=== PATIENT | male | born 1965 | race Caucasian/White ===

== ENCOUNTER 2017-06-08 13:04 | Emergency (ER) | payer MEDICAID, SELFPAY ==
[2017-06-08 13:15] VITALS: BP 119/81; PULSE 90; RESP 22; TEMP 37; O2SAT 97; BMI 33.7
--- NOTE | 2017-06-08 13:20 | HMH.EDUTC ---
[facility] [place] Clinical Impression: Upper respiratory infection Qualifiers: URI type: unspecified URI Qualified Code(s): J06.9 - Acute upper respiratory infection, unspecified Disposition: Home, Self-Care Condition on Discharge: Good Instructions: Cough, DI for Cough -- Adult, DI for Fever (Symptom) -- Adult Additional Instructions: * Monitor Temp. Tylenol and/or Ibuprofen as needed. ER if fever is no less than 101 despite alternating Tylenol and Ibuprofen * Encourage fluids, water, Gatorade, powerade, pedialyte if /toddler/or child * Warm salt water gargles for throat irritation *Warm fluids *Sore throat lozenges *Sleep elevated *humidifier or vaporizer Lots of rest Increase fluids, water, Gatorade, powerade Follow up IMMEDIATELY for new or worsening of symptoms OR no noticeable improvement over the next 48-72 hours. 911 immediately for any life threatening symptoms such as chest pain or difficulty breathing Prescriptions: Azithromycin [Z-Johann 250mg Tab] 250 mg PO UD DOSE PK #6 tab predniSONE [Prednisone 20mg Tab] 20 mg PO BID #10 tab Referrals: Jermain Newman MD [Primary Care Provider] - Time of Disposition: 13:27 Medical Decision Making - Medical Records Medical records reviewed: Yes: I reviewed the patient's medical records. Vital Signs: 06/08/17 13:15 Temperature 98.6 F Temperature Source Temporal Artery Scan Pulse Rate [Right Brachial] 90 Respiratory Rate 22 Blood Pressure [Right Arm] 119/81 Blood Pressure Mean [Right Arm] 93 Blood Pressure Source [Right Arm] Automatic Cuff Blood Pressure Position [Right Arm] Sitting 02 Sat by Pulse Oximetry 97 Oxygen Delivery Method Room Air - Steve Inquiry Pt receiving controlled substance: No Steve was queried for this patient: No [facility] [place] - General Stated complaint: fever achey sore throat Mode of Arrival: Ambulatory Source of Information: Patient Limitations: No Limitations Description of Symptoms (Recalled from Triage Doc. by RN): C/O HOT FLASHES, CONGESTION HEENT Symptoms (Recalled from RN notes): Yes (CONGESTION) Resp Symptoms (Recalled from RN notes): Yes (CONGESTION) Skin Symptoms (Recalled from RN notes): No MS Symptoms (Recalled from RN notes): No Functional Status (Recalled from RN notes): N/A - History of Present Illness Provider Complaint: Patient state that he has been having fever, chills, body aches and pain along with sore throat and nasal congestion State that it has continued to get worse over the last few days States that now he is having cough - Related Data Previous Rx's Medication Instructions Recorded Azithromycin [Z-Johann 250mg Tab] 250 mg PO UD DOSE PK #6 tab 06/08/17 predniSONE [Prednisone 20mg 20 mg PO BID #10 tab 06/08/17 Tab] Allergies Allergy/AdvReac Type Severity Reaction Status Date / Time ibuprofen Allergy Unknown Unverified 05/11/17 14:35 Penicillins Allergy Unknown Unverified 05/11/17 14:35 DEPRESSION MED Allergy Unknown Uncoded 05/11/17 14:35 - Worker's Comp Is this a Worker's Comp case?: No [facility] History I have reviewed the patient's past medical history: Yes Medical History: Reports:: Cancer (RT KIDNEY) Denies:: Diabetes Mellitus Type 1, Diabetes Mellitus Type 2 Amputation: No Fractures: No - *Social History Smoking Status: Current every day smoker Tobacco Type: cigarettes Alcohol Intake: never - Psychiatric History Expresses thoughts of harming self/others: None Suicide Plan Description: No Plan ROS Obtained: Yes All systems reviewed & no additional complaints - Constitutional Constitutional: Reports body ache, Reports chills, Reports fever(s) - ENT Ears, Nose, Mouth, and Throat: Reports sinus pain, Reports sinus pressure, Reports sore throat - Respiratory Respiratory: Yes cough Physical Exam - General General appearance: alert, in no apparent distress - Expanded ENT Exam Nose exam: Present: sinus tenderness Nasal speculum exam: Bilateral: puru
--- NOTE | 2017-06-08 13:23 | ED_ITS ---
[facility] [place] Disposition Clinical Impression: Upper respiratory infection Qualifiers: URI type: unspecified URI Qualified Code(s): J06.9 - Acute upper respiratory infection, unspecified Disposition: Home, Self-Care Condition on Discharge: Good Instructions: Cough, DI for Cough -- Adult, DI for Fever (Symptom) -- Adult Additional Instructions: * Monitor Temp. Tylenol and/or Ibuprofen as needed. ER if fever is no less than 101 despite alternating Tylenol and Ibuprofen * Encourage fluids, water, Gatorade, powerade, pedialyte if /toddler/or child * Warm salt water gargles for throat irritation *Warm fluids *Sore throat lozenges *Sleep elevated *humidifier or vaporizer Lots of rest Increase fluids, water, Gatorade, powerade Follow up IMMEDIATELY for new or worsening of symptoms OR no noticeable improvement over the next 48-72 hours. 911 immediately for any life threatening symptoms such as chest pain or difficulty breathing Prescriptions: Azithromycin [Z-Johann 250mg Tab] 250 mg PO UD DOSE PK #6 tab predniSONE [Prednisone 20mg Tab] 20 mg PO BID #10 tab Referrals: Jermain Newman MD [Primary Care Provider] - Time of Disposition: 13:27 Medical Decision Making - Medical Records Medical records reviewed: Yes: I reviewed the patient's medical records. Vital Signs: 06/08/17 13:15 Temperature 98.6 F Temperature Source Temporal Artery Scan Pulse Rate [Right Brachial] 90 Respiratory Rate 22 Blood Pressure [Right Arm] 119/81 Blood Pressure Mean [Right Arm] 93 Blood Pressure Source [Right Arm] Automatic Cuff Blood Pressure Position [Right Arm] Sitting 02 Sat by Pulse Oximetry 97 Oxygen Delivery Method Room Air - Steve Inquiry Pt receiving controlled substance: No Steve was queried for this patient: No [facility] [place] HPI - General Stated complaint: fever achey sore throat Mode of Arrival: Ambulatory Source of Information: Patient Limitations: No Limitations Description of Symptoms (Recalled from Triage Doc. by RN): C/O HOT FLASHES, CONGESTION HEENT Symptoms (Recalled from RN notes): Yes (CONGESTION) Resp Symptoms (Recalled from RN notes): Yes (CONGESTION) Skin Symptoms (Recalled from RN notes): No MS Symptoms (Recalled from RN notes): No Functional Status (Recalled from RN notes): N/A - History of Present Illness Provider Complaint: Patient state that he has been having fever, chills, body aches and pain along with sore throat and nasal congestion State that it has continued to get worse over the last few days States that now he is having cough - Related Data Previous Rx's Medication Instructions Recorded Azithromycin [Z-Johann 250mg Tab] 250 mg PO UD DOSE PK #6 tab 06/08/17 predniSONE [Prednisone 20mg 20 mg PO BID #10 tab 06/08/17 Tab] Allergies Allergy/AdvReac Type Severity Reaction Status Date / Time ibuprofen Allergy Unknown Unverified 05/11/17 14:35 Penicillins Allergy Unknown Unverified 05/11/17 14:35 DEPRESSION MED Allergy Unknown Uncoded 05/11/17 14:35 - Worker's Comp Is this a Worker's Comp case?: No [facility] History I have reviewed the patient's past medical history: Yes Medical History: Reports:: Cancer (RT KIDNEY) Denies:: Diabetes Mellitus Type 1, Diabetes Mellitus Type 2 Amputation: No Fractures: No - *Social History Smoking Status: Current every day smoker Tobacco Type: cigarett
[2017-06-08 13:24] LABS: UTC Influenza A Antigen Negative (Negative); UTC Influenza B Antigen Negative (Negative)
[2017-06-08 13:34] VITALS: BP 119/81; PULSE 90; RESP 22; TEMP 37; O2SAT 97
== END 2017-06-08 13:39 | disposition home or self-care (01) ==
PROVIDERS: Emergency Provider Nurse Practitioner; PCP Family Medicine
DX: J06.9 Acute upper respiratory infection, unspecified (principal); Z85.528 Personal history of other malignant neoplasm of kidney; Z88.6 Allergy status to analgesic agent; Z88.0 Allergy status to penicillin; F17.210 Nicotine dependence, cigarettes, uncomplicated
CPT/HCPCS: 87804; 99202

== ENCOUNTER → 2017-10-26 06:53 | Outpatient (CLI) | payer MEDICAID, SELFPAY ==
--- NOTE | 2017-10-26 | CA_ITS ---
History and Indications: Cardiac disease, hypertension, hyperlipidemia, tobacco use, family history, chest pain, shortness of breath and fatigue Procedure: Patient received a 0.4 mg of Lexiscan, resting heart rate was 57 bpm resting blood pressure 130/81, with Lexiscan maximum heart rate achieved was 95 bpm which is less than 85% of the maximum predicted heart rate and a blood pressure was 122/87. With Lexiscan patient complained of shortness of breath and jaw pain. Electrocardiogram: Resting electrocardiogram showed sinus bradycardia, with Lexiscan there is less than 1.[address] segment depression noted from the baseline EKG. The EKG portion of the Lexiscan Myoview is nondiagnostic. Cardiac stress and resting SPECT images: Cardiac stress and rest SPECT images were obtained using technetium 99 Myoview 31.0 mCi at stress and 10.1 mCi at rest. Gated SPECT further analysis of segmental wall motion and calculation of the ejection fraction also done. Cardiac stress and resting SPECT images show decreased tracer activity in the inferior and posterobasal wall which improves on the resting images suggestive of reversible ischemia, computer derived ejection fraction 55% with no obvious regional wall motion abnormality, right ventricle is normal size and contractility. Conclusion: 1. The EKG portion of the Lexiscan Myoview is nondiagnostic. 2. Scintigraphic evidence of mild reversible ischemia involving the inferior and posterobasal wall, computer derived ejection fraction is 55% with no obvious regional wall motion abnormality, right ventricle is normal size and contractility. 3. Abnormal Lexiscan Myoview study. This is the Lexiscan Myoview study on patient EVERETT HUANG.
--- NOTE | 2017-10-26 06:54 | CA_ITS ---
PROCEDURE: 2-D M-mode and color Doppler study INDICATIONS FOR THE TEST: Chest pain+ COPD Heart Murmur Tobacco Smoking+ Palpitations+ Fatigue+ Syncope Edema+ Hypertension+Diabetes Mellitus Rheumatic Fever SOB+DINERO+Obesity+Hyperlipidemia Family History HD Additional History stents, dizziness Definity contrast utilized PATIENT INFORMATION HEIGHT: 72 WEIGHT: 247 GENDER: Male B/P: 142/80 2-D/M-MODE INTERPRETATION: 2-D MEASUREMENTS OBSERVED VALUES IN CMS Right Ventricular Dimension (RVDd) 2.1 Interventricular Septum (Thickness)(IVsd) 1.1 Left Ventricular Internal Dimensions(LVIDd) 4.2 Left Ventricular Posterior Wall (Thickness)(LVPWd) 1.2 Aortic Root 3.4 Aortic Cusp Separation 2.1 Left Atrial Dimensions (LAD) 4.0 2D 1. Left atrium is mildly enlarged, left ventricle is normal size, mild concentric left ventricular hypertrophy, visually estimated ejection fraction 55% with no obvious regional wall motion abnormality, Definity contrast was utilized to delineate endocardial surfaces. 2. The right atrium and right ventricle are normal size and contractility. 3. The aortic valve is minimally thickened and fibrosed. 4. The mitral and tricuspid valvular grossly normal. 5. The pulmonic valve is poorly visualized. 6. No significant pericardial effusion noted. DOPPLER INTERROGATION: Doppler interrogation of the aortic, mitral and tricuspid valvular presence of mild mitral and tricuspid regurgitation, tricuspid regurgitant jet velocity is insufficient for calculation of the right ventricular systolic pressure, diastolic parameters are inconclusive. CONCLUSION: 1. Technically difficult study, Definity contrast was utilized. Endocardial surfaces. 2. Normal left ventricular size, mild concentric left ventricular hypertrophy, visually estimated ejection fraction 55% with no obvious regional wall motion abnormality. Diastolic parameters are inconclusive. 3. Mild mitral and tricuspid regurgitation 4. No significant pericardial effusion noted.
--- NOTE | 2017-10-26 06:54 | NM_ITS ---
History and Indications: Coronary artery disease, hypertension, hyperlipidemia, , family history chest pain, shortness of breath and fatigue Procedure: Patient received a 0.4mg Lexiscan, resting heart rate was 59 beats per, resting blood pressure 150/95, with Lexiscan maximum heart rate was 97 bpm which is less than 85% of the maximum predicted heart rate and a blood pressure 154/84. With Lexiscan patient complained of mild nausea and dizziness. Electrocardiogram: Resting electrocardiogram showed sinus bradycardia, with Lexiscan less than 1.5 ST segment depression noted from the baseline EKG. The EKG portion of the Lexiscan Myoview is nondiagnostic. Cardiac stress and resting SPECT images: Cardiac stress and rest SPECT images were obtained using technetium 99 Myoview 9.4 mCi at stress than 10.7 mCi at rest. Gated SPECT further analysis of segmental wall motion and calculation of the ejection fraction also done. Cardiac stress and the suspect images show reduced tracer activity in the inferior and posterobasal wall which partially improves on the resting images suggestive of mixed ischemia and scar in that area. Computer derived ejection fraction is 43% with moderate inferior and posterobasal wall hypokinesis. Right ventricle is normal size and contractility. Conclusion: 1. The EKG portion of the Lexiscan Myoview is nondiagnostic. 2. Scintigraphic evidence of ischemia and involving the inferior and posterobasal wall, computer derived ejection fraction is 43% with segmental wall motion abnormality described above, right ventricle is normal size and contractility. 3. Abnormal Lexiscan Myoview study.
== END ==
PROVIDERS: PCP Nurse Practitioner; Visit Provider Internal Medicine Cardiovascular Disease
DX: Z01.810 Encounter for preprocedural cardiovascular examination (principal); I25.10 Atherosclerotic heart disease of native coronary artery without angina pectoris; I11.9 Hypertensive heart disease without heart failure; R53.83 Other fatigue; F17.200 Nicotine dependence, unspecified, uncomplicated
CPT/HCPCS: 78452; 93017; 93306; A9502; J2785

== ENCOUNTER → 2017-10-27 11:25 | Outpatient (CLI) | payer MEDICAID, SELFPAY | PROVIDERS: PCP Nurse Practitioner; Visit Provider Physician Assistant | DX: R07.9 Chest pain, unspecified (principal); I11.9 Hypertensive heart disease without heart failure; I25.10 Atherosclerotic heart disease of native coronary artery without angina pectoris | CPT/HCPCS: 93225; 93226 ==

== ENCOUNTER 2017-12-02 09:51 | Outpatient (RCR) | payer MEDICAID, SELFPAY | END 2018-01-07 13:06 | disposition home or self-care (01) | LOC: PT 09:51 | PROVIDERS: Visit Provider Internal Medicine | DX: Z95.5 Presence of coronary angioplasty implant and graft (principal) | CPT/HCPCS: 93798 ==

== ENCOUNTER → 2017-12-06 14:16 | Outpatient (CLI) | payer MEDICAID, SELFPAY ==
--- NOTE | 2017-12-06 14:21 | XR_ITS ---
EXAM: XR lumbar spine min 4V HISTORY: Diffuse low back pain ITS.REASON: DORSALGIA ORDERING PHYSICIAN: Ama Omer PATIENT AGE: 52 years COMPARISON: 11/18/2007 FINDINGS: The study is compared with the previous CT scan lumbar spine from October 2007. Curvature and alignment appear normal except for very mild diffuse levoscoliotic curvature between T12 and L5. All lumbar vertebrae appear intact. There are stable mild disc space narrowing at L4-5 level. Remaining disc spaces appear normal. There is no pars defect. There are minor hypertrophic facet changes at the L4-5 and L5-S1 levels. The SI joints are normal. . IMPRESSION: Stable minor degenerative disc disease L4-5 along with minor hypertrophic facet changes lower lumbar spine
== END ==
PROVIDERS: PCP Nurse Practitioner; Visit Provider Nurse Practitioner
DX: M54.9 Dorsalgia, unspecified (principal)
CPT/HCPCS: 72110

== ENCOUNTER → 2017-12-30 09:14 | Outpatient (CLI) | payer MEDICAID, SELFPAY ==
--- NOTE | 2017-12-30 09:18 | CT_ITS ---
CT abdomen pelvis w con CLINICAL INDICATION: Right groin pain ITS.REASON: IV and oral contrast ORDERING PHYSICIAN: Timothy Redman MD PATIENT AGE: 52 years COMPARISON: 11/12/2015 TECHNIQUE: Axial images obtained with sagittal and coronal reformats. All CT scans at the facility use one or more dose reduction, viz: automated exposure control, ma/kV adjustment per patient size (including targeted exams where dose is matched to indication, i.e. head), or iterative reconstruction technique. PROCEDURE: Oral Contrast: Redicat IV Contrast: 75 mL's of Isovue-370. FINDINGS: Lung bases are clear. The liver, gallbladder, spleen, left adrenal gland, pancreas, and left kidney have an unremarkable appearance. A 12 mm nodule projects off the posterior aspect of the adrenal gland on the right unchanged. There has been a prior right nephrectomy. No evidence of mass or abnormal fluid collection in the right nephrectomy bed. Unremarkable appendix. No intestinal obstruction, free air, or abnormal bowel thickening. No evidence of diverticulitis. No pelvic mass or abnormal fluid collection or focal inflammatory change evident. There is increased soft tissue density in the right inguinal region similar to the previous study and may represent postsurgical changes. No evidence of recurrent inguinal hernia. There is a small umbilical hernia containing fat. There are small lymph nodes in the right inguinal area nonspecific not significantly changed IMPRESSION: 1. Overall stable CT appearance of the abdomen and pelvis compared to 11/12/2015. 2. Prior right nephrectomy with no change in the right adrenal nodule. 3. Soft tissue density in the right inguinal region similar to the previous exam consistent with postsurgical change from prior inguinal surgery. No evidence of inguinal hernia
--- NOTE | 2017-12-30 10:00 | HMH.ITSHM ---
BISOPROLOL PRASUGREL ASA
== END ==
PROVIDERS: PCP Nurse Practitioner; Visit Provider Surgery
DX: R10.31 Right lower quadrant pain (principal); K40.91 Unilateral inguinal hernia, without obstruction or gangrene, recurrent
CPT/HCPCS: 74177; Q9967

== ENCOUNTER → 2018-02-14 14:35 | Outpatient (POV) | payer MEDICAID, SELFPAY ==
[2018-02-14 14:53] VITALS: BP 126/86; PULSE 61; RESP 18; O2SAT 98
--- NOTE | 2018-02-14 15:58 | HMH.PMCON ---
Assessment and Plan (1) CRPS (complex regional pain syndrome type I) Current visit: Yes Status: Chronic Qualifiers: Complex regional pain syndrome affected site: other site Qualified Code(s): G90.59 - Complex regional pain syndrome I of other specified site Category: Medical Code(s): G90.50 - Complex regional pain syndrome I, unspecified - Assessment and plan all Dx Assessment and Plan for all problems:: I gave the patient information on DRG along with an overview of neuro stimulation. Believe it would be beneficial for him. Patient would like to review this and will get back to us in regards to if he wants to pursue this or not. This note was dictated using voice recognition software and may contain errors or omissions HPI - Data of Consult Consult date: 02/14/18 Requesting Physician: Jacklyn Zaidi APRN Primary Care Provider: Ama Chan Provider: Referral Provider, MD - Consult Narrative Reason for consult: Right groin pain History of present illness: Mr. Santos is a 52 year old male who presents today for consultation in regards to his right groin pain. Patient had hernia surgery back in 2013. Since then patient has had continual right groin pain and testicular pain. Patient states lifting increases pain while resting and smoking marijuana decreases his pain. He rates his pain a 7 out of 10 today. Patient states that he has tried and failed ibuprofen and Flexeril. Patient is on indomethacin which does help somewhat. Patient status post kidney cancer and is monitored for kidney function. Patient and I discussed DRG and neuro stimulation. CC: Jacklyn Zaidi APRN [facility] History I have reviewed the patient's past medical history: Yes Medical History: Reports:: Cancer Denies:: Diabetes Mellitus Type 1, Diabetes Mellitus Type 2, Internal Pacemaker, Seizures Other Surgeries: Yes: Hernia Repair, Other. No: Pacemaker Amputation: No Fractures: No - *Social History Smoking Status: Current every day smoker Tobacco Type: cigarettes Alcohol Intake: never Alcohol Intake Frequency:: other Substance Use Type: marijuana Last Used Substance: unknown Occupational Status: employed Housing: house Household Members: spouse - Psychiatric History Expresses thoughts of harming self/others: None Suicide Plan Description: No Plan *Family Hx:: No significant family history Review of Systems - Review of Systems ROS General: no recent weight change, no fever, no sleep disturbances Respiratory: no cough, no shortness of air, no recurring pulmonary infections Cardiovascular/Peripheral Vascular: No chest pain, No palpitations, no edema, no shortness of breath. Gastrointestinal: no incontinence, normal bowel movements reported Genitourinary: no incontinence Musculoskeletal: Right groin pain, back pain Psychiatric: normal mood/ affect Neurological: [denies weakness in extremities], [denies balance issues] Meds Home Medications Medication Instructions Recorded Confirmed Type aspirin 81 mg tablet,delayed 81 mg PO DAILY tab 08/12/17 History release atorvastatin 40 mg tablet 40 mg PO DAILY tab 08/12/17 History polyethylene glycol 3350 17 17 g PO DAILY g 08/12/17 History gram/dose oral powder prasugrel 10 mg tablet 10 mg PO DAILY tab 08/12/17 History bisoprolol fumarate 5 mg tablet 2.5 mg PO DAILY tab 11/05/17 History Allergies Allergy/AdvReac Type Severity Reaction Status Date / Time ibuprofen Allergy Unknown Verified 12/27/17 10:11 Penicillins Allergy Unknown Verified 12/27/17 10:11 DEPRESSION MED Allergy Unknown Uncoded 12/27/17 10:11 Objective Vital signs: Pulse Resp BP Pulse Ox 61 18 126/86 98 02/14/18 14:53 02/14/18 14:53 02/14/18 14:53 02/14/18 14:53 Narrative: Physical Exam General: Alert and oriented x3, no acute distress, pleasant and cooperative, [on room air] Lungs: Resps E/U, Symmetrical chest
--- NOTE | 2018-02-14 16:01 | P.CONS_ITS ---
Assessment and Plan (1) CRPS (complex regional pain syndrome type I) Current visit: Yes Status: Chronic Qualifiers: Complex regional pain syndrome affected site: other site Qualified Code(s): G90.59 - Complex regional pain syndrome I of other specified site Category: Medical Code(s): G90.50 - Complex regional pain syndrome I, unspecified - Assessment and plan all Dx Assessment and Plan for all problems:: I gave the patient information on DRG along with an overview of neuro stimulation. Believe it would be beneficial for him. Patient would like to review this and will get back to us in regards to if he wants to pursue this or not. This note was dictated using voice recognition software and may contain errors or omissions HPI - Data of Consult Consult date: 02/14/18 Requesting Physician: Jacklyn Zaidi APRN Primary Care Provider: Ama Chan Provider: Referral Provider, MD - Consult Narrative Reason for consult: Right groin pain History of present illness: Mr. Santos is a 52 year old male who presents today for consultation in regards to his right groin pain. Patient had hernia surgery back in 2013. Since then patient has had continual right groin pain and testicular pain. Patient states lifting increases pain while resting and smoking marijuana decreases his pain. He rates his pain a 7 out of 10 today. Patient states that he has tried and failed ibuprofen and Flexeril. Patient is on indomethacin which does help somewhat. Patient status post kidney cancer and is monitored for kidney function. Patient and I discussed DRG and neuro stimulation. CC: Jacklyn Zaidi APRN [facility] History I have reviewed the patient's past medical history: Yes Medical History: Reports:: Cancer Denies:: Diabetes Mellitus Type 1, Diabetes Mellitus Type 2, Internal Pacemaker, Seizures Other Surgeries: Yes: Hernia Repair, Other. No: Pacemaker Amputation: No Fractures: No - *Social History Smoking Status: Current every day smoker Tobacco Type: cigarettes Alcohol Intake: never Alcohol Intake Frequency:: other Substance Use Type: marijuana Last Used Substance: unknown Occupational Status: employed Housing: house Household Members: spouse - Psychiatric History Expresses thoughts of harming self/others: None Suicide Plan Description: No Plan *Family Hx:: No significant family history Review of Systems - Review of Systems ROS General: no recent weight change, no fever, no sleep disturbances Respiratory: no cough, no shortness of air, no recurring pulmonary infections Cardiovascular/Peripheral Vascular: No chest pain, No palpitations, no edema, no shortness of breath. Gastrointestinal: no incontinence, normal bowel movements reported Genitourinary: no incontinence Musculoskeletal: Right groin pain, back pain Psychiatric: normal mood/ affect Neurological: [denies weakness in extremities], [denies balance issues] Meds Home Medications Medication Instructions Recorded Confirmed Type aspirin 81 mg tablet,delayed 81 mg PO DAILY tab 08/12/17 History release atorvastatin 40 mg tablet 40 mg PO DAILY tab 08/12/17 History polyethylene glycol 3350 17 17 g PO DAILY g 08/12/17 History gram/dose oral powder prasugrel 10 mg tablet 10 mg PO DAILY tab 08/12/17 History bisoprolol fumarate 5 mg tablet 2.5 mg PO DAILY tab 11/05/17 History
== END ==
PROVIDERS: PCP Nurse Practitioner; Visit Provider Clinical Nurse Specialist Family Health
DX: G90.50 Complex regional pain syndrome I, unspecified (principal)
CPT/HCPCS: 99202

== ENCOUNTER → 2018-03-01 14:25 | Outpatient (CLI) | payer MEDICAID, SELFPAY | PROVIDERS: PCP Nurse Practitioner; Visit Provider Internal Medicine Cardiovascular Disease | DX: G47.33 Obstructive sleep apnea (adult) (pediatric) (principal); G47.9 Sleep disorder, unspecified; F17.200 Nicotine dependence, unspecified, uncomplicated; I11.9 Hypertensive heart disease without heart failure; I25.110 Atherosclerotic heart disease of native coronary artery with unstable angina pectoris; R06.83 Snoring | CPT/HCPCS: 95806 ==

== ENCOUNTER → 2018-03-23 09:20 | Outpatient (CLI) | payer MEDICAID, SELFPAY ==
--- NOTE | 2018-03-23 | NVE_ITS ---
Venous Exam Indications: 729.5 Pain in limb. IMPRESSIONS No evidence of deep or superficial vein thrombosis involving the left lower extremity History: Left lower extremity pain. Risk factors: Current tobacco use. Hypertension. Patient denies trauma. Labs, prior tests, procedures, and surgery: Catheterization (October 2017). The study demonstrated coronary artery disease. Labs, prior tests, procedures, and surgery: Catheterization (October 2017). The study demonstrated coronary artery disease. Left lower extremity venous duplex evaluation. Doppler flow study including spectral analysis, color and plunkett scale imaging. Location: Vascular laboratory. Patient status: Outpatient. Tables: Venous flow and imaging: + +-------+ + Location Overall Flow properties + +-------+ + Left common femoral Patent Normal phasicity; spontaneous; normal augmentation; compressible + +-------+ + Left saphenofemoral junction Patent Compressible + +-------+ + Left profunda femoral Patent Compressible + +-------+ + Left femoral Patent Normal phasicity; spontaneous; normal augmentation; compressible + +-------+ + Left greater saphenous Patent Normal phasicity; spontaneous; normal augmentation; compressible + +-------+ + Left popliteal Patent Normal phasicity; spontaneous; normal augmentation; compressible + +-------+ + Left posterior tibial Patent Compressible + +-------+ + Left peroneal Patent Compressible + +-------+ + Left gastrocnemius Patent Compressible + +-------+ + Left soleal Patent Compressible + +-------+ + (Report amended ) Electronically signed by: Shar Beard [id number]
== END ==
PROVIDERS: PCP Nurse Practitioner; Visit Provider Nurse Practitioner
DX: M79.605 Pain in left leg (principal)
CPT/HCPCS: 93971

== ENCOUNTER 2018-05-15 07:32 | Observation (INO) ==
[2018-05-15 07:47] LABS: Basophils # 0.1 K/mm3 (0-0.2); Basophils % 1.1 % (0.1-2.0); Eosinophils # 0.3 K/mm3 (0.0-0.4); Eosinophils % 3.1 % (0.1-12.0); Hematocrit 47.6 % (42.0-52.0); Lymphocytes # 2.6 K/mm3 (0.7-4.5); Mean Corpuscular HGB Conc 33.7 g/dL (31.8-35.4); Mean Corpuscular Hemoglobin 28.7 pg (27.0-31.2); Mean Corpuscular Volume 85.3 fl (80-94); Mean Platelet Volume 6.6 fl (7.4-10.4); Monocytes # 0.5 K/mm3 (0.1-1.0); Monocytes % 5.4 % (1.7-9.3); Neutrophils # 5.1 K/mm3 (1.8-7.8); Neutrophils % 59.4 % (37.0-80.0); Platelet Count 230 K/mm3 (142-424); Red Blood Count 5.58 M/mm3 (4.60-6.20); Red Cell Distribution Width 13.8 % (11.5-17.5); White Blood Count 8.5 K/mm3 (4.8-10.8)
--- NOTE | 2018-05-15 08:05 | Emergency Department Note ---
ED Disposition Clinical Impression: Chest pain due to coronary artery disease Disposition: Admitted as Observation Condition on Discharge: Serious Time of Disposition: 08:30 - Critical Care Critical Care Time: No Attestation: On 05/15/18, the high probability of a clinically significant, sudden or life threatening deterioration of the following system(s) required my full and direct attention, intervention and personal management. The time I documented below is in addition to time spent performing reported procedures but includes the following listed in this critical care notation. Medical Decision Making - Medical Records Medical records reviewed: Yes: I reviewed the patient's medical records. - Steve Inquiry Pt receiving controlled substance: No Steve was queried for this patient: No Vital Signs: 05/15/18 07:33 05/15/18 07:34 05/15/18 07:47 Temperature 97.9 F Temperature Source Oral Pulse Rate 59 L Pulse Rate [Apical] Pulse Rate [Left Radial] 59 L 59 L Respiratory Rate 18 18 Blood Pressure Blood Pressure [Right Arm] 145/89 H 118/79 Blood Pressure Mean [Right Arm] 107 92 Blood Pressure Source [Right Arm] Automatic Cuff Automatic Cuff Blood Pressure Position Blood Pressure Position [Right Arm] Sitting Sitting 02 Sat by Pulse Oximetry 94 L 94 L Oxygen Delivery Method Room Air Room Air 05/15/18 07:50 05/15/18 07:56 05/15/18 08:35 Temperature Temperature Source Pulse Rate Pulse Rate [Apical] Pulse Rate [Left Radial] 51 L Respiratory Rate Blood Pressure Blood Pressure [Right Arm] 136/79 126/75 122/74 Blood Pressure Mean [Right Arm] 98 92 90 Blood Pressure Source [Right Arm] Automatic Cuff Automatic Cuff Blood Pressure Position Blood Pressure Position [Right Arm] Sitting 02 Sat by Pulse Oximetry 97 Oxygen Delivery Method Room Air 05/15/18 08:38 05/15/18 09:00 05/15/18 09:03 Temperature 98 F Temperature Source Oral Pulse Rate 59 L Pulse Rate [Apical] 52 L Pulse Rate [Left Radial] 58 L 59 L Respiratory Rate 16 16 16 Blood Pressure 138/84 Blood Pressure [Right Arm] 118/84 141/58 H Blood Pressure Mean [Right Arm] 95 85 Blood Pressure Source [Right Arm] Automatic Cuff Automatic Cuff Blood Pressure Position Sitting Blood Pressure Position [Right Arm] Sitting Sitting 02 Sat by Pulse Oximetry 97 100 Oxygen Delivery Method Room Air Room Air Room Air - Lab Data Lab results reviewed: Yes: I reviewed the patient's lab results. Lab Results 05/15/18 07:35: WBC 8.5, RBC 5.58, Hgb 16.0, Hct 47.6, MCV 85.3, MCH 28.7, MCHC 33.7, RDW 13.8, Plt Count 230, MPV 6.6 L, Neut % (Auto) 59.4, Lymph % (Auto) 31.0, [place] % (Auto) 5.4, Eos % (Auto) 3.1, Baso % (Auto) 1.1, Neut # (Auto) 5.1, Lymph # (Auto) 2.6, [place] # (Auto) 0.5, Eos # (Auto) 0.3, Baso # (Auto) 0.1 05/15/18 07:35: Sodium 139, Potassium 3.9, Chloride 103, Carbon Dioxide 25, A nion Gap 11.5, BUN 16, Creatinine 1.23, Estimated Creat Clear 111, Estimated GFR 61, Est GFR ( Amer) 74, Glucose 148 H, Calcium 8.5, Troponin I 0.78 H Result diagrams: 05/15/18 07:35 05/15/18 07:35 Orders (Tests/Meds): ED MEDICATIONS Discontinued Medications Generic Name Dose Route Start Last Admin Trade Name Cal PRN Reason Stop Dose Admin Aspirin 324 mg 05/15/18 07:36 05/15/18 07:42 Aspirin 81mg Chewable Tablet PO 05/15/18 07:37 324 mg ONCE ONE Administration Aspirin 81 mg 05/15/18 09:00 Aspirin 81mg Enteric Coated Tablet PO 06/14/18 08:59 DAILY YSABEL Aspirin 81 mg 05/15/18 09:00 05/16/18 08:34 Aspirin 81mg Enteric Coated Tablet PO 06/14/18 08:59 81 mg DAILY YSABEL Administration Atorvastatin Calcium 40 mg 05/15/18 09:00 Lipitor 40mg Tablet PO 06/14/18 08:59 DAILY YSABEL Atorvastatin Calcium 40 mg 05/15/18 21:00 05/15/18 21:47 Lipitor 40mg Tablet PO 06/14/18 20:59 40 mg HS YSABEL Administration Bisoprolol Fumarate 2.5 mg 05/15/18 09:00 Zebeta 5mg Tablet PO 06/14/18 08:59 DAILY YSABEL Bisoprolol Fumarate 2.5 mg 05/15/18 09:00 05/16/18 08:52 Zebeta 5mg Tablet PO 06/14/18 08:59 2.5 mg DAILY YSABEL Administration Diphenhydramine HCl 50 mg 05/15/18 14:23 05/15/18 15:04 Benadryl 50mg/1ml Vial IV 05/15/18 14:24 50 mg ONCE ONE Administration Fentanyl Citrate 50 mcg 05/15/18 14:23 Fentanyl 100mcg/2ml Vial IV 05/16/18 14:24 Q3MINP PRN Moderate to Severe Pain Fentanyl Citrate 25 mcg 05/15/18 14:23 Fentanyl 250mcg/5ml Vial IV 05/16/18 14:23 Q3MINP PRN Moderate to Severe Pain Fentanyl Citrate 50 mcg 05/15/18 14:23 Fentanyl 250mcg/5ml Vial IV 05/16/18 14:23 Q3MINP PRN Moderate to Severe Pain Fentanyl Citrate 25 mcg 05/15/18 14:23 05/15/18 15:41 Fentanyl 100mcg/2ml Vial IV 05/16/18 14:23 25 mcg Q3MINP PRN Administration Moderate to Severe Pain Flumazenil 0.2 mg 05/15/18 14:23 Romazicon 0.1mg/Ml 5ml Vial IV 05/15/18 23:00 NEEDED PRN Sedation Heparin Sodium (Porcine) 10,000 unit 05/15/18 14:23 05/15/18 15:05 Heparin 1,000 Units/Ml 10ml Vial (Ham Sawyer) IV 05/15/18 18:23 12,000 unit NEEDED PRN Administration Emergency Box Gasoline Attendant Heparin Sodium/Sodium Chloride 3,000 unit 05/15/18 14:23 05/15/18 15:04 Heparin 1000 Units/500ml Ns (Ham Sawyer) IV 05/15/18 14:24 3,000 unit ONCE ONE Administration Sodium Chloride 1,000 mls @ 25 mls/hr 05/15/18 14:30 05/15/18 15:04 Sod Chlor 0.9% 1000ml Bag IV 05/16/18 14:23 25 mls/hr .Q25H YSABEL Administration Iopamidol 80 ml 05/15/18 15:54 05/15/18 21:36 Rad-Isovue 370; 150ml IV 05/15/18 15:55 Not Given ONCE ONE Protocol Lidocaine HCl 20 ml 05/15/18 14:23 05/15/18 15:04 Lidocaine 1% 20ml Mdv IJ 05/15/18 14:24 10 ml ONCE ONE Administration Midazolam HCl 1 mg 05/15/18 14:23 Midazolam 2mg/2ml Vial IV 05/16/18 14:23 Q3MINP PRN Sedation Midazolam HCl 1 mg 05/15/18 14:23 05/15/18 15:32 Midazolam 1mg/Ml 5ml Vial IV 05/16/18 14:23 7 mg Q3MINP PRN Administration Sedation Morphine Sulfate 4 mg 05/15/18 08:31 05/15/18 08:39 Morphine 4mg/Ml Syringe IV 05/15/18 08:32 4 mg ONCE ONE Administration Morphine Sulfate 4 mg 05/15/18 08:50 05/15/18 12:13 Morphine 4mg/Ml Syringe IV 06/14/18 08:49 4 mg Q4HP PRN Administration Chest Pain Naloxone HCl 0.4 mg 05/15/18 14:23 Narcan 0.4mg/Ml Vial IV 05/16/18 14:23 Q5MINP PRN Decreased respirations Nitroglycerin 0.4 mg 05/15/18 07:37 05/15/18 07:51 Nitrostat 0.4mg Sl Tablet SL 05/15/18 07:38 0.4 mg ONCE ONE Administration Nitroglycerin 800 mcg 05/15/18 14:23 Nitroglycerin 800mcg/8ml Syr (Ham Sawyer) IV 05/16/18 14:23 NEEDED PRN Emergency Box Gasoline Attendant Ondansetron HCl 4 mg 05/15/18 14:14 05/15/18 16:20 Zofran 4mg/2ml Vial IV 06/14/18 14:13 4 mg Q4HP PRN Administration Nausea And Vomiting Prasugrel 10 mg 05/15/18 09:00 Effient 10mg Tablet PO 06/14/18 08:59 DAILY YSABEL Prasugrel 10 mg 05/15/18 09:00 05/16/18 08:34 Effient 10mg Tablet PO 06/14/18 08:59 10 mg DAILY YSABEL Administration Promethazine HCl 25 mg 05/15/18 15:09 05/15/18 15:32 Phenergan 25mg/Ml 1ml Vial IV 05/15/18 15:10 25 mg ONCE ONE Administration Sodium Chloride 10 ml 05/15/18 07:34 Saline Flush 10ml Syringe IV 06/14/18 07:33 NEEDED PRN Maintain IV Site Sodium Chloride 10 ml 05/15/18 08:50 Saline Flush 10ml Syringe IV 06/14/18 07:33 NEEDED PRN Maintain IV Site Sodium Chloride 10 ml 05/15/18 14:23 Saline Flush 10ml Syringe IV 06/14/18 14:22 NEEDED PRN Maintain IV Site Sodium Chloride 10 ml 05/15/18 14:23 Saline Flush 10ml Syringe IV 06/14/18 14:22 NEEDED PRN Maintain IV Site Sodium Chloride 25 ml 05/15/18 15:09 Sod Chlor 0.9% 25ml Bag IV 06/14/18 15:08 NEEDED PRN for Use with IV Promethazine Ticagrelor 180 mg 05/15/18 08:28 05/15/18 08:39 Brilinta 90mg Tablet PO 05/15/18 08:29 180 mg ONCE ONE Administration Verapamil HCl 2.5 mg 05/15/18 14:23 05/15/18 15:04 Verapamil 2.5mg/Ml 2ml Vial IV 05/15/18 14:24 2.5 mg ONCE ONE Administration - ECG Data Tracing #1 normal ekg ECG initial impression date: 05/15/18 ECG initial impression time: 07:30 Chest Pain HPI - General Chief Complaint: Chest Pain Stated Complaint: chest pain Time Seen by Provider: 05/15/18 08:00 Mode of Arrival: Ambulatory Limitations: No Limitations Description of Symptoms (Recalled from ER Triage Doc. by RN): to ed per pvt car with c/o lt side chest pressure x 3 days, radiates lt shoulder, +SOB, +nausea, denies any diaphoresis. pt with hx of coronary stents jan 2017. cpta none - History of Present Illness HPI narrative: 3 days of left sided chest pressure, " I thought it was a panic attack". No known provocators. No history of cardiac intervention. MD complaint: chest pain Activity at onset: light activity Pain location: left chest Severity: mild Severity scale (1-10): 3 Risk Factors for CAD: Hypertension, Hypercholesterolemia, Family Hx of CAD, Smoking Treatments prior to or on arrival for Cardiac Chest Pain: aspirin, nitroglycerin - Related Data Prior Cardiac Testing/Procedures: Echocardiogram, Stenting, CTA Chest/CTA Coronary Angiography Home Medications Medication Instructions Recorded Confirmed aspirin 81 mg tablet,delayed 81 mg PO DAILY tab 08/12/17 05/20/18 release polyethylene glycol 3350 17 17 g PO DAILY g 08/12/17 05/20/18 gram/dose oral powder RX: Bisoprolol Fumarate [Zebeta 5 mg PO DAILY 05/15/18 05/20/18 5mg tablet] RX: Prasugrel HCl [Prasugrel 10mg 10 mg PO DAILY 05/15/18 05/20/18 Tab] indomethacin 50 mg capsule 50 mg PO BID PRN 05/20/18 05/20/18 Previous Rx's Medication Instructions Recorded RX: Atorvastatin Calcium [Lipitor 40 mg PO HS #30 tab 05/16/18 40mg Tablet] Allergies Allergy/AdvReac Type Severity Reaction Status Date / Time venlafaxine [From Effexor] Allergy Intermediate Verified 05/20/18 09:59 ibuprofen Allergy Unknown Verified 05/20/18 09:59 Penicillins Allergy Unknown Verified 05/20/18 09:59 DEPRESSION MED Allergy Unknown Uncoded 02/17/18 13:28 [facility] History - Hepatitis A Screen Drug use history?: No High risk sexual behaviors?: No History of sexually transmitted infection?: No Currently employed?: No Childcare worker?: No Do you have indoor plumbing?: Yes Do you have electricity?: Yes Attestation statement:: This patient has been screened for Hepatitis A risk factors. I have reviewed the patient's past medical history: Yes Medical History: Reports:: Cancer Denies:: Diabetes Mellitus Type 1, Diabetes Mellitus Type 2, Internal Pacemaker, Seizures Other Surgeries: Yes: Angioplasty, Hernia Repair, Other. No: Pacemaker Amputation: No Fractures: No - Social History Smoking Status: Current every day smoker Tobacco Type: cigarettes # Packs/Day (cigarettes): 2 Alcohol Intake: never Alcohol Intake Frequency:: other Substance Use Type: marijuana Occupational Status: employed Housing: house Household Members: spouse - Psychiatric History Expresses thoughts of harming self/others: None Suicide Plan Description: No Plan Family Hx:: No significant family history ROS Obtained: Yes All systems reviewed & no additional complaints - Constitutional Constitutional: Denies chills, Denies fatigue - Eyes Eyes: Denies change in vision - ENT Ears, Nose, Mouth, and Throat: Reports system reviewed and no additional complaints, except as docu, Denies difficulty swallowing - Cardiovascular Cardiovascular: Reports chest pain, Reports chest pain at rest, Denies diaphoresis, Denies dyspnea, Denies dyspnea on exertion, Denies lightheadedness, Denies shortness of breath when lying down, Denies shortness of breath causing sudden awakening - Respiratory Respiratory: Yes system reviewed and no additional complaints, except as docu, No chest congestion, No cough, No dyspnea on exertion, No coughing up blood, No pain on inspiration, No pain with cough - Gastrointestinal Gastrointestingal: Denies: system reviewed and no additional complaints, except as docu, abdominal pain, black, tarry stools, vomiting - Genitourinary Male Genitourinary: Denies difficulty urinating - Integumentary/Breasts Skin/Breast: Denies rash - Neurologic Neurologic: Denies weakness Physical Exam - General General appearance: alert - Head Head exam: atraumatic, normocephalic, normal inspection - Eye Eye exam: Present: normal appearance, PERRL, EOMI - ENT ENT exam: Present: normal exam, normal oropharynx, mucous membranes moist, TM's normal bilaterally, normal external ear exam - Neck Neck exam: Present: normal inspection, full ROM, trachea midline. Absent: meningismus, lymphadenopathy - Chest Chest inspection: Present: normal inspection, symmetric chest wall rise. Absent: tenderness - Respiratory Respiratory exam: Present: normal lung sounds bilaterally. Absent: respiratory distress - Cardiovascular Cardiovascular exam: Present: regular rate, normal rhythm. Absent: JVD - Abdominal Exam Abdominal exam: Present: soft, normal bowel sounds. Absent: distention, tenderness, guarding - Extremities Exam Extremities exam: Present: normal inspection, full ROM, normal capillary refill. Absent: calf tenderness - Back Exam Back exam: Present: normal inspection. Absent: tenderness - Neurological Exam Neurological exam: Present: alert, oriented X3 - Psychiatric Psychiatric exam: Present: normal affect, normal mood - Skin Skin exam: Present: warm, dry, intact, normal color - Lymphatic Lymphatic Findings: no adenopathy
[2018-05-15 08:07] LABS: Anion Gap 11.5 mEq/L (5-15); Calcium 8.5 mg/dL (8.5-10.1); Potassium 3.9 mmoL/L (3.5-5.1)
--- NOTE | 2018-05-15 09:24 | History & Physical Report ---
*Admission Date: 05/15/18 *Chief complaint: Chest pain/non-STEMI *History of present illness: 52-year-old white male with history of tobacco use disorder, previous coronary disease with stent placement in June of this year and chronic anxiety disorder who for 3 days has had increasing problems with chest pain and pressure. He initially thought it was related to panic attacks and did not tell his family but notices that when he smokes a cigarette the chest pain intensifies. Told his family this morning and they encouraged him to come to the emergency department. Troponin levels in the emergency department were elevated, he is admitted to hospital for non-STEMI and cardiac catheterization. [facility] History I have reviewed the patient's past medical history: Yes Medical History: Reports:: Cancer, Coronary Artery Disease Denies:: Diabetes Mellitus Type 1, Diabetes Mellitus Type 2, Internal Pacemaker, Seizures Other Surgeries: Yes: Angioplasty, Hernia Repair, Other. No: Pacemaker Amputation: No Fractures: No - *Social History Smoking Status: Current every day smoker Tobacco Type: cigarettes # Packs/Day (cigarettes): 2 Alcohol Intake: never Alcohol Intake Frequency:: other Substance Use Type: marijuana Occupational Status: employed Housing: house Household Members: spouse - Psychiatric History Expresses thoughts of harming self/others: None Suicide Plan Description: No Plan *Family Hx:: No significant family history Review of Systems - Review of Systems Review of systems:: pertinent systems reviewed and negative unless documented below - Constitutional Denies anorexia, Denies body ache(s), Denies fever(s) - Eyes Denies blind spots, Denies blurry vision - ENT Denies abnormal hearing, Denies bleeding gums - *Cardiovascular Reports chest pain, Reports chest pain at rest, Reports chest pain with activity, Reports shortness of breath, Reports shortness of breath with activity, Denies irregular heart rhythm, Denies leg swelling, Denies leg sores - *Respiratory Denies change in phlegm color, Denies cough - *Gastrointestinal Denies abdominal pain, Denies belching, Denies bloating - *Genitourinary Denies difficulty urinating - Integumentary/Breasts Denies acne, Denies hair loss - *Neurologic Denies abnormal walking, Denies weakness Meds Home Medications Medication Instructions Recorded Confirmed Type aspirin 81 mg tablet,delayed 81 mg PO DAILY tab 08/12/17 05/15/18 History release polyethylene glycol 3350 17 17 g PO DAILY g 08/12/17 05/15/18 History gram/dose oral powder Bisoprolol Fumarate [Zebeta 5mg 2.5 mg PO DAILY 05/15/18 05/15/18 History tablet] Prasugrel HCl [Prasugrel 10mg 10 mg PO DAILY 05/15/18 05/15/18 History Tab] Allergies Allergy/AdvReac Type Severity Reaction Status Date / Time venlafaxine [From Effexor] Allergy Intermediate Verified 02/17/18 13:33 ibuprofen Allergy Unknown Verified 02/17/18 13:28 Penicillins Allergy Unknown Verified 02/17/18 13:28 DEPRESSION MED Allergy Unknown Uncoded 02/17/18 13:28 Exam Vital signs and Labs for Last 24 Hours: Temp Pulse Resp BP Pulse Ox 98.0 F 51 L 18 141/58 H 100 05/15/18 09:05 05/15/18 09:05 05/15/18 09:05 05/15/18 09:05 05/15/18 09:05 Laboratory Results - last 24 hr 05/15/18 07:35: WBC 8.5, RBC 5.58, Hgb 16.0, Hct 47.6, MCV 85.3, MCH 28.7, MCHC 33.7, RDW 13.8, Plt Count 230, MPV 6.6 L, Neut % (Auto) 59.4, Lymph % (Auto) 31.0, [place] % (Auto) 5.4, Eos % (Auto) 3.1, Baso % (Auto) 1.1, Neut # (Auto) 5.1, Lymph # (Auto) 2.6, [place] # (Auto) 0.5, Eos # (Auto) 0.3, Baso # (Auto) 0.1 05/15/18 07:35: Sodium 139, Potassium 3.9, Chloride 103, Carbon Dioxide 25, Anion Gap 11.5, BUN 16, Creatinine 1.23, Estimated Creat Clear 111, Estimated GFR 61, Est GFR ( Amer) 74, Glucose 148 H, Calcium 8.5, Troponin I 0.78 H I & O for Last 24 hours: Intake & Output 05/12/18 05/13/18 05/14/18 05/15/18 11:59 11:59 11:59 11:59 Weight 257 lb 8 oz Narrative: Patient is pleasant. Morbidly obese. Heavily bearded. Appears older than his stated age. Multiple professionally done tattoos cover his arms and torso which limit his vascular exam. Capillary refill however seems to be good. Pulses in arms and legs are normal. Lungs are clear except for some smoker's rhonchi. Heart rate regular without murmurs. Abdomen obese but soft. No cranial nerve deficits. Moves all arms and legs equally. Assessment and Plan (1) Non-STEMI (non-ST elevated myocardial infarction) Current visit: Yes Status: Acute Category: Medical Code(s): I21.4 - Non-ST elevation (NSTEMI) myocardial infarction Agree with admission. Patient is currently in less pain with morphine administration from the ER. Cardiology consultation pending.
[2018-05-16 05:57] LABS: Chol/HDL Ratio 4.6 (1-3.5)
--- NOTE | 2018-05-16 07:27 | Discharge Summary ---
General - General Admission date:: 05/15/18 Discharge date: 05/16/18 HPI HPI: 52-year-old white male with history of tobacco use disorder, previous coronary disease with stent placement in June of this year and chronic anxiety disorder who for 3 days has had increasing problems with chest pain and pressure. He initially thought it was related to panic attacks and did not tell his family but notices that when he smokes a cigarette the chest pain intensifies. Told his family this morning and they encouraged him to come to the emergency department. Troponin levels in the emergency department were elevated, he is admitted to hospital for non-STEMI and cardiac catheterization. Hospital Course Hospital Course: Patient was admitted with a non-STEMI. He was taken to the cardiac Strategic Debriefing Officer on the morning of May 15. Patient had a single stent placed in the right coronary artery with resumption of good blood flow through the artery. Post procedurally patient did develop a hematoma over the cath site in the right groin. Sandbags were applied to this. The following morning on May 16 patient went ultrasound area to rule out pseudoaneurysm and was found hematoma. Patient was discharged home later in the day. Patient will follow up with Dr. Sinha in 1 week. Objective Vital signs: Temp Pulse Resp BP Pulse Ox 98.0 F 62 16 131/86 97 05/16/18 04:00 05/16/18 06:00 05/16/18 04:00 05/16/18 06:00 05/16/18 06:00 no acute distress - *Routine Respiratory Exam Present: CTA bilaterally - *Routine Cardiovascular Exam Present: RRR - *Routine Skin Exam Comments: Small hematoma right groin Results Labs on day of discharge: Labs from last 24 hours 05/16/18 05/15/18 05/15/18 05:37 15:38 14:39 WBC RBC Hgb Hct MCV MCH MCHC RDW Plt Count MPV Neut % (Auto) Lymph % (Auto) [place] % (Auto) Eos % (Auto) Baso % (Auto) Neut # (Auto) Lymph # (Auto) [place] # (Auto) Eos # (Auto) Baso # (Auto) Activated Clotting Time > 400 H* Sodium Potassium Chloride Carbon Dioxide Anion Gap BUN Creatinine Estimated Creat Clear Estimated GFR Est GFR ( Amer) Glucose Calcium Troponin I 1.01 H Triglycerides 141 Cholesterol 173 LDL Cholesterol 107 VLDL Cholesterol 28 HDL Cholesterol 38 Cholesterol/HDL Ratio 4.6 H 05/15/18 05/15/18 07:35 07:35 WBC 8.5 RBC 5.58 Hgb 16.0 Hct 47.6 MCV 85.3 MCH 28.7 MCHC 33.7 RDW 13.8 Plt Count 230 MPV 6.6 L Neut % (Auto) 59.4 Lymph % (Auto) 31.0 [place] % (Auto) 5.4 Eos % (Auto) 3.1 Baso % (Auto) 1.1 Neut # (Auto) 5.1 Lymph # (Auto) 2.6 [place] # (Auto) 0.5 Eos # (Auto) 0.3 Baso # (Auto) 0.1 Activated Clotting Time Sodium 139 Potassium 3.9 Chloride 103 Carbon Dioxide 25 Anion Gap 11.5 BUN 16 Creatinine 1.23 Estimated Creat Clear 111 Estimated GFR 61 Est GFR ( Amer) 74 Glucose 148 H Calcium 8.5 Troponin I 0.78 H Triglycerides Cholesterol LDL Cholesterol VLDL Cholesterol HDL Cholesterol Cholesterol/HDL Ratio DS: Diagnosis - Discharge Diagnosis (1) Non-STEMI (non-ST elevated myocardial infarction) Status: Acute (2) BMI 33.0-33.9,adult Status: Acute (3) Obstructive sleep apnea Status: Acute (4) Hypertension Status: Acute Discharge Plan - Patient Discharge Instructions ACTIVITY: Continue current activity DIET: continue same diet Patient Instructions: DI for Surgical Site Infection - Follow up Plan Follow up with: Javy Sinha MD [Staff Physician] - 1 week Ama Omer APRN [Nurse Practitioner] - 2 weeks Disposition: Home, Self-[facility] Medications: Home Medications Medication Instructions Recorded Confirmed Type aspirin 81 mg tablet,delayed 81 mg PO DAILY tab 08/12/17 05/15/18 History release polyethylene glycol 3350 17 17 g PO DAILY g 08/12/17 05/15/18 History gram/dose oral powder Bisoprolol Fumarate [Zebeta 5mg 5 mg PO DAILY 05/15/18 05/15/18 History tablet] Prasugrel HCl [Prasugrel 10mg 10 mg PO DAILY 05/15/18 05/15/18 History Tab] Atorvastatin Calcium [Lipitor 40mg 40 mg PO HS #30 tablet 05/16/18 Rx Tablet] Prescriptions/Medication Reconciliation: New Atorvastatin Calcium [Lipitor 40mg Tablet] 40 mg PO HS #30 tablet Continue aspirin 81 mg tablet,delayed release 81 mg PO DAILY tab polyethylene glycol 3350 17 gram/dose oral powder 17 g PO DAILY g Prasugrel HCl [Prasugrel 10mg Tab] 10 mg PO DAILY Bisoprolol Fumarate [Zebeta 5mg tablet] 5 mg PO DAILY
== END 2018-05-16 08:53 | disposition home or self-care (01) ==
LOC: 2ND 07:32 → ER 07:32 → 2ND 09:04
PROVIDERS: ADMIT Emergency Medicine; ATTEND Family Medicine
DX: Z79.82 Long term (current) use of aspirin; I25.84 Coronary atherosclerosis due to calcified coronary lesion; Z79.899 Other long term (current) drug therapy; I21.4 Non-ST elevation (NSTEMI) myocardial infarction; Z95.5 Presence of coronary angioplasty implant and graft; Z72.0 Tobacco use; I25.118 Atherosclerotic heart disease of native coronary artery with other forms of angina pectoris; Z85.9 Personal history of malignant neoplasm, unspecified
CPT/HCPCS: 36415; 71020; 71046; 80048; 80061; 84484; 85025; 85347; 92941; 93005; 93458; 93926; 96374; 99152; 99284; C1725; C1760; C1769; C1876; C1894; C9606; G0378; J1644; J2405

== ENCOUNTER 2018-06-08 15:19 | Outpatient (RCR) | payer MEDICAID, SELFPAY | END 2018-07-01 13:43 | disposition home or self-care (01) | LOC: PT 15:19 | PROVIDERS: Visit Provider Internal Medicine | DX: Z95.5 Presence of coronary angioplasty implant and graft (principal) ==

== ENCOUNTER → 2018-10-04 16:10 | Outpatient (CLI) | payer MEDICAID, SELFPAY ==
--- NOTE | 2018-10-04 | XR_ITS ---
XR foot RT min 3V HISTORY: ITS.REASON: FOOT PAIN ORDERING PHYSICIAN: Ama Omer APRN PATIENT AGE: 53 years COMPARISON: None FINDINGS: No fracture or dislocation. No lytic or blastic change. There is normal mineralization.. The joint spaces are well-preserved. No significant degenerative/arthritic changes. No erosive changes evident. IMPRESSION: Negative, no acute finding
--- NOTE | 2018-10-04 | XR_ITS ---
XR foot LT min 3V HISTORY: Pain ORDERING PHYSICIAN: Ama Omer APRN PATIENT AGE: 53 years COMPARISON: None FINDINGS: No fracture or dislocation. No lytic or blastic change. There is normal mineralization.. The joint spaces are well-preserved. No significant degenerative/arthritic changes. No erosive changes evident. IMPRESSION: Negative, no acute finding
== END ==
PROVIDERS: PCP Nurse Practitioner; Visit Provider Nurse Practitioner
DX: M79.672 Pain in left foot (principal); M79.671 Pain in right foot
CPT/HCPCS: 73630

== ENCOUNTER → 2018-12-06 12:46 | Outpatient (CLI) | payer MEDICAID, SELFPAY ==
--- NOTE | 2018-12-06 12:52 | CI_ITS ---
Cerebrovascular Exam Indications: 780.4 Dizziness and giddiness. 780.2 Syncope and collapse. IMPRESSIONS 1. The bilateral vertebral arteries are patent with normal antegrade flow. 2. Study suggests less than 20% stenosis involving the right internal carotid artery and the left internal carotid artery. Unable to visualizre distal ICA's secondary to body habitus Carotid duplex study. Complete study and Doppler flow study including spectral analysis, color and plunkett scale imaging. Height: Height: 185.4cm. Height: 73in. Weight: Weight: 122kg. Weight: 268.4lb. Body mass index: BMI: 35.5kg/m^2. Body surface area: BSA: 2.55m^2. Location: Vascular laboratory. Patient status: Outpatient. Tables: Arterial flow: + +--------+--------+ Location V sys V ed + +--------+--------+ Right CCA - proximal 115cm/s 29.1cm/s + +--------+--------+ Right CCA - distal 87.2cm/s 24.4cm/s + +--------+--------+ Right ECA 112cm/s -------- + +--------+--------+ Right ICA - proximal 125cm/s 30.6cm/s + +--------+--------+ Right ICA - mid 49.5cm/s 22cm/s + +--------+--------+ Right vertebral 36.9cm/s -------- + +--------+--------+ Left CCA - proximal 91.1cm/s 20.4cm/s + +--------+--------+ Left CCA - distal 76.2cm/s 23.6cm/s + +--------+--------+ Left ECA 95.9cm/s -------- + +--------+--------+ Left ICA - proximal 69.1cm/s 20.4cm/s + +--------+--------+ Left ICA - mid 84.2cm/s 31.4cm/s + +--------+--------+ Left vertebral 40.9cm/s -------- + +--------+--------+ Velocity ratios: + + + + + + Right, V sys Right, V ed Left, V sys Left, V ed + + + + + + Max ICA/dist CCA 1.43 1.25 1.1 1.33 + + + + + + (Report amended ) Electronically signed by: Shar Beard [id number]
== END ==
PROVIDERS: PCP Nurse Practitioner; Visit Provider Physician Assistant
DX: H53.8 Other visual disturbances (principal); R42 Dizziness and giddiness
CPT/HCPCS: 93880

== ENCOUNTER → 2019-05-10 07:18 | Outpatient (CLI) | payer OTHER, SELFPAY ==
--- NOTE | 2019-05-10 | CA_ITS ---
APPROVED REPORT Exam: Pharmacologic Technologist: Danya Leon Ht: 6 ft 1 in Wt: 258 lbs BSA: 2.40 m2 HR: 57 bpm BP: 137/82 mmHg Indications: Chest pain, Shortness of Breath Medical History Medications: Aspirin,,,,, MiraLAX,,,,, BisOPROLOL,,,,, Prasquel,,,,, Stress Test Details Test: LEXISCAN HR Resting HR: 56 bpm Max Heart Rate (APMHR): 165 bpm Max HR Achieved: 98 bpm Target HR (85% APMHR): 140 bpm % of APMHR: 59 Recovery HR: 67 bpm BP Resting BP: 137.0/82.0 mmHg Max BP: 162.0/92.0 mmHg Recovery BP: 129.0/82.0 mmHg ECG Clinical Exercise duration: 04:02 min Highest Stage Achieved: Stress ECG Conclusion Resting ECG: Sinus bradycardia, low voltage QRS, T wave abnormality inferiorly and laterally, cannot rule out old inferior [place] Symptoms: Shortness of air, nausea, malaise, headache. No chest pain. Arrhythmias/Ectopy: None ST-T Changes: No significant changes. Conclusion: Unremarkable Lexiscan stress. Myoview images reported separately. Test Summary REST . . . . . . . Resting REST 06:50 . . 56 . 137/ 82 . . Stage 1 . . . . . . . Myoview Injected Stage 1 01:00 . . 82 . . . . Stage 2 01:00 . . 93 . 143/105 . . Stage 3 01:00 . . 81 . . . . Stage 4 01:00 . . 85 . 162/ 92 . . Stage 4 01:02 . . 84 . 162/ 92 . Stop exercise at 04:02 RECOVERY 01:00 . . 79 . . . . RECOVERY 02:00 . . 70 . 140/ 73 . . RECOVERY 03:00 . . 70 . 134/ 87 . . RECOVERY 04:00 . . 66 . 134/ 87 . . RECOVERY 04:49 . . 66 . 129/ 82 . . Electronically signed by : Bird Nagy, 05/11/2019 10:22:50
--- NOTE | 2019-05-10 07:19 | CA_ITS ---
APPROVED REPORT EXAM: Comprehensive 2D, Doppler, and color-flow Echocardiogram Liquefaction Supervisor: Estella Carpenter RT(R) Ht: 6 ft 1 in Wt: 257lbs BSA: 2.39 BP: 143/75 mmHg Indications: CP, smoker, palpitations, fatigue, edema, HTN, SOB, obesity, abn EKG, history of DE,stents Echo Enhancing Agent Indication: Endocardial border delineation Agent(s) / Amount(s) Used: Definity 1 cc 2D Dimensions IVSd 1.55 cm M: 0.6-1.2 PWd 1.25 cm M: 0.6 - 1.2 LVDd 3.55 cm M: 4.2 - 5.9 LVOT 2.23 cm (M/F) 1.5-2.5 M-Mode Dimensions RVDd 1.25 cm (0.9-2.6) LVDd 3.55 cm (3.5-5.7) LVDs 4.12 cm (3.5-5.7) IVSd 1.01 cm (0.6-1.1) PWd 1.05 cm (0.6-1.1) EF (Teich) 52.50% FS 16.90% EDV (Teich) 116.10 mL ESV (Teich) 75.10 mL LV Diastology E/A Ratio 1.39 Mitral Valve MV A Velocity 58.00 (40-130 cm/s) Left Ventricle Left atrium is mildly enlarged, left ventricle is normal size, mild concentric left ventricular hypertrophy, visually estimated ejection fraction 50% with moderate hypokinesis involving the inferior basal and basal septal wall, Definity contrast was utilized to delineate the endocardial surfaces, there is no left ventricular thrombus seen. Diastolic parameters are consistent with grade 1 diastolic dysfunction without tissue Doppler evidence of raise left atrial pressure. Right Ventricle Right atrium and right ventricular normal size and contractility. Aortic Valve Aortic valve is thickened and calcified leaflet chordae display good mobility. Mitral Valve Mitral valve leaflets are minimally thickened, there is no mitral stenosis, there is mild mitral regurgitation. Tricuspid Valve Tricuspid valve grossly normal, there is mild tricuspid regurgitation. Pulmonic Valve Pulmonic valve is poorly visualized. Great Vessels Aortic root is normal size. Pericardium No significant pericardial effusion noted. Conclusion 1. Technically difficult study because of the patient factors and poor acoustic windows. Definity contrast was utilized to delineate the endocardial surfaces. 2. Mildly enlarged left atrium, normal left ventricular size, mild concentric left ventricular hypertrophy, visually estimated ejection fraction 50% with segmental wall motion abnormality described above, there is no left ventricular thrombus seen. 3. Mild mitral and tricuspid regurgitation. 4. No significant pericardial effusion noted. Electronically signed by : Bird Nagy, 05/11/2019 15:55:28
--- NOTE | 2019-05-10 07:22 | NM_ITS ---
APPROVED REPORT Exam: Nuclear Stress Test Indication: CAD, HTN, High cholesterol, Tobacco use, Family history, Chest pain, SOB, Dizziness Patient Location: Outpatient Stress Tech: Danya Leon PA Tech:Kendy Polo, ARRT, RT (R)(N) Ht: 6 ft 1 in Wt: 258 lbs HR: 57 bpm BP: 137/82 mmHg BSA: 2.40 m2 BMI: 34.0 History: CAD, HTN, High cholesterol, Tobacco use, Family history, Chest pain, SOB, Dizziness Procedure: Patient received a 0.4 mg of intravenous Lexiscan, resting heart rate 57 bpm, resting blood pressure 137/82 mmHg, with Lexiscan maximum heart rate achived was 94 bpm which is Less than 85 % of the maximum predicted heart rate and blood pressure was 145/105 mmHg. Electrocardiogram Resting EKG shows sinus rhythm inferior infarct age indeterminate nonspecific ST-T changes. Cardiac Stress and Resting SPECT Images: Cardiac Stress and Resting SPECT images were obtained using technetium 99m Myoview 32.7 mCi stress and 10.01 mCi at rest. Gated SPECT with analysis of segmental wall motion and calculation of the ejection fraction also done. Cardiac stress and resting SPECT images show partially reversible defect involving the inferior apical wall consistent with mixed ischemia and scar, there is transient ischemic dilatation of the left ventricle seen raising the concerns for presence of multivessel coronary artery disease. Computer derived ejection fraction is 52% with moderate inferior wall hypokinesis. Right ventricle is mildly enlarged with normal contractility. Conclusion: 1. The EKG portion of the Lexiscan Myoview is nondiagnostic. 2. Scintigraphic evidence of partial reversible defect consistent with ischemia and scar involving the inferior apical wall, there is transient ischemic dilatation of the left ventricle seen raising the concerns for presence of multivessel coronary disease. Computer derived ejection fraction is 52% with moderate inferior wall hypokinesis, right ventricle is mildly enlarged with normal contractility. 3. Abnormal Lexiscan Myoview study. Electronically signed by : Bird Nagy, 05/11/2019 15:18:04
--- NOTE | 2019-05-10 07:50 | HMH.ITSHM ---
Current Home Medications as stated by this patient Supa Santos or senior human resources representative. []BISOPROLOL PRASQUEL ASA MIRALAX
== END ==
PROVIDERS: PCP Nurse Practitioner; Visit Provider Urology
DX: R06.00 Dyspnea, unspecified (principal); R07.9 Chest pain, unspecified; I11.9 Hypertensive heart disease without heart failure; I25.110 Atherosclerotic heart disease of native coronary artery with unstable angina pectoris; I10 Essential (primary) hypertension; F17.200 Nicotine dependence, unspecified, uncomplicated; G47.33 Obstructive sleep apnea (adult) (pediatric); R53.83 Other fatigue
CPT/HCPCS: 78452; 93017; 93306; A9502; J2785; Q9957

== ENCOUNTER → 2019-07-20 15:34 | Outpatient (CLI) | payer OTHER, SELFPAY ==
--- NOTE | 2019-07-20 15:37 | XR_ITS ---
PROCEDURE: XR ANKLE WT BEARING LT MIN 3V CLINICAL INDICATION: ankle pain COMPARISON: No exams were available for comparison FINDINGS: No fracture or dislocation. No lytic or blastic change. The joint space is well preserved. The ankle mortise is preserved. The talar dome has an unremarkable appearance. Nonspecific soft tissue calcification noted at the distal and medial aspect of leg consistent phleboliths IMPRESSION: Negative left ankle Dictated by: Shar Beard MD 07/20/2019 15:55 Electronically signed by Shar Beard MD in [place] 07/20/2019 15:55
--- NOTE | 2019-07-20 15:37 | XR_ITS ---
PROCEDURE: XR ANKLE WT BEARING RT MIN 3V CLINICAL INDICATION: ankle pain COMPARISON: No exams were available for comparison FINDINGS: No fracture or dislocation. No lytic or blastic change. The joint space is well preserved. The ankle mortise is preserved. The talar dome has an unremarkable appearance. IMPRESSION: Negative right ankle Dictated by: Shar Beard MD 07/20/2019 15:54 Electronically signed by Shar Beard MD in [place] 07/20/2019 15:54
== END ==
PROVIDERS: PCP Nurse Practitioner; Visit Provider Podiatrist
DX: M25.572 Pain in left ankle and joints of left foot (principal); M25.571 Pain in right ankle and joints of right foot
CPT/HCPCS: 73610

== ENCOUNTER → 2019-09-28 07:02 | Outpatient (CLI) | payer OTHER, SELFPAY ==
--- NOTE | 2019-09-28 07:02 | NM_ITS ---
APPROVED REPORT Exam: Nuclear Stress Test Indication: CAD, 5 STINTS, HTN, HYPERLIPIDEMIA, TOB USE, FM HX, C.P., SOB, SYNCOPE, FATGUE Patient Location: Outpatient Stress Tech: Alina Reji [place] Tech:Cathleen Cardoza ARRZane RT (R)(N)(M) Ht: 6 ft 1 in Wt: 256 lbs HR: 53 bpm BP: 152/68 mmHg BSA: 2.39 m2 BMI: 33.7 History: CAD, 5 STINTS, HTN, HYPERLIPIDEMIA, TOB USE, FM HX, C.P., SOB, SYNCOPE, FATGUE Procedure: Patient exercised on Henry protocol 8:30 minutes and sec, resting heart rate 53 bpm, resting blood pressure 152/68 mmHg, with exercise maximum heart rate achived was 131 bpm which is Less than 85 % of the maximum predicted heart rate and blood pressure was 168/70 mmHg. Test was stopped due to SOB & FATIGUE. Patient has Good exercise capacity, achieved 10.1 METs of workload on treadmill, the blood pressure response to exercise was Adequate. Electrocardiogram Resting electrocardiogram showed sinus rhythm possible inferior infarct, nonspecific ST-T changes. With exercise there is less than 1.[address] segment depression noted from the baseline EKG. The EKG portion of the exercise Myoview is nondiagnostic as patient did not achieve the target heart rate. Cardiac Stress and Resting SPECT Images: Cardiac Stress and Resting SPECT images were obtained using technetium 99m Myoview 31.9 mCi stress and 10.99 mCi at rest. Gated SPECT for analysis of segmental wall motion and calculation of the ejection fraction also done. Cardiac stress and resting SPECT images show decreases activity in the inferior wall which improves on the resting images suggestive of reversible ischemia, computer derived ejection fraction is 57% with mild inferior wall hypokinesis, right ventricle is normal size and contractility. Conclusion: 1. The EKG portion of the exercise Myoview is nondiagnostic as patient did not achieve the target heart rate, patient has good exercise capacity achieved 10.1 mets of workload on treadmill, the blood pressure response to exercise is adequate, patient complained chest discomfort in the beginning of the exercise stress test which resolved with further exercise. 2. Scintigraphic evidence of reversible ischemia involving the inferior wall, computer derived ejection fraction is 57% with segmental wall motion abnormality described above, right ventricle is normal size and contractility. 3. Abnormal exercise Myoview study. Electronically signed by : Bird Nagy, 09/28/2019 14:54:58
--- NOTE | 2019-09-28 07:02 | CA_ITS ---
APPROVED REPORT Exam: Exercise Treadmill Technologist: Letitia Mendoza, Ht: 6 ft 1 in Wt: 256 lbs BSA: 2.39 m2 HR: 53 bpm BP: 152/68 mmHg Rhythm: Bradycardia Medical History Medications: TAMSULOSIN,,,,, Stress Test Details Test: Manual Treadmill, Exercise stress testing was performed using a Henry protocol. HR Resting HR: 56 bpm Max Heart Rate (APMHR): 164 bpm Max HR Achieved: 146 bpm Target HR (85% APMHR): 139 bpm % of APMHR: 89 Recovery HR: 69 bpm BP Resting BP: 152/68 mmHg Max BP: 168/70 mmHg Recovery BP: 133.0/64.0 mmHg ECG Clinical Reason for Termination: Dyspnea Exercise duration: 08:30 min Highest Stage Achieved: Exercise capacity: 10.1 METs Stress ECG Conclusion Max HR - 131; %of PM - 94; Mets - 10.1 - test stopped due to shortness of air. Chest pain at start and resolved during stress. One PVC Noted. Less than 1.5mm ST Segment changes. Conclusion - Negative ECG. Did not achieve target heart rate. Images pending. Test Summary REST . . . . . . . Standing REST . . . . . . . Standing REST . . . . . . . Sitting REST 04:07 0.0 0.0 56 . 152/ 68 . . Stage 1 01:00 10.0 1.7 79 . . . . Stage 1 02:00 10.0 1.7 78 . . . . Stage 1 03:00 10.0 1.7 85 . 164/ 72 . . Stage 2 01:00 12.0 2.5 93 . . . . Stage 2 02:00 12.0 2.5 98 . 152/ 82 . . Stage 2 03:00 12.0 2.5 96 . 152/ 82 . . Stage 3 01:00 14.0 3.4 116 . . . . Stage 3 . . . . . . . Stage held Stage 3 . . . . . . . Protocol changed to Manual Treadmill Stage 3 02:00 17.0 2.8 127 . . . . Stage 3 . . . . . . . Stage resumed Stage 3 02:30 18.0 2.8 130 . . . Stop exercise at 08:30 RECOVERY 01:00 0.0 0.0 115 . . . . RECOVERY 02:00 0.0 0.0 99 . . . . RECOVERY 03:00 0.0 0.0 82 . . . . RECOVERY 04:00 0.0 0.0 74 . 168/ 70 . . RECOVERY 05:00 0.0 0.0 67 . 168/ 70 . . RECOVERY 06:00 0.0 0.0 59 . 168/ 70 . . RECOVERY 07:00 0.0 0.0 69 . 168/ 70 . . RECOVERY 07:25 0.0 0.0 71 . 133/ 64 . . Electronically signed by : Bird Nagy, 09/28/2019 14:50:49
== END ==
PROVIDERS: PCP Nurse Practitioner; Visit Provider Urology
DX: I20.9 Angina pectoris, unspecified (principal); I10 Essential (primary) hypertension; I11.9 Hypertensive heart disease without heart failure; I25.118 Atherosclerotic heart disease of native coronary artery with other forms of angina pectoris; F17.200 Nicotine dependence, unspecified, uncomplicated
CPT/HCPCS: 78452; 93017; A9502; J2785

== ENCOUNTER 2019-10-04 08:26 | Day surgery (SDC) | payer OTHER, SELFPAY ==
[2019-10-04] VITALS (11 sets, daily range): BP systolic 94–186; BP diastolic 53–91; PULSE 49–61; RESP 16–18; TEMP 36.6; O2SAT 97–100; BMI 33.3
--- NOTE | 2019-10-04 09:00 | IR_ITS ---
APPROVED REPORT Patient Location: Outpatient Clinical Biostatistician: KATYA Stokes RT (R) PROCEDURES Left heart catheterization Left ventriculogram Selective coronary angiogram INDICATION Known coronary artery disease, Angina pectoris Informed consent was obtained prior to the procedure. COMPLICATIONS NONE Estimated Blood Loss: LESS THAN 10 ML TECHNIQUE One percent lidocaine used to anesthetize the right anterior aspect of the wrist. The right radial artery was accessed via the Seldinger technique. A 6 Mongolian sheath was placed in the right radial artery. 2.5 mg of verapamil, 800 mcg of nitroglycerin, 1mg Lidocaine and 5000 U Heparin were given through the arterial sheath. The trap catheter was also used to perform left heart catheterization, left ventriculogram and selective coronary angiogram. At the end of the procedure the sheath was removed good hemostasis was achieved using Traclet band, patient was transferred to the postop holding area in stable condition. ANGIOGRAPHIC RESULTS The left main artery Normal The left anterior descending artery Has mild proximal vascular ectasia followed by mid vessel 30% stenoses followed by a stent which is widely patent with excellent proximal distal transitioning. First diagonal artery has an ostial 40% stenosis and proximal 40 to 50% stenoses The circumflex artery Is nondominant and has a proximal concentric 30 to 40% stenosis with mild 20% luminal irregularities. In between the second and third obtuse marginal artery is a widely patent stent with excellent proximal distal transitioning. A fourth obtuse marginal artery is 1.5 mm in diameter and has a proximal 70 to 80% stenosis The right coronary artery Is a dominant vessel with a stent in the mid segment which is widely patent free of in-stent restenosis with a proximal 10 to 20% stenosis immediately transitioning into the proximal portion of the stent. Distally there are 30% eccentric stenosis The ROJO ventriculogram reveals Normal 65% The left ventricular end-diastolic pressure Moderately elevated at 20 to 25 mmHg IMPRESSION Coronary disease as described above Normal ejection fraction Elevated LVEDP which likely accounts for patient's angina pectoris PLAN 1. Medical management with specific attention directed at decreasing LVEDP in order to improve diastolic dysfunction and improve angina 2. Standard therapy for ischemic heart disease 3. Standard risk factor modification Electronically signed by : Javy Sinha, 10/04/2019 10:42:44
[2019-10-04 09:08] LABS: Basophils # 0.1 K/mm3 (0-0.2); Basophils % 1.2 % (0.1-2.0); Chloride 102 mmol/L (98-107); Eosinophils # 0.3 K/mm3 (0.0-0.4); Eosinophils % 3.5 % (0.1-12.0); Hematocrit 47.3 % (42.0-52.0); Hemoglobin 15.8 g/dL (14.1-18.0); Lymphocytes # 2.2 K/mm3 (0.7-4.5); Lymphocytes % 29.5 % (10-50); Mean Corpuscular HGB Conc 33.4 g/dL (31.8-35.4); Mean Corpuscular Hemoglobin 27.8 pg (27.0-31.2); Mean Platelet Volume 7.2 fl (7.4-10.4); Monocytes # 0.6 K/mm3 (0.1-1.0); Monocytes % 8.4 % (1.7-9.3); Neutrophils # 4.3 K/mm3 (1.8-7.8); Neutrophils % 57.4 % (37.0-80.0); Platelet Count 221 K/mm3 (142-424); Red Blood Count 5.69 M/mm3 (4.60-6.20); Red Cell Distribution Width 13.9 % (11.5-17.5); Sodium 136 mmol/L (136-145); White Blood Count 7.4 K/mm3 (4.8-10.8)
[2019-10-04 09:09] LABS: Potassium 4.3 mmoL/L (3.5-5.1)
[2019-10-04 09:11] LABS: Anion Gap 11.3 mEq/L (5-15); Blood Urea Nitrogen 13 mg/dl (9-20); Carbon Dioxide 27 mmol/L (22.0-30.0); Creatinine Clearance Estimated 134 mL/min (50-200); Estimated Glomerular Filt Rate 77 ml/min (>60); GFR (African American) 94 ML/MIN (>60)
[2019-10-04 09:12] LABS: Calcium 9.5 mg/dl (8.4-10.2); Glucose 122 mg/dl (74-100)
== END 2019-10-04 13:56 | disposition home or self-care (01) ==
LOC: CATHLAB 08:28
PROVIDERS: PCP Nurse Practitioner; Visit Provider Internal Medicine
DX: I25.118 Atherosclerotic heart disease of native coronary artery with other forms of angina pectoris (principal); G47.33 Obstructive sleep apnea (adult) (pediatric); I11.9 Hypertensive heart disease without heart failure; R94.39 Abnormal result of other cardiovascular function study; Z88.1 Allergy status to other antibiotic agents; Z88.8 Allergy status to other drugs, medicaments and biological substances; Z79.899 Other long term (current) drug therapy; Z72.0 Tobacco use; Z95.5 Presence of coronary angioplasty implant and graft
CPT/HCPCS: 80048; 85025; 93458; 99152; 99153; C1725; C1769; J1644; Q9967

== ENCOUNTER → 2019-11-21 12:55 | Outpatient (CLI) | payer OTHER, SELFPAY ==
[2019-11-21 21:31] LABS: Chloride 102 mmol/L (98-107); Potassium 4.4 mmoL/L (3.5-5.1); Sodium 137 mmol/L (136-145)
[2019-11-21 21:33] LABS: Alanine Aminotransferase 29 U/L (12-78); Aspartate Amino Transferase 28 U/L (17-59); Bilirubin,Unconjugated 1.1 mg/dL (0.0-1.1); Blood Urea Nitrogen 15 mg/dl (9-20); Estimated Glomerular Filt Rate 69 ml/min (>60); GFR (African American) 84 ML/MIN (>60)
[2019-11-21 21:34] LABS: Albumin Level 4.2 g/dl (3.5-5.0); Alkaline Phosphatase 91 U/L (38-126); Anion Gap 7.4 mEq/L (5-15); Bilirubin,Direct 0.3 mg/dl (0.0-0.4); Bilirubin,Indirect 1.1 mg/dL (0.0-0.9); Bilirubin,Total 1.4 mg/dl (0.2-1.3); Calcium 9.3 mg/dl (8.4-10.2); Carbon Dioxide 32 mmol/L (22.0-30.0); Chol/HDL Ratio 3.2 (1-3.5); Cholesterol 158 mg/dl (140-200); Glucose 126 mg/dl (74-100); HDL Cholesterol 49 mg/dl (40-60); Total Protein,Serum 7.1 g/dl (6.3-8.2); Triglycerides 198 mg/dl (30-150); VLDL Cholesterol 40 mg/dL (0-40)
[2019-11-21 21:43] LABS: NT Pro Brain Natriuretic Pep. 446 pg/mL (0-125)
[2019-11-21 21:45] LABS: Direct LDL Cholesterol 93.73 mg/dL (100-129)
== END ==
PROVIDERS: PCP Surgery; Visit Provider Internal Medicine Cardiovascular Disease
DX: R06.00 Dyspnea, unspecified (principal); R42 Dizziness and giddiness; E78.5 Hyperlipidemia, unspecified; I11.9 Hypertensive heart disease without heart failure; I20.9 Angina pectoris, unspecified; R53.83 Other fatigue; G47.33 Obstructive sleep apnea (adult) (pediatric); R94.39 Abnormal result of other cardiovascular function study; I25.118 Atherosclerotic heart disease of native coronary artery with other forms of angina pectoris; F17.200 Nicotine dependence, unspecified, uncomplicated
CPT/HCPCS: 36415; 80048; 80061; 80076; 83880

== ENCOUNTER → 2019-12-13 09:49 | Outpatient (CLI) | payer OTHER, SELFPAY ==
[2019-12-14 06:43] LABS: Covid-19 Nasal PCR Sendout Lex NOT DETECTED
== END ==
PROVIDERS: PCP Nurse Practitioner; Visit Provider Nurse Practitioner
DX: Z03.818 Encounter for observation for suspected exposure to other biological agents ruled out (principal)
CPT/HCPCS: U0004

== ENCOUNTER → 2020-01-18 15:41 | Outpatient (CLI) | payer OTHER, SELFPAY ==
[2020-01-18 17:00] LABS: Chloride 98 mmol/L (98-107); Sodium 138 mmol/L (136-145)
[2020-01-18 17:01] LABS: Potassium 4.6 mmoL/L (3.5-5.1)
[2020-01-18 17:03] LABS: Blood Urea Nitrogen 19 mg/dl (9-20); Estimated Glomerular Filt Rate 69 ml/min (>60); GFR (African American) 84 ML/MIN (>60)
[2020-01-18 17:04] LABS: Anion Gap 15.6 mEq/L (5-15); Calcium 10.2 mg/dl (8.4-10.2); Carbon Dioxide 29 mmol/L (22.0-30.0); Glucose 114 mg/dl (74-100)
== END ==
PROVIDERS: Visit Provider Internal Medicine Cardiovascular Disease
DX: R42 Dizziness and giddiness (principal); R06.00 Dyspnea, unspecified; I11.9 Hypertensive heart disease without heart failure; I25.118 Atherosclerotic heart disease of native coronary artery with other forms of angina pectoris; F17.200 Nicotine dependence, unspecified, uncomplicated; G47.33 Obstructive sleep apnea (adult) (pediatric); R53.83 Other fatigue
CPT/HCPCS: 36415; 80048

== ENCOUNTER → 2020-10-15 11:12 | Outpatient (CLI) | payer OTHER, SELFPAY ==
[2020-10-15 11:43] LABS: Chloride 103 mmol/L (98-107); Sodium 138 mmol/L (136-145)
[2020-10-15 11:44] LABS: Basophils # 0.1 K/mm3 (0-0.2); Basophils % 1.1 % (0.1-2.0); Eosinophils # 0.2 K/mm3 (0.0-0.4); Eosinophils % 2.8 % (0.1-12.0); Hematocrit 47.5 % (42.0-52.0); Hemoglobin 16.3 g/dL (14.1-18.0); Lymphocytes # 2.8 K/mm3 (0.7-4.5); Lymphocytes % 32.7 % (10-50); Mean Corpuscular HGB Conc 34.4 g/dL (31.8-35.4); Mean Corpuscular Hemoglobin 28.7 pg (27.0-31.2); Mean Corpuscular Volume 83.4 fl (80-94); Mean Platelet Volume 7.1 fl (7.4-10.4); Monocytes # 0.5 K/mm3 (0.1-1.0); Neutrophils # 4.9 K/mm3 (1.8-7.8); Neutrophils % 57.3 % (37.0-80.0); Platelet Count 269 K/mm3 (142-424); Potassium 5.1 mmoL/L (3.5-5.1); Red Blood Count 5.69 M/mm3 (4.60-6.20); Red Cell Distribution Width 13.2 % (11.5-17.5); White Blood Count 8.5 K/mm3 (4.8-10.8)
[2020-10-15 11:46] LABS: Alanine Aminotransferase 35 U/L (12-78); Alkaline Phosphatase 89 U/L (38-126); Anion Gap 12.1 mEq/L (5-15); Aspartate Amino Transferase 33 U/L (17-59); Bilirubin,Total 1.1 mg/dl (0.2-1.3); Blood Urea Nitrogen 15 mg/dl (9-20); Carbon Dioxide 28 mmol/L (22.0-30.0); Estimated Glomerular Filt Rate 69 ml/min (>60); GFR (African American) 83 ML/MIN (>60)
[2020-10-15 11:47] LABS: Albumin Level 4.7 g/dl (3.5-5.0); Albumin/Globulin Ratio 1.4 (1.1-1.8); Calcium 9.5 mg/dl (8.4-10.2); Globulin 3.4 g/dL (1.3-3.2); Glucose 106 mg/dl (74-100); Magnesium 2.2 mg/dl (1.6-2.3); Total Protein,Serum 8.1 g/dl (6.3-8.2)
[2020-10-15 12:02] LABS: Troponin I < 0.01 ng/ml (0.00-0.034)
[2020-10-15 12:18] LABS: Thyroid Stimulating Hormone 0.58 uIU/mL (0.465-4.68)
[2020-10-15 12:22] LABS: Ferritin 309 ng/ml (17.9-464)
== END ==
PROVIDERS: Visit Provider Nurse Practitioner Family
DX: R42 Dizziness and giddiness (principal); I10 Essential (primary) hypertension; R10.9 Unspecified abdominal pain; C64.1 Malignant neoplasm of right kidney, except renal pelvis; Z95.5 Presence of coronary angioplasty implant and graft
CPT/HCPCS: 36415; 80053; 82728; 83735; 84443; 84484; 85025

== ENCOUNTER → 2020-10-23 07:36 | Outpatient (CLI) | payer OTHER, SELFPAY ==
--- NOTE | 2020-10-23 | CA_ITS ---
APPROVED REPORT Assistant At Surgery: BRIDGET/SANTINO Laterality: Bilateral Study Quality: Good Risk Factors Hypertension: Hyperlipidemia Smoking Dizziness with visual disturbances X 6 months Doppler Spectral Velocity Analysis ECA (R) 120.00/22.30 cm/s ECA (L) 77.10/17.20 cm/s dICA (R) 73.80/32.10 cm/s dICA (L) 72.60/25.40 cm/s Kyree (R) 64.20/25.00 cm/s Kyree (L) 81.60/31.40 cm/s pICA (R) 114.00/21.40 cm/s pICA (L) 66.60/24.70 cm/s dCCA (R) 84.50/25.40 cm/s dCCA (L) 89.10/26.60 cm/s pCCA (R) 126.20/29.90 cm/s pCCA (L) 128.50/30.80 cm/s Vert (R) 39.20/13.50 cm/s Vert (L) 43.00/14.80 cm/s ICA/CCA 1.35 ICA/CCA 0.92 Findings Duplex evaluation demonstrates stenosis of the right proximal internal carotid artery <20%. Duplex evaluation demonstrates stenosis of the left proximal internal carotid artery <20%. Duplex evaluation demonstrates antegrade flow of the bilateral Vertebral Arteries. Conclusion Duplex evaluation demonstrates stenosis of the right proximal internal carotid artery <20%. Duplex evaluation demonstrates stenosis of the left proximal internal carotid artery <20%. Duplex evaluation demonstrates antegrade flow of the bilateral Vertebral Arteries. Electronically signed by : Shar Beard MD 10/23/2020 16:44:32
--- NOTE | 2020-10-23 07:40 | MR_ITS ---
PROCEDURE: MR HEAD/BRAIN WO CON CLINICAL INDICATION: DIZZINESS History of renal cell carcinoma. Dizziness and blurred vision COMPARISON: No exams were available for comparison TECHNIQUE: Routine multiplanar multi echo sequences are performed without gadolinium enhancement. FINDINGS: No midline shift, mass effect, intracranial hemorrhage, or hydrocephalus. The cerebellopontine angles, cerebellum, and brainstem have an unremarkable appearance. Prominent cisterna magna noted as a normal variant. No evidence of restricted diffusion or acute infarction. Unremarkable white matter signal intensity. The pituitary, optic chiasm, corpus callosum, and craniocervical junction have an unremarkable appearance. No mastoid effusion or sinus air-fluid level. The globes have an unremarkable appearance. Hippocampal gyri are unremarkable in the temporal horns are symmetric. IMPRESSION: Negative MRI of the brain without contrast. No acute intracranial findings. Dictated by: Shar Beard MD 10/24/2020 08:46 Shar Beard MD in [place] 10/24/2020 08:46
--- NOTE | 2020-10-23 08:30 | US_ITS ---
PROCEDURE: US KIDNEY CLINICAL INDICATION: RENAL CELL CA RT KIDNEY,FLANK PAIN COMPARISON: US KID US [id number] from 03/14/2013 FINDINGS: The right kidney has been removed.. The left kidney is [id number]. No hydronephrosis, cortical thinning, or renal mass or perinephric fluid collection is evident. IMPRESSION: Prior right nephrectomy. Compensatory hypertrophy of the left kidney with no obvious left-sided renal abnormalities. Dictated by: Shar Beard MD 10/23/2020 17:14 Shar Beard MD in [place] 10/23/2020 17:14
== END ==
PROVIDERS: PCP Family Medicine; Visit Provider Nurse Practitioner Family
DX: R42 Dizziness and giddiness (principal); R10.9 Unspecified abdominal pain; C64.1 Malignant neoplasm of right kidney, except renal pelvis
CPT/HCPCS: 70551; 76770; 93306; 93880

== ENCOUNTER → 2020-10-28 06:38 | Outpatient (CLI) | payer OTHER, SELFPAY ==
--- NOTE | 2020-10-28 06:38 | CA_ITS ---
APPROVED REPORT Exam: Pharmacologic Technologist: nash carmona, Ht: 6 ft 1 in Wt: 260 lbs BSA: 2.41 m2 HR: 52 bpm BP: 129/81 mmHg Indications: CP, SOB Medical History Medications: Omeprazole,,,,, Asa,,,,, Lasix,,,,, Naproxen,,,,, Lipitor,,,,, BisOPROLOL,,,,, SpirOnolactone,,,,, ColCHIcine,,,,, PolyethYLENE,,,,, Prasugel,,,,, Allergies: Pennicillin, isosorbide, effexor, ibuprofen Cardiac Risk Factors: HTN, Hyperlipidemia, FHX of CAD, Smoking Stress Test Details Test: LEXISCAN HR Resting HR: 54 bpm Max Heart Rate (APMHR): 163.990072 bpm Max HR Achieved: 88 bpm Target HR (85% APMHR): 138.024104 bpm % of APMHR: 53.99 Recovery HR: 66 bpm BP Resting BP: 129/81 mmHg Max BP: 145/85 mmHg Recovery BP: 132.0/76.0 mmHg ECG Clinical Exercise duration: 04:00 min Highest Stage Achieved: Stress ECG Conclusion Symptoms: SOA, headache, and chest tightness, resolved during recovery. No arrhythmia or ectopy. Less than 1.5mm ST segment changes. Images to follow. Electronically signed by : Javy Sinha, 11/01/2020 12:50:15
--- NOTE | 2020-10-28 06:38 | NM_ITS ---
APPROVED REPORT Exam: Nuclear Stress Test Indication: Abnormal EKG, CAD, HTN, High cholesterol, Tobacco use, Family history, Chest pain, SOB, Palpitations, Syncope, Fatigue Patient Location: Outpatient Stress Tech: Vidhi Simmons [place] Tech:Kendy Polo, ARRT, RT (R)(N) Ht: 6 ft 1 in Wt: 260 lbs HR: 54 bpm BP: 129/81 mmHg BSA: 2.41 m2 BMI: 34.2 History: Abnormal EKG, CAD, HTN, High cholesterol, Tobacco use, Family history, Chest pain, SOB, Palpitations, Syncope, Fatigue Procedure: Patient received a 0.4 mg of intravenous Lexiscan, resting heart rate 54 bpm, resting blood pressure 129/81 mmHg, with Lexiscan maximum heart rate achived was 80 bpm which is % of the maximum predicted heart rate and blood pressure was 145/85 mmHg. Cardiac Stress and Resting SPECT Images: Cardiac Stress and Resting SPECT images were obtained using technetium 99m Myoview 29.8 mCi stress and 10.21 mCi at rest. Ejection fraction: 52% No wall motion abnormalities No fixed or reversible defects. Conclusion: Ejection fraction 52% No evidence of ischemia. Electronically signed by : Shar Beard MD 10/30/2020 14:06:20
--- NOTE | 2020-10-28 09:00 | HMH.ITSHM ---
Current Home Medications as stated by this patient Supa Santos or business banking representative. []SPIRONOLACTONE PRASUGREL OMEPRAZOLE NAPROXEN FUROSEMIDE COLCHICINE BISOPROLOL ATORVASTATIN ASA
== END ==
PROVIDERS: PCP Family Medicine; Visit Provider Nurse Practitioner Family
DX: R06.00 Dyspnea, unspecified (principal); I20.9 Angina pectoris, unspecified; I25.10 Atherosclerotic heart disease of native coronary artery without angina pectoris; R94.31 Abnormal electrocardiogram [ECG] [EKG]; E78.5 Hyperlipidemia, unspecified; I10 Essential (primary) hypertension; G47.33 Obstructive sleep apnea (adult) (pediatric)
CPT/HCPCS: 78452; 93017; 93306; A9502; J2785

== ENCOUNTER 2021-02-20 09:05 | Emergency (ER) | payer OTHER, SELFPAY ==
[2021-02-20] VITALS (9 sets, daily range): BP systolic 122–147; BP diastolic 74–96; PULSE 57–78; RESP 16–20; TEMP 36.8; O2SAT 95–98; BMI 33.0
--- NOTE | 2021-02-20 08:54 | ECG_ITS ---
APPROVED REPORT Exam: Resting ECG HR:66 bpm ECG Measurements Heart Rate 66 AXES NV 140 P 52 QRSd 80 QRS 6 QT 442 T 40 QTc 463 Conclusion Normal sinus rhythm Normal ECG Electronically signed by : Jermain Montano MD 02/21/2021 19:57:31
--- NOTE | 2021-02-20 09:17 | XR_ITS ---
PROCEDURE: XR CHEST 2V CLINICAL HISTORY: chest pain COMPARISON: CR CXR2V XR chest 2V from 05/15/2018 FINDINGS: The cardiomediastinal silhouette and pulmonary vascularity are within normal limits. The lungs are clear without infiltrates, suspicious nodules, or pleural effusions. Surgical clips are present in the right mid abdominal region. Coronary artery stent is noted. IMPRESSION: No acute findings. Dictated by: Shar Beard MD 02/20/2021 10:35 Shar Beard MD in [place] 02/20/2021 10:35
--- NOTE | 2021-02-20 09:21 | HMH.EDGENADL ---
ED Disposition Clinical Impression: Chest pain Disposition: Home, Self-Care Condition on Discharge: Good Instructions: DI for Chest Pain Additional Instructions: Start Ranexa 500 mg twice daily. Follow-up with cardiology next week. Restart diuretics. Additional instructions for CHEST PAIN: See your physician as soon as possible for further evaluation. Return immediately if worsening chest pain, vomiting, shortness of breath, fever, coughing of blood. Referrals: Provider,Referral, [Referring] - - Critical Care Critical Care Time: No Attestation: On 02/20/21, the high probability of a clinically significant, sudden or life threatening deterioration of the following system(s) required my full and direct attention, intervention and personal management. The time I documented below is in addition to time spent performing reported procedures but includes the following listed in this critical care notation. Medical Decision Making - Medical Records Medical records reviewed: Yes: I reviewed the patient's medical records. MR Comment: Reviewed most recent cardiology office visit. Reviewed most recent stress test, echocardiogram, and heart cath results. See stress test and heart cath results below. - Steve Inquiry Pt receiving controlled substance: No Vital Signs: 02/20/21 09:05 02/20/21 09:10 02/20/21 09:30 Temperature 98.3 F Temperature Source Oral Pulse Rate 78 61 Pulse Rate [Left Radial] 62 Respiratory Rate 20 16 20 Blood Pressure 140/96 H 132/84 Blood Pressure [Right Arm] 147/87 H Blood Pressure Mean 109 100 Blood Pressure Mean [Right Arm] 107 Blood Pressure Source Blood Pressure Source [Right Arm] Automatic Cuff Blood Pressure Position Blood Pressure Position [Right Arm] Sitting 02 Sat by Pulse Oximetry 97 96 95 Oxygen Delivery Method Room Air 02/20/21 10:00 02/20/21 10:30 02/20/21 11:00 Temperature Temperature Source Pulse Rate 68 63 60 Pulse Rate [Left Radial] Respiratory Rate 18 18 18 Blood Pressure 140/74 142/95 H 128/76 Blood Pressure [Right Arm] Blood Pressure Mean 96 110 94 Blood Pressure Mean [Right Arm] Blood Pressure Source Blood Pressure Source [Right Arm] Blood Pressure Position Blood Pressure Position [Right Arm] 02 Sat by Pulse Oximetry 95 98 96 Oxygen Delivery Method 02/20/21 11:30 02/20/21 12:00 02/20/21 13:19 Temperature 98.3 F Temperature Source Oral Pulse Rate 58 L 57 L 70 Pulse Rate [Left Radial] Respiratory Rate 18 16 16 Blood Pressure 147/92 H 129/90 122/74 Blood Pressure [Right Arm] Blood Pressure Mean 110 100 Blood Pressure Mean [Right Arm] Blood Pressure Source Automatic Cuff Blood Pressure Source [Right Arm] Blood Pressure Position Sitting Blood Pressure Position [Right Arm] 02 Sat by Pulse Oximetry 96 98 Oxygen Delivery Method Room Air - Lab Data Lab Results 02/20/21 09:03: WBC 8.0, RBC 5.77, Hgb 17.0, Hct 50.3, MCV 87.2, MCH 29.5, MCHC 33.8, RDW 13.7, Plt Count 258, MPV 7.3 L, Neut % (Auto) 59.2, Lymph % (Auto) 31.3, Coleman % (Auto) 5.5, Eos % (Auto) 2.5, Baso % (Auto) 1.5, Neut # (Auto) 4.7, Lymph # (Auto) 2.5, Coleman # (Auto) 0.4, Eos # (Auto) 0.2, Baso # (Auto) 0.1 02/20/21 09:03: Sodium 139, Potassium 4.1, Chloride 102, Carbon Dioxide 30, Anion Gap 11.1, BUN 12, Creatinine 0.90, Estimated Creat Clear 145, Estimated GFR 87, Est GFR ( Amer) 105, Glucose 104 H, Calcium 9.3, Troponin I < 0.01 02/20/21 12:24: Troponin I < 0.01 Result diagrams: 02/20/21 09:03 02/20/21 09:03 Orders (Tests/Meds): ED MEDICATIONS Discontinued Medications Generic Name Dose Route Start Last Admin Trade Name Cal PRN Reason Stop Dose Admin Acetaminophen 1,000 mg 02/20/21 10:54 02/20/21 10:56 Acetaminophen 500mg Tab PO 02/20/21 10:55 1,000 mg ONCE ONE Administration Nitroglycerin 0.4 mg 02/20/21 09:18 02/20/21 09:07 Nitroglycerin 0.4mg Sl Tablet SL 1
[2021-02-20 09:26] LABS: Basophils # 0.1 K/mm3 (0-0.2); Basophils % 1.5 % (0.1-2.0); Eosinophils # 0.2 K/mm3 (0.0-0.4); Eosinophils % 2.5 % (0.1-12.0); Hematocrit 50.3 % (42.0-52.0); Lymphocytes # 2.5 K/mm3 (0.7-4.5); Lymphocytes % 31.3 % (10-50); Mean Corpuscular HGB Conc 33.8 g/dL (31.8-35.4); Mean Corpuscular Hemoglobin 29.5 pg (27.0-31.2); Mean Corpuscular Volume 87.2 fl (80-94); Mean Platelet Volume 7.3 fl (7.4-10.4); Monocytes # 0.4 K/mm3 (0.1-1.0); Monocytes % 5.5 % (1.7-9.3); Neutrophils # 4.7 K/mm3 (1.8-7.8); Neutrophils % 59.2 % (37.0-80.0); Platelet Count 258 K/mm3 (142-424); Red Blood Count 5.77 M/mm3 (4.60-6.20); Red Cell Distribution Width 13.7 % (11.5-17.5)
[2021-02-20 09:28] LABS: Chloride 102 mmol/L (98-107); Potassium 4.1 mmoL/L (3.5-5.1); Sodium 139 mmol/L (136-145)
[2021-02-20 09:31] LABS: Anion Gap 11.1 mEq/L (5-15); Blood Urea Nitrogen 12 mg/dl (9-20); Calcium 9.3 mg/dl (8.4-10.2); Carbon Dioxide 30 mmol/L (22.0-30.0); Creatinine Clearance Estimated 145 mL/min (50-200); Estimated Glomerular Filt Rate 87 ml/min (>60); GFR (African American) 105 ML/MIN (>60); Glucose 104 mg/dl (74-100)
--- NOTE | 2021-02-20 09:36 | PC.NURSE ---
Pt to radiology
[2021-02-20 09:44] LABS: Troponin I < 0.01 ng/ml (0.00-0.034)
--- NOTE | 2021-02-20 10:36 | PC.NURSE ---
cardiology inn to see pt
--- NOTE | 2021-02-20 10:57 | HMH.CNCARD ---
History of Present Illness Consult date: 02/20/21 Requesting physician: Иван Witt Consult reason: chest pain Chief complaint: Chest pain History of present illness: 55-year-old male presented to the ED with chest pressure. Patient states chest pressure started yesterday and has continued throughout the morning. Patient does complain of nausea with no vomiting. Patient does complain of shortness of breath accompanied with chest pressure. He states once he arrived to the ER and was given a nitroglycerin, this seemed to improve his pain. Patient states his chest pressure is 1 out of 10 on a pain scale. Patient states he has not been taking his diuretics as he is supposed to due to his diastolic dysfunction. Patient states he stopped his diuretics due to having cramps in his leg. Patient does have history of coronary artery disease. Last heart catheterization was in September 2019 which revealed medical management with specific attention directed at decreasing LVEDP in order to improve diastolic dysfunction and improve angina, standard therapy for ischemic heart disease and standard risk factor modification. Patient is on standard medications for diastolic dysfunction and ischemic heart disease. Patient is noncompliant with his medications. Patient did undergo stress test in October 2020 which revealed no wall motion abnormality, no fixed or reversible defect and no evidence of ischemia. Last echocardiogram was in October 2020 which revealed EF 55% with normal systolic function and no significant valvular stenosis or regurgitation. Patient does have history of hypertension and hyperlipidemia. EKG reveals normal sinus rhythm with a heart rate of 66 bpm. Troponin x1 was noted as negative. Awaiting results of second troponin. Lengthy discussion with patient, to take medications as prescribed. Instructed patient is to restart Lasix and Aldactone due to diastolic dysfunction and LVEDP. Patient verbalized understanding and is agreeable to take medications as directed. Patient is noted to be on Effient and baby aspirin for coronary artery disease. Patient states he is unable to take isosorbide due to headaches. If second troponin is negative, patient may be discharged and follow-up with cardiology in 1 week or sooner if signs symptoms persist. Will start patient on Ranexa 500 mg twice daily for chest pain. Please notify cardiology of any changes in patient status. C:ANGIOGRAPHIC RESULTS The left main artery Normal The left anterior descending artery Has mild proximal vascular ectasia followed by mid vessel 30% stenoses followed by a stent which is widely patent with excellent proximal distal transitioning. First diagonal artery has an ostial 40% stenosis and proximal 40 to 50% stenoses The circumflex artery Is nondominant and has a proximal concentric 30 to 40% stenosis with mild 20% luminal irregularities. In between the second and third obtuse marginal artery is a widely patent stent with excellent proximal distal transitioning. A fourth obtuse marginal artery is 1.5 mm in diameter and has a proximal 70 to 80% stenosis The right coronary artery Is a dominant vessel with a stent in the mid segment which is widely patent free of in-stent restenosis with a proximal 10 to 20% stenosis immediately transitioning into the proximal portion of the stent. Distally there are 30% eccentric stenosis The ROJO ventriculogram reveals Normal 65% The left ventricular end-diastolic pressure Moderately elevated at 20 to 25 mmHg IMPRESSION Coronary disease as described above Normal ejection fraction Elevated LVEDP which likely accounts for patient's angina pectoris PLAN 1. Medical management with specific attention directed at decreasing LVEDP in order to improve diastolic dysfunction and improve angina 2. Standard therapy for ischemic heart disease 3. Standard risk factor modification CXR:FINDINGS: The cardiomediastinal silhouette and pulmonary vascu
[2021-02-20 13:06] LABS: Troponin I < 0.01 ng/ml (0.00-0.034)
== END 2021-02-20 13:21 | disposition home or self-care (01) ==
PROVIDERS: Emergency Provider Emergency Medicine; PCP Family Medicine
DX: R07.9 Chest pain, unspecified (principal); R06.02 Shortness of breath; R11.0 Nausea; I25.2 Old myocardial infarction; I25.10 Atherosclerotic heart disease of native coronary artery without angina pectoris; I10 Essential (primary) hypertension; R00.2 Palpitations; Z79.82 Long term (current) use of aspirin; Z79.899 Other long term (current) drug therapy; Z88.0 Allergy status to penicillin; Z88.4 Allergy status to anesthetic agent; Z88.8 Allergy status to other drugs, medicaments and biological substances
CPT/HCPCS: 71046; 80048; 84484; 85025; 93005; 99283

== ENCOUNTER → 2021-04-02 15:32 | Outpatient (CLI) | payer OTHER, SELFPAY ==
--- NOTE | 2021-04-02 15:36 | XR_ITS ---
PROCEDURE: XR CHEST 2V CLINICAL HISTORY: COUGH COMPARISON: CR CXR2V XR chest 2V from 05/15/2018 CR XR CHEST 2V from 02/20/2021 FINDINGS: The cardiomediastinal silhouette and pulmonary vascularity are within normal limits. The lungs are clear without infiltrates, suspicious nodules, or pleural effusions. Coronary artery stent is noted. No acute bony findings. IMPRESSION: No acute findings. Dictated by: Shar Beard MD 04/02/2021 16:05 Shar Beard MD in [place] 04/02/2021 16:05
== END ==
PROVIDERS: PCP Family Medicine; Visit Provider Family Medicine
DX: R05.9 Cough, unspecified (principal)
CPT/HCPCS: 71046

== ENCOUNTER → 2021-08-27 11:29 | Outpatient (CLI) | payer OTHER, SELFPAY | PROVIDERS: Visit Provider Surgery | DX: Z11.52 Encounter for screening for COVID-19 (principal) | CPT/HCPCS: C9803; U0003; U0005 ==

== ENCOUNTER → 2021-11-24 11:00 | Outpatient (CLI) | payer OTHER, SELFPAY ==
[2021-11-24 12:07] LABS: Alanine Aminotransferase 28 U/L (12-78); Albumin Level 4.6 g/dl (3.5-5.0); Albumin/Globulin Ratio 1.5 (1.1-1.8); Alkaline Phosphatase 94 U/L (38-126); Anion Gap 12.2 mEq/L (5-15); Aspartate Amino Transferase 29 U/L (17-59); Bilirubin,Total 0.9 mg/dl (0.2-1.3); Blood Urea Nitrogen 17 mg/dl (9-20); Calcium 9.9 mg/dl (8.4-10.2); Carbon Dioxide 28 mmol/L (22.0-30.0); Chloride 101 mmol/L (98-107); Estimated Glomerular Filt Rate 69 ml/min (>60); GFR (African American) 83 ML/MIN (>60); Glucose 112 mg/dl (74-100); Potassium 5.2 mmoL/L (3.5-5.1); Sodium 136 mmol/L (136-145); Total Protein,Serum 7.6 g/dl (6.3-8.2)
== END ==
PROVIDERS: PCP Family Medicine; Visit Provider Surgery
DX: K60.3 Anal fistula (principal)
CPT/HCPCS: 36415; 80053

== ENCOUNTER → 2021-11-25 10:05 | Outpatient (CLI) | payer OTHER, SELFPAY ==
--- NOTE | 2021-11-25 10:11 | MR_ITS ---
FINAL REPORT CLINICAL HISTORY: ANAL FISTULA KIDNEY CANCER 2008 FISSURE ECTOMY 2ND ONE 2013 2ND IN 2 MONTHS AGO FINDINGS: Multiplanar MR imaging of the pelvis was performed without and with contrast. A 5 mm focus of fluid is seen in the right intersphincteric space at the 9 o'clock position, well-visualized on series 5 image 46 and series 7 image 32. This focus does not show evidence of contrast enhancement. No other area of abnormal signal or contrast enhancement is seen in the region of the anus or surrounding soft tissues. IMPRESSION: 5 mm focus of fluid in the right intersphincteric space, which may represent a grade 1 intersphincteric fistula. Authenticated and ERN
== END ==
PROVIDERS: PCP Family Medicine; Visit Provider Surgery
DX: K60.3 Anal fistula (principal)
CPT/HCPCS: 72197; A9576

== ENCOUNTER → 2021-12-12 14:27 | Outpatient (CLI) | payer OTHER, SELFPAY | PROVIDERS: PCP Family Medicine; Visit Provider Surgery | DX: Z01.812 Encounter for preprocedural laboratory examination (principal); Z20.822 Contact with and (suspected) exposure to COVID-19 | CPT/HCPCS: C9803; U0003; U0005 ==

== ENCOUNTER 2022-01-07 11:24 | Emergency (ER) | payer OTHER, SELFPAY ==
--- NOTE | 2022-01-07 11:51 | HMH.EDUTC ---
[facility] [place] Disposition Clinical Impression: COVID-19 Disposition: Home, Self-Care Condition on Discharge: Good Instructions: DI for COVID-19 (Suspected or Confirmed ), Preventing the Spread of Coronavirus Discharge Instructions Additional Instructions: Drink plenty of fluids. Take tylenol or ibuprofen for pain or fever. Finish the medications that you are on. Follow up with your regular doctor. GO TO THE ER FOR ANY WORSENING SYMPTOMS Referrals: Jose E Mendiola MD [Primary Care Provider] - Time of Disposition: 11:55 Medical Decision Making - Medical Records Medical records reviewed: No: I reviewed the patient's medical records. - Steve Inquiry Pt receiving controlled substance: No Vital Signs: 01/07/22 11:55 01/07/22 11:58 Temperature 98.2 F 98.2 F Temperature Source Oral Pulse Rate 83 Pulse Rate [Left] 83 Respiratory Rate 16 16 Blood Pressure 133/94 H Blood Pressure [Right Arm] 133/94 H Blood Pressure Mean [Right Arm] 107 02 Sat by Pulse Oximetry 96 [facility] [place] HPI - General Stated complaint: tired,runny nose,covid positive 7 days Time Seen by Provider: 01/07/22 11:51 - History of Present Illness Provider Complaint: He tested positive for covid-19 1 week ago. He states that he is feeling better. He is here to get a covid-19 test because his employer wanted before he can return to work. - Related Data Home Medications Medication Instructions Recorded Confirmed aspirin 81 mg tablet,delayed 81 mg PO DAILY tab 08/12/17 02/26/21 release polyethylene glycol 3350 17 17 g PO DAILY g 08/12/17 02/26/21 gram/dose oral powder colchicine 0.6 mg capsule 0.6 mg PO BID PRN 09/25/19 02/26/21 naproxen sodium 220 mg tablet 220 mg PO DAILY PRN tab 09/25/19 02/26/21 Previous Rx's Medication Instructions Recorded amlodipine 5 mg tablet See Rx Instructions .ROUTE 06/02/21 .COMPLEX #30 tab bisoprolol fumarate 5 mg tablet 5 mg PO DAILY #90 tab 07/04/21 prasugrel 10 mg tablet 10 mg PO DAILY #90 tab 07/04/21 atorvastatin 40 mg tablet See Rx Instructions .ROUTE 11/18/21 .COMPLEX #30 tab furosemide 80 mg tablet See Rx Instructions .ROUTE 11/18/21 .COMPLEX #30 tab omeprazole 40 mg capsule,delayed See Rx Instructions .ROUTE 11/18/21 release .COMPLEX #30 cap spironolactone 50 mg tablet See Rx Instructions .ROUTE 11/18/21 .COMPLEX #30 tab Allergies Allergy/AdvReac Type Severity Reaction Status Date / Time venlafaxine [From Effexor] Allergy Intermediate Verified 01/07/22 11:58 isosorbide [From Imdur] Allergy Mild Verified 01/07/22 11:58 ibuprofen Allergy Unknown Verified 01/07/22 11:58 Penicillins Allergy Unknown Verified 01/07/22 11:58 ranolazine AdvReac Verified 01/07/22 11:58 DEPRESSION MED Allergy Unknown Uncoded 11/05/20 14:00 [facility] History - Hepatitis A Screen Attestation statement:: This patient has been screened for Hepatitis A risk factors. I have reviewed the patient's past medical history: Yes Medical History: Reports:: Anxiety, Cancer, Coronary Artery Disease, Depression, Hiatal Hernia, Hyperlipidemia, Hypertension, Kidney Stones, Myocardial Infarction, Palpitations Denies:: Diabetes Mellitus Type 1, Diabetes Mellitus Type 2, Internal Pacemaker, MRSA, Seizures Other Medical History: Reports: Arthritis, Fibromyalgia Laterality Cases: Left: Arthroscopy Knee, Other Other Surgeries: Yes: Angiogram (05/15/18 1 stent), Angioplasty, Cardiac Catheterization, Coronary Stent, Hernia Repair, Other. No: Pacemaker Amputation: No Fractures: No Comment: Right Kidney removed due to cancer - Social History Smoking Status: Current every day smoker Tobacco Type: cigarettes # Packs/Day (cigarettes): 1 #Yrs smoked (if former smoker): 17 Alcohol Intake: never Alcohol Intake Frequency:: other Substance Use Type: marijuana Occupational Status: employed Housing: house Household Members: spouse Comment: he states that he smokes cannabis daily. -acid used to be his drug of ch
[2022-01-07 11:55] VITALS: BP 133/94; PULSE 83; RESP 16; TEMP 36.8; O2SAT 96; BMI 32.4
[2022-01-07 11:58] VITALS: BP 133/94; PULSE 83; RESP 16; TEMP 36.8
== END 2022-01-07 12:01 | disposition home or self-care (01) ==
PROVIDERS: Emergency Provider Nurse Practitioner Family; PCP Family Medicine
DX: Z86.16 Personal history of COVID-19 (principal); Z02.89 Encounter for other administrative examinations
CPT/HCPCS: 99212; C9803; G0463; U0003; U0005

== ENCOUNTER 2022-01-13 13:37 | Inpatient (IN) | payer OTHER, SELFPAY ==
[2022-01-13] VITALS (21 sets, daily range): BP systolic 111–156; BP diastolic 51–86; PULSE 49–74; RESP 15–20; TEMP 36.6–36.8; O2SAT 95–100; BMI 32.4; BMI 30.6
--- NOTE | 2022-01-13 | IR_ITS ---
APPROVED REPORT Patient Location: [employer]: KATYA Stokes RT (R) PROCEDURES Selective coronary angiogram Drug-eluting stent deployment to the ramus intermedius Drug-eluting stent deployment to the proximal ID INDICATION Acute non-ST elevation myocardial infarction, Coronary artery disease, Informed consent was obtained prior to the procedure. COMPLICATIONS none Estimated Blood Loss: less than 10 ml TECHNIQUE One percent lidocaine used to anesthetize the right anterior aspect of the wrist. The right radial artery was accessed via the Seldinger technique. A 6 Romansh sheath was placed in the right radial artery. 2.5 mg of verapamil, 800 mcg of nitroglycerin, 1mg Lidocaine and 5000 U Heparin were given through the arterial sheath. A Poppa catheter was used to perform right coronary angiography while a JL 3 guide catheter was used to perform left coronary angiography. At the end of the diagnostic angiogram therapeutic heparin was administered giving a therapeutic ACT and the guide catheter was left in the left main artery followed by a Choice PT extra-support wire being placed into the ramus intermedius. Primary stenting could not be performed therefore a 2 mm x 27 mm balloon was predilated in the ramus intermedius. This allowed a 2 mm x 26 mm resolute Kamaljit stent to be deployed at 18 james reducing the critical stenosis to 0%. An additional 2 mm x 22 mm resolute Kamaljit stent was placed proximal to this yet still overlapping and deployed at 20 james. 800 mcg of intracoronary nitroglycerin was administered which restored ERNESTINA-3 flow while ERNESTINA I flow was present at the beginning of the procedure. Following this the wire was pulled back and placed into the LAD where a 3.5 x 22 mm resolute Selmer stent was then placed proximal to the midportion crossing the ramus intermedius and deployed at 20 james. This reduce the severe stenosis to 0%. ERNESTINA-3 flow was present before and after the procedure. At the end the procedure the apparatus was removed the sheath was removed good hemostasis was achieved using TR banding patient was transferred to postop already in stable condition ANGIOGRAPHIC RESULTS The left main artery Normal The left anterior descending artery Has a concentric proximal 70% stenosis. The stent in the midportion is widely patent with minimal in-stent restenosis. A large ramus intermedius originates proximally and then bifurcates. The inferior branch has a thrombus with greater than 90% stenosis accompanied by ERNESTINA I to ERNESTINA II flow. The circumflex artery Is a codominant large system and has proximal and mid vessel 10 to 20% stenosis. First obtuse marginal artery has 30 and 40% proximal stenoses while the third obtuse marginal artery has a proximal 80 to 90% stenosis however this is a small 1.5 mm vessel The right coronary artery Is a codominant vessel and has stents in the proximal and mid segment which are widely patent with minimal in-stent restenosis. Distal to the stents there are 30% concentric stenoses The ROJO ventriculogram reveals Not performed The left ventricular end-diastolic pressure Not measured IMPRESSION Critical coronary artery disease with thrombus and ERNESTINA II flow down the large ramus intermedius Successful stent to the ramus intermedius critical disease reduced to 0% with 2 contiguous drug-eluting stents Severe stenosis in the proximal LAD Successful stenting the proximal ID severe disease reduced to 0% with 1 drug-eluting PLAN 1. Continue Effient and aspirin 2. Absolute and immediate tobacco cessation 3. LDL less than 55 to be achieved with high intensity statin 4. Beta-blockers KINGSLEY inhibitor's 5. Cardiac rehabilitation 6. Avoidance
--- NOTE | 2022-01-13 13:37 | ECG_ITS ---
APPROVED REPORT Exam: Resting ECG HR:70 bpm ECG Measurements Heart Rate 70 AXES NH 137 P 24 QRSd 90 QRS 17 QT 419 T 72 QTc 440 Conclusion SINUS RHYTHM POSSIBLE LATERAL MYOCARDIAL INFARCTION , OF INDETERMINATE AGE [30 ms Q WAVE IN I/aVL/V5/V6] ABNORMAL ECG UNCONFIRMED REPORT Electronically signed by : Jermain Montano MD 01/13/2022 21:20:44
--- NOTE | 2022-01-13 13:59 | XR_ITS ---
FINAL REPORT CLINICAL HISTORY: CP FINDINGS: The heart size is normal. The mediastinum is normal. There is no focal infiltrate or edema. There are no pleural effusions. There is no pneumothorax. There is no osseous abnormality. IMPRESSION: No acute cardiopulmonary process Reviewed, Interpreted and Dictated by Arsalan Murphy MD Transcribed by Tatiana Catherine Authenticated and [facility]
--- NOTE | 2022-01-13 14:02 | HMH.EDCP ---
ED Disposition Clinical Impression: NSTEMI (non-ST elevated myocardial infarction) Disposition: Admitted As Inpatient Condition on Discharge: Fair - Critical Care Critical Care Time: No Attestation: On 01/13/22, the high probability of a clinically significant, sudden or life threatening deterioration of the following system(s) required my full and direct attention, intervention and personal management. The time I documented below is in addition to time spent performing reported procedures but includes the following listed in this critical care notation. Medical Decision Making - Medical Records Medical records reviewed: Yes: I reviewed the patient's medical records. - Steve Inquiry Pt receiving controlled substance: No Vital Signs: 01/13/22 13:37 01/13/22 14:00 01/13/22 14:30 Temperature 98.3 F Temperature Source Oral Pulse Rate 74 70 Pulse Rate [Right Radial] 70 Respiratory Rate 15 18 18 Blood Pressure 114/83 118/80 Blood Pressure [Right Arm] 135/63 Blood Pressure Mean 93 87 Blood Pressure Mean [Right Arm] 87 Blood Pressure Source [Right Arm] Automatic Cuff Blood Pressure Position [Right Arm] Sitting 02 Sat by Pulse Oximetry 97 97 96 Oxygen Delivery Method Room Air 01/13/22 15:00 01/13/22 15:53 Temperature 98.3 F Temperature Source Pulse Rate 60 72 Pulse Rate [Right Radial] Respiratory Rate 18 16 Blood Pressure 124/82 129/86 Blood Pressure [Right Arm] Blood Pressure Mean 92 Blood Pressure Mean [Right Arm] Blood Pressure Source [Right Arm] Blood Pressure Position [Right Arm] 02 Sat by Pulse Oximetry 98 Oxygen Delivery Method - Lab Data Lab Results 01/13/22 13:50: WBC 8.2, RBC 5.37, Hgb 16.0, Hct 48.2, MCV 89.9, MCH 29.9, MCHC 33.3, RDW 13.0, Plt Count 267, MPV 7.5, Neut % (Auto) 62.6, Lymph % (Auto) 26.6, Hamilton % (Auto) 7.4, Eos % (Auto) 2.0, Baso % (Auto) 1.5, Neut # (Auto) 5.1, Lymph # (Auto) 2.2, Hamilton # (Auto) 0.6, Eos # (Auto) 0.2, Baso # (Auto) 0.1 01/13/22 13:50: Sodium 137, Potassium 3.5, Chloride 99, Carbon Dioxide 30, Anion Gap 11.5, BUN 13, Creatinine 1.10, Estimated Creat Clear 116, Estimated GFR 69, Est GFR ( Amer) 83, Glucose 110 H, Calcium 9.5, Troponin I 2.81 H 01/13/22 13:50: APTT 29.9 01/13/22 13:50: PT 10.3, INR 0.90 01/13/22 16:00: SARS-CoV-2 (PCR) Not detected, Influenza A Untype (PCR) Not detected, Influenza Type B (PCR) Not detected Result diagrams: 01/13/22 13:50 01/13/22 13:50 Orders (Tests/Meds): ED MEDICATIONS Generic Name Dose Route Start Last Admin Trade Name Freq PRN Reason Stop Dose Admin Aspirin 81 mg 01/14/22 09:00 Aspirin 81mg Chewable Tablet PO 02/13/22 08:59 DAILY YSABEL Diphenhydramine HCl 50 mg 01/13/22 18:10 Diphenhydramine 50mg/Ml Vial IV 01/13/22 18:11 ONCE ONE Fentanyl Citrate 50 mcg 01/13/22 18:10 Fentanyl 100mcg/2ml Vial IV 01/14/22 15:07 Q3MINP PRN Moderate to Severe Pain Fentanyl Citrate 25 mcg 01/13/22 18:10 Fentanyl 100mcg/2ml Vial IV 01/14/22 15:07 Q3MINP PRN Moderate to Severe Pain Fentanyl Citrate 25 mcg 01/13/22 18:10 Fentanyl 250mcg/5ml Vial IV 01/14/22 15:07 Q3MINP PRN Moderate to Severe Pain Fentanyl Citrate 50 mcg 01/13/22 18:10 Fentanyl 250mcg/5ml Vial IV 01/14/22 15:07 Q3MINP PRN Moderate to Severe Pain Flumazenil 0.2 mg 01/13/22 18:10 Flumazenil 0.1mg/Ml 5ml Vial IV 01/13/22 23:00 NEEDED PRN Sedation Heparin Sodium (Porcine) 10,000 unit 01/13/22 18:10 Heparin 1,000 Units/Ml 10ml Vial (Programming Coordinator) IV 01/13/22 19:07 NEEDED PRN Emergency Box Tie Up Worker Sodium Chloride 1,000 mls @ 25 mls/hr 01/13/22 18:10 Sod Chloride 0.9% 500ml Bag IV 01/14/22 15:07 .Q25H YSABEL Heparin Sodium/Dextrose 500 mls @ 20 mls/hr 01/13/22 18:10 Heparin 25,000 Units In D5w 500ml Premix IV 02/12/22 15:14 .Q25H YSABEL 1,000 UNITS/HR Lidocaine HCl 20 ml 01/13/22
[2022-01-13 14:11] LABS: Anion Gap 11.5 mEq/L (5-15); Blood Urea Nitrogen 13 mg/dl (9-20); Calcium 9.5 mg/dl (8.4-10.2); Carbon Dioxide 30 mmol/L (22.0-30.0); Chloride 99 mmol/L (98-107); Creatinine Clearance Estimated 116 mL/min (50-200); Estimated Glomerular Filt Rate 69 ml/min (>60); GFR (African American) 83 ML/MIN (>60); Glucose 110 mg/dl (74-100); Potassium 3.5 mmoL/L (3.5-5.1); Sodium 137 mmol/L (136-145)
[2022-01-13 14:26] LABS: Basophils # 0.1 K/mm3 (0-0.2); Basophils % 1.5 % (0.1-2.0); Eosinophils # 0.2 K/mm3 (0.0-0.4); Hematocrit 48.2 % (42.0-52.0); Lymphocytes # 2.2 K/mm3 (0.7-4.5); Lymphocytes % 26.6 % (10-50); Mean Corpuscular HGB Conc 33.3 g/dL (31.8-35.4); Mean Corpuscular Hemoglobin 29.9 pg (27.0-31.2); Mean Corpuscular Volume 89.9 fl (80-94); Mean Platelet Volume 7.5 fl (7.4-10.4); Monocytes # 0.6 K/mm3 (0.1-1.0); Monocytes % 7.4 % (1.7-9.3); Neutrophils # 5.1 K/mm3 (1.8-7.8); Neutrophils % 62.6 % (37.0-80.0); Platelet Count 267 K/mm3 (142-424); Red Blood Count 5.37 M/mm3 (4.60-6.20); White Blood Count 8.2 K/mm3 (4.8-10.8)
[2022-01-13 14:30] LABS: Troponin I 2.81 ng/ml (0.00-0.034)
--- NOTE | 2022-01-13 14:30 | PC.NURSE ---
Dani from Lab called critical on patient. Patient has Troponin of 2.81, was read back and verified with lab. Also cardiology was notified, recieved call from Halima, told her the troponin and she said she would talk to Dr. Sinha.
--- NOTE | 2022-01-13 15:13 | PC.NURSE ---
speaking with Dr Campuzano, whom is station operator for service
[2022-01-13 15:20] LABS: PTT Heparin (inpatient only) 29.9 Seconds (23.6-34.0)
--- NOTE | 2022-01-13 15:22 | HMH.CNCARD ---
History of Present Illness Consult date: 01/13/22 Requesting physician: Joselo Celestin Consult reason: chest pain Chief complaint: chest pain History of present illness: This is a 56-year-old white gentleman who presented to the emergency department complaints of chest pain. He states that the chest pain started yesterday morning around 3 or 4 AM. This is a pressure sensation in the substernal aspect of his chest that radiates to his back and left arm. The patient states that this is associated with shortness of breath, nausea and vomiting as well as diaphoresis. The patient states that yesterday the pain was severe and lasted most of the day. He went on to work and was only able to work for about an hour and a half and he had to go home. He states he took 2 Tylenol and rested the rest of the day. The chest pain was still present this morning. He states that it may slightly be a little bit better today than it was yesterday but still present and still severe. The patient has an extensive history of coronary artery disease with multivessel stenting in the past. He denies any lower extremity edema. He denies any fever, chills, diarrhea, PND orthopnea. [facility] History I have reviewed the patient's past medical history: Yes Medical History: Reports:: Anxiety, Cancer, Coronary Artery Disease, Depression, Hiatal Hernia, Hyperlipidemia, Hypertension, Kidney Stones, Myocardial Infarction, Palpitations Denies:: Diabetes Mellitus Type 1, Diabetes Mellitus Type 2, Internal Pacemaker, MRSA, Seizures *Have you ever received a pneumonia vaccine?: No *Have you received a flu vaccine this season?: No Other Medical History: Reports: Arthritis, Fibromyalgia Laterality Cases: Left: Arthroscopy Knee, Other Other Surgeries: Yes: Angiogram (05/15/18 1 stent), Angioplasty, Cardiac Catheterization, Coronary Stent, Hernia Repair, Other. No: Pacemaker Amputation: No Fractures: No - *Social History Smoking Status: Current every day smoker Tobacco Type: cigarettes # Packs/Day (cigarettes): 1 #Yrs smoked (if former smoker): 17 Alcohol Intake: never Alcohol Intake Frequency:: other Substance Use Type: marijuana *Occupational Status:: employed Housing: house Household Members: spouse *Travel in the last 8 weeks: None - Psychiatric History Pschychiatric History:: Reports:: Anxiety, Depression Family Hx:: Cancer, Heart Attack, Stroke Meds Home Medications Medication Instructions Recorded Confirmed Type aspirin 81 mg tablet,delayed 81 mg PO DAILY tab 08/12/17 02/26/21 History release polyethylene glycol 3350 17 17 g PO DAILY g 08/12/17 02/26/21 History gram/dose oral powder colchicine 0.6 mg capsule 0.6 mg PO BID PRN 09/25/19 02/26/21 History naproxen sodium 220 mg tablet 220 mg PO DAILY PRN tab 09/25/19 02/26/21 History amlodipine 5 mg tablet See Rx Instructions .ROUTE 06/02/21 Rx .COMPLEX #30 tab bisoprolol fumarate 5 mg tablet 5 mg PO DAILY #90 tab 07/04/21 Rx prasugrel 10 mg tablet 10 mg PO DAILY #90 tab 07/04/21 Rx atorvastatin 40 mg tablet See Rx Instructions .ROUTE 11/18/21 Rx .COMPLEX #30 tab furosemide 80 mg tablet See Rx Instructions .ROUTE 11/18/21 Rx .COMPLEX #30 tab omeprazole 40 mg capsule,delayed See Rx Instructions .ROUTE 11/18/21 Rx release .COMPLEX #30 cap spironolactone 50 mg tablet See Rx Instructions .ROUTE 11/18/21 Rx .COMPLEX #30 tab Allergies Allergy/AdvReac Type Severity Reaction Status Date / Time venlafaxine [From Effexor] Allergy Intermediate Verified 01/07/22 11:58 isosorbide [From Imdur] Allergy Mild Verified 01/07/22 11:58 ibuprofen Allergy Unknown Verified 01/07/22 11:58 Penicillins Allergy Unknown Verified 01/07/22 11:58 ranolazine AdvReac Verified 01/07/22 11:58 DEPRESSION MED Allergy Unknown Uncoded 11/05/20 14:00 Exam Vital signs and Labs for Last 24 Hours: Temp Pulse Resp BP Pulse Ox 98.3 F 60 18 124/82 98 01/13/22 13:37 01/13/22 15:00 01/13/22 15:00
[2022-01-13 15:25] LABS: Prothrombin Time 10.3 seconds (10.1-12.5)
--- NOTE | 2022-01-13 15:34 | PC.NURSE ---
Halima Dumont come down to eval pt, Heparin drip started, pt being prepped for cath at this time, consent signed.
--- NOTE | 2022-01-13 15:53 | PC.NURSE ---
Pt to labor delivery specialist at this time.
--- NOTE | 2022-01-13 15:53 | PC.NURSE ---
PT TO EMBOSSER OPERATOR
--- NOTE | 2022-01-13 15:56 | PC.NURSE ---
called care management for bed
[2022-01-13 16:54] LABS: Coronavirus 19, PCR Not Detected (NotDetected); Influenza A, PCR Not Detected (NotDetected); Influenza B, PCR Not Detected (NotDetected)
[2022-01-13 17:19] LABS: CATHL Activated Clotting Time > 400 SEC (74-125)
[2022-01-14] VITALS: PULSE 70
[2022-01-14 00:35] VITALS: BP 104/65; PULSE 59; RESP 16; TEMP 36.7; O2SAT 95
[2022-01-14 05:00] VITALS: BP 106/61; PULSE 59; RESP 18; TEMP 36.7; O2SAT 97
[2022-01-14 08:00] VITALS: BP 116/69; PULSE 57; PULSE 65; RESP 17; TEMP 36.7; O2SAT 99
[2022-01-14 08:20] LABS: Anion Gap 15.5 mEq/L (5-15); Calcium 8.3 mg/dl (8.4-10.2); Carbon Dioxide 22 mmol/L (22.0-30.0); Chloride 104 mmol/L (98-107); Glucose 102 mg/dl (74-100); Potassium 4.5 mmoL/L (3.5-5.1); Sodium 137 mmol/L (136-145)
[2022-01-14 08:57] LABS: Albumin Level 3.8 g/dl (3.5-5.0); Alkaline Phosphatase 68 U/L (38-126); Aspartate Amino Transferase 59 U/L (17-59); Bilirubin,Direct 0.7 mg/dl (0.0-0.4); Bilirubin,Indirect 0.3 mg/dL (0.0-0.9); Bilirubin,Unconjugated 0.3 mg/dL (0.0-1.1); Chol/HDL Ratio 5.6 (1-3.5); Cholesterol 192 mg/dl (140-200); HDL Cholesterol 34 mg/dl (40-60); Total Protein,Serum 6.6 g/dl (6.3-8.2); Triglycerides 99 mg/dl (30-150); VLDL Cholesterol 20 mg/dL (0-40)
[2022-01-14 09:15] LABS: Alanine Aminotransferase 32 U/L (12-78); Blood Urea Nitrogen 14 mg/dl (9-20); Creatinine Clearance Estimated 109 mL/min (50-200); Estimated Glomerular Filt Rate 69 ml/min (>60); GFR (African American) 83 ML/MIN (>60)
[2022-01-14 10:16] LABS: Hematocrit 41.7 % (42.0-52.0); Hemoglobin 14.7 g/dL (14.1-18.0); Mean Corpuscular HGB Conc 35.3 g/dL (31.8-35.4); Mean Corpuscular Hemoglobin 29.8 pg (27.0-31.2); Mean Corpuscular Volume 84.3 fl (80-94); Red Blood Count 4.95 M/mm3 (4.60-6.20); Red Cell Distribution Width 12.4 % (11.5-17.5); White Blood Count 7.4 K/mm3 (4.8-10.8)
[2022-01-14 10:17] LABS: Basophils # 0.1 K/mm3 (0-0.2); Basophils % 0.8 % (0.1-2.0); Eosinophils # 0.2 K/mm3 (0.0-0.4); Eosinophils % 2.7 % (0.1-12.0); Lymphocytes % 27.6 % (10-50); Mean Platelet Volume 6.8 fl (7.4-10.4); Monocytes # 0.5 K/mm3 (0.1-1.0); Monocytes % 6.7 % (1.7-9.3); Neutrophils # 4.6 K/mm3 (1.8-7.8); Neutrophils % 62.2 % (37.0-80.0); Platelet Count 208 K/mm3 (142-424)
--- NOTE | 2022-01-14 10:40 | EXP.PHA.VTE ---
[facility] Pharmacy VTE Monitoring Patient Demographics Patient Allergies venlafaxine [From Effexor] Allergy (Intermediate, Verified 01/14/22 09:33) Unknown allergy reaction isosorbide [From Imdur] Allergy (Mild, Verified 01/14/22 09:33) Unknown allergy reaction ibuprofen Allergy (Unknown, Verified 01/14/22 09:33) Unknown allergy reaction Penicillins Allergy (Unknown, Verified 01/14/22 09:33) Unknown allergy reaction ranolazine Adverse Reaction (Verified 01/14/22 09:33) RAPID HEART BEAT Height: 1.85 m Weight: 105.318 kg Current Active Problems (Updated 01/13/22 @ 17:13 by Coby Price RN) Non-ST elevation myocardial infarction (NSTEMI) (Acute) Angina pectoris (Acute) NSTEMI (non-ST elevated myocardial infarction) (Acute) Diastolic dysfunction (Chronic) HLD (hyperlipidemia) (Chronic) Obstructive sleep apnea (Chronic) Hypertension (Chronic) CAD (coronary artery disease) (Chronic) Tobacco dependence syndrome (Chronic) VTE Risk Labs: VTE Related Lab Results Hgb 14.7 g/dL (14.1-18.0) 01/14/22 06:09 Hct 41.7 % (42.0-52.0) L 01/14/22 06:09 Plt Count 208 K/mm3 (142-424) 01/14/22 06:09 PT 10.3 seconds (10.1-12.5) 01/13/22 13:50 INR 0.90 (0.9-1.1) 01/13/22 13:50 APTT 29.9 Seconds (23.6-34.0) 01/13/22 13:50 BUN 14 mg/dl (9-20) 01/14/22 06:09 Creatinine 1.10 mg/dl (0.66-1.25) 01/14/22 06:09 Estimated Creat Clear 109 mL/min (50-200) 01/14/22 06:09 Clinical Trial Participant: No Prophylaxis VTE Prophylaxis Ordered?: Yes Types of VTE Prophylaxis: Pharmacological Pharmacologic Type: Other (EFFIENT)
--- NOTE | 2022-01-14 10:47 | HMH.PHAINT1 ---
Pharmacy Intervention Comments: home medication list verified using list from outpatient pharmacy and pt interview
[2022-01-14 12:00] VITALS: BP 115/66; PULSE 50; PULSE 60; RESP 16; TEMP 36.7; O2SAT 99
--- NOTE | 2022-01-14 12:05 | EXP.CARD.PN ---
Subjective Subjective Date: 01/14/22 Time: 10:30 Principal diagnosis: angina, CAD Interval history: This is a 56-year-old white gentleman who presented to the emergency department with chest pain. The patient had an elevated troponin consistent with a non-ST elevation myocardial infarction. The patient underwent left cardiac catheterization and had stenting to the proximal LAD and mid LAD as well as the circumflex artery. The patient will remain on Effient and aspirin for dual antiplatelet therapy. This morning he denies any chest pain or pressure. He states that he still has some shortness of breath from when he previously had COVID-19. He states that this is unchanged and no worse than it has been. He denies any fever, chills, nausea, vomiting, diarrhea, PND orthopnea. The patient states that he is ready to be discharged home. Exam Data for Last 24 hours Vital signs and Labs for Last 24 Hours: Temp Pulse Resp BP Pulse Ox 98.1 F 57 L 17 116/69 99 01/14/22 08:00 01/14/22 08:00 01/14/22 08:00 01/14/22 08:00 01/14/22 08:00 Laboratory Results - last 24 hr 01/13/22 13:50: WBC 8.2, RBC 5.37, Hgb 16.0, Hct 48.2, MCV 89.9, MCH 29.9, MCHC 33.3, RDW 13.0, Plt Count 267, MPV 7.5, Neut % (Auto) 62.6, Lymph % (Auto) 26.6, Frederick % (Auto) 7.4, Eos % (Auto) 2.0, Baso % (Auto) 1.5, Neut # (Auto) 5.1, Lymph # (Auto) 2.2, Frederick # (Auto) 0.6, Eos # (Auto) 0.2, Baso # (Auto) 0.1 01/13/22 13:50: Sodium 137, Potassium 3.5, Chloride 99, Carbon Dioxide 30, Anion Gap 11.5, BUN 13, Creatinine 1.10, Estimated Creat Clear 116, Estimated GFR 69, Est GFR ( Amer) 83, Glucose 110 H, Calcium 9.5, Troponin I 2.81 H 01/13/22 13:50: APTT 29.9 01/13/22 13:50: PT 10.3, INR 0.90 01/13/22 16:00: SARS-CoV-2 (PCR) Not detected, Influenza A Untype (PCR) Not detected, Influenza Type B (PCR) Not detected 01/13/22 16:54: Activated Clotting Time > 400 H* 01/14/22 06:09: WBC 7.4, RBC 4.95, Hgb 14.7, Hct 41.7 L, MCV 84.3, MCH 29.8, MCHC 35.3, RDW 12.4, Plt Count 208, MPV 6.8 L, Neut % (Auto) 62.2, Lymph % (Auto) 27.6, Frederick % (Auto) 6.7, Eos % (Auto) 2.7, Baso % (Auto) 0.8, Neut # (Auto) 4.6, Lymph # (Auto) 2.0, Frederick # (Auto) 0.5, Eos # (Auto) 0.2, Baso # (Auto) 0.1 01/14/22 06:09: Sodium 137, Potassium 4.5 D, Chloride 104, Carbon Dioxide 22, Anion Gap 15.5 H, BUN 14, Creatinine 1.10, Estimated Creat Clear 109, Estimated GFR 69, Est GFR ( Amer) 83, Glucose 102 H, Calcium 8.3 L, Total Bilirubin 1.0, Direct Bilirubin 0.7 H, Conjugated Bilirubin 0.0, Indirect Bilirubin 0.3, Unconjugated Bilirubin 0.3, AST 59, ALT 32, Alkaline Phosphatase 68, Total Protein 6.6, Albumin 3.8, Triglycerides 99, Cholesterol 192, VLDL Cholesterol 20, HDL Cholesterol 34 L, Cholesterol/HDL Ratio 5.6 H I & O for Last 24 hours: Intake & Output 01/11/22 01/12/22 01/13/22 01/14/22 23:59 23:59 23:59 23:59 Intake Total 120 / 360 360 / 360 Output Total 400 / 400 Balance 120 / 360 -40 / -40 Weight 232 lb 3 oz 232 lb 3 oz Constitutional Constitutional: no acute distress and obese *Routine HEENT Exam Head: Present normocephalic and atraumatic ENT: Present mucous membranes moist *Routine Neck Exam Neck: Present supple, full ROM and normal carotid upstroke; Absent JVD, carotid bruit or lymphadenopathy *Routine Respiratory Exam Respiratory: Present CTA bilaterally, normal respiratory effort, able to speak in complete sentences and symmetric chest movement *Routine Cardiovascular Exam Cardiovascular: Present RRR, Normal S1 and Normal S2; Absent murmur or gallop *Routine Abdominal Exam Abdominal: Present soft and normoactive bowel sounds; Absent tenderness or distended *Routine Extremities Exam Extremities: Present full ROM, pulses intact and normal capillary refill; Absent cyanosis, clubbing or edema *Routine Skin Exam Skin: Present intact and warm; Absent erythema *Routine Neurological Exam Neurological: Present alert, oriented X3 and CN II-XII intact; Absent sensory deficit or motor de
--- NOTE | 2022-01-14 14:33 | EXP.HPDC ---
General Admission date:: 01/13/22 Discharge date: 01/14/22 *Admission Date: 01/13/22 *Chief complaint: chest pain *History of present illness: this patient had progressive ant chest pain with sob with known cardiac disease and was seen in [facility] ed - please see ed record and was admitted after being taken to laboratory tech [facility] Medical History (Updated 01/13/22 @ 17:13 by Coby Price RN) Abnormal cardiovascular stress test Abnormal cardiovascular stress test Abnormal EKG Angina, class IV Blurred vision Chest pain Dizziness Dyspnea Dyspnea Numbness in both hands Typical angina Social History Smoking Status: Current every day smoker tobacco type: cigarettes packs per day: 1 second hand exposure: Yes alcohol intake: never substance use type: marijuana current occupational status: employed household members: spouse housing: house number of children: 6 current occupational exposures/hazards: Yes caffeine: Yes Review of Systems Review of Systems Review of systems:: pertinent systems reviewed and negative unless documented below *Cardiovascular Cardiovascular: Reports chest pain at rest and Reports dyspnea *Respiratory Respiratory: Reports dyspnea Exam Data for Last 24 hours Vital signs and Labs for Last 24 Hours: Temp Pulse Resp BP Pulse Ox 98.1 F 60 16 115/66 99 01/14/22 12:00 01/14/22 12:00 01/14/22 12:00 01/14/22 12:00 01/14/22 12:00 Laboratory Results - last 24 hr 01/13/22 13:50: WBC 8.2, RBC 5.37, Hgb 16.0, Hct 48.2, MCV 89.9, MCH 29.9, MCHC 33.3, RDW 13.0, Plt Count 267, MPV 7.5, Neut % (Auto) 62.6, Lymph % (Auto) 26.6, Gentry % (Auto) 7.4, Eos % (Auto) 2.0, Baso % (Auto) 1.5, Neut # (Auto) 5.1, Lymph # (Auto) 2.2, Gentry # (Auto) 0.6, Eos # (Auto) 0.2, Baso # (Auto) 0.1 01/13/22 13:50: APTT 29.9 01/13/22 13:50: PT 10.3, INR 0.90 01/13/22 16:00: SARS-CoV-2 (PCR) Not detected, Influenza A Untype (PCR) Not detected, Influenza Type B (PCR) Not detected 01/13/22 16:54: Activated Clotting Time > 400 H* 01/14/22 06:09: WBC 7.4, RBC 4.95, Hgb 14.7, Hct 41.7 L, MCV 84.3, MCH 29.8, MCHC 35.3, RDW 12.4, Plt Count 208, MPV 6.8 L, Neut % (Auto) 62.2, Lymph % (Auto) 27.6, Gentry % (Auto) 6.7, Eos % (Auto) 2.7, Baso % (Auto) 0.8, Neut # (Auto) 4.6, Lymph # (Auto) 2.0, Gentry # (Auto) 0.5, Eos # (Auto) 0.2, Baso # (Auto) 0.1 01/14/22 06:09: Sodium 137, Potassium 4.5 D, Chloride 104, Carbon Dioxide 22, Anion Gap 15.5 H, BUN 14, Creatinine 1.10, Estimated Creat Clear 109, Estimated GFR 69, Est GFR ( Amer) 83, Glucose 102 H, Calcium 8.3 L, Total Bilirubin 1.0, Direct Bilirubin 0.7 H, Conjugated Bilirubin 0.0, Indirect Bilirubin 0.3, Unconjugated Bilirubin 0.3, AST 59, ALT 32, Alkaline Phosphatase 68, Total Protein 6.6, Albumin 3.8, Triglycerides 99, Cholesterol 192, VLDL Cholesterol 20, HDL Cholesterol 34 L, Cholesterol/HDL Ratio 5.6 H I & O for Last 24 hours: Intake & Output 01/12/22 01/13/22 01/14/22 01/15/22 11:59 11:59 11:59 11:59 Intake Total 480 / 480 Output Total 600 / 600 Balance -120 / -120 Weight 232 lb 3 oz Constitutional Constitutional: no acute distress and obese *Routine HEENT Exam Head: Present normocephalic Eye: Present EOMI and PERRL ENT: Present mucous membranes moist *Routine Neck Exam Neck: Absent JVD *Routine Respiratory Exam Respiratory: Present CTA bilaterally *Routine Cardiovascular Exam Cardiovascular: Present RRR and murmur *Routine Abdominal Exam Abdominal: Present soft *Routine Rectal Exam Rectal:: deferred *Routine Genitalia Exam Genitalia:: deferred *Routine Extremities Exam Extremities: Absent calf tenderness *Routine Skin Exam Skin: Present intact *Routine Neurological Exam Neurological: Present alert, oriented X3 and CN II-XII intact Routine Psychiatric Exam Psychiatric: Present cooperative Hospital Course Hospital Course Hospital Course: pt had 3 stents placed and did well and was seen by card and will follow up as op
--- NOTE | 2022-01-14 15:14 | HMH.PHACL ---
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 PATIENT VERBALIZED UNDERSTANDING AND HAD NO QUESTIONS AT THIS TIME. -ISA VALDEZ, PHARMD
--- NOTE | 2022-01-14 15:30 | PC.NURSE ---
PT WAS DISCHARGED HOME. NO COMPLAINTS OF CHEST PAIN OR SOA. PT HAS BEEN ALERT AND ORIENTED T/O THE SHIFT. PT WAS SENT HOME WITH FOLLOW UP APPOINTMENTS AND AN OUTPATIENT ORDER FORM FOR LAB WORK BEFORE HIS FOLLOW UP WITH CARDIOLOGY. PT WAS GIVEN DISCHARGE INSTRUCTIONS AND MEDICATION EDUCATION.
--- NOTE | 2022-01-15 14:43 | CARE MANAGER ---
Spoke with patient's . She states he has his medication and is aware of his follow up appointments. Denies any other questions or concerns at this time.
[2022-01-15 15:17] LABS: Direct LDL Cholesterol 138 mg/dL (100-129)
== END 2022-01-14 15:29 | disposition home or self-care (01) | DRG 247 ==
LOC: ER 15:08 → CATHLAB 16:01 → 2ND 17:13
PROVIDERS: Nurse Practitioner Family; Admitting Provider Emergency Medicine; Emergency Provider Emergency Medicine; Referring Provider Internal Medicine; Visit Provider Emergency Medicine
PROC: 027136Z Dilation of Coronary Artery, Two Arteries with Three Drug-eluting Intraluminal Devices, Percutaneous Approach (ICD-10-PCS; principal; 2022-01-13 16:00)
DX: I21.4 Non-ST elevation (NSTEMI) myocardial infarction (principal); F17.210 Nicotine dependence, cigarettes, uncomplicated; Z86.16 Personal history of COVID-19; I25.119 Atherosclerotic heart disease of native coronary artery with unspecified angina pectoris; E78.5 Hyperlipidemia, unspecified; G47.33 Obstructive sleep apnea (adult) (pediatric); F41.9 Anxiety disorder, unspecified; F32.A Depression, unspecified; M19.90 Unspecified osteoarthritis, unspecified site; M79.7 Fibromyalgia
CPT/HCPCS: 36415; 71045; 80048; 80061; 80076; 84484; 85025; 85347; 85610; 85730; 92928; 92941; 93005; 93454; 99152; 99153; C1725; C1760; C1769; C1876; C9600; C9606; C9803; J1644; J2405; Q9967; U0003; U0005

== ENCOUNTER 2022-06-22 09:36 | Emergency (ER) | payer OTHER, SELFPAY ==
--- NOTE | 2022-06-22 09:35 | ECG_ITS ---
APPROVED REPORT Exam: Resting ECG HR:74 bpm ECG Measurements Heart Rate 74 AXES MT 146 P 73 QRSd 86 QRS 11 QT 407 T 39 QTc 435 Conclusion SINUS RHYTHM WITH OCCASIONAL ECTOPIC PREMATURE COMPLEXES BORDERLINE ECG UNCONFIRMED REPORT Electronically signed by : Jermain Montano MD 06/22/2022 19:42:39
[2022-06-22 09:36] VITALS: BP 159/107; PULSE 75; RESP 20; TEMP 36.6; O2SAT 100; BMI 29.8
[2022-06-22 09:37] VITALS: BMI 29.8
--- NOTE | 2022-06-22 09:37 | XR_ITS ---
FINAL REPORT CLINICAL HISTORY: CHEST PRESSURE COMPARISON: December 2021 FINDINGS: The heart size is normal. The mediastinum is within normal limits. There is mild bibasilar opacity. There is no pleural effusion. There is no pneumothorax. The bony thorax is intact. IMPRESSION: Mild bibasilar opacity could represent atelectasis or pneumonia. Reviewed, Interpreted and Dictated by Timothy Mena III, MD Transcribed by Jerson Ramey Authenticated and [facility]
--- NOTE | 2022-06-22 09:46 | HMH.EDCP ---
Discharge Plan Disposition Patient Disposition: Home, Self-Care Condition: Good Chief Complaint: Chest Pain Prescriptions Prescriptions: No Action polyethylene glycol 3350 [Miralax] 17 gram/dose powder 17 g PO DAILY colchicine 0.6 mg capsule 0.6 mg PO BIDP PRN (Reason: gout) tamsulosin [Flomax] 0.4 mg capsule 0.4 mg PO DAILY Qty: 30 2RF finasteride [Proscar] 5 mg tablet 5 mg PO DAILY Qty: 30 2RF sildenafil (pulm.hypertension) 20 mg tablet 20 mg PO DAILY PRN (Reason: sexual activity) Qty: 20 6RF diazepam [Valium] 5 mg tablet 5 mg PO BID Qty: 60 2RF atorvastatin 80 mg tablet 80 mg PO DAILY Qty: 90 3RF prasugrel 10 mg tablet See Rx Instructions .ROUTE .COMPLEX Qty: 90 0RF Dose Instruction: TAKE 1 TABLET BY MOUTH ONCE DAILY FOR HEART DISEASE Rx Instructions: TAKE 1 TABLET BY MOUTH ONCE DAILY FOR HEART DISEASE bisoprolol fumarate 5 mg tablet See Rx Instructions .ROUTE .COMPLEX Qty: 90 0RF Dose Instruction: TAKE 1 TABLET BY MOUTH ONCE DAILY FOR HIGH BLOOD PRESSURE Rx Instructions: TAKE 1 TABLET BY MOUTH ONCE DAILY FOR HIGH BLOOD PRESSURE spironolactone 50 mg tablet See Rx Instructions .ROUTE .COMPLEX Qty: 30 3RF Dose Instruction: TAKE ONE TABLET BY MOUTH EVERY DAY Rx Instructions: TAKE ONE TABLET BY MOUTH EVERY DAY omeprazole 40 mg capsule,delayed release(DR/EC) See Rx Instructions .ROUTE .COMPLEX Qty: 30 3RF Dose Instruction: TAKE 1 CAPSULE BY MOUTH EVERY DAY Rx Instructions: TAKE 1 CAPSULE BY MOUTH EVERY DAY furosemide 80 mg tablet See Rx Instructions .ROUTE .COMPLEX Qty: 30 3RF Dose Instruction: TAKE ONE TABLET BY MOUTH EVERY DAY Rx Instructions: TAKE ONE TABLET BY MOUTH EVERY DAY sildenafil (pulm.hypertension) 20 mg tablet 20 mg PO NEEDED PRN (Reason: sexual activity) Qty: 20 2RF Rx Instructions: administer doses at least 4-6 hours apart aspirin 81 mg Tablet,Chewable 81 mg PO DAILY Qty: 30 0RF Referrals Follow up/Referrals: Provider,Referral, MD [Referring] - See instructions Activity Restrictions/Add. Instructions Additional Instructions/Restrictions: Please follow-up with your gun fitter even if you feel better this week. Return to the emergency department immediately if you feel worse in any way. Continue taking all medications as prescribed. Try really hard to stop smoking. Clinical Impressions Clinical Impression: Chest pain, Atypical chest pain Instructions Patient Instructions: DI for Atypical Chest Pain Discharge ED Provider: Garrett Kellogg Chest Pain HPI General Chief Complaint: Chest Pain Stated Complaint: chest pain Time Seen by Provider: 06/22/22 09:45 Mode of Arrival: Ambulatory Source of Information: Patient Limitations: No Limitations Description of Symptoms (Recalled from ER Triage Doc. by RN): PT REPORTS CHEST PAIN/PRESSURE FOR A COUPLE OF DAYS. PAIN TO MID/LEFT CHEST. REPORTS SHORTNESS OF BREATH AND NAUSEA. HAS BEEN UNDER ADDED STRESS RECENTLY History of Present Illness HPI narrative: The patient presents to the emergency department complaining of chest discomfort (tightness) for the last 2 days. This has been constant. The patient has a history of coronary artery disease. He had myocardial infarction approximately 1/2-year ago. He has 8 cardiac coronary stents. He states that the discomfort experienced on this visit is different from prior myocardial infarctions. It does not radiate. It is not associated with any nausea. However, the patient does complain of some shortness of breath. MD complaint: chest pain [place]AS[place] Score for Non-Stemi Age of Patient: 50-59 years old Heart Rate: 70-89 bpm Systolic Blood Pressure: 120-139 mmhg Serum Creatinine: 0.80-1.19 mg/dl CHF [place] Class: I-No CHF Other Risk Factors: None Non-Stemi Risk Score: 91 Related Data Home Medications Medication Instructions Recorded Confirmed benjamineth
--- NOTE | 2022-06-22 09:46 | PC.NURSE ---
DR. SCHREIBER AT BEDSIDE
--- NOTE | 2022-06-22 10:01 | PC.NURSE ---
XR AT BEDSIDE
[2022-06-22 10:03] LABS: Basophils # 0.1 K/mm3 (0-0.2); Basophils % 1.1 % (0.1-2.0); Eosinophils # 0.2 K/mm3 (0.0-0.4); Eosinophils % 2.3 % (0.1-12.0); Hematocrit 48.9 % (42.0-52.0); Hemoglobin 16.1 g/dL (14.1-18.0); Lymphocytes # 1.7 K/mm3 (0.7-4.5); Lymphocytes % 18.1 % (10-50); Mean Corpuscular HGB Conc 32.8 g/dL (31.8-35.4); Mean Corpuscular Hemoglobin 27.8 pg (27.0-31.2); Mean Corpuscular Volume 84.6 fl (80-94); Mean Platelet Volume 7.4 fl (7.4-10.4); Monocytes # 0.5 K/mm3 (0.1-1.0); Monocytes % 5.4 % (1.7-9.3); Neutrophils # 6.9 K/mm3 (1.8-7.8); Platelet Count 257 K/mm3 (142-424); Red Blood Count 5.78 M/mm3 (4.60-6.20); Red Cell Distribution Width 13.9 % (11.5-17.5); White Blood Count 9.4 K/mm3 (4.8-10.8)
[2022-06-22 10:08] LABS: Chloride 106 mmol/L (98-107); Potassium 3.9 mmoL/L (3.5-5.1); Sodium 138 mmol/L (136-145)
[2022-06-22 10:11] LABS: Anion Gap 9.9 mEq/L (5-15); Blood Urea Nitrogen 6 mg/dl (9-20); Calcium 8.4 mg/dl (8.4-10.2); Carbon Dioxide 26 mmol/L (22.0-30.0); Creatinine Clearance Estimated 146 mL/min (50-200); Estimated Glomerular Filt Rate 99 ml/min (>60); GFR (African American) 120 ML/MIN (>60); Glucose 112 mg/dl (74-100)
[2022-06-22 10:16] VITALS: BP 133/91; PULSE 71; RESP 14; O2SAT 99
[2022-06-22 10:26] LABS: Troponin I 0.01 ng/ml (0.00-0.034)
--- NOTE | 2022-06-22 10:30 | PC.NURSE ---
DR SCHREIBER AT BEDSIDE TO DISCUSS POC WITH PT
[2022-06-22 10:35] VITALS: BP 144/83; PULSE 71; RESP 20; TEMP 36.7; O2SAT 96
== END 2022-06-22 10:35 | disposition home or self-care (01) ==
PROVIDERS: Emergency Provider Emergency Medicine; PCP Emergency Medicine
DX: R07.89 Other chest pain (principal); I25.2 Old myocardial infarction; Z86.79 Personal history of other diseases of the circulatory system; F17.210 Nicotine dependence, cigarettes, uncomplicated; F12.90 Cannabis use, unspecified, uncomplicated
CPT/HCPCS: 71045; 80048; 84484; 85025; 93005; 99285

== ENCOUNTER → 2022-07-07 14:58 | Outpatient (CLI) | payer OTHER, SELFPAY ==
--- NOTE | 2022-07-07 14:58 | CT_ITS ---
FINAL REPORT CLINICAL HISTORY: lung cancer screening. Patient is current smoker. He has been smoking 1.5 packs a day for 20 years. He has had a history of right renal cell carcinoma requiring removal of right kidney. Patient has coronary artery disease he stated. He has never had lung cancer he stated. He also stated this is his first lung screening study. FINDINGS: Low-Dose Chest CT Axial images were obtained from the lung apex to the mid abdomen by computed tomography. Low-dose protocol was utilized. CTDI vol (mGy): 2.90 DLP (mGy-cm): 96.38 There is no axillary adenopathy. There is no hilar or mediastinal adenopathy. The heart is proper size. There are dense coronary artery calcifications. There is no pericardial or pleural effusion. Lung window images demonstrate no suspicious infiltrate or nodule. The lungs are clear. Limited images of the upper abdomen are unremarkable. IMPRESSION: Lung RADS category 1S. Recommend 12 month follow-up low-dose chest CT. Modifier S: Very prominent coronary artery calcifications. Reviewed, Interpreted and Dictated by Blank Greer MD Transcribed by Jessika Melendrez Authenticated and [facility]
== END ==
PROVIDERS: PCP Emergency Medicine; Visit Provider Emergency Medicine
DX: Z87.891 Personal history of nicotine dependence (principal); Z12.2 Encounter for screening for malignant neoplasm of respiratory organs
CPT/HCPCS: 71271

== ENCOUNTER → 2022-07-30 13:05 | Outpatient (CLI) | payer OTHER, SELFPAY ==
--- NOTE | 2022-07-30 13:05 | US_ITS ---
FINAL REPORT TECHNIQUE: Ultrasound images of the kidneys were obtained. CLINICAL HISTORY: . FINDINGS: US RETROPERITONEAL The right kidney is surgically absent. There is a questionable small cyst in the right renal fossa. The left kidney measures 13.8 cm in length. It is normal in echogenicity. There is no hydronephrosis. The spleen is enlarged measuring 13.8 cm. IMPRESSION: Surgically absent right kidney with a questionable small cyst in the right renal fossa. If indicated, CT with contrast could further evaluate. Reviewed, Interpreted and Dictated by Timothy Mena III, MD Transcribed by Jessika Melendrez Authenticated and [facility]
== END ==
PROVIDERS: PCP Emergency Medicine; Visit Provider Emergency Medicine
DX: M54.9 Dorsalgia, unspecified (principal); Z85.528 Personal history of other malignant neoplasm of kidney
CPT/HCPCS: 76770

== ENCOUNTER → 2022-08-11 06:45 | Outpatient (CLI) | payer OTHER, SELFPAY ==
--- NOTE | 2022-08-11 06:48 | NM_ITS ---
APPROVED REPORT Exam: Nuclear Stress Test Indication: CAD, 10 STENTS, H/O MO X 3, HTN, HYPERLIPIDEMIA, TOB USE, FM HX, C,P., SOB, SYNCOPE Patient Location: Outpatient Stress Tech: Meaghan Dueñas [place] Tech:Cathleen Cardoza, ARRT RT (R)(N)(M) Ht: 6 ft 1 in Wt: 226 lbs HR: 58 bpm BP: 163/85 mmHg BSA: 2.27 m2 TID: 1.08 BMI: 29.8 History: CAD, 10 STENTS, H/O MO X 3, HTN, HYPERLIPIDEMIA, TOB USE, FM HX, C,P., SOB, SYNCOPE Procedure: Patient received 0.4 mg of intravenous Lexiscan, resting heart rate 58 bpm, resting blood pressure 163/85 mmHg, with Lexiscan maximum heart rate achieved was 92 bpm which is Less than 85 % of the maximum predicted heart rate and blood pressure was 134/84 mmHg. With Lexiscan, patient denied any complaint of chest pain. Electrocardiogram Resting electrocardiogram shows sinus rhythm, with Lexiscan there is less than 1.[address] segment depression noted from the baseline EKG. The EKG portion of the Lexiscan is nondiagnostic. Cardiac Stress and Resting SPECT Images: Cardiac Stress and Resting SPECT images were obtained using technetium 99m Myoview 31.8 mCi stress and 10.18 mCi at rest. Gated SPECT analysis of segmental wall motion and calculation of the ejection fraction also done. Prone images were also obtained. Cardiac stress and rest respectively show uniform myocardial activity without segmental perfusion abnormality, computer derived ejection fraction 54% with no regional wall motion abnormality, right ventricle is normal size and contractility. Conclusion: 1. The EKG portion of the Lexiscan is nondiagnostic. 2. No scintigraphic evidence of reversible ischemia seen, computer derived ejection fraction of 54% with no regional wall motion abnormality, right ventricle is normal size and contractility. 3. Normal Lexiscan Myoview study. Electronically signed by : Bird Nagy MD 08/11/2022 17:11:30
--- NOTE | 2022-08-11 06:48 | CA_ITS ---
APPROVED REPORT Exam: Pharmacologic Technologist: Danya Leon Ht: 6 ft 1 in Wt: 231 lbs BSA: 2.29 m2 HR: 58 bpm BP: 163/85 mmHg Medical History Medications: Omeprazole,,,,, Aspirin,,,,, Flomax,,,,, Atorvastatin,,,,, MiraLAX,,,,, BisOPROLOL,,,,, Valium,,,,, SpirOnolactone,,,,, ColCHIcine,,,,, ProSCAR,,,,, SilDENAFIL,,,,, Prasugrel,,,,, Stress Test Details Test: LEXISCAN HR Resting HR: 60 bpm Max Heart Rate (APMHR): 162.085756 bpm Max HR Achieved: 93 bpm Target HR (85% APMHR): 137.230127 bpm % of APMHR: 57.41 Recovery HR: 69 bpm BP Resting BP: 163.0/85.0 mmHg Max BP: 163.0/85.0 mmHg Recovery BP: 146.0/82.0 mmHg ECG Resting ECG: Normal sinus rhythm, T wave inversion in leads I and aVF Clinical Exercise duration: 04:11 min Highest Stage Achieved: Exercise capacity: 1.0 METs Stress ECG Conclusion Symptoms: Shortness of air, malaise, head discomfort. No chest pain. Arrhythmias/Ectopy: None ST-T Changes: No significant changes. Conclusion: Unremarkable Lexiscan stress. Myoview images reported separately. Test Summary REST . . . . . . . Resting REST 03:33 . . 60 . 163/ 85 . . Stage 1 01:00 . . 88 . . . . Stage 2 01:00 . . 88 . 134/ 84 . . Stage 3 01:00 . . 82 . . . . Stage 4 01:00 . . 78 . 137/ 86 . . Stage 4 01:11 . . 76 . 136/ 85 . Stop exercise at 04:11 RECOVERY 01:00 . . 78 . . . . RECOVERY 02:00 . . 71 . . . . RECOVERY 03:00 . . 70 . 132/ 82 . . RECOVERY 04:00 . . 67 . 132/ 82 . . RECOVERY 04:54 . . 75 . 146/ 82 . . Electronically signed by : Bird Nagy MD 08/11/2022 17:02:34
--- NOTE | 2022-08-11 06:48 | CA_ITS ---
APPROVED REPORT EXAM: Comprehensive 2D, Doppler, and color-flow Echocardiogram Respiratory Therapist Assistant: Zoila Garcia CRT Ht: 6 ft 1 in Wt: 231lbs BSA: 2.29 BP: 148/84 mmHg Indications: Chest Pain, Shortness of Breath, Obesity, Fatigue, CAD, Hyperlipidemia, Hypertension/HDD 2D Dimensions LVOT 1.87 cm (M/F) 1.5-2.5 LA Volume 54.90 mL LA Volume Index 23.50 mL/m2 (M/F) 16-34 M-Mode Dimensions RVDd 2.41 cm (0.9-2.6) LA Diam 4.41 cm (1.9-4.0) LVDd 5.45 cm (3.5-5.7) Ao Diam 4.55 cm (2.0-3.7) LVDs 3.97 cm (3.5-5.7) IVSd 2.16 cm (0.6-1.1) PWd 0.85 cm (0.6-1.1) EF (Teich) 52.40% FS 27.20% EDV (Teich) 144.40 mL TAPSE 2.81 (<1.7) ESV (Teich) 68.80 mL LV Diastology E Decel Time 150.00 (160-240 msec) E/A Ratio 1.42 MED E' 8.20 (< 7 cm/sec) MED A' 9.10 cm/s E'/MED E' Ratio 11.63 (>14) LAT E' 2.80 (<10 cm/sec) LAT A' 7.00 cm/s E/LAT E' Ratio 34.07 (>14) Aortic Valve AO Peak GR. 8.90 mmHg Mitral Valve MV A Velocity 67.00 (40-130 cm/s) E/A Ratio 1.42 MV Decel. Time 150.00 (160-240 ms) Pulmonary Valve PV Peak Velocity 77.00 (50-150 cm/s) Tricuspid Valve TR P. Velocity 250.00 cm/s RAP Estimate 10.00 mmHg RVSP 35.00 mmHg Left Ventricle Left atrium is mildly enlarged, left ventricle is normal size mild concentric left ventricular hypertrophy, estimated ejection fraction 55% with no regional wall motion abnormality, grade 2 diastolic dysfunction seen with tissue Doppler evidence of trace left atrial pressure. Right Ventricle Right atrium and right ventricle are normal size and contractility. Aortic Valve Aortic valve is minimally thickened and fibrosed there is no aortic stenosis or aortic insufficiency. Mitral Valve Mitral valve is grossly normal, there is trace mitral regurgitation. Tricuspid Valve Tricuspid grossly normal, there is trace tricuspid regurgitation, tricuspid regurgitation jet velocity is inadequate for calculation of the right ventricular systolic pressure. Pulmonic Valve Pulmonic valve is poorly visualized. Great Vessels Aortic root is normal size. Inferior vena cava is mildly dilated with less than 50% inspiratory collapse. Pericardium No significant pericardial effusion noted. Conclusion 1. Mildly enlarged atrium, normal left ventricular size, mild concentric left ventricular hypertrophy, estimated ejection fraction 55% with no regional wall motion abnormality, grade 2 diastolic dysfunction seen with tissue Doppler evidence of late left atrial pressure. 2. Trace mitral and tricuspid regurgitation. 3. No significant pericardial effusion noted. 4. Inferior vena cava is mildly dilated with less than 50% inspiratory collapse. Electronically signed by : Bird Nagy MD 08/11/2022 19:09:19
== END ==
PROVIDERS: PCP Emergency Medicine; Visit Provider Nurse Practitioner Family
DX: R06.09 Other forms of dyspnea (principal); R07.89 Other chest pain; I25.118 Atherosclerotic heart disease of native coronary artery with other forms of angina pectoris; I10 Essential (primary) hypertension; E78.2 Mixed hyperlipidemia; G47.33 Obstructive sleep apnea (adult) (pediatric); E66.9 Obesity, unspecified; Z68.31 Body mass index [BMI] 31.0-31.9, adult
CPT/HCPCS: 78452; 93017; 93306; A9502; J2785

== ENCOUNTER 2022-09-28 05:37 | Emergency (ER) | payer OTHER, SELFPAY ==
[2022-09-28 05:46] VITALS: BP 141/89; PULSE 99; RESP 18; TEMP 36.6; O2SAT 98; BMI 31.1
--- NOTE | 2022-09-28 05:53 | HMH.EDGENADL ---
Discharge Plan Disposition Patient Disposition: Home, Self-Care Condition: Good Prescriptions Prescriptions: New colchicine 0.6 mg tablet 0.6 mg PO BID Qty: 30 0RF No Action polyethylene glycol 3350 [Miralax] 17 gram/dose powder 17 g PO DAILY prednisone 20 mg tablet 20 mg PO BID Qty: 10 1RF tamsulosin 0.4 mg capsule 0.4 mg PO DAILY methylprednisolone [Medrol (Johann)] 4 mg tablets,dose pack See Rx Instructions PO PER PKG DIR Qty: 21 0RF Rx Instructions: PO PER PKG DIR polyethylene glycol 3350 [Miralax] 17 gram/dose powder 17 g PO DAILY Qty: 510 0RF diazepam [Valium] 5 mg tablet 5 mg PO BID Qty: 60 1RF hydrocodone-acetaminophen 5-325 mg tablet 1 tab PO BID Qty: 60 0RF colchicine 0.6 mg capsule 0.6 mg PO BIDP PRN (Reason: gout) finasteride [Proscar] 5 mg tablet 5 mg PO DAILY Qty: 30 2RF atorvastatin 80 mg tablet 80 mg PO DAILY Qty: 90 3RF prasugrel 10 mg tablet See Rx Instructions .ROUTE .COMPLEX Qty: 90 1RF Dose Instruction: TAKE 1 TABLET BY MOUTH ONCE DAILY FOR HEART DISEASE Rx Instructions: TAKE 1 TABLET BY MOUTH ONCE DAILY FOR HEART DISEASE omeprazole 40 mg capsule,delayed release(DR/EC) See Rx Instructions .ROUTE .COMPLEX Qty: 90 1RF Dose Instruction: TAKE 1 CAPSULE BY MOUTH EVERY DAY Rx Instructions: TAKE 1 CAPSULE BY MOUTH EVERY DAY spironolactone 50 mg tablet See Rx Instructions .ROUTE .COMPLEX Qty: 90 1RF Dose Instruction: TAKE ONE TABLET BY MOUTH EVERY DAY Rx Instructions: TAKE ONE TABLET BY MOUTH EVERY DAY bisoprolol fumarate 5 mg tablet See Rx Instructions .ROUTE .COMPLEX Qty: 90 1RF Dose Instruction: TAKE 1 TABLET BY MOUTH ONCE DAILY FOR HIGH BLOOD PRESSURE Rx Instructions: TAKE 1 TABLET BY MOUTH ONCE DAILY FOR HIGH BLOOD PRESSURE sildenafil (pulm.hypertension) 20 mg tablet See Rx Instructions .ROUTE .COMPLEX Qty: 20 3RF Dose Instruction: TAKE 1 TO 2 TABLETS BY MOUTH DAILY NEEDED (ADMINISTER DOSES AT LEAST 4-6 HOURS APART DIRECTED ) Rx Instructions: TAKE 1 TO 2 TABLETS BY MOUTH DAILY NEEDED (ADMINISTER DOSES AT LEAST 4-6 HOURS APART DIRECTED ) diclofenac sodium [Arthritis Pain (diclofenac)] 1 % gel 4 g topical QID Qty: 480 4RF Rx Instructions: apply to single knee, ankle, foot; for foot includes sole/toes/top of foot furosemide 80 mg tablet 80 mg PO DAILY Qty: 90 3RF aspirin 81 mg Tablet,Chewable 81 mg PO DAILY Qty: 30 0RF Referrals Follow up/Referrals: Gareth Campuzano MD [Primary Care Provider] - 7-14 days Clinical Impressions 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 by RN): Pt arrives via private vehicle. C/O pain in his left wrist with swelling, right knee pain and right shoulder pain. Reports a history of fibromyalgia and gout. States he was doing heavy lifting Wednesday which might explain the pain, as well as patient states [place] History of Present Illness HPI narrative: The patient reports right shoulder pain and left wrist feliz and swelling X 3 days Onset (ago): day(s) (3) Location: left, upper extremity and lower extremity Exacerbating factors: movement Related Data Home Medications Medication Instructions Recorded Confirmed polyethylene glycol 3350 17 17 g PO DAILY constipation 08/12/17 09/16/22 gram/dose oral powder (Miralax) colchicine 0.6 mg capsule 0.6 mg PO BIDP PRN gout 09/25/19 09/16/22
--- NOTE | 2022-09-28 06:06 | XR_ITS ---
PROCEDURE INFORMATION: Exam: XR Left Wrist Exam date and time: 09/28/2022 6:09 AM Age: 57 years old Clinical indication: Pain; Wrist; Left; Additional info: Wrist pain TECHNIQUE: Imaging protocol: Radiologic exam of the left wrist. Views: 3 or more views. COMPARISON: CR WRISTCMLT XR wrist LT min 3V 06/01/2018 5:08 AM FINDINGS: Bones/joints: No acute osseous abnormality. No evidence of acute fracture or dislocation. Chronic triangular fibrocartilage chondrocalcinosis and proximal lunate small subcortical erosion or cyst. Soft tissues: No significant soft tissue abnormalities. IMPRESSION: Chronic triangular fibrocartilage chondrocalcinosis and proximal lunate small subcortical erosion or cyst. Differential diagnosis includes OA versus CPPD versus hemochromatosis or hyperparathyroidism.
--- NOTE | 2022-09-28 06:06 | XR_ITS ---
PROCEDURE INFORMATION: Exam: XR Right Shoulder Exam date and time: 09/28/2022 6:07 AM Age: 57 years old Clinical indication: Pain; Shoulder; Right; Additional info: Shoulder pain TECHNIQUE: Imaging protocol: Radiologic exam of the right shoulder. Views: 2 or more views. COMPARISON: CT LUNG SCREENING 07/07/2022 3:07 PM FINDINGS: Bones/joints: No acute osseous abnormality. No acute fracture. No dislocation. Soft tissues: No significant soft tissue abnormalities. IMPRESSION: No acute abnormality demonstrated.
[2022-09-28 06:31] LABS: Alanine Aminotransferase 23 U/L (12-78); Albumin/Globulin Ratio 1.3 (1.1-1.8); Alkaline Phosphatase 93 U/L (38-126); Anion Gap 19.1 mEq/L (5-15); Aspartate Amino Transferase 26 U/L (17-59); Bilirubin,Total 1.1 mg/dl (0.2-1.3); Calcium 9.1 mg/dl (8.4-10.2); Carbon Dioxide 22 mmol/L (22.0-30.0); Chloride 96 mmol/L (98-107); Globulin 3.2 g/dL (1.3-3.2); Glucose 128 mg/dl (74-100); Potassium 4.1 mmoL/L (3.5-5.1); Sodium 133 mmol/L (136-145); Total Protein,Serum 7.2 g/dl (6.3-8.2)
[2022-09-28 06:35] LABS: Blood Urea Nitrogen 14 mg/dl (9-20)
[2022-09-28 06:36] LABS: Creatinine Clearance Estimated 134 mL/min (50-200); Estimated Glomerular Filt Rate 86 ml/min (>60); GFR (African American) 105 ML/MIN (>60)
[2022-09-28 06:57] LABS: Basophils # 0.1 K/mm3 (0-0.2); Basophils % 0.5 % (0.1-2.0); Eosinophils # 0.1 K/mm3 (0.0-0.4); Eosinophils % 1.4 % (0.1-12.0); Hematocrit 47.7 % (42.0-52.0); Hemoglobin 15.9 g/dL (14.1-18.0); Lymphocytes # 1.7 K/mm3 (0.7-4.5); Lymphocytes % 16.9 % (10-50); Mean Corpuscular HGB Conc 33.3 g/dL (31.8-35.4); Mean Corpuscular Hemoglobin 27.8 pg (27.0-31.2); Mean Corpuscular Volume 83.3 fl (80-94); Mean Platelet Volume 7.5 fl (7.4-10.4); Monocytes # 0.5 K/mm3 (0.1-1.0); Monocytes % 5.3 % (1.7-9.3); Neutrophils # 7.7 K/mm3 (1.8-7.8); Platelet Count 202 K/mm3 (142-424); Red Blood Count 5.72 M/mm3 (4.60-6.20); Red Cell Distribution Width 13.9 % (11.5-17.5); White Blood Count 10.1 K/mm3 (4.8-10.8)
[2022-09-28 07:01] VITALS: BP 124/62; PULSE 77; O2SAT 97
--- NOTE | 2022-09-28 07:23 | PC.NURSE ---
rounded on pt he states he needed some pain medicine, relayed the message to nurse and md,they are working on it now, call light at bs
--- NOTE | 2022-09-28 07:36 | PC.NURSE ---
dr preciado at bedside to update pt
[2022-09-28 07:45] VITALS: BP 126/64; PULSE 73; RESP 18; TEMP 36.6; O2SAT 98
== END 2022-09-28 07:45 | disposition home or self-care (01) ==
PROVIDERS: Emergency Provider Emergency Medicine; PCP Emergency Medicine
DX: M11.80 Other specified crystal arthropathies, unspecified site (principal); F17.210 Nicotine dependence, cigarettes, uncomplicated; M25.511 Pain in right shoulder; M25.532 Pain in left wrist
CPT/HCPCS: 36415; 73030; 73110; 80053; 85025; 99284; 99285

== ENCOUNTER 2023-04-10 09:26 | Observation (INO) | payer OTHER, SELFPAY ==
[2023-04-10] VITALS (11 sets, daily range): BP systolic 122–168; BP diastolic 71–107; PULSE 51–69; RESP 16–23; TEMP 36.4–36.6; O2SAT 94–99; BMI 32.4
--- NOTE | 2023-04-10 09:27 | ECG_ITS ---
APPROVED REPORT Exam: Resting ECG HR:66 bpm ECG Measurements Heart Rate 66 AXES TX 147 P 65 QRSd 87 QRS 18 QT 423 T 48 QTc 437 Conclusion SINUS RHYTHM NORMAL ECG UNCONFIRMED REPORT Electronically signed by : Jermain Montano MD 04/10/2023 21:19:01
--- NOTE | 2023-04-10 09:28 | XR_ITS ---
PROCEDURE INFORMATION: Exam: XR Chest Exam date and time: 04/10/2023 9:33 AM Age: 57 years old Clinical indication: Shortness of breath and other: Chest pain; Additional info: Cp TECHNIQUE: Imaging protocol: Radiologic exam of the chest. Views: 1 view. COMPARISON: CT LUNG SCREENING 07/07/2022 3:07 PM FINDINGS: Lungs: Unremarkable. No consolidation. Pleural spaces: Unremarkable. No pleural effusion. No pneumothorax. Heart/Mediastinum: Unremarkable. No cardiomegaly. Bones/joints: Unremarkable. IMPRESSION: No acute findings.
--- NOTE | 2023-04-10 09:30 | HMH.EDGENADL ---
Discharge Plan Disposition Patient Disposition: Admitted Chief Complaint: Chest Pain Prescriptions Prescriptions: No Action diazepam [Valium] 5 mg tablet 5 mg PO QID Qty: 120 2RF hydrocodone-acetaminophen 5-325 mg tablet 1 tab PO BID Qty: 60 0RF finasteride [Proscar] 5 mg tablet 5 mg PO DAILY Qty: 30 2RF diclofenac sodium [Arthritis Pain (diclofenac)] 1 % gel 4 g topical QID Qty: 480 4RF Rx Instructions: apply to single knee, ankle, foot; for foot includes sole/toes/top of foot furosemide 80 mg tablet 80 mg PO DAILY Qty: 90 3RF colchicine 0.6 mg tablet 0.6 mg PO BID Qty: 60 2RF tamsulosin 0.4 mg capsule See Rx Instructions .ROUTE .COMPLEX Qty: 30 1RF Dose Instruction: TAKE 1 CAPSULE BY MOUTH ONCE DAILY Rx Instructions: TAKE 1 CAPSULE BY MOUTH ONCE DAILY atorvastatin 80 mg tablet 80 mg PO DAILY Qty: 90 3RF prasugrel 10 mg tablet See Rx Instructions .ROUTE .COMPLEX Qty: 90 1RF Dose Instruction: TAKE 1 TABLET BY MOUTH ONCE DAILY FOR HEART DISEASE Rx Instructions: TAKE 1 TABLET BY MOUTH ONCE DAILY FOR HEART DISEASE bisoprolol fumarate 5 mg tablet See Rx Instructions .ROUTE .COMPLEX Qty: 90 1RF Dose Instruction: TAKE 1 TABLET BY MOUTH ONCE DAILY FOR HIGH BLOOD PRESSURE Rx Instructions: TAKE 1 TABLET BY MOUTH ONCE DAILY FOR HIGH BLOOD PRESSURE spironolactone 50 mg tablet See Rx Instructions .ROUTE .COMPLEX Qty: 90 1RF Dose Instruction: TAKE ONE TABLET BY MOUTH EVERY DAY Rx Instructions: TAKE ONE TABLET BY MOUTH EVERY DAY omeprazole 40 mg capsule,delayed release(DR/EC) See Rx Instructions .ROUTE .COMPLEX Qty: 90 1RF Dose Instruction: TAKE 1 CAPSULE BY MOUTH EVERY DAY Rx Instructions: TAKE 1 CAPSULE BY MOUTH EVERY DAY polyethylene glycol 3350 [Miralax] 17 gram/dose powder 17 g PO DAILY Qty: 510 0RF bupropion HCl 75 mg tablet See Rx Instructions .ROUTE .COMPLEX Qty: 60 1RF Dose Instruction: TAKE 1 TABLET BY MOUTH TWICE DAILY Rx Instructions: TAKE 1 TABLET BY MOUTH TWICE DAILY sildenafil (pulm.hypertension) 20 mg tablet See Rx Instructions .ROUTE .COMPLEX Qty: 20 3RF Dose Instruction: TAKE 1 TO 2 TABLETS BY MOUTH DAILY NEEDED (ADMINISTER DOSES AT LEAST 4-6 HOURS APART DIRECTED ) Rx Instructions: TAKE 1 TO 2 TABLETS BY MOUTH DAILY NEEDED (ADMINISTER DOSES AT LEAST 4-6 HOURS APART DIRECTED ) aspirin 81 mg Tablet,Chewable 81 mg PO DAILY Qty: 30 0RF Referrals Follow up/Referrals: Gareth Campuzano MD [Primary Care Provider] - See instructions Clinical Impressions Clinical Impression: Angina pectoris, unstable Discharge ED Provider: Ash Dougherty General Adult HPI General Chief complaint: Chest Pain Stated complaint: CP and SOB Time Seen by Provider: 04/10/23 09:28 History of Present Illness HPI narrative: Patient is a 57-year-old male with past medical history of ACS x4 status post stenting who presents emergency department for evaluation of chest pain. Onset was acute, occurring at approximately 1 AM, awakening from his sleep, substernal, radiating across his left chest. It does not radiate to his back. Denies cough, abdominal pain, fevers, other acute complaints at this time. Related Data Previous Rx's Medication Instructions Recorded aspirin 81 mg chewable tablet 81 mg PO DAILY #30 tabs 01/14/22 finasteride 5 mg tablet (Proscar) 5 mg PO DAILY #30 tabs 04/01/22 diclofenac sodium 1 % topical gel 4 g topical QID #480 grams 09/16/22 (Arthritis Pain (diclofenac)) furosemide 80 mg tablet 80 mg PO DAILY #90 tabs 09/21/22 colchicine 0.6 mg tablet 0.6 mg PO BID gout #60 tabs 09/30/22 tamsulosin 0.4 mg capsule See Rx Instructions .Route 11/23/22 .COMPLEX #30 caps diazepam 5 mg tablet (Valium) 5 mg PO QID #120 tabs 12/28/22 hydrocodone 5 mg-acetaminophen 325 1 tab PO BID #60 tabs 12/28/22 mg tablet atorvastatin 8
--- NOTE | 2023-04-10 09:38 | PC.NURSE ---
rad at BS for portable xray
[2023-04-10 09:44] LABS: Basophils # 0.1 K/mm3 (0-0.2); Basophils % 0.9 % (0.1-2.0); Eosinophils # 0.2 K/mm3 (0.0-0.4); Eosinophils % 2.4 % (0.1-12.0); Hemoglobin 14.8 g/dL (14.1-18.0); Lymphocytes % 26.5 % (10-50); Mean Corpuscular HGB Conc 33.6 g/dL (31.8-35.4); Mean Corpuscular Hemoglobin 28.6 pg (27.0-31.2); Mean Corpuscular Volume 85.1 fl (80-94); Mean Platelet Volume 7.3 fl (7.4-10.4); Monocytes # 0.5 K/mm3 (0.1-1.0); Monocytes % 6.2 % (1.7-9.3); Neutrophils # 4.9 K/mm3 (1.8-7.8); Platelet Count 230 K/mm3 (142-424); Red Blood Count 5.17 M/mm3 (4.60-6.20); Red Cell Distribution Width 13.7 % (11.5-17.5); White Blood Count 7.7 K/mm3 (4.8-10.8)
[2023-04-10 09:52] LABS: Alanine Aminotransferase 25 U/L (12-78); Albumin Level 4.5 g/dl (3.5-5.0); Albumin/Globulin Ratio 1.4 (1.1-1.8); Alkaline Phosphatase 77 U/L (38-126); Anion Gap 14.6 mEq/L (5-15); Aspartate Amino Transferase 33 U/L (17-59); Blood Urea Nitrogen 20 mg/dl (9-20); Calcium 8.7 mg/dl (8.4-10.2); Carbon Dioxide 26 mmol/L (22.0-30.0); Chloride 101 mmol/L (98-107); Creatinine Clearance Estimated 97 mL/min (50-200); Estimated Glomerular Filt Rate 57 ml/min (>60); GFR (African American) 68 ML/MIN (>60); Globulin 3.3 g/dL (1.3-3.2); Glucose 105 mg/dl (74-100); Potassium 4.6 mmoL/L (3.5-5.1); Sodium 137 mmol/L (136-145); Total Protein,Serum 7.8 g/dl (6.3-8.2)
--- NOTE | 2023-04-10 10:02 | PC.NURSE ---
Pt advised pain has not gotten any better after medication. Dr. Dougherty notified.
[2023-04-10 10:05] LABS: Troponin I 0.01 ng/ml (0.00-0.034)
--- NOTE | 2023-04-10 10:12 | PC.NURSE ---
Dr. Sinha paged
--- NOTE | 2023-04-10 10:13 | PC.NURSE ---
Dr. Dougherty speaking with Dr. Sinha
--- NOTE | 2023-04-10 10:29 | PC.NURSE ---
Dr. Dougherty attempted to speak with hospitalist. Received no answer.
--- NOTE | 2023-04-10 10:53 | PC.NURSE ---
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
--- NOTE | 2023-04-10 11:36 | PC.NURSE ---
MARBIN GIBSON speaking with hospitalist
--- NOTE | 2023-04-10 11:39 | PC.NURSE ---
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
--- NOTE | 2023-04-10 12:21 | PC.NURSE ---
report called chilango monroy on second floor at this time
[2023-04-10 13:26] LABS: Troponin I < 0.01 ng/ml (0.00-0.034)
--- NOTE | 2023-04-10 15:28 | PC.NURSE ---
spoke with MD regarding pt pulse rate. held bisoprolol per his order
--- NOTE | 2023-04-10 15:55 | EXP.HP ---
History of Present Illness *Admission Date: 04/10/23 *Reason for visit:: Chest pain *History of present illness: Patient is a 57-year-old male with past medical history of tobacco use, CAD hypertension hyperlipidemia who presented to hospital due to chest pain. Patient mentions he has previous history of CAD and has stents. 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 Denied any active chest pain at time of my evaluation, denies shortness of breath nausea vomiting diarrhea constipation dysuria fevers and chills. [facility] Disclaimer: The information contained in this section may have been updated after the patient was seen, as this information can be updated by other users. Medical History (Updated 04/10/23 @ 13:13 by Delia Gongora RN) Abnormal cardiovascular stress test Abnormal cardiovascular stress test Abnormal EKG Angina pectoris Angina, class IV Blurred vision Chest pain CRPS (complex regional pain syndrome type I) Dizziness Dyspnea Dyspnea Foot pain, bilateral Numbness in both hands Renal cancer Typical angina Surgical History (Updated 04/10/23 @ 13:13 by Delia Gongora RN) H/O kidney removal Family History Other No significant family history Social History (Updated 04/10/23 @ 13:14 by Delia Gongora RN) Smoking Status: Current every day smoker tobacco type: cigarettes packs per day: 1 second hand exposure: Yes alcohol intake: never substance use type: marijuana current occupational status: employed Travel in the last 8 weeks: None household members: spouse housing: house number of children: 6 current occupational exposures/hazards: Yes caffeine: Yes Review of Systems Review of Systems Review of systems:: pertinent systems reviewed and negative unless documented below Meds Home Medications and Allergies Home Medications Medication Instructions Recorded Confirmed Type aspirin 81 mg chewable tablet 81 mg PO DAILY Circulation 04/10/23 04/10/23 History atorvastatin 80 mg tablet 80 mg PO HS Cholesterol 04/10/23 04/10/23 History bisoprolol fumarate 5 mg tablet 5 mg PO DAILY Hypertension 04/10/23 04/10/23 History bupropion HCl 75 mg tablet 75 mg PO BID Depression 04/10/23 04/10/23 History colchicine 0.6 mg tablet 0.6 mg PO BIDP PRN gout 04/10/23 04/10/23 History diazepam 5 mg tablet (Valium) 5 mg PO QID Anxiety 04/10/23 04/10/23 History hydrocodone 5 mg-acetaminophen 325 1 tab PO BID Pain 04/10/23 04/10/23 History mg tablet omeprazole 40 mg capsule,delayed 40 mg PO DAILY GERD 04/10/23 04/10/23 History release polyethylene glycol 3350 17 17 g PO DAILY Constipation 04/10/23 04/10/23 History gram/dose oral powder (Miralax) prasugrel 10 mg tablet 10 mg PO DAILY Blood Thinner 04/10/23 04/10/23 History spironolactone 50 mg tablet 50 mg PO DAILY Hypertension 04/10/23 04/10/23 History New Prescriptions to Start Prescriptions: Allergies Allergy/AdvReac Type Severity Reaction Status Date / Time venlafaxine [From Effexor] Allergy Intermediate Unknown Verified 03/09/23 14:49 allergy reaction isosorbide [From Imdur] Allergy Mild Unknown Verified 03/09/23 14:49 allergy reaction ibuprofen Allergy Unknown Unknown Verified 03/09/23 14:49 allergy reaction Penicillins Allergy Unknown Unknown Verified 03/09/23 14:49 allergy reaction ranolazine AdvReac RAPID Verified 03/09/23 14:49 HEART BEAT Exam Data for Last 24 hours Vital signs and Labs for Last 24 Hours: Temp Pulse Resp BP Pulse Ox O2 Del Method 97.6 F 60 20 162/89 H 98 Room Air 04/10/23 15:52 04/10/23 15:52 04/10/23 15:52 04/10/23 15:52 04/10/23 15:52 04/10/23 15:52 Laboratory Results - last 24 hr 04/10/23 09:30: WBC 7.7, RBC 5.17, Hgb 14.8, Hct 44.0, MCV 85.1, MCH 28.6, MCHC 33.6, RDW 13.7, Plt Count 230, MPV 7.3 L, Neut % (Auto) 64
[2023-04-10 16:16] LABS: Troponin I 0.01 ng/ml (0.00-0.034)
--- NOTE | 2023-04-10 18:48 | PC.NURSE ---
PT HAS DONE WELL SINCE ADMISSION. hE DENIES ANY CHEST PAIN. REPORTS HE TOOK ALL OF HIS HOME MEDICATIONS THIS AM. PT PULSE WAS IN THE 50S SO I SPOKE WITH . HELD BISOPROLOL.
--- NOTE | 2023-04-10 20:05 | PC.NURSE ---
patient verbalized If I don't see no one (cardiology) by 12pm tomorrow (04/11), I'm walking out . patient voiced concerns about having to miss work in general at [employer] due to finances.
[2023-04-11] VITALS: BP 150/61; PULSE 50; PULSE 57; RESP 18; TEMP 36.7; O2SAT 96
[2023-04-11 04:00] VITALS: BP 137/84; PULSE 59; PULSE 60; RESP 18; TEMP 36.6; O2SAT 98; BMI 33.3
--- NOTE | 2023-04-11 07:33 | PC.NURSE ---
Pt states he wants to leave by noon today. Will notify
[2023-04-11 08:00] VITALS: BP 153/76; PULSE 60; RESP 18; TEMP 36.3; O2SAT 99
--- NOTE | 2023-04-11 10:41 | PC.NURSE ---
Spoke with Bharath per Christiano request for further orders. Pt is requesting to be DC. He states that he no longer has any CP or SOA. Per Bharath, Pt needs to come into his office for followup on Wednesday at 1000.
--- NOTE | 2023-04-12 14:24 | CARE MANAGER ---
Contacted patient related to hospital discharge. He states he is still short of breath and not feeling the best. He did follow up with cardiology today. Denies questions or concerns. ROSA ISELA Pablo
--- NOTE | 2023-04-23 13:42 | EXP.DC.SUM ---
General Admission date:: 04/10/23 Discharge date: 04/11/23 HPI HPI HPI: Patient is a 57-year-old male with past medical history of tobacco use, CAD hypertension hyperlipidemia who presented to hospital due to chest pain. Patient mentions he has previous history of CAD and has stents. 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 Denied any active chest pain at time of my evaluation, denies shortness of breath nausea vomiting diarrhea constipation dysuria fevers and chills. Hospital Course Hospital Course Hospital Course: Patient is a 57-year-old male with past medical history of tobacco use, CAD hypertension hyperlipidemia who presented to hospital due to chest pain. Patient mentions he has previous history of CAD and has stents. 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 Denied any active chest pain at time of my evaluation, denies shortness of breath nausea vomiting diarrhea constipation dysuria fevers and chills. Assessment Chest pain rule out ACS History of CAD status post stenting BPH Hypertension Hyperlipidemia Chest pain resolved, cardiology cleared patient for discharge, patient is stable for discharge and to f/u with PCP and cardiology Patient was seen and evaluated at the bedside on the day of discharge. Patient is stable for discharge. Patient wishes to be discharged. All patient questions were answered and patient was given time to ask questions. Patient was discharged in stable condition. Patient understands that she can return to ER in case of any sudden changes in health. Exam Data for Last 24 hours Vital signs and Labs for Last 24 Hours: Temp Pulse Resp BP Pulse Ox O2 Del Method 97.4 F L 60 18 153/76 H 99 Room Air 04/11/23 08:00 04/11/23 08:00 04/11/23 08:00 04/11/23 08:00 04/11/23 08:00 04/11/23 11:00 Constitutional Constitutional: no acute distress and obese *Routine HEENT Exam Head: Present normocephalic and atraumatic ENT: Present mucous membranes moist *Routine Neck Exam Neck: Present supple, full ROM and normal carotid upstroke; Absent JVD, carotid bruit or lymphadenopathy *Routine Respiratory Exam Respiratory: Present CTA bilaterally, normal respiratory effort, able to speak in complete sentences and symmetric chest movement *Routine Cardiovascular Exam Cardiovascular: Present RRR, Normal S1 and Normal S2; Absent murmur or gallop *Routine Abdominal Exam Abdominal: Present soft and normoactive bowel sounds; Absent tenderness or distended *Routine Extremities Exam Extremities: Present full ROM, pulses intact and normal capillary refill; Absent cyanosis, clubbing or edema *Routine Skin Exam Skin: Present intact and warm; Absent erythema *Routine Neurological Exam Neurological: Present alert, oriented X3 and CN II-XII intact; Absent sensory deficit or motor deficit Routine Psychiatric Exam Psychiatric: Present normal affect DS: Diagnosis Discharge Diagnosis (1) CAD (coronary artery disease): Status: Inactive Code(s): I25.10 - Atherosclerotic heart disease of [place] coronary artery without angina pectoris Qualifiers: Coronary Disease-Associated Artery/Lesion type: [place] artery [place] vs. transplanted heart: [place] heart Associated angina: with other forms of angina Qualified Code(s): I25.118 - Atherosclerotic heart disease of [place] coronary artery with other forms of angina pectoris Problem details: Supa recently, December 2021, had myocardial infarction. He has had 10 stents placed. He is following with cardiology for this. (2) Obstructive sleep apnea: Status: Inactive Code(s): G47.33 - Obstructive sleep apnea (adult) (pediatric) Problem details: Supa has obstructive sleep apnea in his clinical listing. I did not discuss this with him today but will when he returns. (3) Hypertension: Status: Inactive Code(s): I10 - Essential (prim
== END 2023-04-11 11:43 | disposition home or self-care (01) ==
LOC: ER 11:38 → 2ND 11:52
PROVIDERS: Admitting Provider Internal Medicine; Emergency Provider Emergency Medicine; PCP Emergency Medicine; Visit Provider Internal Medicine
DX: I25.118 Atherosclerotic heart disease of native coronary artery with other forms of angina pectoris (principal); G47.33 Obstructive sleep apnea (adult) (pediatric); I10 Essential (primary) hypertension; E78.2 Mixed hyperlipidemia; Z79.01 Long term (current) use of anticoagulants; Z79.899 Other long term (current) drug therapy; Z87.891 Personal history of nicotine dependence; Z95.5 Presence of coronary angioplasty implant and graft; E78.5 Hyperlipidemia, unspecified; R07.9 Chest pain, unspecified
CPT/HCPCS: 36415; 71045; 80053; 84484; 85025; 93005; 99285; G0378

== ENCOUNTER 2023-06-14 12:19 | Outpatient (CLI) | payer OTHER, SELFPAY ==
[2023-06-14 12:30] LABS: Basophils # 0.1 K/mm3 (0-0.2); Basophils % 0.9 % (0.1-2.0); Eosinophils # 0.2 K/mm3 (0.0-0.4); Hematocrit 48.8 % (42.0-52.0); Hemoglobin 16.1 g/dL (14.1-18.0); Lymphocytes # 2.3 K/mm3 (0.7-4.5); Lymphocytes % 33.3 % (10-50); Mean Corpuscular Volume 87.9 fl (80-94); Mean Platelet Volume 7.7 fl (7.4-10.4); Monocytes # 0.5 K/mm3 (0.1-1.0); Monocytes % 6.7 % (1.7-9.3); Neutrophils # 3.9 K/mm3 (1.8-7.8); Platelet Count 247 K/mm3 (142-424); Red Blood Count 5.55 M/mm3 (4.60-6.20); Red Cell Distribution Width 14.6 % (11.5-17.5); White Blood Count 6.9 K/mm3 (4.8-10.8)
[2023-06-14 14:33] LABS: Alanine Aminotransferase 27 U/L (12-78); Albumin Level 4.4 g/dl (3.5-5.0); Albumin/Globulin Ratio 1.4 (1.1-1.8); Alkaline Phosphatase 101 U/L (38-126); Anion Gap 14.6 mEq/L (5-15); Aspartate Amino Transferase 24 U/L (17-59); Bilirubin,Total 0.7 mg/dl (0.2-1.3); Blood Urea Nitrogen 11 mg/dl (9-20); Calcium 8.6 mg/dl (8.4-10.2); Carbon Dioxide 25 mmol/L (22.0-30.0); Chloride 104 mmol/L (98-107); Chol/HDL Ratio 6.2 (1-3.5); Cholesterol 247 mg/dl (140-200); Estimated Glomerular Filt Rate 76 ml/min (>60); GFR (African American) 93 ML/MIN (>60); Globulin 3.1 g/dL (1.3-3.2); Glucose 109 mg/dl (74-100); HDL Cholesterol 40 mg/dl (40-60); Potassium 4.6 mmoL/L (3.5-5.1); Sodium 139 mmol/L (136-145); Total Protein,Serum 7.5 g/dl (6.3-8.2); Triglycerides 109 mg/dl (30-150); VLDL Cholesterol 22 mg/dL (0-40)
[2023-06-14 14:43] LABS: Direct LDL Cholesterol 179.94 mg/dL (100-129)
[2023-06-14 21:46] LABS: Prostate Specific Ag Screen 0.8 ng/ml (0.0-4.0)
[2023-06-14 21:47] LABS: Thyroid Stimulating Hormone 0.37 uIU/mL (0.465-4.68)
[2023-06-15 10:04] LABS: Triiodothryronine (T3) Uptake 33 % (23.5-40.5)
[2023-06-15 10:05] LABS: Free Thyroxine Index 3.1 ug/dL (5.93-13.13); T4 (Thyroxine) 9.3 ug/dl (5.53-11.0)
[2023-06-15 10:19] LABS: Thyroid Stimulating Hormone 0.35 uIU/mL (0.465-4.68)
== END 2023-06-14 23:59 ==
LOC: LAB.DROPOF 12:20
PROVIDERS: PCP Family Medicine; Visit Provider Family Medicine
DX: R10.31 Right lower quadrant pain (principal); M62.838 Other muscle spasm; I10 Essential (primary) hypertension; R79.89 Other specified abnormal findings of blood chemistry; Z12.5 Encounter for screening for malignant neoplasm of prostate; Z79.899 Other long term (current) drug therapy
CPT/HCPCS: 80053; 80061; 84436; 84443; 84479; 85025; G0103

== ENCOUNTER 2023-07-15 12:54 | Outpatient (CLI) | payer OTHER, SELFPAY ==
--- NOTE | 2023-07-15 12:55 | CA_ITS ---
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, Renal Ca, PTSD 2D Dimensions Left Atrium 4.44 cm LA Volume 79.60 mL LVOT 1.89 cm (M/F) 1.5-2.5 LA Volume Index 33.20 mL/m2 (M/F) 16-34 EF AP4 47.60 % GL Strain -16.5 % M-Mode Dimensions RVDd 3.33 cm (0.9-2.6) LVDd 6.08 cm (3.5-5.7) Ao Diam 5.27 cm (2.0-3.7) LVDs 4.55 cm (3.5-5.7) IVSd 1.42 cm (0.6-1.1) PWd 1.19 cm (0.6-1.1) EF (Teich) 48.80% FS 25.20% EDV (Teich) 185.50 mL TAPSE 2.63 (<1.7) ESV (Teich) 94.90 mL LV Diastology E Decel Time 164 (160-240 msec) E/A Ratio 1.57 MED E' 12.2 (>= 7 cm/sec) MED A' 10.10 cm/s E'/MED E' Ratio 8.39 (<= 14) LAT E' 9.1 (>= 10 cm/sec) LAT A' 6.10 cm/s E/LAT E' Ratio 11.25 (<= 14) Aortic Valve AoV Peak Feliz. 123.0 (50-130 cm/s) AO Peak GR. 6.10 mmHg Mitral Valve MV E Max Feliz. 102.0 (40-130 cm/s) MV A Velocity 65.0 (40-130 cm/s) E/A Ratio 1.57 MV Decel. Time 164 (160-240 ms) Tricuspid Valve TR P. Velocity 209.00 cm/s RAP Estimate 10.00 mmHg RVSP 27.40 mmHg Left Ventricle The left ventricle is normal size. The left ventricular systolic function is normal. The left ventricular ejection fraction is within the normal range. There is increased left ventricular wall thickness. There is normal LV segmental wall motion. The left ventricular diastolic function is normal. LVEF is 55%. Right Ventricle The right ventricle is normal size. The right ventricular systolic function is normal. Atria The left atrium size is normal. The right atrium size is normal. The interatrial septum is not well visualized. Aortic Valve The aortic valve opens well. There is no aortic valvular stenosis. Trace aortic regurgitation. Mitral Valve The mitral valve is normal in structure. No evidence of mitral valve stenosis. Trace mitral regurgitation. Tricuspid Valve The tricuspid valve leaflets are thin and pliable. Trace tricuspid regurgitation. RVSP is normal. Pulmonic Valve The pulmonary valve is normal in structure. Trace pulmonic regurgitation. Great Vessels The aortic root is normal in size. The ascending aorta is not well visualized. The IVC is not well visualized. Pericardium There is no pericardial effusion. Other Information Study Quality: Technically Difficult Conclusion Technically difficult study due to poor accoustic windows. Normal biventricular systolic function. No significant valvular stenosis or regurgitation. Electronically signed by : Dominga Desai MD 07/18/2023 17:30:48
== END 2023-07-15 23:59 ==
LOC: RT 12:55
PROVIDERS: PCP Family Medicine; Visit Provider Nurse Practitioner
DX: I11.9 Hypertensive heart disease without heart failure (principal); R06.00 Dyspnea, unspecified; R07.89 Other chest pain; F17.210 Nicotine dependence, cigarettes, uncomplicated
CPT/HCPCS: 93306

== ENCOUNTER 2023-07-27 08:49 | Outpatient (CLI) | payer OTHER, SELFPAY ==
[2023-07-27 09:24] LABS: Basophils # 0.1 K/mm3 (0-0.2); Basophils % 1.2 % (0.1-2.0); Eosinophils # 0.2 K/mm3 (0.0-0.4); Eosinophils % 2.9 % (0.1-12.0); Hematocrit 46.8 % (42.0-52.0); Hemoglobin 15.6 g/dL (14.1-18.0); Lymphocytes # 2.2 K/mm3 (0.7-4.5); Lymphocytes % 27.5 % (10-50); Mean Corpuscular HGB Conc 33.3 g/dL (31.8-35.4); Mean Corpuscular Hemoglobin 29.3 pg (27.0-31.2); Mean Corpuscular Volume 88.2 fl (80-94); Mean Platelet Volume 7.5 fl (7.4-10.4); Monocytes # 0.5 K/mm3 (0.1-1.0); Monocytes % 6.2 % (1.7-9.3); Neutrophils # 5.1 K/mm3 (1.8-7.8); Neutrophils % 62.2 % (37.0-80.0); Platelet Count 269 K/mm3 (142-424); White Blood Count 8.2 K/mm3 (4.8-10.8)
[2023-07-27 10:00] LABS: Alanine Aminotransferase 24 U/L (12-78); Albumin Level 4.5 g/dl (3.5-5.0); Alkaline Phosphatase 103 U/L (38-126); Anion Gap 11.3 mEq/L (5-15); Aspartate Amino Transferase 25 U/L (17-59); Bilirubin,Indirect 0.9 mg/dL (0.0-0.9); Bilirubin,Total 0.9 mg/dl (0.2-1.3); Bilirubin,Unconjugated 0.9 mg/dL (0.0-1.1); Blood Urea Nitrogen 11 mg/dl (9-20); Calcium 9.4 mg/dl (8.4-10.2); Carbon Dioxide 27 mmol/L (22.0-30.0); Chloride 103 mmol/L (98-107); Chol/HDL Ratio 4.5 (1-3.5); Cholesterol 198 mg/dl (140-200); Estimated Glomerular Filt Rate 69 ml/min (>60); GFR (African American) 83 ML/MIN (>60); Glucose 107 mg/dl (74-100); HDL Cholesterol 44 mg/dl (40-60); Magnesium 1.9 mg/dl (1.6-2.3); Potassium 4.3 mmoL/L (3.5-5.1); Sodium 137 mmol/L (136-145); Total Protein,Serum 7.1 g/dl (6.3-8.2); Triglycerides 120 mg/dl (30-150); VLDL Cholesterol 24 mg/dL (0-40)
[2023-07-27 10:11] LABS: Direct LDL Cholesterol 118.93 mg/dL (100-129)
[2023-07-27 10:17] LABS: Free T4 (Free Thyroxine) 0.97 ng/dl (0.78-2.19)
[2023-07-27 10:30] LABS: Thyroid Stimulating Hormone 0.66 uIU/mL (0.465-4.68)
== END 2023-07-27 23:59 ==
LOC: LAB 08:50
PROVIDERS: PCP Internal Medicine; Visit Provider Nurse Practitioner
DX: I11.9 Hypertensive heart disease without heart failure (principal); R06.00 Dyspnea, unspecified; R07.89 Other chest pain; F17.210 Nicotine dependence, cigarettes, uncomplicated
CPT/HCPCS: 36415; 80048; 80061; 80076; 83735; 84439; 84443; 85025

== ENCOUNTER 2023-09-21 14:40 | Outpatient (CLI) | payer OTHER, SELFPAY ==
[2023-09-21 17:47] LABS: Coronavirus 19, PCR Not Detected (NotDetected); Influenza A, PCR Not Detected (NotDetected); Influenza B, PCR Not Detected (NotDetected)
== END 2023-09-21 23:59 | disposition home or self-care (01) ==
LOC: LAB.DROPOF 09-22 14:13
PROVIDERS: PCP Internal Medicine; Visit Provider Internal Medicine
DX: R06.02 Shortness of breath (principal); R51.9 Headache, unspecified; R50.9 Fever, unspecified; R11.10 Vomiting, unspecified
CPT/HCPCS: 87636

== ENCOUNTER 2023-12-15 08:25 | Emergency (ER) | payer OTHER, SELFPAY ==
[2023-12-15] VITALS (13 sets, daily range): BP systolic 164–222; BP diastolic 90–117; PULSE 52–64; RESP 10–26; TEMP 36.6; O2SAT 95–99; BMI 35.6
--- NOTE | 2023-12-15 08:23 | ECG_ITS ---
APPROVED REPORT Exam: Resting ECG HR:68 bpm ECG Measurements Heart Rate 68 AXES VT 160 P 60 QRSd 88 QRS 17 QT 420 T 35 QTc 436 Conclusion SINUS RHYTHM WITH OCCASIONAL SUPRAVENTRICULAR PREMATURE COMPLEXES NONSPECIFIC T-WAVE ABNORMALITY BORDERLINE ECG Electronically signed by : MOISÉS CASTILLO, 12/15/2023 16:30:35
--- NOTE | 2023-12-15 08:37 | XR_ITS ---
FINAL REPORT CLINICAL HISTORY: SOA COMPARISON: 04/10/2023 FINDINGS: No acute pulmonary density is evident. There is no evidence of effusion or other pleural disease. The mediastinum has a normal appearance. The cardiac silhouette is unremarkable. IMPRESSION: Unremarkable chest exam. Reviewed, Interpreted and Dictated by Nidia Weber MD Transcribed by Adele Pollard Authenticated and . [facility]
--- NOTE | 2023-12-15 08:39 | HMH.EDCP ---
Discharge Plan Disposition Patient Disposition: Home, Self-Care Condition: Good Prescriptions Prescriptions: New amlodipine 10 mg tablet 10 mg PO DAILY Qty: 30 2RF No Action bumetanide 1 mg tablet 1 mg PO DAILY Qty: 30 2RF amlodipine [Norvasc] 10 mg tablet 10 mg PO DAILY Qty: 90 3RF atorvastatin 80 mg tablet 80 mg PO AM Qty: 90 1RF aspirin 81 mg tablet,chewable 81 mg PO DAILY Qty: 90 1RF ezetimibe [Zetia] 10 mg tablet 10 mg PO DAILY Qty: 90 2RF levothyroxine 25 mcg tablet 25 mcg PO DAILY Qty: 90 2RF prasugrel 10 mg tablet 10 mg PO DAILY Qty: 90 0RF Rx Instructions: TAKE 1 TABLET BY MOUTH ONCE DAILY FOR HEART DISEASE spironolactone 50 mg tablet 50 mg PO DAILY Qty: 90 0RF Rx Instructions: TAKE ONE TABLET BY MOUTH EVERY DAY lidocaine [AsperFlex (lidocaine)] 4 % adhesive patch,medicated 1 patch topical DAILY Qty: 10 7RF Rx Instructions: may leave on for up to 12 hrs triamcinolone acetonide 0.5 % cream 1 applic topical BID PRN (Reason: rash) Qty: 15 0RF bisoprolol fumarate 10 mg tablet 10 mg PO BID Qty: 180 3RF cyclobenzaprine 10 mg tablet 10 mg PO BID Qty: 30 0RF prochlorperazine maleate 5 mg tablet 5 mg PO TID PRN (Reason: nausea and vomiting) Qty: 30 2RF omeprazole 40 mg capsule,delayed release(DR/EC) See Rx Instructions .ROUTE .COMPLEX Qty: 90 3RF Dose Instruction: TAKE 1 CAPSULE BY MOUTH ONCE DAILY Rx Instructions: TAKE 1 CAPSULE BY MOUTH ONCE DAILY polyethylene glycol 3350 [ClearLax] 17 gram/dose powder See Rx Instructions .ROUTE .COMPLEX Qty: 510 2RF Dose Instruction: MIX 17 GRAMS IN 8 OUNCES OF LIQUID AND DRINK DAILY DIRECTED Rx Instructions: MIX 17 GRAMS IN 8 OUNCES OF LIQUID AND DRINK DAILY DIRECTED sildenafil (pulm.hypertension) 20 mg tablet See Rx Instructions .ROUTE .COMPLEX Qty: 20 1RF Dose Instruction: TAKE 1 TABLET BY MOUTH DAILY NEEDED FOR SEXUAL ACTIVITY Rx Instructions: TAKE 1 TABLET BY MOUTH DAILY NEEDED FOR SEXUAL ACTIVITY colchicine 0.6 mg tablet 0.6 mg PO BIDP PRN (Reason: gout) Referrals Follow up/Referrals: Ashish Hemphill PA [Physician Power Bender Operator] - See instructions Provider,Referral, [Referring] - See instructions Activity Restrictions/Add. Instructions Additional Instructions/Restrictions: You were evaluated in the emergency department today. Please follow-up very closely with your primary care provider. I also recommend close follow-up with cardiology over the next 24 to 48 hours for recheck of your blood pressure. supervisor of guidance and testing your prescription for amlodipine and take daily in addition to your bisoprolol. Return to the emergency department for new or worsening symptoms. Clinical Impressions Clinical Impression: Chest pain, Hypertension, Shortness of breath Stand Alone Forms Stand Alone Forms: Work/School Release Print Language Print Language: Swazi Discharge ED Provider: Cristela Jay HPI General Chief Complaint: Chest Pain Stated Complaint: chest pain Time Seen by Provider: 12/15/23 08:30 Mode of Arrival: Ambulatory Source of Information: Patient Limitations: No Limitations Description of Symptoms (Recalled from ER Triage Doc. by RN): pt presents to ED with c/o shortness of breath, chest pain, high blood pressure, headaches. chest pain intermittent since yesterday, other symptoms ongoing forht past few weeks. History of Present Illness HPI narrative: This patient is a 58-year-old male with a history of hypertension, hyperlipidemia, CAD status post stenting, renal cell carcinoma status post nephrectomy, MAHESH with BiPAP noncompliance, tobacco dependence, and anxiety presenting to the emergency department for evaluation concern for high blood pressure and shortness of breath. Patient reports that he has been having issues with his blood pressure for the last several months, and his doctors reportedly have not been able to get it down. He states that he is on bisoprolol 10 mg twice a day for his blood pressure, which she did take this morning and yesterday as well. He notes that despite this, his blood pressures not been below the 160s. He also notes that he has had unintentional weight gain of approximately 50 pounds in the last several months as well as progressively worsening shortness of breath, especially on exertion and lying flat. Yesterday, he started having some intermittent chest pains. He denies any other concerns or complaints at this time. I reviewed medical records including last cardiology note from July and noted that the patient is also supposed to be on Norvasc for his blood pressure, and he is not sure if he takes this or not. He stated that he is not a real stickler for taking pills. He also notes that he is on spironolactone, however. It appears that back in October, his beta-kong was doubled by his primary care provider based on recommendations by cardiology. There are plans to get an outpatient renal ultrasound, however does not look like this is done yet. Related Data Home Medications ?Medication ?Instructions ?Recorded ?Confirmed colchicine 0.6 mg tablet 0.6 mg PO BIDP PRN gout 04/10/23 11/05/23 Previous Rx's ?Medication ?Instructions ?Recorded cyclobenzaprine 10 mg tablet 10 mg PO BID muscle spasm #30 tabs 06/24/23 bumetanide 1 mg tablet 1 mg PO DAILY #30 tabs 07/15/23 amlodipine 10 mg tablet (Norvasc) 10 mg PO DAILY #90 tabs 07/28/23 omeprazole 40 mg capsule,delayed See Rx Instructions .Route 09/21/23 release .COMPLEX #90 caps prochlorperazine maleate 5 mg 5 mg PO TID PRN nausea and 09/21/23 tablet vomiting #30 tabs polyethylene glycol 3350 17 See Rx Instructions .Route 10/01/23 gram/dose oral powder (ClearLax) .COMPLEX #510 grams aspirin 81 mg chewable tablet 81 mg PO DAILY Circulation #90 tabs 11/05/23 atorvastatin 80 mg tablet 80 mg PO AM Cholesterol #90 tabs 11/05/23 bisoprolol fumarate 10 mg tablet 10 mg PO BID #180 tabs 11/05/23 ezetimibe 10 mg tablet (Zetia) 10 mg PO DAILY #90 tabs 11/05/23 levothyroxine 25 mcg tablet 25 mcg PO DAILY #90 tabs 11/05/23 lidocaine 4 % topical patch 1 patch topical DAILY #10 ea 11/05/23 (AsperFlex (lidocaine)) prasugrel 10 mg tablet 10 mg PO DAILY Blood Thinner #90 11/05/23 tabs spironolactone 50 mg tablet 50 mg PO DAILY Hypertension #90 11/05/23 tabs triamcinolone acetonide 0.5 % 1 applic topical BID PRN rash #15 11/05/23 topical cream grams sildenafil (pulm.hypertension) 20 See Rx Instructions .Route 11/29/23 mg tablet .COMPLEX #20 tabs amlodipine 10 mg tablet 10 mg PO DAILY #30 tabs 12/15/23 Allergies Allergy/AdvReac Type Severity Reaction Status Date / Time venlafaxine [From Effexor] Allergy Intermediate Unknown Verified 12/15/23 08:34 allergy reaction isosorbide [From Imdur] Allergy Mild Unknown Verified 12/15/23 08:34 allergy reaction ibuprofen Allergy Unknown Unknown Verified 12/15/23 08:34 allergy reaction Penicillins Allergy Unknown Unknown Verified 12/15/23 08:34 allergy reaction ranolazine AdvReac RAPID Verified 12/15/23 08:34 [facility] Disclaimer: The information contained in this section may have been updated after the patient was seen, as this information can be updated by other users. Medical History Viral illness Renal cancer Angina pectoris, unstable ADHD Generalized anxiety disorder Major depression, recurrent Marijuana use Head pain Obesity Calcium pyrophosphate deposition disease (CPPD) Foot pain, bilateral Plantar fascia syndrome Overweight Angina pectoris Atypical chest pain Dyspnea Back pain Cellulitis COPD with exacerbation Atypical chest pain BPH (benign prostatic hyperplasia) Obesity (BMI 30-39.9) Anxiety NSTEMI (non-ST elevated myocardial infarction) Angina pectoris Non-ST elevation myocardial infarction (NSTEMI) Chest pain Diastolic dysfunction HLD (hyperlipidemia) Typical angina Abnormal cardiovascular stress test Dyspnea Abnormal cardiovascular stress test Angina, class IV Abnormal EKG Dyspnea Blurred vision Numbness in both hands Dizziness Hypertension Obstructive sleep apnea Non-STEMI (non-ST elevated myocardial infarction) Chest pain due to coronary artery disease CRPS (complex regional pain syndrome type I) Insomnia CAD (coronary artery disease) Tobacco dependence syndrome Surgical History H/O kidney removal Family History Other No significant family history Social History Smoking Status: Current every day smoker tobacco type: cigarettes packs per day: 1 second hand exposure: Yes alcohol intake: never substance use type: marijuana current occupational status: employed Travel in the last 8 weeks: None household members: spouse housing: house number of children: 6 current occupational exposures/hazards: Yes caffeine: Yes ROS Obtained: Yes All systems reviewed & no additional complaints except as documented Physical Exam General General appearance: alert and in no apparent distress Head Head exam: atraumatic and normocephalic Eye Eye exam: Present normal appearance, PERRL and EOMI ENT ENT exam: Present normal exam, normal oropharynx, mucous membranes moist and normal external ear exam Neck Neck exam: Present normal inspection, full ROM and trachea midline; Absent tenderness Chest Chest inspection: Present normal inspection and symmetric chest wall rise; Absent tenderness Respiratory Respiratory exam: Present normal lung sounds bilaterally; Absent respiratory distress, wheezes, stridor or accessory muscle use Cardiovascular Cardiovascular exam: Present regular rate and normal rhythm Abdominal Exam Abdominal exam: Present soft; Absent distention, tenderness or guarding Extremities Exam Extremities exam: Present normal inspection, full ROM and normal capillary refill; Absent tenderness or edema Back Exam Back exam: Present normal inspection and full ROM; Absent tenderness Neurological Exam Neurological exam: Present alert, oriented X3, CN II-XII intact and normal gait; Absent motor sensory deficit Psychiatric Psychiatric exam: Present normal affect and normal mood Skin Skin exam: Present warm and dry HEART Score HEART Score HEART Score assessment performed?: Yes History (anamnesis): Slightly suspicious ECG: Normal Age: 45-65 years Risk factors: Atherosclerosis history Troponin: </= normal limit HEART Score: 3 Critical Care Critical Care Time Critical Care Time: No Medical Decision Making Medical Records Medical records reviewed: Yes I reviewed the patient's medical records. Steve Inquiry Pt receiving controlled substance: No Vital Signs Vital Signs: 12/15/23 08:25 12/15/23 08:31 12/15/23 08:34 Temperature 97.9 F Temperature Source Oral Pulse Rate 62 63 Pulse Rate [Left Radial] 64 Respiratory Rate 17 19 10 L Blood Pressure 197/117 H 186/103 H Blood Pressure [Right Arm] 222/108 H Blood Pressure Mean [Right Arm] 146 Blood Pressure Source Blood Pressure Position 02 Sat by Pulse Oximetry 99 98 99 Oxygen Delivery Method Room Air Room Air Room Air 12/15/23 09:00 12/15/23 09:30 12/15/23 10:00 Temperature Temperature Source Pulse Rate 61 56 L 58 L Pulse Rate [Left Radial] Respiratory Rate 26 H 14 20 Blood Pressure 182/97 H 183/93 H 179/98 H Blood Pressure [Right Arm] Blood Pressure Mean [Right Arm] Blood Pressure Source Blood Pressure Position 02 Sat by Pulse Oximetry 95 97 98 Oxygen Delivery Method Room Air 12/15/23 10:31 12/15/23 11:00 12/15/23 11:30 Temperature Temperature Source Pulse Rate 57 L 57 L 58 L Pulse Rate [Left Radial] Respiratory Rate 16 15 15 Blood Pressure 174/104 H 189/97 H 196/95 H Blood Pressure [Right Arm] Blood Pressure Mean [Right Arm] Blood Pressure Source Blood Pressure Position 02 Sat by Pulse Oximetry 98 99 97 Oxygen Delivery Method 12/15/23 11:50 12/15/23 12:01 12/15/23 12:31 Temperature Temperature Source Pulse Rate 52 L 57 L 59 L Pulse Rate [Left Radial] Respiratory Rate 19 17 17 Blood Pressure 180/90 H 175/91 H 164/96 H Blood Pressure [Right Arm] Blood Pressure Mean [Right Arm] Blood Pressure Source Blood Pressure Position 02 Sat by Pulse Oximetry 96 97 96 Oxygen Delivery Method 12/15/23 13:05 Temperature 97.9 F Temperature Source Oral Pulse Rate 56 L Pulse Rate [Left Radial] Respiratory Rate 18 Blood Pressure 164/96 H Blood Pressure [Right Arm] Blood Pressure Mean [Right Arm] Blood Pressure Source Automatic Cuff Blood Pressure Position Sitting 02 Sat by Pulse Oximetry Oxygen Delivery Method Room Air Lab Data Labs: Lab Results 12/15/23 08:25: WBC 7.2, RBC 5.45, Hgb 15.7, Hct 46.6, MCV 85.4, MCH 28.7, MCHC 33.6, RDW 15.2, Plt Count 257, MPV 7.8, Neut % (Auto) 62.3, Lymph % (Auto) 27.8, Mccracken % (Auto) 4.7, Eos % (Auto) 3.8, Baso % (Auto) 1.5, Neut # (Auto) 4.5, Lymph # (Auto) 2.0, Mccracken # (Auto) 0.3, Eos # (Auto) 0.3, Baso # (Auto) 0.1, Sodium 138, Potassium 3.9, Chloride 103, Carbon Dioxide 28, Anion Gap 10.9, BUN 15, Creatinine 1.00, Estimated Creat Clear 136, Estimated GFR 76, Est GFR ( Amer) 92, Glucose 126 H, Calcium 9.5, Total Bilirubin 1.1, AST 28, ALT 32, Alkaline Phosphatase 91, Troponin I 0.02, NT-Pro-B Natriuret Pep 2320 H, Total Protein 7.7, Albumin 4.3, Globulin 3.4 H, Albumin/Globulin Ratio 1.3 12/15/23 11:34: Troponin I < 0.01 12/15/23 08:25 12/15/23 08:25 Response Orders (Tests/Meds): ED MEDICATIONS Discontinued Medications Generic Name Dose Route Start Last Admin Trade Name Freq PRN Reason Stop Dose Admin Amlodipine Besylate 10 mg 12/15/23 09:39 12/15/23 09:58 Amlodipine 10mg Tablet PO 12/15/23 09:40 10 mg ONCE ONE Administration Sodium Chloride 10 ml 12/15/23 08:44 Sodium Chloride 0.9% 10ml Flush Syringe IV 01/14/24 08:43 NEEDED PRN Maintain IV Site ORDERS Category Date Time Status CXR 2 view (NOT portable) [XR chest 2V] Stat Exams 12/15/23 08:37 Taken POCUS Point of Care (ER Only) Stat Exams 12/15/23 09:39 Completed BNP [NT Pro Brain Natriuretic Pep.] Stat Lab 12/15/23 08:25 Completed CBC w/Auto Diff [Complete Blood Count Auto Diff] Stat Lab 12/15/23 08:25 Completed CMP [Comprehensive Metabolic Panel] Stat Lab 12/15/23 08:25 Completed Trop I [Troponin I] Stat Lab 12/15/23 08:25 Completed Troponin I Q3H Lab 12/15/23 11:34 Completed ECG Data Tracing #1: Attestation: I reviewed this ECG and interpreted as documented below: ECG Narrative: Normal sinus rhythm with a ventricular rate of [address] changes concerning for ischemia. Normal intervals. ECG initial impression date: 12/15/23 ECG initial impression time: 08:24 MDM Narrative Medical Decision Narrative: In summary, this patient is a 58-year-old male presenting to the Emergency Department for evaluation of high blood pressure readings at home as well as progressively worsening shortness of breath and intermittent chest pains. Differential diagnoses considered include but are not limited to ACS, CHF, hypertensive urgency, hypertensive emergency, renal artery stenosis, LEXX. Ruling out the most morbid conditions drove assessment. It should be noted patient's history includes hypertension, hyperlipidemia, and CAD which are not at goal therapy. This complicates all aspects of care by increasing patient's risk for morbidity. I reviewed patient's past medical records and noted previous cardiology and primary care evaluations as per HPI. Patient reports that he took his bisoprolol this morning, but he does not think that he is on Norvasc, as he is not sickly with medications. He is resting comfortably in bed in no acute distress. His blood pressure was in the 180s systolic, initial assessment, but vitals are otherwise normal. EKG obtained is reassuring. Workup included CBC, CMP, troponin, BNP, chest x-ray, EKG. I independently interpreted x-ray prior to the radiologist read and noted no acute focal consolidation, pulmonary edema, or pneumothorax. Please see their read for final interpretation. Labs were obtained that demonstrated no significant leukocytosis. Initial troponin is negative. BNP is elevated from previous but again, patient does not have gross signs of volume overload on clinical exam. Given this patient is appears to be on Norvasc but has been taking it, I did give him a dose here. At 1000, patient was placed in ED observation status pending second troponin and monitoring of blood pressure to determine whether or not the patient would be appropriate for discharge versus admission. The patient was provided serial reevaluations and cardiac monitoring while awaiting ultimate disposition. 0On multiple subsequent reassessments, the patient is resting comfortably with reassuring vital signs on cardiac telemetry. His blood pressure improved from 220s on initial triage to 160s to 170s upon discharge. Second troponin came back negative. I had an interactive discussion with Halima Dumont with cardiology who advised starting him on his Norvasc and making sure that he takes it and having him follow-up this week for reassessment. Patient is agreeable with this. He was given instructions for close follow-up, strict return precautions, and he was discharged in stable condition after all questions were answered. Discharge was that 1305 after approximately 3 hours and 5 minutes in ED observation.
[2023-12-15 08:45] LABS: Basophils # 0.1 K/mm3 (0-0.2); Basophils % 1.5 % (0.1-2.0); Eosinophils # 0.3 K/mm3 (0.0-0.4); Eosinophils % 3.8 % (0.1-12.0); Hematocrit 46.6 % (42.0-52.0); Hemoglobin 15.7 g/dL (14.1-18.0); Lymphocytes % 27.8 % (10-50); Mean Corpuscular HGB Conc 33.6 g/dL (31.8-35.4); Mean Corpuscular Hemoglobin 28.7 pg (27.0-31.2); Mean Corpuscular Volume 85.4 fl (80-94); Mean Platelet Volume 7.8 fl (7.4-10.4); Monocytes # 0.3 K/mm3 (0.1-1.0); Monocytes % 4.7 % (1.7-9.3); Neutrophils # 4.5 K/mm3 (1.8-7.8); Neutrophils % 62.3 % (37.0-80.0); Platelet Count 257 K/mm3 (142-424); Red Blood Count 5.45 M/mm3 (4.60-6.20); Red Cell Distribution Width 15.2 % (11.5-17.5); White Blood Count 7.2 K/mm3 (4.8-10.8)
--- NOTE | 2023-12-15 08:45 | PC.NURSE ---
patient gone to XRay at this time.
[2023-12-15 09:20] LABS: Alanine Aminotransferase 32 U/L (12-78); Albumin Level 4.3 g/dl (3.5-5.0); Albumin/Globulin Ratio 1.3 (1.1-1.8); Alkaline Phosphatase 91 U/L (38-126); Anion Gap 10.9 mEq/L (5-15); Aspartate Amino Transferase 28 U/L (17-59); Bilirubin,Total 1.1 mg/dl (0.2-1.3); Blood Urea Nitrogen 15 mg/dl (9-20); Calcium 9.5 mg/dl (8.4-10.2); Carbon Dioxide 28 mmol/L (22.0-30.0); Chloride 103 mmol/L (98-107); Creatinine Clearance Estimated 136 mL/min (50-200); Estimated Glomerular Filt Rate 76 ml/min (>60); GFR (African American) 92 ML/MIN (>60); Globulin 3.4 g/dL (1.3-3.2); Glucose 126 mg/dl (74-100); Potassium 3.9 mmoL/L (3.5-5.1); Sodium 138 mmol/L (136-145); Total Protein,Serum 7.7 g/dl (6.3-8.2)
[2023-12-15 09:35] LABS: NT Pro Brain Natriuretic Pep. 2320 pg/mL (0-125); Troponin I 0.02 ng/ml (0.00-0.034)
[2023-12-15] MEDS: AMLODIPINE 10MG TABLET 10 MG PO (09:58)
--- NOTE | 2023-12-15 10:05 | PC.NURSE ---
DR CASTILLO AT BEDSIDE
--- NOTE | 2023-12-15 11:35 | PC.NURSE ---
REPEAT TROP SENT
[2023-12-15 12:31] LABS: Troponin I < 0.01 ng/ml (0.00-0.034)
--- NOTE | 2023-12-15 12:39 | PC.NURSE ---
paged cardiology at this time.
--- NOTE | 2023-12-15 12:49 | PC.NURSE ---
o/p with Cardiology at this time.
--- NOTE | 2023-12-15 13:03 | PC.NURSE ---
DR CASTILLO AT BEDSIDE TO UPDATE PT ON POC
== END 2023-12-15 13:05 | disposition home or self-care (01) ==
PROVIDERS: Emergency Provider Emergency Medicine; PCP Internal Medicine
DX: R07.9 Chest pain, unspecified (principal); R06.02 Shortness of breath; F17.210 Nicotine dependence, cigarettes, uncomplicated; J44.9 Chronic obstructive pulmonary disease, unspecified; I11.9 Hypertensive heart disease without heart failure; I25.119 Atherosclerotic heart disease of native coronary artery with unspecified angina pectoris; E78.5 Hyperlipidemia, unspecified; Z95.5 Presence of coronary angioplasty implant and graft; Z90.5 Acquired absence of kidney; Z85.520 Personal history of malignant carcinoid tumor of kidney
CPT/HCPCS: 71046; 80053; 83880; 84484; 85025; 93005; 99284

== ENCOUNTER 2024-01-10 13:24 | Outpatient (CLI) | payer OTHER, SELFPAY ==
--- NOTE | 2024-01-10 13:28 | CA_ITS ---
APPROVED REPORT EXAM: Comprehensive 2D, Doppler, and color-flow Echocardiogram Per Diem Physical Therapist Assistant: Estella Carpenter RT(R) Ht: 6 ft 0 in Wt: 270lbs BSA: 2.42 BP: 153/86 mmHg Indications: HTN, HF, angina, abn EKG, dyspnea, COPD, smoker 2D Dimensions LVEF (Morgan's) 62.60 % M: 52 - 72 LV Volume 117.50 mL M: 62 - 150 LV Volume Index 48.6 mL/m2 M: 34 - 74 LA Volume 62.90 mL LA Volume Index 25.99 mL/m2 (M/F) 16-34 EF AP4 52.80 % EF AP2 61.5 % EF BP 62.6 % GL Strain -19.9 % M-Mode Dimensions RVDd 3.62 cm (0.9-2.6) LA Diam 5.56 cm (1.9-4.0) LVDd 4.99 cm (3.5-5.7) LVDs 3.72 cm (3.5-5.7) IVSd 1.08 cm (0.6-1.1) PWd 0.98 cm (0.6-1.1) EF (Teich) 50.00% FS 25.50% EDV (Teich) 117.70 mL ESV (Teich) 58.90 mL LV Diastology E Decel Time 203 (160-240 msec) E/A Ratio 1.2 Mitral Valve MV E Max Feliz. 75.0 (40-130 cm/s) MV A Velocity 64.0 (40-130 cm/s) E/A Ratio 1.18 MV PHT 60.0 ms Left Ventricle The left ventricle is normal size. The left ventricular systolic function is normal. The left ventricular ejection fraction is within the normal range. There is increased LV wall thickness. There is normal LV segmental wall motion. The left ventricular diastolic function is normal. LVEF is 55%. Right Ventricle The right ventricle is normal size. The right ventricular systolic function is normal. Atria The left atrium is mildly dilated. The right atrium size is normal. There is no Doppler evidence of interatrial shunt. Aortic Valve The aortic valve is mildly thickened. There is no aortic valvular stenosis. Trace aortic regurgitation. Mitral Valve The mitral valve is normal in structure. No evidence of mitral valve stenosis. Trace mitral valve regurgitation noted. Tricuspid Valve The tricuspid valve leaflets are thin and pliable. Trace tricuspid regurgitation. There is insufficient TR jet to estimate RVSP. Pulmonic Valve The pulmonary valve is normal in structure. Trace pulmonic regurgitation. Great Vessels The aortic root is normal in size. The ascending aorta is not well visualized. IVC is normal in size and collapses >50% with inspiration. Pericardium There is no pericardial effusion. Other Information Study Quality: Fair Conclusion Normal biventricular systolic function. No significant valvular stenosis or regurgitation. Mild LA dilation. Electronically signed by : Dominga Desai MD 01/11/2024 10:58:41
== END 2024-01-10 23:59 | disposition home or self-care (01) ==
LOC: RT 13:25
PROVIDERS: PCP Emergency Medicine; Visit Provider Physician Assistant
DX: I11.0 Hypertensive heart disease with heart failure (principal); I50.9 Heart failure, unspecified; F17.210 Nicotine dependence, cigarettes, uncomplicated
CPT/HCPCS: 93306

== ENCOUNTER 2024-03-09 14:07 | Outpatient (CLI) | payer OTHER, SELFPAY ==
[2024-03-09 14:48] LABS: Basophils # 0.1 K/mm3 (0-0.2); Basophils % 1.6 % (0.1-2.0); Eosinophils # 0.2 K/mm3 (0.0-0.4); Eosinophils % 2.7 % (0.1-12.0); Hematocrit 45.8 % (42.0-52.0); Hemoglobin 15.9 g/dL (14.1-18.0); Lymphocytes # 2.9 K/mm3 (0.7-4.5); Lymphocytes % 33.4 % (10-50); Mean Corpuscular HGB Conc 34.7 g/dL (31.8-35.4); Mean Corpuscular Hemoglobin 28.5 pg (27.0-31.2); Mean Corpuscular Volume 82.2 fl (80-94); Mean Platelet Volume 6.8 fl (7.4-10.4); Monocytes # 0.6 K/mm3 (0.1-1.0); Monocytes % 6.7 % (1.7-9.3); Neutrophils # 4.8 K/mm3 (1.8-7.8); Neutrophils % 55.6 % (37.0-80.0); Platelet Count 292 K/mm3 (142-424); Red Blood Count 5.58 M/mm3 (4.60-6.20); Red Cell Distribution Width 14.6 % (11.5-17.5); White Blood Count 8.7 K/mm3 (4.8-10.8)
[2024-03-09 15:09] LABS: Hemoglobin A1C 5.8 % (4.0-6.0)
[2024-03-09 15:16] LABS: Alanine Aminotransferase 30 U/L (12-78); Albumin Level 4.7 g/dl (3.5-5.0); Albumin/Globulin Ratio 1.5 (1.1-1.8); Alkaline Phosphatase 100 U/L (38-126); Anion Gap 6.6 mEq/L (5-15); Aspartate Amino Transferase 30 U/L (17-59); Bilirubin,Total 0.9 mg/dl (0.2-1.3); Blood Urea Nitrogen 23 mg/dl (9-20); Calcium 9.6 mg/dl (8.4-10.2); Carbon Dioxide 26 mmol/L (22.0-30.0); Chloride 104 mmol/L (98-107); Estimated Glomerular Filt Rate 48 ml/min (>60); GFR (African American) 58 ML/MIN (>60); Globulin 3.1 g/dL (1.3-3.2); Glucose 99 mg/dl (74-100); Potassium 4.6 mmoL/L (3.5-5.1); Sodium 132 mmol/L (136-145); Total Protein,Serum 7.8 g/dl (6.3-8.2)
[2024-03-09 18:39] LABS: Creatinine,Urine Random 812 mg/dL (Not Estab.); Microalbumin/Creatinine Ratio 8.3
== END 2024-03-09 23:59 | disposition home or self-care (01) ==
LOC: LAB 14:12
PROVIDERS: PCP Internal Medicine; Visit Provider Internal Medicine
DX: I10 Essential (primary) hypertension (principal); E78.2 Mixed hyperlipidemia; G89.29 Other chronic pain; Z13.1 Encounter for screening for diabetes mellitus; R73.03 Prediabetes; Z72.0 Tobacco use
CPT/HCPCS: 36415; 80053; 82043; 82570; 83036; 85025

== ENCOUNTER 2024-03-13 09:16 | Outpatient (CLI) | payer OTHER, SELFPAY ==
--- NOTE | 2024-03-13 09:46 | CT_ITS ---
PROCEDURE INFORMATION: Exam: CT Head Without Contrast Exam date and time: 03/13/2024 10:01 AM Age: 58 years old Clinical indication: Dizziness; Additional info: H53.2 - diplopia TECHNIQUE: Imaging protocol: Computed tomography of the head without contrast. 3D rendering (Not supervised by radiologist): MIP and/or 3D reconstructed images were created by the technologist. Radiation optimization: All CT scans at this facility use at least one of these dose optimization techniques: automated exposure control; mA and/or kV adjustment per patient size (includes targeted exams where dose is matched to clinical indication); or iterative reconstruction. COMPARISON: MR HEAD/BRAIN WO CON 10/23/2020 7:53 AM FINDINGS: Brain: No acute infarct, hemorrhage, mass, or mass effect. Mild chronic white matter microvascular ischemic change. Cerebral ventricles: Normal ventricles. No appreciable extra-axial fluid. Paranasal sinuses: Mucosal thickening in the paranasal sinuses. Mastoid air cells: Clear. Orbital cavities: Orbits are unremarkable. Sella is unremarkable. Bones: Unremarkable. Soft tissues: Unremarkable. IMPRESSION: No acute intracranial abnormality.
[2024-03-13] MEDS: SODIUM CHLORIDE 0.9% 10ML SYR (RAD ONLY) 10 ML IV (10:13)
[2024-03-13] MEDS: IOPAMIDOL-370 (76%);100ML BOTTLE 100 ML IV (10:13)
[2024-03-13] MEDS: 0.9 % SODIUM CHLORIDE 50 ML VIAL IV (10:13)
== END 2024-03-13 23:59 | disposition home or self-care (01) ==
LOC: RT 09:17
PROVIDERS: PCP Internal Medicine; Visit Provider Internal Medicine
DX: H53.2 Diplopia (principal); R20.0 Anesthesia of skin
CPT/HCPCS: 70496; 93880; Q9967

== ENCOUNTER 2024-03-24 06:32 | Emergency (ER) | payer OTHER, SELFPAY ==
[2024-03-24] VITALS (9 sets, daily range): BP systolic 154–182; BP diastolic 76–116; PULSE 64–74; RESP 13–21; TEMP 36.7–36.8; O2SAT 98–100; BMI 36.3
--- NOTE | 2024-03-24 06:42 | [facility].EDGENADL ---
Discharge Plan Disposition Patient Disposition: Left Against Medical Advice Prescriptions Prescriptions: No Action atorvastatin 80 mg tablet 80 mg PO AM Qty: 90 1RF aspirin 81 mg tablet,chewable 81 mg PO DAILY Qty: 90 1RF prasugrel 10 mg tablet 10 mg PO DAILY Qty: 90 0RF Rx Instructions: TAKE 1 TABLET BY MOUTH ONCE DAILY FOR HEART DISEASE spironolactone 50 mg tablet 50 mg PO DAILY Qty: 90 0RF Rx Instructions: TAKE ONE TABLET BY MOUTH EVERY DAY lidocaine [AsperFlex (lidocaine)] 4 % adhesive patch,medicated 1 patch topical DAILY Qty: 10 7RF Rx Instructions: may leave on for up to 12 hrs meloxicam 15 mg tablet 15 mg PO DAILY PRN (Reason: pain) Qty: 30 2RF buspirone 10 mg tablet 10 mg PO BID Qty: 60 2RF prednisone 5 mg tablets,dose pack See Rx Instructions PO PER PKG DIR Qty: 21 0RF Rx Instructions: PO PER PKG DIR bisoprolol fumarate 10 mg tablet 10 mg PO TID cyclobenzaprine 10 mg tablet 10 mg PO HS prazosin 2 mg capsule 2 mg PO HS Qty: 30 2RF saw palmetto 160 mg capsule 160 mg PO BID Qty: 60 0RF Rx Instructions: give with meal/snack Entresto 49-51 mg tablet 1 tab PO BID Qty: 60 2RF omeprazole 40 mg capsule,delayed release(DR/EC) See Rx Instructions .ROUTE .COMPLEX Qty: 90 3RF Dose Instruction: TAKE 1 CAPSULE BY MOUTH ONCE DAILY Rx Instructions: TAKE 1 CAPSULE BY MOUTH ONCE DAILY polyethylene glycol 3350 [ClearLax] 17 gram/dose powder See Rx Instructions .ROUTE .COMPLEX Qty: 510 2RF Dose Instruction: MIX 17 GRAMS IN 8 OUNCES OF LIQUID AND DRINK DAILY DIRECTED Rx Instructions: MIX 17 GRAMS IN 8 OUNCES OF LIQUID AND DRINK DAILY DIRECTED sildenafil (pulm.hypertension) 20 mg tablet See Rx Instructions .ROUTE .COMPLEX Qty: 20 1RF Dose Instruction: TAKE 1 TABLET BY MOUTH DAILY NEEDED FOR SEXUAL ACTIVITY Rx Instructions: TAKE 1 TABLET BY MOUTH DAILY NEEDED FOR SEXUAL ACTIVITY colchicine 0.6 mg tablet 0.6 mg PO BIDP PRN (Reason: gout) Referrals Follow up/Referrals: Simon Menendez MD [Physician] - See instructions (Parotid mass, thyroid mass incidental findings in ER, Hx cancer) Provider,Referral, [Primary Care Provider] - See instructions Activity Restrictions/Add. Instructions Additional Instructions/Restrictions: You were evaluated in the ER and are leaving AGAINST MEDICAL ADVICE after having a stroke Take your aspirin and prasugrel as prescribed, you already received 1 dose of those today in the ER Do not take your spironolactone, prazosin, bisoprolol today. 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 Please return to the ER with any new, worsening, or otherwise concerning symptoms. Clinical Impressions Clinical Impression: Right thalamic stroke, Mass of right parotid gland, Thyroid mass Print Language Print Language: [place] Discharge ED Provider: John Paul Olmos General Adult HPI <John Paul Olmos MD - Last Filed: 03/24/24 07:05> General Chief complaint: Weakness Stated complaint: tingling L side face, brain fog Time Seen by Provider: 03/24/24 06:35 History of Present Illness HPI narrative: 58-year-old male with reported history of coronary disease, hypertension, hyperlipidemia presents for facial numbness. He reports that he has had some numbness to the right side of his face for couple weeks. He was seen and got a CT scan and a carotid Doppler. He started having numbness on the left side of his face that he noticed when he woke up yesterday morning. He also reports that he feels like his brain is a bit fuzzy. He considered coming to the ER but did not want to miss work yesterday. He denies any weakness or numbness in the arms or legs. Denies any trouble speaking except that his tongue feels like he went to the dentist.. Related Data Home Medications ?Medication ?Instructions ?Recorded ?Confirmed colchicine 0.6 mg tablet 0.6 mg PO BIDP PRN gout 04/10/23 03/23/24 bisoprolol fumarate 10 mg tablet 10 mg PO TID 12/27/23 03/23/24 cyclobenzaprine 10 mg tablet 10 mg PO HS 01/17/24 03/23/24 Previous Rx's ?Medication ?Instructions ?Recorded aspirin 81 mg chewable tablet 81 mg PO DAILY Circulation #90 tabs 11/05/23 atorvastatin 80 mg tablet 80 mg PO AM Cholesterol #90 tabs 11/05/23 lidocaine 4 % topical patch 1 patch topical DAILY #10 ea 11/05/23 (AsperFlex (lidocaine)) prasugrel 10 mg tablet 10 mg PO DAILY Blood Thinner #90 11/05/23 tabs spironolactone 50 mg tablet 50 mg PO DAILY Hypertension #90 11/05/23 tabs omeprazole 40 mg capsule,delayed See Rx Instructions .Route 12/20/23 release .COMPLEX #90 caps polyethylene glycol 3350 17 See Rx Instructions .Route 12/20/23 gram/dose oral powder (ClearLax) .COMPLEX #510 grams sildenafil (pulm.hypertension) 20 See Rx Instructions .Route 03/06/24 mg tablet .COMPLEX #20 tabs buspirone 10 mg tablet 10 mg PO BID #60 tabs 03/08/24 meloxicam 15 mg tablet 15 mg PO DAILY PRN pain #30 tabs 03/08/24 prednisone 5 mg tablets in a dose See Rx Instructions PO PER PKG DIR 03/08/24 pack #21 tabs prazosin 2 mg capsule 2 mg PO HS #30 caps 03/22/24 saw palmetto 160 mg capsule 160 mg PO BID #60 caps 03/22/24 sacubitril 49 mg-valsartan 51 mg 1 tab PO BID #60 tabs 03/23/24 tablet (Entresto) Allergies Allergy/AdvReac Type Severity Reaction Status Date / Time venlafaxine [From Effexor] Allergy Intermediate Unknown Verified 03/23/24 13:20 allergy reaction isosorbide [From Imdur] Allergy Mild Unknown Verified 03/23/24 13:20 allergy reaction ibuprofen Allergy Unknown Unknown Verified 03/23/24 13:20 allergy reaction Penicillins Allergy Unknown Unknown Verified 03/23/24 13:20 allergy reaction ranolazine AdvReac RAPID Verified 03/23/24 13:20 [facility] <John Paul Olmos MD - Last Filed: 03/24/24 07:05> [facility] Disclaimer: The information contained in this section may have been updated after the patient was seen, as this information can be updated by other users. Medical History Colon cancer screening declined ADHD Viral illness Renal cancer Angina pectoris, unstable Generalized anxiety disorder See above please Major depression, recurrent I went about the possibility of bipolar disorder in this gentleman. He has a long history of marijuana use, has PTSD, and episodes of major depression. We will send him to [facility] or whoever she suggests for further evaluation. I have told him that when he takes the Wellbutrin if there are any issues he is to contact us immediately and stop the medication. Marijuana use Supa has tapered his marijuana use down to 1 joint per day. I have strongly encouraged him to quit this completely. Note that this is helping his emotional state and may be making things worse. Head pain I have no clear physiologic reason for Supa to have this burning pain in his head. I discussed with him that I thought this was a physical manifestation of his emotional state which is quite depressed. I have asked him to start taking his Wellbutrin. Apparently he has never taken this prescription. This should help him with both his anxiety and his depression as well as his headaches. I told him that if he has any side effects or issues he is to stop the medication. Additionally we will see him back in 1 week to make sure he is doing okay. We will refer him also to [facility]ee[facility] or her recommendation for someone to see him and help him with his emotional state Obesity Calcium pyrophosphate deposition disease (CPPD) Patient is on colchicine but not on allopurinol. We might switch medications down the road once we get his emotional state better controlled Foot pain, bilateral severe left plantar medial tubercle; mild right Plantar medial tubercle Plantar fascia syndrome Overweight Angina pectoris Atypical chest pain Dyspnea Back pain Cellulitis COPD with exacerbation Supa is not on any inhalers or any other medications for his COPD. I think it might be worthwhile to do pulmonary function tests again lets get his emotional state under control. Atypical chest pain BPH (benign prostatic hyperplasia) Obesity (BMI 30-39.9) Anxiety NSTEMI (non-ST elevated myocardial infarction) Angina pectoris Non-ST elevation myocardial infarction (NSTEMI) Chest pain Diastolic dysfunction HLD (hyperlipidemia) Typical angina Abnormal cardiovascular stress test Dyspnea Abnormal cardiovascular stress test Angina, class IV Abnormal EKG Dyspnea Blurred vision Numbness in both hands Dizziness Hypertension Obstructive sleep apnea Supa has obstructive sleep apnea in his clinical listing. I did not discuss this with him today but will when he returns. Non-STEMI (non-ST elevated myocardial infarction) Chest pain due to coronary artery disease CRPS (complex regional pain syndrome type I) Insomnia CAD (coronary artery disease) Supa recently, December 2021, had myocardial infarction. He has had 10 stents placed. He is following with cardiology for this. Tobacco dependence syndrome I discussed with Supa that I would like to see him first eliminate the marijuana and then we can work on his tobacco use. Surgical History H/O kidney removal Family History Other No significant family history Social History Smoking Status: Current every day smoker tobacco type: cigarettes packs per day: 1 second hand exposure: Yes alcohol intake: never substance use type: marijuana current occupational status: employed Travel in the last 8 weeks: None household members: spouse housing: house number of children: 6 current occupational exposures/hazards: Yes caffeine: Yes Other Medical History Have you received the Flu Vaccine for this season: No Have you received the Pneumonia Vaccine: No <John Paul Olmos MD - Last Filed: 03/24/24 07:05> ROS Obtained: Yes All systems reviewed & no additional complaints except as documented Physical Exam <John Paul Olmos MD - Last Filed: 03/24/24 07:05> General General appearance: alert and in no apparent distress Head Head exam: atraumatic, normocephalic, normal inspection and other (Abnormal sensation to the left V1 2 and 3 distribution) Eye Eye exam: Present normal appearance, PERRL and EOMI ENT ENT exam: Present normal oropharynx and normal external ear exam Neck Neck exam: Present normal inspection and full ROM Chest Chest inspection: Present normal inspection and symmetric chest wall rise; Absent tenderness Respiratory Respiratory exam: Present normal lung sounds bilaterally; Absent respiratory distress Cardiovascular Cardiovascular exam: Present regular rate and normal rhythm Abdominal Exam Abdominal exam: Present soft; Absent distention, tenderness or guarding Extremities Exam Extremities exam: Present normal inspection; Absent edema or joint swelling Back Exam Back exam: Present normal inspection; Absent tenderness Neurological Exam Neurological exam: Present alert, oriented X3 and other (Abnormal sensation of the left side of the face) Psychiatric Psychiatric exam: Present normal affect and normal mood Skin Skin exam: Present warm, dry and normal color Lymphatic Lymphatic Findings: no adenopathy Medical Decision Making <John Paul Olmos MD - Last Filed: 03/24/24 07:05> Medical Records Medical records reviewed: Yes I reviewed the patient's medical records. Screening: Per USPSTF and CDC recommendations, given the prevalence of disease in our region, it is our hospital?s policy to screen for HIV and viral Hepatitis for all patients aged 18 and over and those with ongoing risk factors. Steve Inquiry Pt receiving controlled substance: No Steve was queried for this patient: No Vital Signs: 03/24/24 06:33 03/24/24 07:01 03/24/24 07:20 Temperature 98.3 F Temperature Source Tympanic Pulse Rate 68 64 Pulse Rate [Left] 74 Respiratory Rate 16 Blood Pressure 156/105 H 178/95 H Blood Pressure [Right Arm] 182/116 H Blood Pressure Mean [Right Arm] 138 02 Sat by Pulse Oximetry 100 99 99 Oxygen Delivery Method Room Air Room Air Room Air 03/24/24 07:30 03/24/24 09:01 03/24/24 09:31 Temperature Temperature Source Pulse Rate 64 64 69 Pulse Rate [Left] Respiratory Rate 15 20 21 Blood Pressure 172/98 H 182/93 H 170/95 H Blood Pressure [Right Arm] Blood Pressure Mean [Right Arm] 02 Sat by Pulse Oximetry 98 99 99 Oxygen Delivery Method Room Air 03/24/24 10:01 03/24/24 10:31 Temperature Temperature Source Pulse Rate 71 66 Pulse Rate [Left] Respiratory Rate 20 17 Blood Pressure 180/82 H 154/76 H Blood Pressure [Right Arm] Blood Pressure Mean [Right Arm] 02 Sat by Pulse Oximetry 98 98 Oxygen Delivery Method Lab Data Lab results reviewed: Yes I reviewed the patient's lab results. Lab Results 03/24/24 06:58: WBC 6.9, RBC 5.46, Hgb 15.7, Hct 45.5, MCV 83.3, MCH 28.8, MCHC 34.6, RDW 14.4, Plt Count 216, MPV 6.9 L, Neut % (Auto) 61.0, Lymph % (Auto) 27.8, [place] % (Auto) 6.7, Eos % (Auto) 3.0, Baso % (Auto) 1.5, Neut # (Auto) 4.2, Lymph # (Auto) 1.9, [place] # (Auto) 0.5, Eos # (Auto) 0.2, Baso # (Auto) 0.1, PT 10.1, INR 0.89 L, APTT 29.2, Sodium 138, Potassium 4.3, Chloride 103, Carbon Dioxide 27, Anion Gap 12.3, BUN 14, Creatinine 1.00, Estimated Creat Clear 139, Estimated GFR 76, Est GFR ( Amer) 92, Glucose 102 H, Calcium 8.7, Magnesium 1.8, Total Bilirubin 0.9, AST 28, ALT 32, Alkaline Phosphatase 90, Troponin I < 0.01, Total Protein 7.5, Albumin 4.3, Globulin 3.2, Albumin/Globulin Ratio 1.3, TSH 0.42 L, Free T4 1.13 03/24/24 06:58 03/24/24 06:58 Orders (Tests/Meds): ED MEDICATIONS Generic Name Dose Route Start Last Admin Trade Name Freq PRN Reason Stop Dose Admin Prasugrel 10 mg 03/24/24 09:00 03/24/24 09:11 Prasugrel 10mg Tab PO 04/23/24 08:59 10 mg DAILY YSABEL Administration Sodium Chloride 10 ml 03/24/24 06:55 Sodium Chloride 0.9% 10ml Flush Syringe IV 04/23/24 06:54 NEEDED PRN Maintain IV Site Sodium Chloride 10 ml 03/24/24 07:16 03/24/24 07:16 Sodium Chloride 0.9% 10ml Syr (Rad Only) IV 04/23/24 07:15 10 ml NEEDED PRN Administration Maintain IV Site Discontinued Medications Generic Name Dose Route Start Last Admin Trade Name Freq PRN Reason Stop Dose Admin Aspirin 81 mg 03/24/24 08:31 03/24/24 09:11 Aspirin Ec 81mg Tablet PO 03/24/24 08:32 81 mg DAILY ONE Administration Iopamidol 80 ml 03/24/24 07:16 03/24/24 07:16 Iopamidol-370 (76%);100ml Bottle IV 03/24/24 07:17 80 ml ONCE ONE Administration Sodium Chloride 50 ml 03/24/24 07:16 03/24/24 07:16 0.9 % Sodium Chloride 50 Ml Vial IV 03/24/24 07:17 50 ml ONCE ONE Administration ORDERS Category Date Time Status CT angio head Stat Cat Scan 03/24/24 06:[address] angio neck Stat Cat Scan 03/24/24 06:[address] head/brain wo con Stat Cat Scan 03/24/24 06:55 Completed Activated Partial Thrombo Time Stat Lab 03/24/24 06:58 Completed Complete Blood Count Auto Diff Stat Lab 03/24/24 06:58 Completed Comprehensive Metabolic Panel Stat Lab 03/24/24 06:58 Completed Free T4 (Free Thyroxine) Stat Lab 03/24/24 06:58 Completed HIV (1&2) Antibody Rapid Stat Lab 03/24/24 06:58 Received Hep C Ab with Reflex to RNA Stat Lab 03/24/24 06:58 Received Magnesium Stat Lab 03/24/24 06:58 Completed Prothrombin Time INR Stat Lab 03/24/24 06:58 Completed TSH [Thyroid Stimulating Hormone] Stat Lab 03/24/24 06:58 Completed Troponin I Stat Lab 03/24/24 06:58 Completed ECG Request Stat Y 03/24/24 07:44 Ordered Medical Decision Narrative: 58-year-old male with history of coronary artery disease, hypertension hyperlipidemia presents for left-sided facial numbness since yesterday.. History was obtained via interactive discussion with patient. On arrival, patient is [afebrile, hypertensive, 180/112, satting appropriately, alert, oriented x4, GCS 15], moving all extremities spontaneously. Full physical exam performed and significant for abnormal sensation in the left side of the face. Differential includes but is not limited to stroke, hypertensive urgency, hypertensive emergency, facial nerve palsy Workup initiated including CT head, CTA head and neck, basic labs. No indication for tPA given duration of symptoms. At this time care handed off to oncoming physician. <Won Diamond MD - Last Filed: 03/24/24 12:26> Vital Signs: 03/24/24 06:33 03/24/24 07:01 03/24/24 07:20 Temperature 98.3 F Temperature Source Tympanic Pulse Rate 68 64 Pulse Rate [Left] 74 Respiratory Rate 16 Blood Pressure 156/105 H 178/95 H Blood Pressure [Right Arm] 182/116 H Blood Pressure Mean [Right Arm] 138 02 Sat by Pulse Oximetry 100 99 99 Oxygen Delivery Method Room Air Room Air Room Air 03/24/24 07:30 03/24/24 09:01 03/24/24 09:31 Temperature Temperature Source Pulse Rate 64 64 69 Pulse Rate [Left] Respiratory Rate 15 20 21 Blood Pressure 172/98 H 182/93 H 170/95 H Blood Pressure [Right Arm] Blood Pressure Mean [Right Arm] 02 Sat by Pulse Oximetry 98 99 99 Oxygen Delivery Method Room Air 03/24/24 10:01 03/24/24 10:31 Temperature Temperature Source Pulse Rate 71 66 Pulse Rate [Left] Respiratory Rate 20 17 Blood Pressure 180/82 H 154/76 H Blood Pressure [Right Arm] Blood Pressure Mean [Right Arm] 02 Sat by Pulse Oximetry 98 98 Oxygen Delivery Method Lab Data Lab Results 03/24/24 06:58: WBC 6.9, RBC 5.46, Hgb 15.7, Hct 45.5, MCV 83.3, MCH 28.8, MCHC 34.6, RDW 14.4, Plt Count 216, MPV 6.9 L, Neut % (Auto) 61.0, Lymph % (Auto) 27.8, [place] % (Auto) 6.7, Eos % (Auto) 3.0, Baso % (Auto) 1.5, Neut # (Auto) 4.2, Lymph # (Auto) 1.9, [place] # (Auto) 0.5, Eos # (Auto) 0.2, Baso # (Auto) 0.1, PT 10.1, INR 0.89 L, APTT 29.2, Sodium 138, Potassium 4.3, Chloride 103, Carbon Dioxide 27, Anion Gap 12.3, BUN 14, Creatinine 1.00, Estimated Creat Clear 139, Estimated GFR 76, Est GFR ( Amer) 92, Glucose 102 H, Calcium 8.7, Magnesium 1.8, Total Bilirubin 0.9, AST 28, ALT 32, Alkaline Phosphatase 90, Troponin I < 0.01, Total Protein 7.5, Albumin 4.3, Globulin 3.2, Albumin/Globulin Ratio 1.3, TSH 0.42 L, Free T4 1.13 Orders (Tests/Meds): ED MEDICATIONS Generic Name Dose Route Start Last Admin Trade Name Freq PRN Reason Stop Dose Admin Prasugrel 10 mg 03/24/24 09:00 03/24/24 09:11 Prasugrel 10mg Tab PO 04/23/24 08:59 10 mg DAILY YSABEL Administration Sodium Chloride 10 ml 03/24/24 06:55 Sodium Chloride 0.9% 10ml Flush Syringe IV 04/23/24 06:54 NEEDED PRN Maintain IV Site Sodium Chloride 10 ml 03/24/24 07:16 03/24/24 07:16 Sodium Chloride 0.9% 10ml Syr (Rad Only) IV 04/23/24 07:15 10 ml NEEDED PRN Administration Maintain IV Site Discontinued Medications Generic Name Dose Route Start Last Admin Trade Name Cal PRN Reason Stop Dose Admin Aspirin 81 mg 03/24/24 08:31 03/24/24 09:11 Aspirin Ec 81mg Tablet PO 03/24/24 08:32 81 mg DAILY ONE Administration Iopamidol 80 ml 03/24/24 07:16 03/24/24 07:16 Iopamidol-370 (76%);100ml Bottle IV 03/24/24 07:17 80 ml ONCE ONE Administration Sodium Chloride 50 ml 03/24/24 07:16 03/24/24 07:16 0.9 % Sodium Chloride 50 Ml Vial IV 03/24/24 07:17 50 ml ONCE ONE Administration ORDERS Category Date Time Status CT angio head Stat Cat Scan 03/24/24 06:[address] angio neck Stat Cat Scan 03/24/24 06:[address] head/brain wo con Stat Cat Scan 03/24/24 06:55 Completed Activated Partial Thrombo Time Stat Lab 03/24/24 06:58 Completed Complete Blood Count Auto Diff Stat Lab 03/24/24 06:58 Completed Comprehensive Metabolic Panel Stat Lab 03/24/24 06:58 Completed Free T4 (Free Thyroxine) Stat Lab 03/24/24 06:58 Completed HIV (1&2) Antibody Rapid Stat Lab 03/24/24 06:58 Received Hep C Ab with Reflex to RNA Stat Lab 03/24/24 06:58 Received Magnesium Stat Lab 03/24/24 06:58 Completed Prothrombin Time INR Stat Lab 03/24/24 06:58 Completed TSH [Thyroid Stimulating Hormone] Stat Lab 03/24/24 06:58 Completed Troponin I Stat Lab 03/24/24 06:58 Completed ECG Request Stat Y 03/24/24 07:44 Ordered Medical Decision Narrative: 58-year-old male with history of coronary artery disease, hypertension hyperlipidemia presents for left-sided facial numbness since yesterday.. History was obtained via interactive discussion with patient. On arrival, patient is [afebrile, hypertensive, 180/112, satting appropriately, alert, oriented x4, GCS 15], moving all extremities spontaneously. Full physical exam performed and significant for abnormal sensation in the left side of the face. Differential includes but is not limited to stroke, hypertensive urgency, hypertensive emergency, facial nerve palsy Workup initiated including CT head, CTA head and neck, basic labs. No indication for tPA given duration of symptoms. At this time care handed off to oncoming physician. Diamond: Upon my assumption of care patient is stable, blood pressure has spontaneously improved. His symptoms are stable, NIH 1 on arrival according to the initial provider and continues to be 1 with subjective left-sided decreased sensation. Patient did describe left upper extremity tingling as well. Initial troponin is undetectably low which is reassuring against acute cardiac abnormality especially since patient has had more than 24 hours of symptoms. ECG personally interpreted demonstrates normal sinus rhythm, rate 64, normal axis, normal [place] and QTc, no STEMI. CT head, CTA head and neck were personally interpreted and I do not appreciate acute intracranial abnormality or acute vascular abnormality. See radiology read for final interpretation which does demonstrate findings concerning for mass in the right parotid which could explain patient's previous right sided facial symptoms, but does not explain his left facial symptoms. They also discuss a small thyroid nodule. Thyroid studies added. Given patient still has persistent symptoms and a low NIH of 1 but is outside the window for any acute intervention, I ordered an MRI brain for further evaluation of intracranial structures. Patient is also receiving his daily prescribed dual antiplatelet with aspirin and prasugrel. I discussed this case with Dr. Justice with the hospitalist service. He stated patient may require admission, however he would like to await the results of the MRI prior to admitting the patient. He states regardless he will evaluate and provide consultation at the very least. Patient has gone to MRI, he returned in stable condition with persistent, stable symptoms. Thyroid studies with low TSH, normal free T4. Dr. Justice evaluated the patient and recommends admission for medical management of stroke. Patient is refusing admission. He wants to leave AGAINST MEDICAL ADVICE. This has been discussed at length with the patient by both myself and the hospitalist. He still wishes to leave AGAINST MEDICAL ADVICE. Patient received aspirin and prasugrel in the ER. Dr. Justice recommends continuing dual antiplatelet therapy and his statin, recommends holding antihypertensives for 1 day for permissive hypertension. And recommends immediate follow-up with his primary care. All these recommendations have been discussed with the patient verbally and provided in writing. Patient still wishes to leave AGAINST MEDICAL ADVICE. Patient was able to explain back to me their condition and the risks of leaving up to and including wosening of condition, severe life altering disability, or . Patient was able to provide reason for their decision and clearly express their decision. Patient has capacity to make this decision and left AGAINST MEDICAL ADVICE. Procedures <John Paul Olmos MD - Last Filed: 03/24/24 07:05> Risk/Benefits of Procedure(s) Were Explained: Yes Critical Care <John Paul Olmos MD - Last Filed: 03/24/24 07:05> Critical Care Time Critical Care Time: No
--- NOTE | 2024-03-24 06:55 | CT_ITS ---
PROCEDURE INFORMATION: Exam: CT Head Without Contrast Exam date and time: 03/24/2024 7:15 AM Age: 58 years old Clinical indication: Stroke-like symptoms; Other: Facial numbness/paresthesia; Additional info: Possible stroke, facial numbness TECHNIQUE: Imaging protocol: Computed tomography of the head without contrast. Radiation optimization: All CT scans at this facility use at least one of these dose optimization techniques: automated exposure control; mA and/or kV adjustment per patient size (includes targeted exams where dose is matched to clinical indication); or iterative reconstruction. Other technique: STROKE PROTOCOL was implemented. COMPARISON: CT ANGIO HEAD WITH W/O 03/13/2024 10:01 AM FINDINGS: Brain: The brain demonstrates diffuse volume loss. There is white matter hypodensity most consistent with chronic small vessel ischemic change. Cerebral ventricles: The ventricles and CSF spaces are proportionately enlarged. Paranasal sinuses: There is some mucoperiosteal reaction in the maxillary sinuses. Mastoid air cells: Visualized mastoid air cells are well aerated. Bones: No acute fracture. Soft tissues: Unremarkable. IMPRESSION: 1. Atrophy and the sequela of prior small vessel ischemia. 2. There is no acute intracranial abnormality. ASSESSMENT: ASPECTS ([facility] Stroke Program Early CT Score) is 10.
--- NOTE | 2024-03-24 06:55 | CT_ITS ---
PROCEDURE INFORMATION: Exam: CTA Head With Contrast, Arteriography Exam date and time: 03/24/2024 7:17 AM Age: 58 years old Clinical indication: Stroke-like symptoms; Generalized numbness/paresthesia; Additional info: Possible stroke, facial numbness TECHNIQUE: Imaging protocol: Computed tomographic angiography of the head with contrast. Exam focused on the arteries. 3D rendering (Not supervised by radiologist): MIP and/or 3D reconstructed images were created by the technologist. Radiation optimization: All CT scans at this facility use at least one of these dose optimization techniques: automated exposure control; mA and/or kV adjustment per patient size (includes targeted exams where dose is matched to clinical indication); or iterative reconstruction. Contrast material: ISOVUE 370; Contrast volume: 80 ml; Contrast route: INTRAVENOUS (IV); COMPARISON: CT ANGIO HEAD 03/24/2024 7:17 AM FINDINGS: ANTERIOR CIRCULATION: Right internal carotid artery: There is atherosclerotic disease involving the right cavernous ICA without narrowing. No aneurysm. Right middle cerebral artery: No occlusion or significant stenosis. No aneurysm. Right anterior cerebral artery: The right A1 segment is hypoplastic. The right A2 predominantly originates from the left. Left internal carotid artery: Intracranial segment is patent with no significant stenosis. No aneurysm. Left middle cerebral artery: No occlusion or significant stenosis. No aneurysm. Left anterior cerebral artery: No occlusion or significant stenosis. No aneurysm. POSTERIOR CIRCULATION: Right vertebral artery: No occlusion or significant stenosis. No aneurysm. Left vertebral artery: No occlusion or significant stenosis. No aneurysm. Basilar artery: No occlusion or significant stenosis. No aneurysm. Right posterior cerebral artery: No occlusion or significant stenosis. No aneurysm. Left posterior cerebral artery: No occlusion or significant stenosis. No aneurysm. Brain: No definite mass, mass effect, or midline shift. Cerebral ventricles: No ventriculomegaly. Bones/joints: No acute fracture. Soft tissues: Unremarkable. IMPRESSION: No acute intracranial large vessel arterial occlusion.
--- NOTE | 2024-03-24 06:55 | CT_ITS ---
PROCEDURE INFORMATION: Exam: CTA Neck With Contrast Exam date and time: 03/24/2024 7:17 AM Age: 58 years old Clinical indication: Stroke-like symptoms; Generalized numbness/paresthesia; Additional info: Possible stroke, facial numbness TECHNIQUE: Imaging protocol: Computed tomographic angiography of the neck with contrast. Exam focused on the cervical segments of the vasculature. 3D rendering (Not supervised by radiologist): MIP and/or 3D reconstructed images were created by the technologist. Radiation optimization: All CT scans at this facility use at least one of these dose optimization techniques: automated exposure control; mA and/or kV adjustment per patient size (includes targeted exams where dose is matched to clinical indication); or iterative reconstruction. Contrast material: ISOVUE 370; Contrast volume: 80 ml; Contrast route: INTRAVENOUS (IV); COMPARISON: CT ANGIO HEAD 03/24/2024 7:17 AM FINDINGS: Right common carotid artery: No stenosis. No dissection or occlusion. Right internal carotid artery: No stenosis of the extracranial segment. No dissection or occlusion. Right external carotid artery: No occlusion or stenosis of the origin. Left common carotid artery: No stenosis. No dissection or occlusion. Left internal carotid artery: There is atheromatous and partially calcified plaque at origin of the left ICA. Left external carotid artery: No occlusion or stenosis of the origin. Right vertebral artery: No stenosis. No dissection or occlusion. Left vertebral artery: No stenosis. No dissection or occlusion. Salivary glands: There is a 1.6 x 1.1 x 1.5 cm solid right parotid nodule (series 7 image 205). Thyroid: The thyroid is slightly enlarged. There is a 1.5 cm noncalcified left nodule. Soft tissues: Normal. No significant soft tissue swelling. Bones/joints: The mandible and maxilla are edentulous. There is elongation of the right styloid process. There are degenerative changes of the cervical spine. IMPRESSION: 1. There is no cervical arterial stenosis. 2. 1.6 cm right parotid solid mass. A follow-up nonemergent parotid ultrasound should be performed. In addition, a follow-up ultrasound for a 1.5 cm left thyroid nodule is recommended. COMMENTS: Consistent with the [employer]'s Incidental Findings Committee white paper (J Am Vicki Radiol 2015): In patients aged 35 years and older with an incidental thyroid nodule equal to or greater than 1.[address], MRI or extrathyroidal US, further evaluation with dedicated thyroid US is recommended for patients with normal life expectancy and without comorbidities. For smaller nodules without suspicious features, no further evaluation or follow up is recommended. REFERENCES: NASCET CRITERIA. The degree of stenosis in the cervical segment of the internal carotid artery is based on NASCET criteria. Normal is no stenosis. Mild is less than 50% stenosis. Moderate is 50-69% stenosis. Severe is 70% to 99% stenosis. Total occlusion is no detectable patent lumen.
[2024-03-24 07:07] LABS: Basophils # 0.1 K/mm3 (0-0.2); Basophils % 1.5 % (0.1-2.0); Eosinophils # 0.2 K/mm3 (0.0-0.4); Hematocrit 45.5 % (42.0-52.0); Hemoglobin 15.7 g/dL (14.1-18.0); Lymphocytes # 1.9 K/mm3 (0.7-4.5); Lymphocytes % 27.8 % (10-50); Mean Corpuscular HGB Conc 34.6 g/dL (31.8-35.4); Mean Corpuscular Hemoglobin 28.8 pg (27.0-31.2); Mean Corpuscular Volume 83.3 fl (80-94); Mean Platelet Volume 6.9 fl (7.4-10.4); Monocytes # 0.5 K/mm3 (0.1-1.0); Monocytes % 6.7 % (1.7-9.3); Neutrophils # 4.2 K/mm3 (1.8-7.8); Platelet Count 216 K/mm3 (142-424); Red Blood Count 5.46 M/mm3 (4.60-6.20); Red Cell Distribution Width 14.4 % (11.5-17.5); White Blood Count 6.9 K/mm3 (4.8-10.8)
--- NOTE | 2024-03-24 07:10 | PC.NURSE ---
pt to CT via wheelchair
[2024-03-24] MEDS: 0.9 % SODIUM CHLORIDE 50 ML VIAL IV (07:16)
[2024-03-24] MEDS: SODIUM CHLORIDE 0.9% 10ML SYR (RAD ONLY) 10 ML IV (07:16)
[2024-03-24] MEDS: IOPAMIDOL-370 (76%);100ML BOTTLE 80 ML IV (07:16)
[2024-03-24 07:18] LABS: Activated Partial Thrombo Time 29.2 seconds (22.8-30.6); INR 0.89 (0.9-1.1); Magnesium 1.8 mg/dl (1.6-2.3); Prothrombin Time 10.1 seconds (10.1-12.5)
[2024-03-24 07:19] LABS: Alanine Aminotransferase 32 U/L (12-78); Albumin Level 4.3 g/dl (3.5-5.0); Albumin/Globulin Ratio 1.3 (1.1-1.8); Alkaline Phosphatase 90 U/L (38-126); Anion Gap 12.3 mEq/L (5-15); Aspartate Amino Transferase 28 U/L (17-59); Bilirubin,Total 0.9 mg/dl (0.2-1.3); Blood Urea Nitrogen 14 mg/dl (9-20); Calcium 8.7 mg/dl (8.4-10.2); Carbon Dioxide 27 mmol/L (22.0-30.0); Chloride 103 mmol/L (98-107); Creatinine Clearance Estimated 139 mL/min (50-200); Estimated Glomerular Filt Rate 76 ml/min (>60); GFR (African American) 92 ML/MIN (>60); Globulin 3.2 g/dL (1.3-3.2); Glucose 102 mg/dl (74-100); Potassium 4.3 mmoL/L (3.5-5.1); Sodium 138 mmol/L (136-145); Total Protein,Serum 7.5 g/dl (6.3-8.2)
--- NOTE | 2024-03-24 07:37 | PC.NURSE ---
dr gabriel at bedside
[2024-03-24 07:41] LABS: Troponin I < 0.01 ng/ml (0.00-0.034)
--- NOTE | 2024-03-24 07:47 | ECG_ITS ---
APPROVED REPORT Exam: Resting ECG HR:64 bpm ECG Measurements Heart Rate 64 AXES NJ 163 P 37 QRSd 90 QRS -4 QT 448 T -11 QTc 458 Conclusion SINUS RHYTHM NONSPECIFIC T-WAVE ABNORMALITY No STEMI Electronically signed by : LAMAR BLACK, 03/24/2024 16:23:25
--- NOTE | 2024-03-24 07:53 | PC.NURSE ---
dr gabriel speaking with lacie
--- NOTE | 2024-03-24 08:02 | PC.NURSE ---
care management ok'd mri
--- NOTE | 2024-03-24 08:13 | MR_ITS ---
PROCEDURE INFORMATION: Exam: MR Head Without Contrast Exam date and time: 03/24/2024 8:16 AM Age: 58 years old Clinical indication: Stroke-like symptoms; Generalized numbness/paresthesia; Additional info: Nih 1, L face subjective numbness TECHNIQUE: Imaging protocol: Magnetic resonance imaging of the head without contrast. COMPARISON: CT ANGIO HEAD 03/24/2024 7:17 AM FINDINGS: Brain: Tiny acute infarct in the right thalamus. No evidence of acute hemorrhage. No mass effect or midline shift. Cerebral ventricles: Normal. No ventriculomegaly. Bones: Unremarkable. Paranasal sinuses: Normal as visualized. No acute sinusitis. Mastoid air cells: Normal as visualized. No mastoid effusion. Orbital cavities: Unremarkable. Soft tissues: Unremarkable. IMPRESSION: Tiny acute infarct in the right thalamus.
--- NOTE | 2024-03-24 08:14 | PC.NURSE ---
patient gone to MRI at this time.
--- NOTE | 2024-03-24 08:36 | PC.NURSE ---
DR BLACK SPEAKING WITH HOSPITALIST
[2024-03-24 08:42] LABS: Thyroid Stimulating Hormone 0.42 uIU/mL (0.465-4.68)
[2024-03-24 08:51] LABS: Free T4 (Free Thyroxine) 1.13 ng/dl (0.78-2.19)
--- NOTE | 2024-03-24 08:52 | PC.NURSE ---
patient back in room at this time.
--- NOTE | 2024-03-24 08:53 | PC.NURSE ---
PT RETURNED FROM MRI
--- NOTE | 2024-03-24 09:04 | PC.NURSE ---
DR BLACK SPEAKING WITH DANIELLE
--- NOTE | 2024-03-24 09:07 | PC.NURSE ---
DR BLACK AT BEDSIDE TO UPDATE PT AND FAMILY
[2024-03-24] MEDS: PRASUGREL 10MG TAB 10 MG PO (09:11)
[2024-03-24] MEDS: ASPIRIN EC 81MG TABLET 81 MG PO (09:11)
--- NOTE | 2024-03-24 11:38 | PC.NURSE ---
HOSPITALIST AT BEDSIDE
--- NOTE | 2024-03-24 12:14 | EXP.MED.CON ---
[facility] Disclaimer: The information contained in this section may have been updated after the patient was seen, as this information can be updated by other users. Medical History Colon cancer screening declined ADHD Viral illness Renal cancer Angina pectoris, unstable Generalized anxiety disorder See above please Major depression, recurrent I went about the possibility of bipolar disorder in this gentleman. He has a long history of marijuana use, has PTSD, and episodes of major depression. We will send him to [facility] or whoever she suggests for further evaluation. I have told him that when he takes the Wellbutrin if there are any issues he is to contact us immediately and stop the medication. Marijuana use Supa has tapered his marijuana use down to 1 joint per day. I have strongly encouraged him to quit this completely. Note that this is helping his emotional state and may be making things worse. Head pain I have no clear physiologic reason for Supa to have this burning pain in his head. I discussed with him that I thought this was a physical manifestation of his emotional state which is quite depressed. I have asked him to start taking his Wellbutrin. Apparently he has never taken this prescription. This should help him with both his anxiety and his depression as well as his headaches. I told him that if he has any side effects or issues he is to stop the medication. Additionally we will see him back in 1 week to make sure he is doing okay. We will refer him also to [facility] Meehan or her recommendation for someone to see him and help him with his emotional state Obesity Calcium pyrophosphate deposition disease (CPPD) Patient is on colchicine but not on allopurinol. We might switch medications down the road once we get his emotional state better controlled Foot pain, bilateral severe left plantar medial tubercle; mild right Plantar medial tubercle Plantar fascia syndrome Overweight Angina pectoris Atypical chest pain Dyspnea Back pain Cellulitis COPD with exacerbation Supa is not on any inhalers or any other medications for his COPD. I think it might be worthwhile to do pulmonary function tests again lets get his emotional state under control. Atypical chest pain BPH (benign prostatic hyperplasia) Obesity (BMI 30-39.9) Anxiety NSTEMI (non-ST elevated myocardial infarction) Angina pectoris Non-ST elevation myocardial infarction (NSTEMI) Chest pain Diastolic dysfunction HLD (hyperlipidemia) Typical angina Abnormal cardiovascular stress test Dyspnea Abnormal cardiovascular stress test Angina, class IV Abnormal EKG Dyspnea Blurred vision Numbness in both hands Dizziness Hypertension Obstructive sleep apnea Supa has obstructive sleep apnea in his clinical listing. I did not discuss this with him today but will when he returns. Non-STEMI (non-ST elevated myocardial infarction) Chest pain due to coronary artery disease CRPS (complex regional pain syndrome type I) Insomnia CAD (coronary artery disease) Supa recently, December 2021, had myocardial infarction. He has had 10 stents placed. He is following with cardiology for this. Tobacco dependence syndrome I discussed with Supa that I would like to see him first eliminate the marijuana and then we can work on his tobacco use. Surgical History H/O kidney removal Family History Other No significant family history Social History Smoking Status: Current every day smoker tobacco type: cigarettes packs per day: 1 second hand exposure: Yes alcohol intake: never substance use type: marijuana current occupational status: employed Travel in the last 8 weeks: None household members: spouse housing: house number of children: 6 current occupational exposures/hazards: Yes caffeine: Yes Exam Data for Last 24 hours Vital signs and Labs for Last 24 Hours: Temp Pulse Resp BP Pulse Ox O2 Del Method 98.3 F 66 17 154/76 H 98 Room Air 03/24/24 06:33 03/24/24 10:31 03/24/24 10:31 03/24/24 10:31 03/24/24 10:31 03/24/24 07:30 Laboratory Results - last 24 hr 03/24/24 06:58: WBC 6.9, RBC 5.46, Hgb 15.7, Hct 45.5, MCV 83.3, MCH 28.8, MCHC 34.6, RDW 14.4, Plt Count 216, MPV 6.9 L, Neut % (Auto) 61.0, Lymph % (Auto) 27.8, [place] % (Auto) 6.7, Eos % (Auto) 3.0, Baso % (Auto) 1.5, Neut # (Auto) 4.2, Lymph # (Auto) 1.9, [place] # (Auto) 0.5, Eos # (Auto) 0.2, Baso # (Auto) 0.1, PT 10.1, INR 0.89 L, APTT 29.2, Sodium 138, Potassium 4.3, Chloride 103, Carbon Dioxide 27, Anion Gap 12.3, BUN 14, Creatinine 1.00, Estimated Creat Clear 139, Estimated GFR 76, Est GFR ( Amer) 92, Glucose 102 H, Calcium 8.7, Magnesium 1.8, Total Bilirubin 0.9, AST 28, ALT 32, Alkaline Phosphatase 90, Troponin I < 0.01, Total Protein 7.5, Albumin 4.3, Globulin 3.2, Albumin/Globulin Ratio 1.3, TSH 0.42 L, Free T4 1.13 I & O for Last 24 hours: Intake & Output 03/21/24 03/22/24 03/23/24 03/24/24 23:59 23:59 23:59 23:59 Weight 125.191 kg Meds Home Medications and Allergies Home Medications ?Medication ?Instructions ?Recorded ?Confirmed ?Type colchicine 0.6 mg tablet 0.6 mg PO BIDP PRN gout 04/10/23 03/23/24 History aspirin 81 mg chewable tablet 81 mg PO DAILY Circulation #90 tabs 11/05/23 03/23/24 Rx atorvastatin 80 mg tablet 80 mg PO AM Cholesterol #90 tabs 11/05/23 03/23/24 Rx lidocaine 4 % topical patch 1 patch topical DAILY #10 ea 11/05/23 03/23/24 Rx (AsperFlex (lidocaine)) prasugrel 10 mg tablet 10 mg PO DAILY Blood Thinner #90 11/05/23 03/23/24 Rx tabs spironolactone 50 mg tablet 50 mg PO DAILY Hypertension #90 11/05/23 03/23/24 Rx tabs omeprazole 40 mg capsule,delayed See Rx Instructions .Route 12/20/23 03/23/24 Rx release .COMPLEX #90 caps polyethylene glycol 3350 17 See Rx Instructions .Route 12/20/23 03/23/24 Rx gram/dose oral powder (ClearLax) .COMPLEX #510 grams bisoprolol fumarate 10 mg tablet 10 mg PO TID 12/27/23 03/23/24 History cyclobenzaprine 10 mg tablet 10 mg PO HS 01/17/24 03/23/24 History sildenafil (pulm.hypertension) 20 See Rx Instructions .Route 03/06/24 03/23/24 Rx mg tablet .COMPLEX #20 tabs buspirone 10 mg tablet 10 mg PO BID #60 tabs 03/08/24 03/23/24 Rx meloxicam 15 mg tablet 15 mg PO DAILY PRN pain #30 tabs 03/08/24 03/23/24 Rx prednisone 5 mg tablets in a dose See Rx Instructions PO PER PKG DIR 03/08/24 03/23/24 Rx pack #21 tabs prazosin 2 mg capsule 2 mg PO HS #30 caps 03/22/24 03/23/24 Rx saw palmetto 160 mg capsule 160 mg PO BID #60 caps 03/22/24 03/23/24 Rx sacubitril 49 mg-valsartan 51 mg 1 tab PO BID #60 tabs 03/23/24 03/23/24 Rx tablet (Entresto) New Prescriptions to Start Prescriptions: Allergies Allergy/AdvReac Type Severity Reaction Status Date / Time venlafaxine [From Effexor] Allergy Intermediate Unknown Verified 03/23/24 13:20 allergy reaction isosorbide [From Imdur] Allergy Mild Unknown Verified 03/23/24 13:20 allergy reaction ibuprofen Allergy Unknown Unknown Verified 03/23/24 13:20 allergy reaction Penicillins Allergy Unknown Unknown Verified 03/23/24 13:20 allergy reaction ranolazine AdvReac RAPID Verified 03/23/24 13:20 HEART BEAT Results Labs 03/24/24 06:58 03/24/24 06:58 Labs: Abnormal lab results 03/24/24 Range/Units 06:58 MPV 6.9 L (7.4-10.4) fl INR 0.89 L (0.9-1.1) Glucose 102 H (74-100) mg/dl TSH 0.42 L (0.465-4.68) uIU/mL H & H 03/24/24 Range/Units 06:58 Hgb 15.7 (14.1-18.0) g/dL Hct 45.5 (42.0-52.0) % Coagulation 03/24/24 Range/Units 06:58 INR 0.89 L (0.9-1.1) All other labs normal.
[2024-03-24 13:51] LABS: HIV (1&2) Antibody Rapid NONREACTIVE (NONREACTIVE)
[2024-03-25 05:11] LABS: HCV Ab Non Reactive (Non Reactive)
== END 2024-03-24 12:27 | disposition left against medical advice (07) ==
PROVIDERS: Emergency Medicine; Emergency Provider Emergency Medicine
DX: I69.353 Hemiplegia and hemiparesis following cerebral infarction affecting right non-dominant side (principal); D11.0 Benign neoplasm of parotid gland; E07.9 Disorder of thyroid, unspecified
CPT/HCPCS: 70450; 70496; 70498; 70551; 80050; 80053; 83735; 84439; 84443; 84484; 85025; 85610; 85730; 86803; 87389; 93005; 99285; Q9967

== ENCOUNTER 2024-05-11 10:32 | Emergency (ER) | payer OTHER, SELFPAY ==
[2024-05-11] VITALS (8 sets, daily range): BP systolic 138–191; BP diastolic 87–102; PULSE 80–110; RESP 20; TEMP 36.8; O2SAT 96–99; BMI 27.1
--- NOTE | 2024-05-11 10:38 | PC.NURSE ---
Paged Stroke Alert, Dr. Jay at bedside. NIHSS 1
--- NOTE | 2024-05-11 10:39 | CT_ITS ---
FINAL REPORT CLINICAL HISTORY: R numb/tingling, gait instability, vision change stroke protocol COMPARISON: None FINDINGS: CT NECK ANGIO, WITHOUT AND WITH CONTRAST TECHNIQUE: Thin section axial CT with contrast with multiplanar 3D MIP reconstruction. This study was performed with techniques to keep radiation doses as low as reasonably achievable, (ALARA). Individualized dose reduction techniques using automated exposure control or adjustment of mA and/or kV according to the patient's size were employed. NASCET criteria and technique was utilized during interpretation. FINDINGS: Aortic arch: Arch shows no significant narrowing. Great vessel origins are widely patent. Right carotid: No significant stenosis is seen of the cervical common or internal carotid artery. Left carotid: No significant stenosis is seen of the cervical common or internal carotid artery. Vertebrals: The vertebral arteries are codominant. No significant stenosis is present. IMPRESSION: No significant stenosis of the cervical carotid arteries This study was performed using automated techniques to achieve radiation exposure as low as reasonably Reviewed, Interpreted and Dictated by Nidia Weber MD Transcribed by Amanda Pacheco Authenticated and [facility]
--- NOTE | 2024-05-11 10:39 | CT_ITS ---
FINAL REPORT CLINICAL HISTORY: R numb/tingling, gait instability, vision change stroke protocol COMPARISON: None FINDINGS: CTA HEAD TECHNIQUE: Thin section axial CT with contrast with 3D MIP reconstruction This study was performed with techniques to keep radiation doses as low as reasonably achievable, (ALARA). Individualized dose reduction techniques using automated exposure control or adjustment of mA and/or kV according to the patient's size were employed. FINDINGS: No aneurysm is seen. Major intracranial vessels are patent without significant stenosis. . IMPRESSION: Unremarkable This study was performed using automated techniques to achieve radiation exposure as low as reasonably achievable Reviewed, Interpreted and Dictated by Nidia Weber MD Transcribed by Amanda Pacheco Authenticated and . [facility]
--- NOTE | 2024-05-11 10:39 | CT_ITS ---
FINAL REPORT TECHNIQUE: Noncontrast exam This study was performed with techniques to keep radiation doses as low as reasonably achievable, (ALARA). Individualized dose reduction techniques using automated exposure control or adjustment of mA and/or kV according to the patient's size were employed. CLINICAL HISTORY: R numb/tingling, gait instability, vision change stroke protocol COMPARISON: MRI of the head 10/23/2020 FINDINGS: CT HEAD: No abnormal density is seen. Ventricles are normal. There is no hemorrhage. No mass effect is seen. Bone windows show no evidence of fracture. IMPRESSION: No acute findings Reviewed, Interpreted and Dictated by Nidia Weber MD Transcribed by Amanda Pacheco Authenticated and . [facility]
--- NOTE | 2024-05-11 10:40 | ECG_ITS ---
APPROVED REPORT Exam: Resting ECG HR:104 bpm ECG Measurements Heart Rate 104 AXES [place] 151 P 77 QRSd 83 QRS -16 QT 351 T 59 QTc 411 Conclusion SINUS TACHYCARDIA WITH OCCASIONAL SUPRAVENTRICULAR PREMATURE COMPLEXES NONSPECIFIC T-WAVE ABNORMALITY No significant changes from prior EKG Electronically signed by : MOISÉS CASTILLO, 05/11/2024 16:48:45
--- NOTE | 2024-05-11 10:41 | XR_ITS ---
FINAL REPORT CLINICAL HISTORY: stroke alert COMPARISON: 12/15/2023 FINDINGS: No acute pulmonary opacity is present. There is no evidence of effusion or pneumothorax. Mediastinum is unremarkable. Heart size is normal. IMPRESSION: No acute abnormality. Reviewed, Interpreted and Dictated by Nidia Weber MD Transcribed by Amanda Pacheco Authenticated and [facility]
--- NOTE | 2024-05-11 10:43 | PC.NURSE ---
PT TO CT
--- NOTE | 2024-05-11 10:45 | [facility].EDGENADL ---
Discharge Plan Disposition Patient Disposition: Home, Self-Care Condition: Good Prescriptions Prescriptions: No Action atorvastatin 80 mg tablet 80 mg PO AM Qty: 90 1RF aspirin 81 mg tablet,chewable 81 mg PO DAILY Qty: 90 1RF prasugrel 10 mg tablet 10 mg PO DAILY Qty: 90 0RF Rx Instructions: TAKE 1 TABLET BY MOUTH ONCE DAILY FOR HEART DISEASE spironolactone 50 mg tablet 50 mg PO DAILY Qty: 90 0RF Rx Instructions: TAKE ONE TABLET BY MOUTH EVERY DAY lidocaine [AsperFlex (lidocaine)] 4 % adhesive patch,medicated 1 patch topical DAILY Qty: 10 7RF Rx Instructions: may leave on for up to 12 hrs buspirone 10 mg tablet 10 mg PO BID Qty: 60 2RF prednisone 5 mg tablets,dose pack See Rx Instructions PO PER PKG DIR Qty: 21 0RF Rx Instructions: PO PER PKG DIR bisoprolol fumarate 10 mg tablet 10 mg PO TID cyclobenzaprine 10 mg tablet 10 mg PO HS prazosin 2 mg capsule 2 mg PO HS Qty: 30 2RF Entresto 49-51 mg tablet 1 tab PO BID Qty: 60 2RF colchicine 0.6 mg tablet 0.6 mg PO BIDP PRN (Reason: gout) Qty: 120 3RF saw palmetto 160 mg capsule 160 mg PO BID Qty: 60 4RF Rx Instructions: give with meal/snack omeprazole 40 mg capsule,delayed release(DR/EC) See Rx Instructions .ROUTE .COMPLEX Qty: 90 3RF Dose Instruction: TAKE 1 CAPSULE BY MOUTH ONCE DAILY Rx Instructions: TAKE 1 CAPSULE BY MOUTH ONCE DAILY chlorthalidone 25 mg tablet 25 mg PO DAILY Qty: 30 2RF sildenafil (pulm.hypertension) 20 mg tablet See Rx Instructions .ROUTE .COMPLEX Qty: 20 1RF Dose Instruction: TAKE 1 TABLET BY MOUTH DAILY NEEDED FOR SEXUAL ACTIVITY Rx Instructions: TAKE 1 TABLET BY MOUTH DAILY NEEDED FOR SEXUAL ACTIVITY polyethylene glycol 3350 [ClearLax] 17 gram/dose powder See Rx Instructions .ROUTE .COMPLEX Qty: 510 1RF Dose Instruction: MIX 17 GRAMS IN 8 OUNCES OF LIQUID AND DRINK DAILY DIRECTED Rx Instructions: MIX 17 GRAMS IN 8 OUNCES OF LIQUID AND DRINK DAILY DIRECTED Wegovy 0.5 mg/0.5 mL pen injector 0.5 mg SQ WEEKLY Qty: 2 1RF Rx Instructions: administer weeks 5 through 8 of therapy Referrals Follow up/Referrals: Provider,Referral, MD [Referring] - See instructions Activity Restrictions/Add. Instructions Additional Instructions/Restrictions: You were evaluated in the emergency department today. Please follow-up very closely with cardiology as well as with your primary care provider. neurology should be contacting you to schedule an appointment for stroke follow-up. Continue taking your medications at home as prescribed. Return to the emergency department for new or worsening symptoms Clinical Impressions Clinical Impression: Acute CVA (cerebrovascular accident), Hypertension, Elevated troponin Stand Alone Forms Stand Alone Forms: Work/School Release Instructions Patient Instructions: DI for Stroke-Ischemic Print Language Print Language: Hebrew Discharge ED Provider: Cristela Jay General Adult HPI General Chief complaint: Neuro Symptoms/Deficit Stated complaint: Poss CVA Time Seen by Provider: 05/11/24 10:39 History of Present Illness HPI narrative: This patient is a 58-year-old male with a history of CAD, hypertension, hyperlipidemia, recent CVA presenting to the emergency department for evaluation with concern for brain fog, gait instability, and new numbness/tingling on the right side. Patient reports that he woke up around 4:00 this morning and was his normal usual self. He was at work at 5:30 AM when he had sudden onset of the symptoms. He states that it feels like something is off in his brain, he has a visual disturbance that he cannot further characterize, he has subjective decrease in sensation on the right side, and he feels like his gait is off. He states that he tried to take his blood pressure medication this morning, but he vomited and was not able to keep it down. No other concerns or complaints noted at this time. Related Data Home Medications ?Medication ?Instructions ?Recorded ?Confirmed bisoprolol fumarate 10 mg tablet 10 mg PO TID 12/27/23 05/02/24 cyclobenzaprine 10 mg tablet 10 mg PO HS 01/17/24 05/02/24 Previous Rx's ?Medication ?Instructions ?Recorded aspirin 81 mg chewable tablet 81 mg PO DAILY Circulation #90 tabs 11/05/23 atorvastatin 80 mg tablet 80 mg PO AM Cholesterol #90 tabs 11/05/23 lidocaine 4 % topical patch 1 patch topical DAILY #10 ea 11/05/23 (AsperFlex (lidocaine)) prasugrel 10 mg tablet 10 mg PO DAILY Blood Thinner #90 11/05/23 tabs spironolactone 50 mg tablet 50 mg PO DAILY Hypertension #90 11/05/23 tabs omeprazole 40 mg capsule,delayed See Rx Instructions .Route 12/20/23 release .COMPLEX #90 caps buspirone 10 mg tablet 10 mg PO BID #60 tabs 03/08/24 prednisone 5 mg tablets in a dose See Rx Instructions PO PER PKG DIR 03/08/24 pack #21 tabs prazosin 2 mg capsule 2 mg PO HS #30 caps 03/22/24 sacubitril 49 mg-valsartan 51 mg 1 tab PO BID #60 tabs 03/23/24 tablet (Entresto) chlorthalidone 25 mg tablet 25 mg PO DAILY #30 tabs 04/11/24 colchicine 0.6 mg tablet 0.6 mg PO BIDP PRN gout #120 tabs 04/18/24 saw palmetto 160 mg capsule 160 mg PO BID #60 caps 04/18/24 sildenafil (pulm.hypertension) 20 See Rx Instructions .Route 04/27/24 mg tablet .COMPLEX #20 tabs polyethylene glycol 3350 17 See Rx Instructions .Route 05/03/24 gram/dose oral powder (ClearLax) .COMPLEX #510 grams semaglutide (weight loss) 0.5 0.5 mg (0.5 mL) SQ WEEKLY #2 mL 05/10/24 mg/0.5 mL subcutaneous pen injector (Wegovy) Allergies Allergy/AdvReac Type Severity Reaction Status Date / Time venlafaxine (From Effexor) Allergy Intermediate Unknown Verified 05/02/24 11:29 allergy reaction isosorbide (From Imdur) Allergy Mild Unknown Verified 05/02/24 11:29 allergy reaction ibuprofen Allergy Unknown Unknown Verified 05/02/24 11:29 allergy reaction Penicillins Allergy Unknown Unknown Verified 05/02/24 11:29 allergy reaction ranolazine AdvReac RAPID Verified 05/02/24 11:[address] [facility] Disclaimer: The information contained in this section may have been updated after the patient was seen, as this information can be updated by other users. Medical History Colon cancer screening declined ADHD Viral illness Renal cancer Angina pectoris, unstable Generalized anxiety disorder Major depression, recurrent Marijuana use Head pain Obesity Calcium pyrophosphate deposition disease (CPPD) Foot pain, bilateral Plantar fascia syndrome Overweight Angina pectoris Atypical chest pain Dyspnea Back pain Cellulitis COPD with exacerbation Atypical chest pain BPH (benign prostatic hyperplasia) Obesity (BMI 30-39.9) Anxiety NSTEMI (non-ST elevated myocardial infarction) Angina pectoris Non-ST elevation myocardial infarction (NSTEMI) Chest pain Diastolic dysfunction HLD (hyperlipidemia) Typical angina Abnormal cardiovascular stress test Dyspnea Abnormal cardiovascular stress test Angina, class IV Abnormal EKG Dyspnea Blurred vision Numbness in both hands Dizziness Hypertension Obstructive sleep apnea Non-STEMI (non-ST elevated myocardial infarction) Chest pain due to coronary artery disease CRPS (complex regional pain syndrome type I) Insomnia CAD (coronary artery disease) Tobacco dependence syndrome Surgical History H/O kidney removal Family History Other No significant family history Social History Smoking Status: Current every day smoker tobacco type: cigarettes packs per day: 1 second hand exposure: Yes alcohol intake: never substance use type: marijuana current occupational status: employed Travel in the last 8 weeks: None household members: spouse housing: house number of children: 6 current occupational exposures/hazards: Yes caffeine: Yes Other Medical History Have you received the Flu Vaccine for this season: No Have you received the Pneumonia Vaccine: No ROS Obtained: Yes All systems reviewed & no additional complaints except as documented Physical Exam General General appearance: alert and in no apparent distress Head Head exam: atraumatic and normocephalic Eye Eye exam: Present normal appearance, PERRL and EOMI ENT ENT exam: Present normal exam, normal oropharynx, mucous membranes moist and normal external ear exam Neck Neck exam: Present normal inspection, full ROM and trachea midline; Absent tenderness Chest Chest inspection: Present normal inspection and symmetric chest wall rise; Absent tenderness Respiratory Respiratory exam: Present normal lung sounds bilaterally; Absent respiratory distress, wheezes, stridor or accessory muscle use Cardiovascular Cardiovascular exam: Present regular rate and normal rhythm Abdominal Exam Abdominal exam: Present soft; Absent distention, tenderness or guarding Extremities Exam Extremities exam: Present normal inspection, full ROM and normal capillary refill; Absent tenderness or edema Back Exam Back exam: Present normal inspection and full ROM; Absent tenderness Neurological Exam Neurological exam: Present alert, oriented X3, CN II-XII intact, normal gait, motor sensory deficit and other (Subjective decrease in sensation on the entire right side of the body. Otherwise, no focal neurologic deficits given the patient NIH stroke scale of 1.) Psychiatric Psychiatric exam: Present normal affect and normal mood Skin Skin exam: Present warm and dry Medical Decision Making Medical Records Medical records reviewed: Yes I reviewed the patient's medical records. Screening: Per USPSTF and CDC recommendations, given the prevalence of disease in our region, it is our hospital?s policy to screen for HIV and viral Hepatitis for all patients aged 18 and over and those with ongoing risk factors. Steve Inquiry Pt receiving controlled substance: No Vital Signs: 05/11/24 10:33 05/11/24 10:54 05/11/24 11:00 Temperature 98.2 F Temperature Source Oral Pulse Rate 81 100 H Pulse Rate [Right] 110 H Respiratory Rate 20 Blood Pressure 141/87 H 139/87 Blood Pressure [Right Arm] 191/102 H Blood Pressure Mean [Right Arm] 131 Blood Pressure Source Blood Pressure Source [Right Arm] Automatic Cuff 02 Sat by Pulse Oximetry 99 98 98 Oxygen Delivery Method Room Air Room Air Room Air 05/11/24 11:30 05/11/24 12:00 05/11/24 12:30 Temperature Temperature Source Pulse Rate 96 H 85 88 Pulse Rate [Right] Respiratory Rate Blood Pressure 138/88 150/89 H 149/91 H Blood Pressure [Right Arm] Blood Pressure Mean [Right Arm] Blood Pressure Source Blood Pressure Source [Right Arm] 02 Sat by Pulse Oximetry 98 98 99 Oxygen Delivery Method Room Air Room Air Room Air 05/11/24 13:00 05/11/24 14:23 Temperature 98.2 F Temperature Source Pulse Rate 80 85 Pulse Rate [Right] Respiratory Rate 20 Blood Pressure 159/88 H 144/100 H Blood Pressure [Right Arm] Blood Pressure Mean [Right Arm] Blood Pressure Source Automatic Cuff Blood Pressure Source [Right Arm] 02 Sat by Pulse Oximetry 98 Oxygen Delivery Method Room Air Room Air Lab Data Lab results reviewed: Yes I reviewed the patient's lab results. Lab Results 05/11/24 10:35: WBC 8.7, RBC 6.02, Hgb 16.6, Hct 49.3, MCV 81.9, MCH 27.6, MCHC 33.7, RDW 13.2, Plt Count 230, MPV 9.0, Neut % (Auto) 64.5, Lymph % (Auto) 26.3, [place] % (Auto) 5.8, Eos % (Auto) 2.1, Baso % (Auto) 0.8, Neut # (Auto) 5.6, Lymph # (Auto) 2.3, [place] # (Auto) 0.5, Eos # (Auto) 0.2, Baso # (Auto) 0.1, PT 10.2, INR 0.90, APTT 27.5, Sodium 135 L, Potassium 4.6, Chloride 105, Carbon Dioxide 28, Anion Gap 6.6, BUN 13, Creatinine 1.30 H, Estimated Creat Clear 80, Estimated GFR 56 L, Est GFR ( Amer) 68, Glucose 108 H, Calcium 9.5, Magnesium 2.2, Total Bilirubin 1.1, AST 35, ALT 35, Alkaline Phosphatase 131 H, Troponin I 0.05 H, Total Protein 8.0, Albumin 4.7, Globulin 3.3 H, Albumin/Globulin Ratio 1.4 05/11/24 10:36: Plasma/Serum Alcohol < 10 05/11/24 13:24: Troponin I 0.04 H 05/11/24 10:35 05/11/24 10:35 Orders (Tests/Meds): ED MEDICATIONS Discontinued Medications Generic Name Dose Route Start Last Admin Trade Name Freq PRN Reason Stop Dose Admin Aspirin 324 mg 05/11/24 11:17 05/11/24 11:39 Aspirin 81mg Chewable Tablet PO 05/11/24 11:18 324 mg ONCE ONE Administration Iopamidol 80 ml 05/11/24 10:58 05/11/24 10:59 Iopamidol-370 (76%);100ml Bottle IV 05/11/24 10:59 80 ml ONCE ONE Administration Sodium Chloride 40 ml 05/11/24 10:58 05/11/24 10:59 0.9 % Sodium Chloride 50 Ml Vial IV 05/11/24 10:59 40 ml ONCE ONE Administration Sodium Chloride 10 ml 05/11/24 10:58 05/11/24 10:59 Sodium Chloride 0.9% 10ml Syr (Rad Only) IV 05/11/24 10:59 10 ml ONCE ONE Administration ORDERS Category Date Time Status CT angio head Stat Cat Scan 05/11/24 10:[address] angio neck Stat Cat Scan 05/11/24 10:[address] head/brain wo con Stat Cat Scan 05/11/24 10:39 Completed Cardiology Consult [Consult to Cardiology] [CONS] Cons 05/11/24 11:27 Active Routine Consult to Cardiology [CONS] Routine Cons 05/11/24 11:27 Active CXR --portable [XR chest portable] Stat Exams 05/11/24 10:41 Completed Complete Blood Count Auto Diff Stat Lab 05/11/24 10:35 Completed Comprehensive Metabolic Panel Stat Lab 05/11/24 10:35 Completed Ethyl Alcohol Stat Lab 05/11/24 10:36 Completed MAG [Magnesium] Stat Lab 05/11/24 10:35 Completed PT INR [Prothrombin Time INR] Stat Lab 05/11/24 10:35 Completed PTT [Activated Partial Thrombo Time] Stat Lab 05/11/24 10:35 Completed Trop I [Troponin I] Stat Lab 05/11/24 10:35 Completed Troponin I Q3H Lab 05/11/24 13:24 Completed ECG Data Tracing #1: I reviewed this ECG and interpreted as documented below: Sinus tachycardia with a ventricular rate of 104 bpm. Occasional PVCs. Nonspecific T wave abnormality but no acute STEMI. Normal intervals. ECG initial impression date: 05/11/24 ECG initial impression time: 10:40 Tracing #2: I reviewed this ECG and interpreted as documented below: Normal sinus rhythm with a ventricular of [address] changes concerning for STEMI. Normal intervals. No significant change from prior EKG. ECG initial impression date: 05/11/24 ECG initial impression time: 11:24 Medical Decision Narrative: In summary, this patient is a 58-year-old male presenting to the Emergency Department for evaluation of right-sided numbness/tingling, feeling funny in his head, nonspecific visual disturbance, and gait instability. He has significant hypertensive upon arrival with systolics in the 190s. He was not able to keep down his blood pressure medications today. Differential diagnoses considered include but are not limited to CVA, intracranial hemorrhage, hypertensive urgency, hypertensive emergency. Ruling out the most morbid conditions drove assessment. It should be noted patient's history includes CVA, CAD, CHF, hypothyroidism, hypertension, hyperlipidemia which are not at goal therapy. This complicates all aspects of care by increasing patient's risk for morbidity. I reviewed patient's past medical records and noted evaluation here 03/24/2024 for left-sided numbness and tingling. He had significant hypertension at that time. On imaging, he was found to have a tiny acute infarct in the right thalamus, but he states that his numbness and tingling resolved after this. On medical record review, it looks like he was recommended to be admitted, but he left AGAINST MEDICAL ADVICE at that time. He was started on aspirin and prasugrel. He is already on statin. On exam, the patient has subjective decrease in sensation on the right side giving him an NIH stroke scale of 1. Otherwise, he has no neurologic deficits. He has normal gait into the emergency department and has normal coordination on neurologic exam. Patient was stroke alerted and was taken emergently to CT scans for CT head and CT angiogram of the head and neck. He presents within tPA/TNK window, but he is not a thrombolytic candidate because he has history of stroke back at the beginning of March and also has uncontrolled hypertension. Workup included lab evaluation including cardiac workup as well to evaluate for endorgan damage related to his hypertension. I independently interpreted CT head without contrast prior to the radiologist read and noted no acute intracranial hemorrhage. Please see their read for final interpretation. I shared images immediately upon completion through [facility]. At 1102am, Dr. Ghosh advised no LVO. Again, patient not tpa/tnk candidate given the patient's history of recent CVA. I requested consult with neurology from . I had an interactive discussion with stroke neurology physician Dr. Servin via phone at who advised he does not recomment tpa/tnk. He also advised he does not recommend admission or medication changes at this time, as he feels it is likely related to BP issues. He recommended close follow up outpatient in their stroke clinic, which will help arrange. He does not feel that the patient requires admission at this time given low NIH stroke scale, reassuring workup, and the fact that he is already on appropriate medical management. On reassessment, the patient's blood pressure did spontaneously improve from systolic 190s to systolic 130s. This was without any intervention. Labs were obtained that demonstrated reassuring CBC with no significant leukocytosis. Creatinine slightly elevated but not significantly different from prior. Mildly elevated initial troponin. Given th I called and had an interactive discussion with with Francisco AKINS with cardiology who evaluated the patient and feels that given absence of chest pain and reassuring EKG, if second troponin is downtrending the patient may discharge home. Second opponent is downtrending and the patient remains chest pain-free on repeat assessment with stable EKG and normal vitals on cardiac telemetry. Blood pressure slightly hypertensive in the 150s. His symptoms have improved as far as his neurologic symptoms go, but he still feels a little bit funny. Per neurology recommendations, we will keep him here for further evaluation, will send him home for close outpatient follow-up. They recommended no medication changes, so patient was discharged with instructions to continue his current regimen and closely monitor his blood pressure. Strict return precautions were given Critical Care Critical Care Time Critical Care Time: Yes Attestation: On 05/11/24, the high probability of a clinically significant, sudden or life threatening deterioration of the following system(s) required my full and direct attention, intervention and personal management. The time I documented below is in addition to time spent performing reported procedures but includes the following listed in this critical care notation. Total Time Total Critical Care Time: 50
--- NOTE | 2024-05-11 10:54 | PC.NURSE ---
pt back from CT scan
--- NOTE | 2024-05-11 10:55 | PC.NURSE ---
pt does report daily marijuana use d/t it helps my ptsd He denies any opioid use disorder that would met criteria for narcan d/c dispense.
[2024-05-11 10:56] LABS: Albumin Level 4.7 g/dl (3.5-5.0)
[2024-05-11 10:57] LABS: Chloride 105 mmol/L (98-107); Potassium 4.6 mmoL/L (3.5-5.1); Sodium 135 mmol/L (136-145)
[2024-05-11 10:58] LABS: Activated Partial Thrombo Time 27.5 seconds (22.8-30.6); Prothrombin Time 10.2 seconds (10.1-12.5)
[2024-05-11 10:59] LABS: Alanine Aminotransferase 35 U/L (12-78); Alkaline Phosphatase 131 U/L (38-126); Anion Gap 6.6 mEq/L (5-15); Aspartate Amino Transferase 35 U/L (17-59); Bilirubin,Total 1.1 mg/dl (0.2-1.3); Blood Urea Nitrogen 13 mg/dl (9-20); Carbon Dioxide 28 mmol/L (22.0-30.0); Creatinine Clearance Estimated 80 mL/min (50-200); Estimated Glomerular Filt Rate 56 ml/min (>60); GFR (African American) 68 ML/MIN (>60)
[2024-05-11] MEDS: 0.9 % SODIUM CHLORIDE 50 ML VIAL 40 ML IV (10:59)
[2024-05-11] MEDS: IOPAMIDOL-370 (76%);100ML BOTTLE 80 ML IV (10:59)
[2024-05-11] MEDS: SODIUM CHLORIDE 0.9% 10ML SYR (RAD ONLY) 10 ML IV (10:59)
[2024-05-11 11:00] LABS: Albumin/Globulin Ratio 1.4 (1.1-1.8); Calcium 9.5 mg/dl (8.4-10.2); Globulin 3.3 g/dL (1.3-3.2); Glucose 108 mg/dl (74-100); Magnesium 2.2 mg/dl (1.6-2.3)
--- NOTE | 2024-05-11 11:10 | PC.NURSE ---
DR CASTILLO SPEAKING WITH STROKE NAVIGATOR AT
[2024-05-11 11:11] LABS: Hematocrit 49.3 % (42.0-52.0); Hemoglobin 16.6 g/dL (14.1-18.0); Mean Corpuscular HGB Conc 33.7 g/dL (31.8-35.4); Mean Corpuscular Hemoglobin 27.6 pg (27.0-31.2); Mean Corpuscular Volume 81.9 fl (80-94); Red Blood Count 6.02 M/mm3 (4.60-6.20); Troponin I 0.05 ng/ml (0.00-0.034); White Blood Count 8.7 K/mm3 (4.8-10.8)
[2024-05-11 11:12] LABS: Basophils # 0.1 K/mm3 (0-0.2); Basophils % 0.8 % (0.1-2.0); Eosinophils # 0.2 K/mm3 (0.0-0.4); Eosinophils % 2.1 % (0.1-12.0); Lymphocytes # 2.3 K/mm3 (0.7-4.5); Lymphocytes % 26.3 % (10-50); Monocytes # 0.5 K/mm3 (0.1-1.0); Monocytes % 5.8 % (1.7-9.3); Neutrophils # 5.6 K/mm3 (1.8-7.8); Neutrophils % 64.5 % (37.0-80.0); Platelet Count 230 K/mm3 (142-424); Red Cell Distribution Width 13.2 % (11.5-17.5)
--- NOTE | 2024-05-11 11:19 | PC.NURSE ---
Called cardiology clinic for consult
--- NOTE | 2024-05-11 11:22 | ECG_ITS ---
APPROVED REPORT Exam: Resting ECG HR:93 bpm ECG Measurements Heart Rate 93 AXES MO 160 P 122 QRSd 85 QRS -19 QT 353 T 0 QTc 404 Conclusion SINUS RHYTHM LOW QRS VOLTAGE IN PRECORDIAL LEADS [QRS DEFLECTION < 1.0 mV IN CHEST LEADS] NONSPECIFIC T-WAVE ABNORMALITY No significant changes from prior EKG Electronically signed by : MOISÉS CASTILLO, 05/11/2024 16:48:31
--- NOTE | 2024-05-11 11:26 | PC.NURSE ---
CARDIOLOGY CONTACTED FOR CONSULT
[2024-05-11 11:30] LABS: Ethyl Alcohol < 10 mg/dl (0-10)
[2024-05-11] MEDS: ASPIRIN 81MG CHEWABLE TABLET 324 MG PO (11:39)
--- NOTE | 2024-05-11 12:17 | PC.NURSE ---
CARDIOLOGY AT BEDSIDE
[2024-05-11 13:54] LABS: Troponin I 0.04 ng/ml (0.00-0.034)
--- NOTE | 2024-05-11 14:22 | PC.NURSE ---
DR CASTILLO AT BEDSIDE
--- NOTE | 2024-05-11 14:41 | PC.NURSE ---
PT CONSENTS TO UPDATE DAUGHTER AT THIS TIME
--- NOTE | 2024-05-11 15:40 | EXP.CARD.CON ---
History of Present Illness History of Present Illness Consult date: 05/11/24 Requesting physician: Cristela Jay Chief complaint: Acute neurologic change History of present illness: 58-year-old white male established patient of our office with history of drug-eluting stents 2017, 2018, 2021. He also has known grade 2 diastolic dysfunction, history of CVA, history of renal cancer, known thyroid and parotid masses. Patient presented early this morning with complaints of acute neurologic changes including mental fog, right upper extremity weakness, gait disturbance. On arrival to emergency room he had a blood pressure of [address] imaging of his brain which showed no acute findings. During his workup he had a troponin checked which was 0.05 which is why we are consulted. Patient denies chest pain, his EKG is unchanged from previous. His blood pressure is now improved to 140. [facility] Disclaimer: The information contained in this section may have been updated after the patient was seen, as this information can be updated by other users. Medical History Colon cancer screening declined ADHD Viral illness Renal cancer Angina pectoris, unstable Generalized anxiety disorder Major depression, recurrent Marijuana use Head pain Obesity Calcium pyrophosphate deposition disease (CPPD) Foot pain, bilateral Plantar fascia syndrome Overweight Angina pectoris Atypical chest pain Dyspnea Back pain Cellulitis COPD with exacerbation Atypical chest pain BPH (benign prostatic hyperplasia) Obesity (BMI 30-39.9) Anxiety NSTEMI (non-ST elevated myocardial infarction) Angina pectoris Non-ST elevation myocardial infarction (NSTEMI) Chest pain Diastolic dysfunction HLD (hyperlipidemia) Typical angina Abnormal cardiovascular stress test Dyspnea Abnormal cardiovascular stress test Angina, class IV Abnormal EKG Dyspnea Blurred vision Numbness in both hands Dizziness Hypertension Obstructive sleep apnea Non-STEMI (non-ST elevated myocardial infarction) Chest pain due to coronary artery disease CRPS (complex regional pain syndrome type I) Insomnia CAD (coronary artery disease) Tobacco dependence syndrome Surgical History H/O kidney removal Family History Other No significant family history Social History Smoking Status: Current every day smoker tobacco type: cigarettes packs per day: 1 second hand exposure: Yes alcohol intake: never substance use type: marijuana current occupational status: employed Travel in the last 8 weeks: None household members: spouse housing: house number of children: 6 current occupational exposures/hazards: Yes caffeine: Yes Review of Systems Constitutional Constitutional: Denies fatigue and Reports weakness Eyes Eyes: Denies loss of vision ENT Ears, Nose, Mouth, and Throat: Reports disequilibrium, Denies hearing loss and Denies vertigo *Cardiovascular Cardiovascular: Denies chest pain, Denies dyspnea and Denies syncope *Respiratory Respiratory: Denies cough and Denies dyspnea *Gastrointestinal Gastrointestinal: Denies change in stool character, Denies nausea and Denies vomiting *Genitourinary Genitourinary: Denies difficulty urinating *Musculoskeletal Musculoskeletal: Denies muscle weakness Integumentary/Breasts Skin/Breast: Denies changing lesions *Neurologic Neurologic: Reports confusion, Reports disequilibrium, Denies loss of vision, Denies syncope, Denies vertigo and Reports weakness Psychiatric Psychiatric: Reports confusion Endocrine Endocrine: Denies fatigue Exam Data for Last 24 hours Vital signs and Labs for Last 24 Hours: Temp Pulse Resp BP Pulse Ox O2 Del Method 98.2 F 85 20 144/100 H 98 Room Air 05/11/24 14:23 05/11/24 14:23 05/11/24 14:23 05/11/24 14:23 05/11/24 13:00 05/11/24 14:23 Laboratory Results - last 24 hr 05/11/24 10:35: WBC 8.7, RBC 6.02, Hgb 16.6, Hct 49.3, MCV 81.9, MCH 27.6, MCHC 33.7, RDW 13.2, Plt Count 230, MPV 9.0, Neut % (Auto) 64.5, Lymph % (Auto) 26.3, [place] % (Auto) 5.8, Eos % (Auto) 2.1, Baso % (Auto) 0.8, Neut # (Auto) 5.6, Lymph # (Auto) 2.3, [place] # (Auto) 0.5, Eos # (Auto) 0.2, Baso # (Auto) 0.1, PT 10.2, INR 0.90, APTT 27.5, Sodium 135 L, Potassium 4.6, Chloride 105, Carbon Dioxide 28, Anion Gap 6.6, BUN 13, Creatinine 1.30 H, Estimated Creat Clear 80, Estimated GFR 56 L, Est GFR ( Amer) 68, Glucose 108 H, Calcium 9.5, Magnesium 2.2, Total Bilirubin 1.1, AST 35, ALT 35, Alkaline Phosphatase 131 H, Troponin I 0.05 H, Total Protein 8.0, Albumin 4.7, Globulin 3.3 H, Albumin/Globulin Ratio 1.4 05/11/24 10:36: Plasma/Serum Alcohol < 10 05/11/24 13:24: Troponin I 0.04 H I & O for Last 24 hours: Intake & Output 05/08/24 05/09/24 05/10/24 05/11/24 23:59 23:59 23:59 23:59 Weight 206 lb Meds Home Medications and Allergies Home Medications ?Medication ?Instructions ?Recorded ?Confirmed ?Type aspirin 81 mg chewable tablet 81 mg PO DAILY Circulation #90 tabs 11/05/23 05/02/24 Rx atorvastatin 80 mg tablet 80 mg PO AM Cholesterol #90 tabs 11/05/23 05/02/24 Rx lidocaine 4 % topical patch 1 patch topical DAILY #10 ea 11/05/23 05/02/24 Rx (AsperFlex (lidocaine)) prasugrel 10 mg tablet 10 mg PO DAILY Blood Thinner #90 11/05/23 05/02/24 Rx tabs spironolactone 50 mg tablet 50 mg PO DAILY Hypertension #90 11/05/23 05/02/24 Rx tabs omeprazole 40 mg capsule,delayed See Rx Instructions .Route 12/20/23 05/02/24 Rx release .COMPLEX #90 caps bisoprolol fumarate 10 mg tablet 10 mg PO TID 12/27/23 05/02/24 History cyclobenzaprine 10 mg tablet 10 mg PO HS 01/17/24 05/02/24 History buspirone 10 mg tablet 10 mg PO BID #60 tabs 03/08/24 05/02/24 Rx prednisone 5 mg tablets in a dose See Rx Instructions PO PER PKG DIR 03/08/24 05/02/24 Rx pack #21 tabs prazosin 2 mg capsule 2 mg PO HS #30 caps 03/22/24 05/02/24 Rx sacubitril 49 mg-valsartan 51 mg 1 tab PO BID #60 tabs 03/23/24 05/02/24 Rx tablet (Entresto) chlorthalidone 25 mg tablet 25 mg PO DAILY #30 tabs 04/11/24 05/02/24 Rx colchicine 0.6 mg tablet 0.6 mg PO BIDP PRN gout #120 tabs 04/18/24 05/02/24 Rx saw palmetto 160 mg capsule 160 mg PO BID #60 caps 04/18/24 05/02/24 Rx sildenafil (pulm.hypertension) 20 See Rx Instructions .Route 04/27/24 05/02/24 Rx mg tablet .COMPLEX #20 tabs polyethylene glycol 3350 17 See Rx Instructions .Route 05/03/24 Rx gram/dose oral powder (ClearLax) .COMPLEX #510 grams semaglutide (weight loss) 0.5 0.5 mg (0.5 mL) SQ WEEKLY #2 mL 05/10/24 Rx mg/0.5 mL subcutaneous pen injector (Wegovy) New Prescriptions to Start Prescriptions: Allergies Allergy/AdvReac Type Severity Reaction Status Date / Time venlafaxine (From Effexor) Allergy Intermediate Unknown Verified 05/02/24 11:29 allergy reaction isosorbide (From Imdur) Allergy Mild Unknown Verified 05/02/24 11:29 allergy reaction ibuprofen Allergy Unknown Unknown Verified 05/02/24 11:29 allergy reaction Penicillins Allergy Unknown Unknown Verified 05/02/24 11:29 allergy reaction ranolazine AdvReac RAPID Verified 05/02/24 11:29 HEART BEAT Assessment and Plan *Assessment and plan (1) Elevated troponin: Status: Acute Category: Medical Code(s): R79.89 - Other specified abnormal findings of blood chemistry (2) Hypertension: Status: Acute Category: Medical Code(s): I10 - Essential (primary) hypertension (3) Gait disturbance: Status: Acute Category: Medical Code(s): R26.9 - Unspecified abnormalities of gait and mobility (4) Right arm weakness: Status: Acute Category: Medical Code(s): R29.898 - Other symptoms and signs involving the musculoskeletal system Plan CAD - REINA 2017, 2018, 2021 - 1st Trop 0.05, 2nd Trop 0.04 - pt denies CP - cont DAPT, BB, Statin Htn Urgency - BP 190 with acute but transient neurologic changes - CTA Head/Neck without change - Neuro consulted by ED - recommend conservative med management - Pt states baselin BP 130s with occasional elevation. Will add Hydralazine 25mg to use TID PRN BP >170 Hx CVA - on DAPT, Statin CV stable for DC. He needs to continue BID BP log and f/u with our office 1-2 weeks.
== END 2024-05-11 14:51 | disposition home or self-care (01) ==
PROVIDERS: Emergency Provider Emergency Medicine; PCP Internal Medicine
DX: I63.9 Cerebral infarction, unspecified (principal); I10 Essential (primary) hypertension; R79.89 Other specified abnormal findings of blood chemistry; R29.898 Other symptoms and signs involving the musculoskeletal system; R26.9 Unspecified abnormalities of gait and mobility; R41.82 Altered mental status, unspecified; R26.81 Unsteadiness on feet; R20.2 Paresthesia of skin; H53.9 Unspecified visual disturbance
CPT/HCPCS: 70450; 70496; 70498; 71045; 80053; 80320; 83735; 84484; 85025; 85610; 85730; 93005; 99291; G0480; Q9967

== ENCOUNTER 2024-06-29 13:51 | Outpatient (CLI) | payer OTHER, SELFPAY ==
--- NOTE | 2024-06-29 13:52 | US_ITS ---
FINAL REPORT TECHNIQUE: Limited sonographic images of the thyroid were obtained. CLINICAL HISTORY: thyroid nodule FINDINGS: The right lobe of the thyroid measures 5.6 x 2.2 x 1.9 cm. The left lobe of the thyroid measures 5.7 x 2.5 x 2.1 cm. The isthmus measures 8 mm. There are multiple small nodules, most measure less than 1 cm however there is a solid hypoechoic lesion in the lower pole of the left lobe measuring 1.5 cm. This is consistent with TR 4. There appears to be a nodule measuring up to 1.1 x 0.7 cm which is hypoechoic and solid in the midline subcutaneous tissues. This is larger in size when compared to CT dated 05/11/2024. Significance is unclear. IMPRESSION: TR 4 nodule in the left lobe. Recommend biopsy. Nodule in the midline subcutaneous tissues, significance unclear. Tissue sampling is recommended at time of biopsy. Reviewed, Interpreted and Dictated by Arsalan Murphy MD Transcribed by Adele Pollard Authenticated and [facility]
--- NOTE | 2024-06-29 13:52 | US_ITS ---
FINAL REPORT CLINICAL HISTORY: focus on the right parotid gland FINDINGS: Limited sonographic images of the submandibular and parotid glands were obtained. The submandibular glands are symmetric and unremarkable. The parotid glands are symmetric. There is a hypoechoic ovoid nodule in the right parotid measuring up to 2 cm in greatest dimension. In addition, there is an anechoic focus inferior to the right parotid measuring 1.6 cm. IMPRESSION: Solid focus in the right parotid measuring 2 cm is indeterminate. Lesion was seen on recent CT scan. Tissue sampling is recommended. Hypoechoic, anechoic focus inferior to the right parotid, indeterminant. This was not clearly seen on the prior CT. Reviewed, Interpreted and Dictated by Arsalan Murphy MD Transcribed by Adele Pollard Authenticated and [facility]
== END 2024-06-29 23:59 | disposition home or self-care (01) ==
LOC: RAD 13:52
PROVIDERS: PCP Internal Medicine; Visit Provider Nurse Practitioner
DX: E04.1 Nontoxic single thyroid nodule (principal); K11.8 Other diseases of salivary glands
CPT/HCPCS: 76536

== ENCOUNTER 2024-09-12 07:28 | Outpatient (CLI) | payer OTHER, SELFPAY ==
--- NOTE | 2024-09-12 08:00 | US_ITS ---
FINAL REPORT CLINICAL HISTORY: MULTIPLE SOFT TISSUE NECK MASSES -- FNA -- BISHOP PATE FINDINGS: Ultrasound guided thyroid biopsy. HISTORY: Thyroid nodule. PROCEDURE: After informed consent was obtained and a time-out was performed, the patient was prepped and draped in usual sterile fashion over the anterior neck. Utilizing local anesthesia and sterile technique with a 25-gauge needle, access to the lesion was eventually obtained. Access was extremely difficult secondary to the depth of the lesion in the inferior thyroid lobe and the patient's rapid respirations causing a great deal of movement of the lesion. Four passes were eventually obtained. The patient received no conscious sedation. The patient tolerated procedure reasonably well and left the department in good condition. IMPRESSION: Status post very difficult ultrasound guided biopsy of a thyroid nodule for reasons listed above. There were no immediate complications. Ultrasound guided subcutaneous anterior neck nodule biopsy. HISTORY: Subcutaneous nodule in the anterior midline of the neck. PROCEDURE: After informed consent was obtained and a time-out was performed, the patient was prepped and draped in usual sterile fashion over the anterior neck. Utilizing local anesthesia and sterile technique with a 25-gauge needle, access to the lesion was obtained. 3 passes were made. The patient received no conscious sedation. The patient tolerated procedure well and left the department in good condition. IMPRESSION: Status post ultrasound guided biopsy of a subcutaneous anterior midline nodule without immediate complication. Ultrasound guided right parotid lesion biopsy. HISTORY: Right parotid mass PROCEDURE: After informed consent was obtained and a time-out was performed, the patient was prepped and draped in usual sterile fashion over the right face. Utilizing local anesthesia and sterile technique with a 25-gauge needle, access to the lesion was obtained. 3 passes were made. The patient received no conscious sedation. The patient tolerated procedure well and left the department in good condition. IMPRESSION: Status post ultrasound guided biopsy of a right parotid nodule without immediate complication. Films reviewed , interpreted and dictated by Dr. Murphy. Transcribed by Bishop Saunders PA-C. Reviewed, Interpreted and Dictated by Arsalan Murphy MD Transcribed by HERLINDA Syed Authenticated and . [facility]
== END 2024-09-12 23:59 | disposition home or self-care (01) ==
LOC: RAD 07:29
PROVIDERS: PCP Nurse Practitioner Family; Visit Provider Nurse Practitioner
DX: E04.1 Nontoxic single thyroid nodule (principal); K11.8 Other diseases of salivary glands
CPT/HCPCS: 10005; 10006; 76942

== ENCOUNTER 2024-09-25 08:23 | Outpatient (CLI) | payer OTHER, SELFPAY ==
--- NOTE | 2024-09-25 08:26 | XR_ITS ---
FINAL REPORT CLINICAL HISTORY: chronic L Hip pain that radiates down into thigh, nki COMPARISON: None FINDINGS: An AP view of the pelvis, and AP and frog leg views of the left hip were obtained. There is no acute fracture or dislocation. Joint space is preserved. Soft tissues are unremarkable. IMPRESSION: No acute osseous abnormality of the left hip. Reviewed, Interpreted and Dictated by Blank Greer MD Transcribed by Amanda Pacheco Authenticated and [facility]
== END 2024-09-25 23:59 | disposition home or self-care (01) ==
LOC: RAD 08:24
PROVIDERS: PCP Nurse Practitioner Family; Visit Provider Nurse Practitioner Family
DX: M25.552 Pain in left hip (principal)
CPT/HCPCS: 73502

== ENCOUNTER 2024-12-29 11:02 | Outpatient (CLI) | payer OTHER, SELFPAY ==
--- OUTSIDE RECORDS SUMMARY | 2024-12-29 11:13 | XMS_ITS | Clinical Summary ---
Author Organization [facility] Address [address] [place] [address] Care Team Providers Care Wearing Apparel Assembler Name Role Phone Jermain Newman MD Primary Care Provider [phone] Allergies Active Allergy Reactions Criticality Noted Date Comments Ibuprofen Unknown - Patient st ates they do not know rxn details Low 08/29/2021 Medications bisoprolol (Zebeta) 5 MG tablet 10/19/2017 Active prasugrel (Effient) 10 MG tablet Take 10 mg by mouth 1 (one) time each day. Active furosemide (Lasix) 80 MG tablet Take by mouth 1 (one) time each day. Active spironolactone (Aldactone) 50 MG tablet Take 50 mg by mouth 1 (one) time each day. Active omeprazole (PriLOSEC) [address] capsule Take 40 mg by mouth 1 (one) time each day. Do not crush or chew. Active polyethylene glycol (Miralax) 17 g packet Take 17 g by mouth 1 (one) time each day. Active aspirin 81 MG chewable tablet Chew 81 mg 1 (one) time each day. Active oxyCODONE (Roxicodone) 5 MG immediate release tablet Take 1 tablet (5 mg total) by mouth every 8 (eight) hours if needed for severe pain for up to 25 doses. 25 tablet 01/08/2022 Active Active Problems Problem Noted Date Diagnosed Date Carcinoma of kidney 08/29/2021 MAHESH (obstructive sleep apnea) 08/29/2021 CHF (congestive heart failure) 08/29/2021 CAD (coronary artery disease) 08/29/2021 TN (myocardial infarction) 08/29/2021 History of percutaneous coronary intervention Dysrhythmias 08/29/2021 Dyspnea 08/29/2021 HTN (hypertension) 08/29/2021 High cholesterol 08/29/2021 Gastroesophageal reflux disease 08/29/2021 Anal fistula 2021 Overview (2021): Added automatically from request for surgery [id number] Family History Medical History Relation Name Comments Heart disease Father Anesthesia problems Neg Hx Malig Hyperthermia Neg Hx Relation Name Status Comments Father Social History Tobacco Use Types Packs/Day Years Used Date Smoking Tobacco: Every Day Cigarettes 1 20 Smokeless Tobacco: Never Alcohol Use Standard Drinks/Week Comments No 0 (1 standard drink = 0.6 oz pur e alcohol) PHQ-2 Answer Date Recorded Patient Health Questionnaire-2 Score 2 11/18/2021 Sex and Gender Information Value Date Recorded Sex Assigned at Male 09/01/2021 12:42 PM EDT Legal Sex Male 8:35 PM EDT Gender Identity Male 09/01/2021 12:42 PM EDT Sexual Orientation Not on file Last Filed Vital Signs Vital Sign Reading Time Taken Comments Blood Pressure 122/91 12/17/2021 11:45 AM EDT Pulse 57 12/17/2021 11:45 AM EDT Temperature 36.8 C (98.2 F) 12/17/2021 11:45 AM EDT Respiratory Rate 14 12/17/2021 11:45 AM EDT Oxygen Saturation 94% 12/17/2021 11:45 AM EDT Inhaled Oxygen Concentration - - Weight 110 kg (242 lb 8.1 oz) 12/17/2021 8:45 AM EDT Height 185.4 cm (6' 1 ) 11/18/2021 2:58 PM EDT Body Mass Index 31.99 11/18/2021 2:58 PM EDT Plan of Treatment Health Maintenance Due Date Last Done Comments [facility]-HIV Screening 1965 [facility]-Hepatitis C Screening 1965 [facility]-/Child/Adol SDOH Screenings 1965 [facility]- SDOH Screenings 08/13/1981 [facility]-Adult SDOH Screenings 08/13/1981 [facility]-Pneumococcal Vaccine: 50+ Years (1 of 2 - PCV) 08/13/1982 [facility]-Zoster Vaccines (1 of 2) 08/13/1982 CT Colonography 08/13/2008 Colonoscopy 08/13/2008 FIT-DNA 08/13/2008 FIT 08/13/2008 FOBT 08/13/2008 Sigmoidoscopy 08/13/2008 [facility]-Colorectal Cancer Screening 08/13/2008 [facility]-Depression Screening 11/18/2022 11/18/2021 [facility]-RSV Vaccine: 60+ Years or (1 - Risk 60-74 years 1-dose series) 2023 [id number] Vaccine (5 - 2023- season) 2024 03/30/2022, 05/02/2021, 09/04/2020, Additional history exists [facility]-Influenza Vaccine (#1) 2025 03/30/2022, [facility]-DTaP,Tdap,and Td Vaccines (2 - Td or Tdap) 09/25/2026 09/25/2016 [facility]-Hepatitis A Vaccines Aged Out 05/02/2018 No longer eligible based on patient's age to complete this topic HPV Vaccines Aged Out No longer eligi ble based on patient's age to complete this topic [facility]-HIB Vaccines Aged Out No longer e ligible based on patient's age to complete this topic [facility]-IPV Vaccines Aged Out No longer e ligible based on patient's age to complete this topic [facility]-Rotavirus Vaccines Aged Out No lo nger eligible based on patient's age to complete this topic Insurance [employer] [facility] [place] [employer] Care Teams Wearing Apparel Assembler Relationship Specialty Start Date End Date Jermain Newman MD [address] [place] [address] [facility] - General 10/04/20
[2024-12-29 11:28] LABS: Hematocrit 45.5 % (42.0-52.0); Hemoglobin 15.7 g/dL (14.1-18.0); Immature Granulocytes % 0.4 %; Mean Corpuscular HGB Conc 34.5 g/dL (31.8-35.4); Mean Corpuscular Hemoglobin 28.5 pg (27.0-31.2); Mean Corpuscular Volume 82.7 fl (80-94); Nucleated Red Blood Cells % 0 %; Platelet Count 249 K/mm3 (142-424); Red Blood Count 5.50 M/mm3 (4.60-6.20); Red Cell Distribution Width-SD 39.2 fL; White Blood Count 7.5 K/mm3 (4.8-10.8)
[2024-12-29 12:05] LABS: Albumin Level 4.6 g/dl (3.5-5.0); Chloride 99 mmol/L (98-107); Sodium 131 mmol/L (136-145)
[2024-12-29 12:06] LABS: Potassium 4.2 mmoL/L (3.5-5.1)
[2024-12-29 12:08] LABS: Alanine Aminotransferase 38 U/L (12-78); Albumin/Globulin Ratio 1.5 (1.1-1.8); Anion Gap 10.2 mEq/L (5-15); Aspartate Amino Transferase 34 U/L (17-59); Blood Urea Nitrogen 16 mg/dl (9-20); Carbon Dioxide 26 mmol/L (22.0-30.0); Creatinine,Serum 1.10 mg/dl (0.66-1.25); Estimated Glomerular Filt Rate 68 ml/min (>60); GFR (African American) 82 ML/MIN (>60); Globulin 3.1 g/dL (1.3-3.2); Total Protein,Serum 7.7 g/dl (6.3-8.2)
[2024-12-29 12:09] LABS: Alkaline Phosphatase 109 U/L (38-126); Bilirubin,Total 0.9 mg/dl (0.2-1.3); Calcium 9.3 mg/dl (8.4-10.2); Cholesterol 235 mg/dl (140-200); Glucose 107 mg/dl (74-100); HDL Cholesterol 43 mg/dl (40-60); Triglycerides 282 mg/dl (30-150)
[2024-12-29 12:39] LABS: Thyroid Stimulating Hormone 0.60 uIU/mL (0.465-4.68)
== END 2024-12-29 23:59 | disposition home or self-care (01) ==
LOC: LAB 11:03
PROVIDERS: PCP Nurse Practitioner Family; Visit Provider Nurse Practitioner Family
DX: M25.552 Pain in left hip (principal); I10 Essential (primary) hypertension
CPT/HCPCS: 36415; 80053; 80061; 84402; 84403; 84443; 85025; G0103

== ENCOUNTER 2025-01-31 12:14 | Outpatient (CLI) | payer OTHER, SELFPAY ==
--- OUTSIDE RECORDS SUMMARY | 2025-01-31 12:16 | XMS_ITS | Clinical Summary ---
Author Organization [facility] Address [address] [place] [address] Care Team Providers Care International Logistics Coordinator Name Role Phone Jermain Newman MD Primary Care Provider [phone] Allergies Active Allergy Reactions Criticality Noted Date [...] failure) 08/29/2021 CAD (coronary artery disease) 08/29/2021 AR (myocardial infarction) 08/29/2021 History of percutaneous coronary intervention Dysrhythmias 08/29/2021 Dyspnea 08/29/2021 HTN (hypertension) 08/29/2021 High cholesterol 08/29/2021 Gastroesophageal reflux disease 08/29/2021 Anal fistula 2021 Overview (2021): Added automatically from request for surgery [id number] Family History Medical History Relation Name Comments [...] Health Maintenance Due Date Last Done Comments [facility]-Depression Screening 1965 [facility]-/Child/Adol SDOH Screenings 1965 [facility]- SDOH Screenings 08/13/1981 [facility]-Adult SDOH Screenings 08/13/1981 CT Colonography 08/13/2008 Colonoscopy 08/13/2008 FIT-DNA 08/13/2008 FIT 08/13/2008 FOBT 08/13/2008 Sigmoidoscopy 08/13/2008 [facility]-Colorectal Cancer Screening 08/13/2008 [facility]-Pneumococcal Vaccine: 50+ Years (1 of 1 - PCV) 08/13/2013 [facility]-Zoster Vaccines (1 of 2) 08/13/2013 [id number] Vaccine ( - season) 2025 03/30/2022, 05/02/2021, 09/04/2020, Additional history exists [facility]-Influenza Vaccine (#1) 2025 03/30/2022, [facility]-DTaP,Tdap,and Td Vaccines (2 - Td or Tdap) 09/25/2026 09/25/2016 [facility]-RSV Vaccine: 60+ Years or (1 - 1-dose 75+ series) 08/13/2038 [facility]-Hepatitis A Vaccines Aged Out 05/02/2018 No [...] patient's age to complete this topic Insurance Care Teams International Logistics Coordinator Relationship Specialty Start Date End Date Jermain Newman MD [address] [place] [address] [place] [address] [facility] - General 10/04/20
[2025-01-31 12:44] LABS: Blood Urea Nitrogen 11 mg/dl (9-20); Creatinine,Serum 0.90 mg/dl (0.66-1.25); Estimated Glomerular Filt Rate 86 ml/min (>60); GFR (African American) 104 ML/MIN (>60)
--- NOTE | 2025-01-31 13:00 | MR_ITS ---
FINAL REPORT TECHNIQUE: Multiplanar and multisequence imaging of the brain was obtained without contrast. CLINICAL HISTORY: CVA. HEADACHE, DIZZINESS AND BLURRD VISION. HX STROKE IN NOV. COMPARISON: None FINDINGS: Brain parenchymal: There is no mass effect or midline shift. There are no areas of abnormal signal intensity.The cerebellum and brainstem are without acute abnormality. Ventricles: The ventricles are symmetric in size and configuration without hydrocephalus. Extra-axial spaces: No extra-axial fluid collections. Diffusion imaging: No areas of restricted diffusion to suggest acute infarct. Flow voids: Flow voids within the major intracranial vessels are preserved. Soft tissues: Soft tissues are without acute abnormality. IMPRESSION: No acute intracranial abnormality. Reviewed, Interpreted and Dictated by Blank Greer MD Transcribed by Amanda Pacheco Authenticated and [facility]
== END 2025-01-31 23:59 | disposition home or self-care (01) ==
LOC: RAD 12:14
PROVIDERS: PCP Nurse Practitioner Family; Visit Provider Nurse Practitioner Family
DX: I63.81 Other cerebral infarction due to occlusion or stenosis of small artery (principal)
CPT/HCPCS: 36415; 70551; 82565; 84520

== ENCOUNTER 2025-05-05 21:41 | Inpatient (IN) | payer OTHER, SELFPAY ==
[2025-05-05] VITALS (11 sets, daily range): BP systolic 147–202; BP diastolic 79–107; PULSE 53–75; RESP 13–24; TEMP 36.7; O2SAT 95–98; BMI 36.9
--- NOTE | 2025-05-05 21:43 | ECG_ITS ---
APPROVED REPORT Exam: Resting ECG HR:69 bpm ECG Measurements Heart Rate 69 AXES TX 154 P 66 QRSd 97 QRS 22 QT 430 T 91 QTc 449 Conclusion SINUS RHYTHM POSSIBLE LATERAL MYOCARDIAL INFARCTION , OF INDETERMINATE AGE [30 ms Q WAVE IN I/aVL/V5/V6] No STEMI Electronically signed by : LAMAR BLACK, 05/06/2025 07:02:02
--- NOTE | 2025-05-05 21:43 | CT_ITS ---
PROCEDURE INFORMATION: Exam: CTA Chest With Contrast Exam date and time: 05/05/2025 10:47 PM Age: 59 years old Clinical indication: Pain; Shortness of breath and other: Hypertensive; Additional info: SOB, chest pain, hypertensive TECHNIQUE: Imaging protocol: Computed tomographic angiography of the chest with contrast. Exam focused on the arteries. 3D rendering (Not supervised by radiologist): MIP and/or 3D reconstructed images were created by the technologist. Radiation optimization: All CT scans at this facility use at least one of these dose optimization techniques: automated exposure control; mA and/or kV adjustment per patient size (includes targeted exams where dose is matched to clinical indication); or iterative reconstruction. Contrast material: ISOUVE 370; Contrast volume: 80 ml; Contrast route: INTRAVENOUS (IV); COMPARISON: CT LUNG SCREENING 07/07/2022 3:07 PM FINDINGS: Pulmonary arteries: Normal. No pulmonary emboli. Aorta: Unremarkable. No aortic aneurysm. No aortic dissection. Lungs: Unremarkable. No consolidation. No masses. Pleural spaces: Unremarkable. No pneumothorax. No pleural effusion. Heart: Coronary artery calcifications. Coronary stents. No cardiomegaly. No pericardial effusion. Lymph nodes: Unremarkable. No enlarged lymph nodes. Bones/joints: Multilevel degenerative change and lower thoracic Schmorl's node with discogenic sclerosis sagittal image 1002/82. No acute fracture. Soft tissues: Unremarkable. IMPRESSION: No acute findings.
--- NOTE | 2025-05-05 21:45 | ED_ITS ---
Discharge Plan Disposition Patient Disposition: Admitted Prescriptions Prescriptions: No Action aspirin 81 mg tablet,chewable 81 mg PO DAILY Qty: 90 1RF lidocaine [AsperFlex (lidocaine)] 4 % adhesive patch,medicated 1 patch topical DAILY Qty: 10 7RF Rx Instructions: may leave on for up to 12 hrs omeprazole 40 mg capsule,delayed release(DR/EC) See Rx Instructions .ROUTE .COMPLEX Qty: 90 3RF Dose Instruction: TAKE 1 CAPSULE BY MOUTH ONCE DAILY Rx Instructions: TAKE 1 CAPSULE BY MOUTH ONCE DAILY albuterol sulfate 90 mcg/actuation HFA aerosol inhaler 2 puff inhalation Q4-6H PRN (Reason: shortness of breath or wheezing) Qty: 8.5 3RF fluticasone furoate-vilanterol [Breo Ellipta] 100-25 mcg/dose blister with device 1 inh inhalation DAILY Qty: 60 2RF Entresto 24-26 mg tablet 1 tab PO BID Qty: 180 1RF atorvastatin 80 mg tablet 80 mg PO AM Qty: 90 1RF Repatha SureClick 140 mg/mL pen injector 140 mg SQ Q2W Qty: 2 3RF cyclobenzaprine 10 mg tablet 10 mg PO HS colchicine 0.6 mg tablet 0.6 mg PO BIDP PRN (Reason: gout) Qty: 120 3RF amlodipine 5 mg tablet 5 mg PO DAILY Qty: 30 2RF sildenafil 100 mg tablet 100 mg PO DAILY PRN (Reason: erectile dysfunction) Qty: 30 2RF prasugrel HCl 10 mg tablet 10 mg PO DAILY Qty: 90 3RF Rx Instructions: TAKE 1 TABLET BY MOUTH ONCE DAILY FOR HEART DISEASE bisoprolol fumarate 10 mg tablet See Rx Instructions .ROUTE .COMPLEX Qty: 180 2RF Dose Instruction: TAKE 1 TABLET BY MOUTH TWICE A DAY Rx Instructions: TAKE 1 TABLET BY MOUTH TWICE A DAY Leqvio 284 mg/1.5 mL syringe 284 mg SQ [id number] Qty: 1.5 2RF Rx Instructions: Currently taking high dose Statin polyethylene glycol 3350 [ClearLax] 17 gram/dose powder See Rx Instructions .ROUTE .COMPLEX Qty: 510 2RF Dose Instruction: MIX 17 GRAMS IN 8 OUNCES OF LIQUID AND DRINK DAILY DIRECTED Rx Instructions: MIX 17 GRAMS IN 8 OUNCES OF LIQUID AND DRINK DAILY DIRECTED Referrals Follow up/Referrals: Isauro Saldana APRN [Primary Care Provider, Family Practice] - See instructions Clinical Impressions Clinical Impression: Non-ST elevation TN (NSTEMI) Print Language Print Language: Paragu[place] Discharge ED Provider: Ashish Danielson General Chief Complaint: Chest Pain Stated Complaint: chest pain Time Seen by Provider: 05/05/25 21:45 Mode of Arrival: Ambulatory History of Present Illness HPI narrative: Supa Santos is a 59y male with a past medical history of TN, coronary artery disease, cardiac stents on aspirin and prasugrel, hypertension, hyperlipidemia, current tobacco use who presents to the emergency department for complaints of chest pain. Patient states that starting proximately 2 hours ago, he developed pain across his entire chest that radiates to his jaw and back. He describes it as a pressure sensation. He states it feels like previous heart attacks. He notes that he is supposed to take a daily baby aspirin but has not been taking it for some time. He notes that he takes medication for his blood pressure but has missed several doses recently. He does not know what his blood pressure has been running. He states that prior to just a couple hours ago, he felt like he was in his normal state of health. He does report some shortness of breath with this as well. Patient did not take any medications prior to arrival. Related Data Home Medications ?Medication ?Instructions ?Recorded ?Confirmed cyclobenzaprine 10 mg tablet 10 mg PO HS 01/17/2412/23 Previous Rx's ?Medication ?Instructions ?Recorded aspirin 81 mg chewable tablet 81 mg PO DAILY Circulati on #90 tabs 11/05/23 lidocaine 4 % topical patch 1 patch topical DAILY #10 ea 11/05/23 (AsperFlex (lidocaine)) colchicine 0.6 mg tablet 0.6 mg PO BIDP PRN gout #120 tabs 04/18/24 prasugrel HCl 10 mg tablet 10 mg PO DAILY Blood Thinne r #90 08/01/24 tabs amlodipine 5 mg tablet 5 mg PO DAILY #30 tabs 09/06 sildenafil 100 mg tablet 100 mg PO DAILY PRN erectile 09/06/24 dysfunction #30 tabs bisoprolol fumarate 10 mg tablet See Rx Instructions . Route 11/13/24 .COMPLEX #180 tabs inclisiran 284 mg/1.5 mL 284 mg (1.5 mL) SQ [id number] HLD 01/02/25 subcutaneous syringe (Leqvio) #1.5 mL albuterol sulfate 90 mcg/actuation 2 puff inhalation Q 4-6H PRN 01/16/25 aerosol inhaler shortness of breath or wheez ing #8.5 grams atorvastatin 80 mg tablet 80 mg PO AM Cholesterol #90 tabs 01/16/25 fluticasone furoate 100 1 inh inhalation DAILY #60 e a 01/16/25 mcg-vilanterol 25 mcg/dose inhalation powder (Breo Ellipta) omeprazole 40 mg capsule,delayed See Rx Instructions . Route 01/16/25 release .COMPLEX #90 caps sacubitril 24 mg-valsartan 26 mg 1 tab PO BID #180 tab s 01/16/25 tablet (Entresto) evolocumab 140 mg/mL subcutaneous 140 mg SQ Q2W On sta tin #2 mL 01/17/25 pen injector (Repatha Vana [employer]) polyethylene glycol 3350 17 See Rx Instructions .Route 02/13/25 gram/dose oral powder (ClearLax) .COMPLEX #510 grams Allergies Allergy/AdvReac Type Severity Reaction Status Date / Time venlafaxine (From Effexor) Allergy Intermediate Unknown Verified 04/18/25 09:08 allergy reaction isosorbide (From Imdur) Allergy Mild Unknown Verified 04/18/25 09:08 allergy reaction Penicillins Allergy Unknown Unknown Verified 04/18/25 09:08 allergy reaction ranolazine AdvReac RAPID Verified 04/18/25 09:08 HEART BEAT PFSH PFS Disclaimer: The information contained in this section may have been updated after the patient was seen, as this information can be updated by other users. Medical History (Updated 05/05/25 @ 22:51 by Ashish Danielson MD) History of hyperlipidemia History of hypertension Encounter for screening for lung cancer Abnormal thyroid biopsy Nodule of parotid gland Multiple thyroid nodules Thyroid nodule Mass of parotid gland Colon cancer screening declined ADHD Viral illness Renal cancer Angina pectoris, unstable Generalized anxiety disorder Major depression, recurrent Marijuana use Head pain Obesity Calcium pyrophosphate deposition disease (CPPD) Foot pain, bilateral Plantar fascia syndrome Overweight Angina pectoris Atypical chest pain Dyspnea Back pain Cellulitis COPD with exacerbation Atypical chest pain BPH (benign prostatic hyperplasia) Obesity (BMI 30-39.9) Anxiety NSTEMI (non-ST elevated myocardial infarction) Angina pectoris Non-ST elevation myocardial infarction (NSTEMI) Chest pain Diastolic dysfunction HLD (hyperlipidemia) Typical angina Abnormal cardiovascular stress test Dyspnea Abnormal cardiovascular stress test Angina, class IV Abnormal EKG Dyspnea Blurred vision Numbness in both hands Dizziness Hypertension Obstructive sleep apnea Non-STEMI (non-ST elevated myocardial infarction) Chest pain due to coronary artery disease CRPS (complex regional pain syndrome type I) Insomnia CAD (coronary artery disease) Surgical History Hx of knee surgery H/O kidney removal Family History Other No significant family history Social History Smoking Status: Current every day smoker tobacco type: cigarettes packs per day: 1 second hand exposure: Yes alcohol intake: never substance use type: marijuana current occupational status: employed Travel in the last 8 weeks?: None household members: spouse housing: house number of children: 6 current occupational exposures/hazards: Yes caffeine: Yes Have you lived/traveled outside [place] in past 30 days?: No Contact w/someone who lives/traveled outside US past 30 days?: No Exposure to someone with infectious disease in past 14 days?: No Do you have a fever (greater than 100.4 F or 38 C)?: No Have you tested positive for COVID-19?: No Exposed to someone with COVID-19 in past 14 days?: No Do you have a sore throat?: No Do you have a cough?: No Do you have any weakness?: No Do you have any diarrhea?: No Are you experiencing any unusual bleeding?: No Do you have any muscle aches/pain?: No Do you have any abdominal pain?: No Are you experiencing loss of taste or smell?: No Other Medical History Have you received the Flu Vaccine for this season: No Have you received the Pneumonia Vaccine: No ROS Obtained: Yes Systems reviewed as appropriate & no additional complaints except as documented Physical Exam General General appearance: alert Comment: appears uncomfortable Head Head exam: atraumatic Eye Eye exam: Present normal appearance ENT ENT exam: Present normal external ear exam Neck Neck exam: Present normal inspection Chest Chest inspection: Present normal inspection and symmetric chest wall rise; Absent tenderness Respiratory Respiratory exam: Present normal lung sounds bilaterally; Absent respiratory distress, wheezes or stridor Cardiovascular Cardiovascular exam: Present regular rate, normal rhythm and normal heart sounds Abdominal Exam Abdominal exam: Present soft; Absent distention or tenderness Extremities Exam Extremities exam: Present normal inspection; Absent edema Back Exam Back exam: Present normal inspection Neurological Exam Neurological exam: Present alert and oriented X3 Psychiatric Psychiatric exam: Present normal affect Skin Skin exam: Present warm and dry HEART Score HEART Score HEART Score assessment performed?: Yes History (anamnesis): Highly suspicious ECG: Non-specific disturbance Age: 45-65 years Risk factors: Atherosclerosis history Troponin: > 3x normal limit HEART Score: 8 Procedures Limited Ultrasound Indication:: Limited cardiac ultrasound Indication: Chest pain, shortness of breath Identified cardiac views: Parasternal long axis, parasternal short axis Unable to obtain adequate apical four-chamber and subxiphoid windows Findings: Cardiac activity present. Wall motion grossly abnormal. No identifiable pericardial effusion on limited windows Impression: - From above Images were saved to permanent archive The study was technically adequate CPT: 44256 This study was performed by me, Ashish Danielson MD, and I personally interpreted all images/videos. Based on my clinical judgement, these images were adequate and did necessitate further imaging. Critical Care Critical Care Time Critical Care Time: Yes Attestation: On 05/05/25, the high probability of a clinically significant, sudden or life threatening deterioration of the following system(s) required my full and direct attention, intervention and personal management. The time I documented below is in addition to time spent performing reported procedures but includes the following listed in this critical care notation. Total Time Total Critical Care Time: 35 Medical Decision Making Steve Inquiry Pt receiving controlled substance: No Vital Signs Vital Signs: 05/05/25 21:42 05/05/25 21:43 05/05/25 21:54 Temperature 98.1 F Temperature Source Oral Pulse Rate 75 63 Pulse Rate [Right] 75 Respiratory Rate 24 13 Blood Pressure Blood Pressure [Right Arm] 202/107 H Blood Pressure Mean Blood Pressure Mean [Right Arm] 138 Blood Pressure Source [Right Arm] Automatic Cuff Blood Pressure Position [Right Arm] Supine 02 Sat by Pulse Oximetry 96 96 Oxygen Delivery Method Room Air Room Air 05/05/25 22:00 05/05/25 22:02 05/05/25 22:02 Temperature Temperature Source Pulse Rate 62 62 Pulse Rate [Right] Respiratory Rate 17 21 Blood Pressure 147/79 H Blood Pressure [Right Arm] Blood Pressure Mean 101 Blood Pressure Mean [Right Arm] Blood Pressure Source [Right Arm] Blood Pressure Position [Right Arm] 02 Sat by Pulse Oximetry 97 96 Oxygen Delivery Method Room Air Room Air 05/05/25 22:15 05/05/25 22:30 05/05/25 22:30 Temperature Temperature Source Pulse Rate 62 62 Pulse Rate [Right] Respiratory Rate 22 17 Blood Pressure 151/88 H Blood Pressure [Right Arm] Blood Pressure Mean 104 Blood Pressure Mean [Right Arm] Blood Pressure Source [Right Arm] Blood Pressure Position [Right Arm] 02 Sat by Pulse Oximetry 95 97 Oxygen Delivery Method Room Air Room Air 05/05/25 22:45 05/05/25 23:01 Temperature Temperature Source Pulse Rate 60 72 Pulse Rate [Right] Respiratory Rate 16 Blood Pressure Blood Pressure [Right Arm] Blood Pressure Mean Blood Pressure Mean [Right Arm] Blood Pressure Source [Right Arm] Blood Pressure Position [Right Arm] 02 Sat by Pulse Oximetry 98 96 Oxygen Delivery Method Room Air Room Air Lab Data Labs: Lab Results 05/05/25 21:45: WBC 9.2, RBC 5.44, Hgb 15.4, Hct 44.9, MCV 82.5, MCH 28.3, MCHC 34.3, RDW 13.2, Plt Count 258, MPV 8.4, Neut % (Auto) 51.6, Lymph % (Auto) 34.9, [place] % (Auto) 9.1, Eos % (Auto) 3.0, Baso % (Auto) 1.0, Neut # (Auto) 4.7, Lymph # (Auto) 3.2, [place] # (Auto) 0.8, Eos # (Auto) 0.3, Baso # (Auto) 0.1, PT 10.2, INR 0.91, Sodium 136, Potassium 3.7, Chloride 99, Carbon Dioxide 27, Anion Gap 13.7, BUN 15, Creatinine 1.10, Estimated Creat Clear 127, Estimated GFR 68, Est GFR ( Amer) 82, Glucose 134 H, Calcium 8.8, Total Bilirubin 0.7, AST 41, ALT 50, Alkaline Phosphatase 101, Troponin I 0.17 H, C-Reactive Protein 13.3 H, NT-Pro-B Natriuret Pep 893 H, Total Protein 8.2, Albumin 4.7, Globulin 3.5 H, Albumin/Globulin Ratio 1.3 05/05/25 21:58: Lactate 1.8 05/05/25 21:45 05/05/25 21:45 Response Orders (Tests/Meds): ED MEDICATIONS Generic Name Dose Route Start Last Admin Trade Name Cal PRN Reason Stop Dose Admin Iopamidol 80 ml 05/05/25 23:02 05/05/25 23:03 Iopamidol-370 (76%);100ml Bottle IV 05/05/25 23:03 80 ml ONCE ONE Administration Sodium Chloride 40 ml 05/05/25 23:02 05/05/25 23:03 0.9 % Sodium Chloride 50 Ml Vial IV 05/05/25 23:03 40 ml ONCE ONE Administration Sodium Chloride 10 ml 05/05/25 23:02 05/05/25 23:03 Sodium Chloride 0.9% 10ml Syr (Rad Only) IV 06/04/25 23:01 10 ml NEEDED PRN Administration Maintain IV Site Discontinued Medications Generic Name Dose Route Start Last Admin Trade Name Cal PRN Reason Stop Dose Admin Aspirin 325 mg 05/05/25 21:43 05/05/25 21:49 Aspirin 325mg Tablet PO 05/05/25 21:44 325 mg ONCE ONE Administration Belladonna Alkaloids 60 ml 05/05/25 22:02 05/05/25 22:06 Belladonna Alkaloids 60 Ml Ml PO 05/05/25 22:03 60 ml ONCE ONE Administration Morphine Sulfate 4 mg 05/05/25 22:38 05/05/25 22:46 Morphine 4mg/Ml Syringe IV 05/05/25 22:39 4 mg ONCE ONE Administration Nitroglycerin 0.4 mg 05/05/25 21:43 05/05/25 21:49 Nitroglycerin 0.4mg Sl Tablet SL 05/05/25 21:44 0.4 mg ONCE ONE Administration ORDERS Category Date Time Status CTA Chest [CT angio chest - dissection] Stat Cat Scan 05/05/25 21:43 Taken POCUS Point of Care (ER Only) Stat Exams 05/05/25 21:48 Ordered BNP [NT Pro Brain Natriuretic Pep.] Stat Lab 05/05/25 21:45 Completed CBC w/Auto Diff [Complete Blood Count Auto Diff] Stat Lab 05/05/25 21:45 Completed CMP [Comprehensive Metabolic Panel] Stat Lab 05/05/25 21:45 Completed CRP [C-Reactive Protein] Stat Lab 05/05/25 21:45 Completed HIV Combo Stat Lab 05/05/25 21:45 Received Hepatitis C Ab Qual. W/ RFX Stat Lab 05/05/25 21:45 Received Lactic Acid Stat Lab 05/05/25 21:58 Completed PT INR [Prothrombin Time INR] Stat Lab 05/05/25 21:45 Completed PTT Heparin (inpatient only) Stat Lab 05/05/25 23:04 Ordered Troponin I Q3H Lab 05/06/25 00:45 Ordered Troponin I Q3H Lab 05/06/25 03:45 Ordered Troponin I Stat Lab 05/05/25 21:45 Completed EKG Request [ECG Request] Stat Y 05/05/25 21:43 Ordered ECG Data Tracing #1: Attestation: I reviewed this ECG and interpreted as documented below: ECG Narrative: Normal sinus rhythm. No ST elevation or depression. Isolated nonspecific T wave inversion in aVL. No ST elevation or depression. MDM Narrative Medical Decision Narrative: Supa Santos is a 59y male with a past medical history of TN, coronary artery disease, cardiac stents on aspirin and prasugrel, hypertension, hyperlipidemia, current tobacco use who presents to the emergency department for complaints of chest pain. Patient states that starting proximately 2 hours ago, he developed pain across his entire chest that radiates to his jaw and back. He describes it as a pressure sensation. He states it feels like previous heart attacks. He notes that he is supposed to take a daily baby aspirin but has not been taking it for some time. He notes that he takes medication for his blood pressure but has missed several doses recently. He does not know what his blood pressure has been running. He states that prior to just a couple hours ago, he felt like he was in his normal state of health. He does report some shortness of breath with this as well. Patient did not take any medications prior to arrival. On arrival, patient is noted to be hypertensive with blood pressure 202/107, patient states that he does not keep track of his blood pressure at home. Heart rate within normal limits. SpO2 is 96% on room air. Afebrile. Physical exam, stated above, revealed nontoxic-appearing male in no respiratory distress. He is answering questions appropriately. He has no reproducible chest pain on palpation. Cardiopulmonary exam without murmurs or rubs. No wheezing, rales or rhonchi. Differential diagnosis includes, but is not limited to: ACS, pericarditis, myocarditis, aortic dissection, pulmonary embolism, pneumonia, pleurisy, costochondritis, GERD, among others. The most morbid conditions were considered and workup was based on these. Workup in the emerged part included: [id number] cardiac ultrasound, hematologic labs, EKG, CTA of the chest. Patient was treated with 3 to 25 mg of aspirin and 1 sublingual nitroglycerin. He states after the sublingual nitroglycerin, his chest pain went from a 10 to an 8. Plan care ultrasound performed by me personally with limited views likely secondary to body habitus showed no obvious wall motion abnormality, no apparent pericardial effusion. See procedure note for details. Repeat blood pressure at 2205 improved to 147/79 Patient still having 8 out of 10 chest pain even after GI cocktail. Will administer 4 mg of IV morphine. Patient's lab work shows no leukocytosis, no anemia, coagulation studies within normal limits. Initial troponin is elevated at 0.17. CRP is somewhat elevated at 13.3. NT proBNP mildly elevated at 893. Patient is no LEXX, electrolytes within normal limits. Due to concern for NSTEMI, I did discuss patient's case with Dr. Sinha with cardiology service who agreed to admit the patient and placed him on heparin if CT scan is negative for dissection. Patient being taken to CT scan at this time. CT scan was interpreted by me personally prior to official radiology read and demonstrated no aortic dissection, no pulmonary embolism. See final radiology report for details. I discussed patient's findings with him and he is in agreement to be admitted at this time. Will have pharmacy to dose heparin. I discussed the patient's case with TASHI Lehman with the hospital medicine service for admission and she was in agreement to admit the patient for further management.
[2025-05-05] MEDS: NITROGLYCERIN 0.4MG SL TABLET 0.4 MG SL (21:49)
[2025-05-05] MEDS: ASPIRIN 325MG TABLET 325 MG PO (21:49)
--- OUTSIDE RECORDS SUMMARY | 2025-05-05 21:51 | XMS_ITS | Clinical Summary ---
Author Organization [facility] Address [address] [place] [address] Care Team Providers Care Compounding Pharmacy Technician Name Role Phone Jermain Newman MD Primary Care Provider [phone] Allergies Active Allergy Reactions Criticality Noted Date [...] failure) 08/29/2021 CAD (coronary artery disease) 08/29/2021 PR (myocardial infarction) 08/29/2021 History of percutaneous coronary intervention Dysrhythmias 08/29/2021 Dyspnea 08/29/2021 HTN (hypertension) 08/29/2021 High cholesterol 08/29/2021 Gastroesophageal reflux disease 08/29/2021 Anal fistula 2021 Overview (2021): Added automatically from request for surgery [id number] Family History Medical History Relation Name Comments [...] Date Last Done Comments [facility]-Depression Screening 1965 [facility]-Infant/Child/Adol SDOH Screenings 1965 [facility]- SDOH Screenings 08/13/1981 [facility]-Adult SDOH Screenings 08/13/1981 CT Colonography 08/13/2008 Colonoscopy 08/13/2008 FIT-DNA 08/13/2008 FIT 08/13/2008 FOBT 08/13/2008 Sigmoidoscopy 08/13/2008 [facility]-Colorectal Cancer Screening 08/13/2008 [facility]-Pneumococcal Vaccine: 50+ Years (1 of 1 - PCV) 08/13/2013 [facility]-Zoster Vaccines (1 of 2) 08/13/2013 [id number] Vaccine ( - season) 2025 03/30/2022, 05/02/2021, [...] to complete this topic Insurance Care Teams Compounding Pharmacy Technician Relationship Specialty Start Date End Date Jermain Newman MD [address] [place] [address] [place] [address] [facility] - General 10/04/20
[2025-05-05 21:52] LABS: Hematocrit 44.9 % (42.0-52.0); Hemoglobin 15.4 g/dL (14.1-18.0); Immature Granulocytes % 0.4 %; Mean Corpuscular HGB Conc 34.3 g/dL (31.8-35.4); Mean Corpuscular Hemoglobin 28.3 pg (27.0-31.2); Mean Corpuscular Volume 82.5 fl (80-94); Nucleated Red Blood Cells % 0 %; Platelet Count 258 K/mm3 (142-424); Red Blood Count 5.44 M/mm3 (4.60-6.20); Red Cell Distribution Width-SD 39.2 fL; White Blood Count 9.2 K/mm3 (4.8-10.8)
[2025-05-05 22:02] LABS: INR 0.91 (0.9-1.1); Prothrombin Time 10.2 seconds (10.1-12.5)
[2025-05-05 22:06] LABS: C-Reactive Protein 13.3 mg/L (0-4)
[2025-05-05] MEDS: BELLADONNA ALKALOIDS 60 ML ML PO (22:06)
[2025-05-05 22:12] LABS: NT Pro Brain Natriuretic Pep. 893 pg/mL (0-125)
[2025-05-05 22:14] LABS: Troponin I 0.17 ng/ml (0.00-0.034)
[2025-05-05 22:33] LABS: Albumin Level 4.7 g/dl (3.5-5.0); Chloride 99 mmol/L (98-107); Potassium 3.7 mmoL/L (3.5-5.1); Sodium 136 mmol/L (136-145)
[2025-05-05 22:36] LABS: Alanine Aminotransferase 50 U/L (12-78); Albumin/Globulin Ratio 1.3 (1.1-1.8); Alkaline Phosphatase 101 U/L (38-126); Anion Gap 13.7 mEq/L (5-15); Aspartate Amino Transferase 41 U/L (17-59); Bilirubin,Total 0.7 mg/dl (0.2-1.3); Blood Urea Nitrogen 15 mg/dl (9-20); Calcium 8.8 mg/dl (8.4-10.2); Carbon Dioxide 27 mmol/L (22.0-30.0); Creatinine Clearance Estimated 127 mL/min (50-200); Creatinine,Serum 1.10 mg/dl (0.66-1.25); Estimated Glomerular Filt Rate 68 ml/min (>60); GFR (African American) 82 ML/MIN (>60); Globulin 3.5 g/dL (1.3-3.2); Glucose 134 mg/dl (74-100); Total Protein,Serum 8.2 g/dl (6.3-8.2)
[2025-05-05] MEDS: MORPHINE 4MG/ML SYRINGE 4 MG IV (22:46)
[2025-05-05] MEDS: IOPAMIDOL-370 (76%);100ML BOTTLE 80 ML IV (23:03)
[2025-05-05] MEDS: 0.9 % SODIUM CHLORIDE 50 ML VIAL 40 ML IV (23:03)
[2025-05-05] MEDS: SODIUM CHLORIDE 0.9% 10ML SYR (RAD ONLY) 10 ML IV (23:03)
[2025-05-05 23:22] LABS: PTT Heparin (inpatient only) 27.1 Seconds (50-75)
[2025-05-05 23:25] LABS: Hepatitis C Ab Qual. W/ RFX NEGATIVE (Negative)
[2025-05-05] MEDS: HEPARIN SODIUM 5,000 UNIT/ML VIAL 4000 UNIT IV (23:36)
[2025-05-05] MEDS: HEPARIN SODIUM,PORCINE/D5W 500 ML 20 UNIT IV (23:36)
[2025-05-06] VITALS (35 sets, daily range): BP systolic 121–170; BP diastolic 61–119; PULSE 49–72; RESP 12–23; TEMP 36.3–36.8; O2SAT 85–99; BMI 37.2; BMI 37.4
--- NOTE | 2025-05-06 00:07 | PC.NURSE ---
Pt arrived to the ICU via stretcher @1200
--- NOTE | 2025-05-06 00:47 | P.HP_ITS ---
<Statement entered by Josemanuel Barraza MD - 05/06/25 10:23> Rounded on patient after nurse practitioner. Personally examined and interviewed patient. Agree with exam findings and care plan as documented. History of Present Illness *Admission Date: 05/06/25 *Reason for visit:: Chest pressure *History of present illness: 59-year-old male patient presents to ER with reports of chest pressure radiating to his jaw. He has associated nausea and shortness of breath that is worse than his baseline. Denied diaphoresis. EKG in the ER showed a sinus rhythm with no ST changes. Initial troponin came back 0.17. He does have a history of coronary artery disease and previous NSTEMI with multiple stents placed. Also has history of CVA approximately 1 year ago. Hyperlipidemia and hypertension. History of HFpEF with most recent echocardiogram in 2020 showing an EF of 55%. He states he does have shortness of breath at baseline but with the chest pain it was much worse. Received aspirin nitroglycerin and morphine in the ER. ER physician consulted with cardiology who recommended a heparin drip. That was started as well. His pain has improved from a 9 to a 7 and now a 4. He states he quit taking his home medications because every time he took them he felt weak tired and fatigued. He wanted to see but if he would feel better without them. He stopped taking them about 2 weeks ago. According to recent office note his meds include aspirin, atorvastatin, repatha, bisoprolol, prasugrel. [facility] Disclaimer: The information contained in this section may have been updated after the patient was seen, as this information can be updated by other users. Medical History History of hyperlipidemia History of hypertension Encounter for screening for lung cancer Abnormal thyroid biopsy Nodule of parotid gland Multiple thyroid nodules Thyroid nodule Mass of parotid gland Colon cancer screening declined ADHD Viral illness Renal cancer Angina pectoris, unstable Generalized anxiety disorder Major depression, recurrent Marijuana use Head pain Obesity Calcium pyrophosphate deposition disease (CPPD) Foot pain, bilateral Plantar fascia syndrome Overweight Angina pectoris Atypical chest pain Dyspnea Back pain Cellulitis COPD with exacerbation Atypical chest pain BPH (benign prostatic hyperplasia) Obesity (BMI 30-39.9) Anxiety NSTEMI (non-ST elevated myocardial infarction) Angina pectoris Non-ST elevation myocardial infarction (NSTEMI) Chest pain Diastolic dysfunction HLD (hyperlipidemia) Typical angina Abnormal cardiovascular stress test Dyspnea Abnormal cardiovascular stress test Angina, class IV Abnormal EKG Dyspnea Blurred vision Numbness in both hands Dizziness Hypertension Obstructive sleep apnea Non-STEMI (non-ST elevated myocardial infarction) Chest pain due to coronary artery disease CRPS (complex regional pain syndrome type I) Insomnia CAD (coronary artery disease) Surgical History Stented coronary artery Hx of knee surgery H/O kidney removal Family History Other Coronary artery disease No significant family history Social History Smoking Status: Current every day smoker tobacco type: cigarettes packs per day: 1 second hand exposure: Yes alcohol intake: never substance use type: marijuana current occupational status: employed Travel in the last 8 weeks?: None household members: spouse housing: house number of children: 6 current occupational exposures/hazards: Yes caffeine: Yes Have you lived/traveled outside [place] in past 30 days?: No Contact w/someone who lives/traveled outside [place] past 30 days?: No Exposure to someone with infectious disease in past 14 days?: No Do you have a fever (greater than 100.4 F or 38 C)?: No Have you tested positive for COVID-19?: No Exposed to someone with COVID-19 in past 14 days?: No Do you have a sore throat?: No Do you have a cough?: No Do you have any weakness?: No Do you have any diarrhea?: No Are you experiencing any unusual bleeding?: No Do you have any muscle aches/pain?: No Do you have any abdominal pain?: No Are you experiencing loss of taste or smell?: No Other Medical History Have you received the Flu Vaccine for this season: No Have you received the Pneumonia Vaccine: No Review of Systems Constitutional Constitutional: Denies body ache(s), Denies chills and Denies fever(s) Eyes Eyes: Denies blurry vision ENT Ears, Nose, Mouth, and Throat: Denies dizziness and Denies otalgia *Cardiovascular Cardiovascular: Reports chest pain, Reports chest pain at rest, Reports dyspnea and Reports radiating jaw, neck or arm pain *Respiratory Respiratory: Denies chest congestion, Denies cough and Reports dyspnea *Gastrointestinal Gastrointestinal: Denies abdominal pain, Denies diarrhea, Reports nausea and Denies vomiting *Genitourinary Genitourinary: Denies difficulty urinating and Denies oliguria *Musculoskeletal Musculoskeletal: Denies arthralgias and Denies back pain *Neurologic Neurologic: Denies confusion and Denies dizziness Psychiatric Psychiatric: Denies confusion Meds Home Medications and Allergies Home Medications ?Medication ?Instructions ?Recorded ?Confirmed ?Type aspirin 81 mg chewable tablet 81 mg PO DAILY Circulati on #90 tabs 11/05/23 05/06/25 Rx colchicine 0.6 mg tablet 0.6 mg PO BIDP PRN gout #120 tabs 04/18/24 05/06/25 Rx prasugrel HCl 10 mg tablet 10 mg PO DAILY Blood Thinne r #90 08/01/24 05/06/25 Rx tabs sildenafil 100 mg tablet 100 mg PO DAILY PRN erectile 09/06/24 05/06/25 Rx dysfunction #30 tabs bisoprolol fumarate 10 mg tablet See Rx Instructions . Route 11/13/24 05/06/25 Rx .COMPLEX #180 tabs inclisiran 284 mg/1.5 mL 284 mg (1.5 mL) SQ [id number] HLD 01/02/25 01/16/25 Rx subcutaneous syringe (Leqvio) #1.5 mL atorvastatin 80 mg tablet 80 mg PO AM Cholesterol #90 tabs 01/16/25 05/06/25 Rx omeprazole 40 mg capsule,delayed See Rx Instructions . Route 01/16/25 05/06/25 Rx release .COMPLEX #90 caps evolocumab 140 mg/mL subcutaneous 140 mg SQ Q2W On sta tin #2 mL 01/17/25 01/17/25 Rx pen injector (Conchis Bello) lidocaine 4 % topical patch 1 patch topical NEEDED PRN Pain 05/06/25 05/06/25 History (AsperFlex (lidocaine)) polyethylene glycol 3350 17 17 g PO DAILY 05/06/25 History gram/dose oral powder (ClearLax) sacubitril 24 mg-valsartan 26 mg 1 tab PO BID 05/06/25 05/06/25 History tablet (Entresto) New Prescriptions to Start Prescriptions: Allergies Allergy/AdvReac Type Severity Reaction Status Date / Time venlafaxine (From Effexor) Allergy Intermediate Unknown Verified 04/18/25 09:08 allergy reaction isosorbide (From Imdur) Allergy Mild Unknown Verified 04/18/25 09:08 allergy reaction Penicillins Allergy Unknown Unknown Verified 04/18/25 09:08 allergy reaction ranolazine AdvReac RAPID Verified 04/18/25 09:08 HEART BEAT Exam Data for Last 24 hours Vital signs and Labs for Last 24 Hours: Temp Pulse Resp BP Pulse Ox O2 Del Method 97.4 F L 49 L 12 155/80 H 99 Room Air 05/06/25 00:16 05/06/25 00:16 05/06/25 00:16 05/06/25 00:16 05/06/25 00:16 05/06/25 00:16 Laboratory Results - last 24 hr 05/05/25 21:45: WBC 9.2, RBC 5.44, Hgb 15.4, Hct 44.9, MCV 82.5, MCH 28.3, MCHC 34.3, RDW 13.2, Plt Count 258, MPV 8.4, Neut % (Auto) 51.6, Lymph % (Auto) 34.9, [place] % (Auto) 9.1, Eos % (Auto) 3.0, Baso % (Auto) 1.0, Neut # (Auto) 4.7, Lymph # (Auto) 3.2, [place] # (Auto) 0.8, Eos # (Auto) 0.3, Baso # (Auto) 0.1, PT 10.2, INR 0.91, APTT 27.1 L, Sodium 136, Potassium 3.7, Chloride 99, Carbon Dioxide 27, Anion Gap 13.7, BUN 15, Creatinine 1.10, Estimated Creat Clear 127, Estimated GFR 68, Est GFR ( Amer) 82, Glucose 134 H, Calcium 8.8, Total Bilirubin 0.7, AST 41, ALT 50, Alkaline Phosphatase 101, Troponin I 0.17 H, C- Reactive Protein 13.3 H, NT-Pro-B Natriuret Pep 893 H, Total Protein 8.2, Albumin 4.7, Globulin 3.5 H, Albumin/Globulin Ratio 1.3, HCV Ab NILA w/Rflx PCR Qn Negative, HIV Ag/Ab Combo Qual Negative 05/05/25 21:58: Lactate 1.8 I & O for Last 24 hours: Intake & Output 05/03/25 05/04/25 05/05/25 05/06/25 23:59 23:59 23:59 23:59 Output Total 150 / 150 Balance -150 / -150 Weight 127.006 kg 128 kg Constitutional Constitutional: no acute distress *Routine HEENT Exam Head: Present normocephalic and atraumatic Eye: Present PERRL ENT: Present mucous membranes moist *Routine Neck Exam Neck: Present supple *Routine Respiratory Exam Respiratory: Present CTA bilaterally and normal respiratory effort *Routine Cardiovascular Exam Cardiovascular: Present RRR, Normal S1, Normal S2 and bradycardia *Routine Abdominal Exam Abdominal: Present soft and normoactive bowel sounds; Absent tenderness *Routine Rectal Exam Rectal:: deferred *Routine Genitalia Exam Genitalia:: deferred *Routine Extremities Exam Extremities: Present pulses intact; Absent edema *Routine Skin Exam Skin: Present dry and warm *Routine Neurological Exam Neurological: Present alert, oriented X3 and moving all extremities H&P: Result Imaging and Cardiology EKG: Status: image reviewed by me Additional comments: Sinus rhythm with no ST elevation CT scan - chest: Status: final report Additional comments: No pulmonary emboli. No aortic aneurysm or dissection. Lungs unremarkable heart coronary stents. No cardiomegaly. No pericardial effusion. No acute findings. Assessment and Plan *Assessment and plan (1) Non-ST elevation RI (NSTEMI): Status: Acute Category: Medical Code(s): I21.4 - Non-ST elevation (NSTEMI) myocardial infarction (2) Hypertension: Status: Acute Qualifiers: Hypertension type: unspecified Qualified Code(s): I10 - Essential (primary) hypertension Category: Medical Code(s): I10 - Essential (primary) hypertension (3) Diastolic dysfunction: Status: Acute Category: Medical Code(s): I51.89 - Other ill-defined heart diseases (4) HLD (hyperlipidemia): Status: Acute Qualifiers: Hyperlipidemia type: mixed hyperlipidemia Qualified Code(s): E78.2 - Mixed hyperlipidemia Category: Medical Code(s): E78.5 - Hyperlipidemia, unspecified (5) History of CVA (cerebrovascular accident): Status: Acute Category: Medical Code(s): Z86.73 - Personal history of transient ischemic attack (TIA), and cerebral infarction without residual deficits Plan Patient presented with chest pain radiating to the jaw and was found to have an elevated troponin and EKG showed some T wave inversion but NO ST elevation. ER physician did discuss with cardiology who recommended heparin and admission for further workup. After I discussed the patient with the ER physician I have agreed to accept this patient for admission. Will consult cardiology. He will be admitted to ICU. Heparin drip will continue. He received nitro and morphine in the ER his chest pain is slowly improving. His shortness of breath has returned to baseline. NSTEMI/history of CAD/multiple coronary stents?patient has been admitted to the ICU. Received aspirin, nitro, morphine and a heparin drip in the ER. He not been taking his home medications for about 2 weeks. This included aspirin, Effient, bisoprolol as well as atorvastatin and Repatha. Cardiology has been consulted, will likely need heart cath as well as an echocardiogram. Most rece nt lipid panel in December of this year showed a triglyceride level of 282, cholesterol 235, LDL 154 and HDL 43. So he has not been at goal despite aggressive therapy. Hypertension/hyperlipidemia-Patient was hypertensive on upon arrival to the ER however that has improved after the morphine and nitro. We will resume his home medications once those are verified. He has been a little bradycardic since admission initially his heart rate was in the 60s to 70s currently 49-56. HFpEF?history of heart failure with preserved EF. Records show he at 1 point was on Entresto but it does not appear he has that ordered now, waiting medications to be verified. Will monitor on telemetry as well as pulse oximetry. Currently does not appear volume overloaded. Shortness of breath has improved and is at his baseline. We will monitor volume status electrolytes and renal function.
[2025-05-06] MEDS: ONDANSETRON 4MG/2ML VIAL 4 MG IV (00:56)
--- NOTE | 2025-05-06 02:01 | EXP.EVENT.NO ---
I was called to bedside of this patient up in ICU room 263 on 05/06/2025 around 1:[address] an ultrasound-guided IV. I briefly reviewed the records of this patient which demonstrate he is admitted for NSTEMI on heparin drip. Patient needed additional IV access. When I presented to bedside patient was alert, overall well-appearing, no complaints. He understands risks and benefits of ultrasound-guided IV. Ultrasound-guided IV Performed by: Won Diamond MD Indication: Need for peripheral IV access, multiple failed nursing attempts Consent: Verbal provided by patient after discussion of risks and benefits Procedure details: Area cleaned with alcohol which was allowed to dry prior to procedure. Sterile jelly used and appropriate vessel identified under real-time ultrasound. 18-gauge catheter was placed in the vessel of the proximal right upper extremity under real-time ultrasound guidance and I directly visualized it entering the vessel. IV draws and flushes. Secured with Tegaderm. Post procedure details: Neurovascularly intact, tolerated procedure well, no complications
[2025-05-06 02:35] LABS: Troponin I 6.46 ng/ml (0.00-0.034)
--- NOTE | 2025-05-06 02:44 | ECG_ITS ---
APPROVED REPORT Exam: Resting ECG HR:63 bpm ECG Measurements Heart Rate 63 AXES SD 157 P 65 QRSd 95 QRS 21 QT 441 T -75 QTc 449 Conclusion SINUS RHYTHM NSSTW changes ABNORMAL ECG UNCONFIRMED REPORT Electronically signed by : Jermain Montano MD 05/06/2025 20:31:00
[2025-05-06] MEDS: HEPARIN DRIP CONSULT 1 EACH NOTAPPLIC (04:19)
[2025-05-06] MEDS: NITROGLYCERIN 0.4MG SL TABLET 0.4 MG SL ×3 (04:43→05:00)
[2025-05-06] MEDS: MORPHINE 2MG/ML SYRINGE 2 MG IV ×2 (05:12→06:04)
[2025-05-06 05:45] LABS: Albumin Level 4.0 g/dl (3.5-5.0); Chloride 100 mmol/L (98-107); Hematocrit 40.8 % (42.0-52.0); Hemoglobin 14.0 g/dL (14.1-18.0); Immature Granulocytes % 0.5 %; Mean Corpuscular HGB Conc 34.3 g/dL (31.8-35.4); Mean Corpuscular Hemoglobin 28.4 pg (27.0-31.2); Mean Corpuscular Volume 82.8 fl (80-94); Nucleated Red Blood Cells % 0 %; Platelet Count 223 K/mm3 (142-424); Potassium 4.2 mmoL/L (3.5-5.1); Red Blood Count 4.93 M/mm3 (4.60-6.20); Red Cell Distribution Width-SD 39.7 fL; Sodium 136 mmol/L (136-145); White Blood Count 8.1 K/mm3 (4.8-10.8)
[2025-05-06 05:47] LABS: Blood Urea Nitrogen 14 mg/dl (9-20); Creatinine Clearance Estimated 140 mL/min (50-200); Creatinine,Serum 1.00 mg/dl (0.66-1.25); Estimated Glomerular Filt Rate 76 ml/min (>60); GFR (African American) 92 ML/MIN (>60)
[2025-05-06 05:48] LABS: Alanine Aminotransferase 58 U/L (12-78); Albumin/Globulin Ratio 1.3 (1.1-1.8); Alkaline Phosphatase 99 U/L (38-126); Anion Gap 11.2 mEq/L (5-15); Aspartate Amino Transferase 161 U/L (17-59); Bilirubin,Total 0.7 mg/dl (0.2-1.3); Calcium 8.4 mg/dl (8.4-10.2); Carbon Dioxide 29 mmol/L (22.0-30.0); Globulin 3.1 g/dL (1.3-3.2); Glucose 120 mg/dl (74-100); Total Protein,Serum 7.1 g/dl (6.3-8.2)
[2025-05-06 05:55] LABS: Troponin I 20.20 ng/ml (0.00-0.034)
--- NOTE | 2025-05-06 06:40 | IR_ITS ---
APPROVED REPORT Patient Location: [facility] [employer] Consultant: KATYA Zimmerman RT (R) PROCEDURES Left heart catheterization Left ventriculogram Selective coronary angiogram Drug-eluting stent deployment to the ostial proximal LAD Drug-eluting stent deployment to the proximal and mid dominant circumflex artery INDICATION Acute non-ST elevation myocardial infarction, Coronary artery disease Informed consent was obtained prior to the procedure. COMPLICATIONS None Estimated Blood Loss: Less than 10 mls TECHNIQUE One percent lidocaine used to anesthetize the right anterior aspect of the wrist. The right radial artery was accessed via the Seldinger technique. A 6 [place] sheath was placed in the right radial artery. 2.5 mg of Verapamil, 800 mcg of nitroglycerin, 1mg Lidocaine and 5000 U Heparin were given through the arterial sheath. The JL3 catheter was also used to perform left heart catheterization, left ventriculogram and selective coronary angiogram. An EBU 4.0 guide catheter was placed in left main artery followed by Choice PT extra-support wire placed down the LAD. A 3.5 x 12 mm Kamaljit frontier stent was placed in the ostial proximal LAD and deployed at 24 james reducing the critical stenosis to 0%. The wire was left in the LAD and an additional wire was placed in the circumflex artery where a 3.5 x 34 mm Kamaljit frontier stent was deployed at 16 james reducing the severe stenosis to 0%. ERNESTINA-3 flow was present before and after the procedure. At the end the procedure the apparatus was removed the sheath was removed and hemostasis was achieved using TR banding patient was transferred to the postop boarding in stable condition ANGIOGRAPHIC RESULTS The left main artery Normal The left anterior descending artery Has an ostial greater than 90% concentric stenosis with stents in the proximal to mid segment. Distal to the stent the mid LAD has 60 to 70% stenosis. Large bifurcating first diagonal artery has ostial 80 to 90% stenosis is dominant and has proximal 50 followed by concentric hazy 70 to 80% stenosis with additional 40% mid vessel stenoses. The first obtuse marginal artery has an ostial and proximal 80 and 90% stenosis. The circumflex artery Is a dominant vessel and has proximal 50% followed by concentric hazy 80% stenosis followed by mid vessel 40% stenosis. A medium sized first obtuse marginal artery has proximal and mid vessel 90% stenosis The right coronary artery Nondominant and has stents in the proximal to mid segment. The stents themselves are widely patent. Distal to the stent is a concentric 80% stenosis with distal 90% tandem stenoses and a vessel slightly less than 2 mm in diameter The ROJO ventriculogram reveals Dilated ventricle ejection fraction 30 to 35% The left ventricular end-diastolic pressure Severely elevated at 35 mmHg IMPRESSION Critical coronary artery disease as described above Successful stenting of the ostial LAD critical disease reduced to 0% with 1 drug-eluting stent Persistent moderate to severe mid LAD disease as described above Persistent severe stenosis in a large bifurcating first diagonal artery Persistent severe stenosis in a large first obtuse marginal artery Persistent severe stenosis in a small distal nondominant right coronary Reduced ejection fraction Severely elevated LVEDP PLAN 1. Dual antiplatelet therapy 2. GDMT for congestive heart failure 3. Standard medical therapy for coronary artery disease 4. Avoidance of tobacco products 5. Patient requires diuresis and afterload reduction 6. LDL less than 55 to be achieved with high intensity statin 7. 4 to 6 weeks patient should be referred for bypass surgery evaluation given the persistent stenosis in the mid LAD the large bifurcating first diagonal artery as well as the first obtuse marginal artery and distal right coronary artery. 8. Prior to bypass surgery recommend CMR for viability and to better evaluate ejection fraction 9. If appropriate patient should be discharged with LifeVest Electronically signed by : Javy Sinha MD 05/06/2025 07:41:10
[2025-05-06] MEDS: 0.9 % SODIUM CHLORIDE 500 ML 25 ML IV (07:30)
[2025-05-06] MEDS: VERAPAMIL 2.5MG/ML 2ML VIAL 2.5 MG IV (07:30)
[2025-05-06] MEDS: LIDOCAINE 1% 10ML MDV 10 ML IJ (07:30)
[2025-05-06] MEDS: HEPARIN 1,000 UNITS/500ML NS (CATH LAB) 3000 UNIT IV (07:30)
--- NOTE | 2025-05-06 07:46 | PC.NURSE ---
received report from laura kee in track laborer. pt received 2 stents 1 in lad and 1 in circ. pt received 12,800 units of heparin. radial band on r radial wrist. pt received 4 versed and 75 fent.
[2025-05-06 07:52] LABS: CATHL Activated Clotting Time > 400 SEC (74-125)
[2025-05-06 08:07] LABS: PTT Heparin (inpatient only) 31.1 Seconds (50-75)
--- NOTE | 2025-05-06 10:03 | EXP.ACUTE.PN ---
Subjective *Date: 05/06/25 *Time: 10:03 Interval history: Patient taken urgently this morning for left heart cath after troponin elevated to 20. Still having chest pain on heparin drip. Found to have 2 lesions needing stenting. Concern for elevated end-diastolic pressure. Needs echo in the morning. Feeling better after heart cath. Medical Exam Vital signs and Labs for Last 24 Hours: Vital Signs Temp Pulse Pulse Resp BP BP Pulse Ox 05/06/25 09:10 05/06/25 08:30 95 05/06/25 08:06 63 05/06/25 08:05 62 71 18 161/100 H 98 05/06/25 07:55 59 L 18 168/85 H 96 05/06/25 07:50 72 18 139/93 H 94 L 05/06/25 07:48 62 71 18 170/103 H 92 L 05/06/25 07:45 72 18 170/103 H 97 05/06/25 07:40 71 18 161/100 H 98 05/06/25 06:01 66 16 146/119 H 98 05/06/25 05:00 58 L 17 147/84 H 96 05/06/25 05:00 05/06/25 04:00 60 05/06/25 04:00 97.5 F L 58 L 17 153/73 H 94 L 05/06/25 04:00 94 L 05/06/25 03:00 60 14 157/88 H 99 05/06/25 03:00 05/06/25 02:00 63 15 155/83 H 98 05/06/25 01:00 05/06/25 01:00 56 L 23 145/90 H 97 05/06/25 00:16 97.4 F L 49 L 12 155/80 H 99 05/06/25 00:00 60 05/05/25 23:47 98.1 F 53 L 18 147/81 H 05/05/25 23:14 95 05/05/25 23:01 72 16 96 05/05/25 22:45 60 98 05/05/25 22:30 151/88 H 05/05/25 22:30 62 17 97 05/05/25 22:15 62 22 95 05/05/25 22:02 147/79 H 05/05/25 22:02 62 21 96 05/05/25 22:00 62 17 97 05/05/25 21:54 63 13 96 05/05/25 21:43 98.1 F 75 24 202/107 H 96 05/05/25 21:42 75 O2 Del Method 05/06/25 09:10 Room Air 05/06/25 08:30 Room Air 05/06/25 08:06 05/06/25 08:05 Room Air 05/06/25 07:55 Room Air 05/06/25 07:50 Room Air 05/06/25 07:48 Room Air 05/06/25 07:45 Room Air 05/06/25 07:40 Room Air 05/06/25 06:01 Room Air 05/06/25 05:00 Room Air 05/06/25 05:00 Room Air 05/06/25 04:00 05/06/25 04:00 Room Air 05/06/25 04:00 Room Air 05/06/25 03:00 Room Air 05/06/25 03:00 Room Air 05/06/25 02:00 Room Air 05/06/25 01:00 Room Air 05/06/25 01:00 Room Air 05/06/25 00:16 Room Air 05/06/25 00:00 05/05/25 23:47 Room Air 05/05/25 23:14 Room Air 05/05/25 23:01 Room Air 05/05/25 22:45 Room Air 05/05/25 22:30 05/05/25 22:30 Room Air 05/05/25 22:15 Room Air 05/05/25 22:02 05/05/25 22:02 Room Air 05/05/25 22:00 Room Air 05/05/25 21:54 Room Air 05/05/25 21:43 Room Air 05/05/25 21:42 Intake and Output 05/05/25 05/06/25 05/06/25 23:59 07:59 15:59 Intake Total 920 / 920 Output Total 510 / 760 250 / 760 Balance -510 / 160 670 / 160 Intake: Intake, Oral Amount 420 / 420 Intake, Total IV Amount 500 / 500 Heparin Sodium,Porcine/D5w 500 500 / 500 ml @ 1,000 UNITS/HR 20 mls/hr IV .Q25H [facility] Rx#:[id number] Output: Output, Urine Amount 510 / 760 250 / 760 Other: Number of Voids 1 Weight 127.006 kg 128 kg Patient Weight 05/06/25 23:59 Weight 128 kg Laboratory Results - last 24 hr 05/05/25 21:45: WBC 9.2, RBC 5.44, Hgb 15.4, Hct 44.9, MCV 82.5, MCH 28.3, MCHC 34.3, RDW 13.2, Plt Count 258, MPV 8.4, Neut % (Auto) 51.6, Lymph % (Auto) 34.9, [place] % (Auto) 9.1, Eos % (Auto) 3.0, Baso % (Auto) 1.0, Neut # (Auto) 4.7, Lymph # (Auto) 3.2, [place] # (Auto) 0.8, Eos # (Auto) 0.3, Baso # (Auto) 0.1, PT 10.2, INR 0.91, APTT 27.1 L, Sodium 136, Potassium 3.7, Chloride 99, Carbon Dioxide 27, Anion Gap 13.7, BUN 15, Creatinine 1.10, Estimated Creat Clear 127, Estimated GFR 68, Est GFR ( Amer) 82, Glucose 134 H, Calcium 8.8, Total Bilirubin 0.7, AST 41, ALT 50, Alkaline Phosphatase 101, Troponin I 0.17 H, C-Reactive Protein 13.3 H, NT-Pro-B Natriuret Pep 893 H, Total Protein 8.2, Albumin 4.7, Globulin 3.5 H, Albumin/Globulin Ratio 1.3, HCV Ab NILA w/Rflx PCR Qn Negative, HIV Ag/Ab Combo Qual Negative 05/05/25 21:58: Lactate 1.8 05/06/25 02:02: Troponin I 6.46 H 05/06/25 05:03: WBC 8.1, RBC 4.93, Hgb 14.0 L, Hct 40.8 L, MCV 82.8, MCH 28.4, MCHC 34.3, RDW 13.3, Plt Count 223, MPV 9.2, Neut % (Auto) 64.0, Lymph % (Auto) 25.6, [place] % (Auto) 7.7, Eos % (Auto) 1.5, Baso % (Auto) 0.7, Neut # (Auto) 5.2, Lymph # (Auto) 2.1, [place] # (Auto) 0.6, Eos # (Auto) 0.1, Baso # (Auto) 0.1, APTT 31.1 L, Sodium 136, Potassium 4.2, Chloride 100, Carbon Dioxide 29, Anion Gap 11.2, BUN 14, Creatinine 1.00, Estimated Creat Clear 140, Estimated GFR 76, Est GFR ( Amer) 92, Glucose 120 H, Calcium 8.4, Total Bilirubin 0.7, AST 161 H D, ALT 58, Alkaline Phosphatase 99, Troponin I 20.20 H, Total Protein 7.1, Albumin 4.0 D, Globulin 3.1, Albumin/Globulin Ratio 1.3 05/06/25 08:33: Activated Clotting Time > 400 H* I & O for Labs for Last 24 Hours: Intake & Output 05/03/25 05/04/25 05/05/25 05/06/25 23:59 23:59 23:59 23:59 Intake Total 920 / 920 Output Total 760 / 760 Balance 160 / 160 Weight 127.006 kg 128 kg Constitutional: Present no acute distress, obese and cooperative Head: Present atraumatic Respiratory: Present CTA bilaterally and normal respiratory effort; Absent respiratory distress, rhonchi, stridor or wheezes Cardiac: Present Reg Rate and Rhythm GI: Present soft and normal bowel sounds; Absent distention or tenderness Extremities: Present normal inspection and full ROM Skin: Present intact; Absent erythema Neuro: Present Grossly Intact, alert, awake, oriented x 3 and moves all extremities Assessment and Plan *Assessment and plan (1) Non-ST elevation SD (NSTEMI): Status: Acute Category: Medical Code(s): I21.4 - Non-ST elevation (NSTEMI) myocardial infarction (2) Hypertension: Status: Acute Qualifiers: Hypertension type: unspecified Qualified Code(s): I10 - Essential (primary) hypertension Category: Medical Code(s): I10 - Essential (primary) hypertension (3) Diastolic dysfunction: Status: Acute Category: Medical Code(s): I51.89 - Other ill-defined heart diseases (4) HLD (hyperlipidemia): Status: Acute Qualifiers: Hyperlipidemia type: mixed hyperlipidemia Qualified Code(s): E78.2 - Mixed hyperlipidemia Category: Medical Code(s): E78.5 - Hyperlipidemia, unspecified (5) History of CVA (cerebrovascular accident): Status: Acute Category: Medical Code(s): Z86.73 - Personal history of transient ischemic attack (TIA), and cerebral infarction without residual deficits (6) Tobacco dependence syndrome: Status: Acute Category: Medical Code(s): F17.200 - Nicotine dependence, unspecified, uncomplicated (7) (HFpEF) heart failure with preserved ejection fraction: Status: Acute Qualifiers: Heart failure chronicity: chronic Qualified Code(s): I50.32 - Chronic diastolic (congestive) heart failure Category: Medical Code(s): I50.30 - Unspecified diastolic (congestive) heart failure (8) Hypertension: Status: Acute Qualifiers: Hypertension type: primary hypertension Qualified Code(s): I10 - Essential (primary) hypertension Category: Medical Code(s): I10 - Essential (primary) hypertension (9) Obesity (BMI 30-39.9): Status: Chronic Category: Medical Code(s): E66.9 - Obesity, unspecified Plan Patient presented with chest pain radiating to the jaw and was found to have an elevated troponin and EKG showed some T wave inversion but NO ST elevation. ER physician did discuss with cardiology who recommended heparin and admission for further workup. After I discussed the patient with the ER physician I have agreed to accept this patient for admission. Will consult cardiology. He will be admitted to ICU. Heparin drip will continue. He received nitro and morphine in the ER his chest pain is slowly improving. His shortness of breath has returned to baseline. NSTEMI/history of CAD/multiple coronary stents Hypertension/hyperlipidemia Chronic HFpEF - Cardiology consulted, taken for left heart cath after troponin bumped from 0.17 to 6 to 20. Having pain even on heparin drip - discussed case cardiology, received 2 stents. Will need evaluation for LifeVest with formal echo in the morning. Has elevated end-diastolic pressure. Will advance GDMT and started on diuretic. - Had greater than 90% stenosis at the ostium of the LAD. Along with 80 to 90% stenosis of first obtuse marginal. Has persistent disease that needs evaluation for possible bypass surgery. To be considered as an outpatient. -Continue 81 mg daily, prasugrel 10 mg daily -Resume bisoprolol 10 mg daily, Entresto twice daily. Initiate Lasix 40 mg once, monitor for response. Consider 1-2 times a day depending on response. -LDL greater than 150, goal less than 55. On Repatha and Lipitor at home. Continue Lipitor 80 mg nightly - Echo ordered for the morning. May necessitate LifeVest as ventriculogram during Showed EF of 30 to 35% - Repeat CBC, CMP ordered for the morning COPD: Continue Breo daily and DuoNebs as every 8 hours not in exacerbation at this time; Full code Heparinized in [facility] Cardiac diet
--- NOTE | 2025-05-06 10:16 | HMH.PHAINT1 ---
Pharmacy Intervention Comments: MEDICATION RECONCILIATION COMPLETE USING EXTERNAL PHARMACY FILL HISTORY, MOST RECENT PRIMARY CARE OFFICE VISIT NOTES.
[2025-05-06] MEDS: FUROSEMIDE 40MG/4ML VIAL 40 MG IV (10:36)
[2025-05-06] MEDS: ASPIRIN 81MG CHEWABLE TABLET 81 MG PO (10:36)
[2025-05-06] MEDS: PRASUGREL 10MG TAB 10 MG PO (10:37)
[2025-05-06] MEDS: BISOPROLOL 5MG TABLET 10 MG PO ×2 (10:37→20:32)
[2025-05-06] MEDS: SACUBITRIL/VALSARTAN 24-26MG TABLET 1 EACH PO ×2 (10:37→20:31)
--- NOTE | 2025-05-06 11:07 | PC.NURSE ---
HOUSE AND ADMISSIONS AWARE OF TRANSFER FROM ICU TO SD
[2025-05-06] MEDS: CALCIUM CARBONATE 500MG CHEWTAB 500 MG PO (15:27)
--- NOTE | 2025-05-06 16:21 | PC.NURSE ---
Patient offered a bath at this time. Patient refused. Continuation of care plan.
--- NOTE | 2025-05-06 18:41 | PC.NURSE ---
A&OX4. PT HAS TOLERATED RA WELL THROUGHOUT SHIFT. LUNG SOUNDS CLEAR THROUGHOUT. NO COUGH NOTED. RESPIRATIONS REGULAR AND UNLABORED. HAND OIL FURNACE INSTALLER EQUAL. +2 PULSES NOTED THROUGHOUT. NO EDEMA NOTED. HEART RATE REGULAR. PT HAS REMAINED ON TELE THROUGHOUT SHIFT. PT HAD A HEART CATH THIS MORNING AND RECEIVED 2 STENTS. R RADIAL CATH SITE NOTED. DRESSING CDI. ACTIVE BOWEL SOUNDS HEARD IN ALL 4 QUADRANTS. SOFT AND NONTENDER ABDOMEN. NO BM THUS FAR. PT VOIDS PER URINAL WITH CLEAR YELLOW URINE NOTED. PT RECEIVED ONE DOSE OF LASIX THIS SHIFT AND HAS HAD ADEQUATE URINE OUTPUT. PT REPORTED HEARTBURN ONCE THIS SHIFT AND RECEIVED TUMS. FAMILY DID COME TO VISIT PT THIS AFTERNOON AND WAS UPDATED ON PLAN OF CARE. NO QUESTIONS OR CONCERNS VOICED. BED IN LOWEST POSITION. CALL LIGHT WITHIN REACH. PT HAS DENIED ANY CHEST PAIN THIS SHIFT. VSS. PT DECLINED BATH AND LINEN CHANGED WHEN IT WAS OFFERED TO HIM. PT HAS ATE GREAT THIS SHIFT.
[2025-05-06] MEDS: PRASUGREL 10MG TAB 60 MG PO (19:48)
[2025-05-06] MEDS: PANTOPRAZOLE 40MG TABLET 40 MG PO (20:31)
[2025-05-06] MEDS: ATORVASTATIN 40MG TABLET 80 MG PO (20:32)
--- NOTE | 2025-05-06 20:51 | PC.NURSE ---
Patient O2 sats 85% at present, and dropping to as low at 78% on room air. Upon assessment patient appears to be asleep. Resting with eyes closed, snoring, but respirations are even and unlabored. Patient placed on 2LNC while asleep to which O2 sats increased to 98%. Patient educated on importance on wearing NC, and need for supplemental oxygen. Patient verbalizes understanding. No further needs voiced.
[2025-05-07] VITALS (15 sets, daily range): BP systolic 116–174; BP diastolic 57–104; PULSE 52–70; RESP 11–26; TEMP 36.4–36.5; O2SAT 87–98; BMI 37.4
[2025-05-07 05:18] LABS: Chloride 100 mmol/L (98-107); Sodium 130 mmol/L (136-145)
[2025-05-07 05:19] LABS: Potassium 4.1 mmoL/L (3.5-5.1)
[2025-05-07 05:21] LABS: Blood Urea Nitrogen 17 mg/dl (9-20); Creatinine Clearance Estimated 141 mL/min (50-200); Creatinine,Serum 1.00 mg/dl (0.66-1.25); Estimated Glomerular Filt Rate 76 ml/min (>60); GFR (African American) 92 ML/MIN (>60)
[2025-05-07 05:22] LABS: Anion Gap 4.1 mEq/L (5-15); Calcium 8.4 mg/dl (8.4-10.2); Carbon Dioxide 30 mmol/L (22.0-30.0); Glucose 123 mg/dl (74-100)
[2025-05-07 05:36] LABS: Hematocrit 42.4 % (42.0-52.0); Hemoglobin 14.2 g/dL (14.1-18.0); Immature Granulocytes % 0.4 %; Mean Corpuscular HGB Conc 33.5 g/dL (31.8-35.4); Mean Corpuscular Hemoglobin 27.6 pg (27.0-31.2); Mean Corpuscular Volume 82.5 fl (80-94); Nucleated Red Blood Cells % 0 %; Platelet Count 205 K/mm3 (142-424); Red Blood Count 5.14 M/mm3 (4.60-6.20); Red Cell Distribution Width-SD 39.4 fL; White Blood Count 7.8 K/mm3 (4.8-10.8)
--- NOTE | 2025-05-07 07:15 | PC.NURSE ---
echo at bedside
[2025-05-07] MEDS: DEFINITY US ECHO CONTRAST 2ML INJ 2 MG IV (07:48)
--- NOTE | 2025-05-07 08:00 | CA_ITS ---
APPROVED REPORT EXAM: Comprehensive 2D, Doppler, and color-flow Echocardiogram with contrast Senior Core Java Developer: Zoila Garcia CRT Ht: 6 ft 0 in Wt: 282lbs BSA: 2.47 BP: 151/88 mmHg Indications: Non STEMI, non-compliant w meds, cath w stents 05/06/25, recommended bypass 4-6 weeks, HTN, HLD, Smoker, sob Echo Enhancing Agent Indication: Endocardial border delineation Agent(s) / Amount(s) Used: Definity 2 cc Comments: definity given TDE 2D Dimensions LA Volume 47.50 mL LA Volume Index 18.80 mL/m2 (M/F) 16-34 M-Mode Dimensions RVDd 3.11 cm (0.9-2.6) LA Diam 4.73 cm (1.9-4.0) LVDd 4.76 cm (3.5-5.7) LVDs 4.00 cm (3.5-5.7) IVSd 1.93 cm (0.6-1.1) PWd 0.67 cm (0.6-1.1) EF (Teich) 33.60% FS 16.00% EDV (Teich) 105.40 mL TAPSE 1.44 (<1.7) ESV (Teich) 70.00 mL LV Diastology E Decel Time 170 (160-240 msec) E/A Ratio 1.45 MED A' 6.10 cm/s LAT A' 5.60 cm/s Aortic Valve AO Peak GR. 5.50 mmHg Mitral Valve MV A Velocity 51.0 (40-130 cm/s) E/A Ratio 1.45 Pulmonary Valve PV Peak Velocity 62.0 (50-150 cm/s) Tricuspid Valve TR P. Velocity 147.00 cm/s RAP Estimate 10.00 mmHg RVSP 18.60 mmHg Left Ventricle The left ventricle is normal size. Left ventricular systolic function is mildly reduced. There is increased left ventricular wall thickness. The left ventricular diastolic function is indeterminate. No left ventricle thrombus noted on this study. LVEF is 45%. Right Ventricle The right ventricle is not well visualized, but grossly appears mildly dilated. The right ventricular systolic function is normal. Atria The left atrium size is normal. The right atrium size is normal. There is no color Doppler evidence of interatrial shunt. Aortic Valve The aortic valve is mildly thickened. There is no hemodynamically significant aortic valvular stenosis. No aortic regurgitation is present. Mitral Valve The mitral valve is normal in structure. No evidence of mitral valve stenosis. Trace mitral regurgitation is present. Tricuspid Valve The tricuspid valve leaflets are thin and pliable. Trace tricuspid regurgitation. There is insufficient TR jet to estimate RVSP. Pulmonic Valve The pulmonary valve is grossly normal in structure. Trace pulmonic valve regurgitation is present. Great Vessels The aortic root is normal in size. IVC is normal in size and collapses >50% with inspiration. Pericardium There is no pericardial effusion. Other Information Study Quality: Technically Difficult Conclusion Mildly reduced LV systolic function (LVEF 45%). Mild RV dilation. No significant valvular stenosis or regurgitation. Electronically signed by : Dominga Desai MD 05/07/2025 12:39:59
--- OUTSIDE RECORDS SUMMARY | 2025-05-07 08:40 | XMS_ITS | Encounter Summary ---
Author Organization Healthcare Address [address] [id number] Care Team Providers Care Frit Burner Name Role Phone Jermain Newman MD Primary Care Provider [phone] Encounter Details Date Type Department Care Team (Late st Contact Info) Description 05/05/2025 Orders Only External Location [address] [place] [address] Provider, External Social History Tobacco Use Types Packs/Day Years [...] PM EDT Sexual Orientation Not on file documented as of this encounter Plan of Treatment Not on file documented as of this encounter Procedures Procedure Name Priority Date/Time Associated Diagnosis Comments CT THORACIC OUTSIDE IMAGES 05/05/2025 documented in this encounter Results * CT THORACIC OUTSIDE IMAGES (05/05/2025) Anatomical Region Laterality Modality Computed Tomogra phy 05/05/2025 us External Provider IMG CT PROCEDURES Final Result documented in this encounter Visit Diagnoses Not on filedocumented in this encounter Additional Health Concerns Assessment Noted Time A fall risk assessment has been complete d for the patient 11/18/2021 3:02 PM EDT documented as of this encounter Care Teams Frit Burner Relationship Specialty Start Date End Date Jermain Newman MD [address] [address] PCP - General 10/04/20 documented as of this encounter
--- OUTSIDE RECORDS SUMMARY | 2025-05-07 08:40 | XMS_ITS | Clinical Summary ---
Author Organization [facility] Address [address] [place] [address] Care Team Providers Care Casing Puller Name Role Phone Jermain Newman MD Primary Care Provider Allergies Active Allergy Reactions Criticality Noted Date [...] failure) 08/29/2021 CAD (coronary artery disease) 08/29/2021 ME (myocardial infarction) 08/29/2021 History of percutaneous coronary intervention Dysrhythmias 08/29/2021 Dyspnea 08/29/2021 HTN (hypertension) 08/29/2021 High cholesterol 08/29/2021 Gastroesophageal reflux disease 08/29/2021 Anal fistula 2021 Overview (2021): Added automatically from request for surgery [id number] Encounters Date Type Department Care Team Description 05/05/2025 Orders Only External Location [address] [place] [id number] Provider, External from Last 3 Months Family History Medical History Relation Name Comments [...] 08/13/2013 [facility]-Zoster Vaccines (1 of 2) 08/13/2013 [id number] Vaccine (5 - season) 2025 03/30/2022, 05/02/2021, 09/04/2020, Additional history exists [facility]-Influenza Vaccine (#1) 2025 03/30/2022, [facility]-DTaP,Tdap,and Td Vaccines (2 - Td or Tdap) 09/25/2026 09/25/2016 [facility]-RSV Vaccine: 60+ Years or (1 - 1-dose 75+ series) 08/13/2038 [facility]-Hepatitis A Vaccines Aged Out 05/02/2018 No longer eligible based on patient's age to complete this topic HPV Vaccines (No Doses Required) Completed [facility]-HIB Vaccines Aged Out No longer e ligible based on patient's age to complete this topic [facility]-IPV Vaccines Aged Out No longer e ligible based on patient's age to complete this topic [facility]-Rotavirus Vaccines Aged Out No lo nger eligible based on patient's age to complete this topic Procedures Procedure Name Priority Date/Time Associated Diagnosis Comments CT THORACIC OUTSIDE IMAGES 05/05/2025 from Last 3 Months Results * CT THORACIC OUTSIDE IMAGES (05/05/2025) Anatomical Region Laterality Modality Computed Tomogra phy 05/05/2025 us External Provider IMG CT PROCEDURES Final Result from Last 3 Months Insurance [employer] [facility] MEDICAID Care Teams Casing Puller Relationship Specialty Start Date End Date Jermain Newman MD [address] [place] [address] PCP - General 10/04/20
[2025-05-07] MEDS: FUROSEMIDE 40MG/4ML VIAL 40 MG IV (08:45)
[2025-05-07] MEDS: SACUBITRIL/VALSARTAN 24-26MG TABLET 2 EACH PO (08:45)
[2025-05-07] MEDS: PRASUGREL 10MG TAB 10 MG PO (08:45)
[2025-05-07] MEDS: BISOPROLOL 5MG TABLET 10 MG PO (08:48)
[2025-05-07] MEDS: ASPIRIN 81MG CHEWABLE TABLET 81 MG PO (08:49)
--- NOTE | 2025-05-07 09:33 | P.CONCA_ITS ---
History of Present Illness History of Present Illness Consult date: 05/07/25 Requesting physician: Josemanuel Barraza Consult reason: chest pain Chief complaint: chest pain History of present illness: Supa Santos is a 59-year-old white male with a past medical history of coronary artery disease status post stenting, CVA approximately 1 year ago, hyperlipidemia, hypertension and history of HFpEF who presented to emergency department with complaints of chest pain radiating to his jaw associated with nausea and shortness of breath. Initial EKG upon presentation to ER showed sinus rhythm with no ST changes. Initial troponin came back at 0.17 and peaked at 20.20. Patient was taken to the [facility] on 05/06 for NSTEMI and received 1 REINA to the ostial LAD with multiple areas of moderate to severe persistent disease left. Patient will be considered for bypass on an outpatient basis. Other labs remain stable. Echocardiogram is pending. This morning patient reports he continues to feel some generalized weakness, chest pressure has resolved. Shortness of breath is back to baseline. [facility] Disclaimer: The information contained in this section may have been updated after the patient was seen, as this information can be updated by other users. Medical History (Updated 05/07/25 @ 09:50 by Sissy Singh APRN) CAD (coronary artery disease) Obesity (BMI 30-39.9) History of hyperlipidemia History of hypertension Encounter for screening for lung cancer Abnormal thyroid biopsy Nodule of parotid gland Multiple thyroid nodules Thyroid nodule Mass of parotid gland Colon cancer screening declined ADHD Viral illness Renal cancer Angina pectoris, unstable Generalized anxiety disorder Major depression, recurrent Marijuana use Head pain Obesity Calcium pyrophosphate deposition disease (CPPD) Foot pain, bilateral Plantar fascia syndrome Overweight Angina pectoris Atypical chest pain Dyspnea Back pain Cellulitis COPD with exacerbation Atypical chest pain BPH (benign prostatic hyperplasia) Anxiety NSTEMI (non-ST elevated myocardial infarction) Angina pectoris Non-ST elevation myocardial infarction (NSTEMI) Chest pain Diastolic dysfunction HLD (hyperlipidemia) Typical angina Abnormal cardiovascular stress test Dyspnea Abnormal cardiovascular stress test Angina, class IV Abnormal EKG Dyspnea Blurred vision Numbness in both hands Dizziness Hypertension Obstructive sleep apnea Non-STEMI (non-ST elevated myocardial infarction) Chest pain due to coronary artery disease CRPS (complex regional pain syndrome type I) Insomnia Surgical History Stented coronary artery Hx of knee surgery H/O kidney removal Family History Other Coronary artery disease No significant family history Social History Smoking Status: Current every day smoker tobacco type: cigarettes packs per day: 1 second hand exposure: Yes alcohol intake: never substance use type: marijuana current occupational status: employed Travel in the last 8 weeks?: None household members: spouse housing: house number of children: 6 current occupational exposures/hazards: Yes caffeine: Yes Have you lived/traveled outside US in past 30 days?: No Contact w/someone who lives/traveled outside US past 30 days?: No Exposure to someone with infectious disease in past 14 days?: No Do you have a fever (greater than 100.4 F or 38 C)?: No Have you tested positive for COVID-19?: No Exposed to someone with COVID-19 in past 14 days?: No Do you have a sore throat?: No Do you have a cough?: No Do you have any weakness?: No Do you have any diarrhea?: No Are you experiencing any unusual bleeding?: No Do you have any muscle aches/pain?: No Do you have any abdominal pain?: No Are you experiencing loss of taste or smell?: No Review of Systems Review of Systems Review of systems:: pertinent systems reviewed and negative unless documented below Constitutional Constitutional: Reports system reviewed and no additional complaints, except as documented ENT Ears, Nose, Mouth, and Throat: Denies dizziness *Cardiovascular Cardiovascular: Reports chest pain and Reports dyspnea *Respiratory Respiratory: Reports dyspnea *Gastrointestinal Gastrointestinal: Reports system reviewed and no additional complaints, except as documented *Neurologic Neurologic: Denies confusion and Denies dizziness Psychiatric Psychiatric: Denies confusion Exam Data for Last 24 hours Vital signs and Labs for Last 24 Hours: Temp Pulse Resp BP Pulse Ox O2 Del Method O2 Flow Rate 97.5 F L 62 12 174/104 H 97 Room Air 2 05/07/25 08:15 05/07/25 08:15 05/07/25 08:15 05/07/25 08:15 05/07/25 08:15 05/07/25 08:15 05/07/25 05:00 Laboratory Results - last 24 hr 05/07/25 05:00: WBC 7.8, RBC 5.14, Hgb 14.2, Hct 42.4, MCV 82.5, MCH 27.6, MCHC 33.5, RDW 13.1, Plt Count 205, MPV 9.2, Neut % (Auto) 62.6, Lymph % (Auto) 26.0, [place] % (Auto) 8.4, Eos % (Auto) 1.8, Baso % (Auto) 0.8, Neut # (Auto) 4.9, Lymph # (Auto) 2.0, [place] # (Auto) 0.7, Eos # (Auto) 0.1, Baso # (Auto) 0.1, Sodium 130 L, Potassium 4.1, Chloride 100, Carbon Dioxide 30, Anion Gap 4.1 L, BUN 17, Creatinine 1.00, Estimated Creat Clear 141, Estimated GFR 76, Est GFR ( Amer) 92, Glucose 123 H, Calcium 8.4 I & O for Last 24 hours: Intake & Output 05/04/25 05/05/25 05/06/25 05/07/25 23:59 23:59 23:59 23:59 Intake Total 2065 / 2565 740 / 740 Output Total 3110 / 3110 650 / 650 Balance -1045 / -545 90 / 90 Weight 280 lb 282 lb 3.067 oz 282 lb 6.594 oz Constitutional Constitutional: no acute distress *Routine Respiratory Exam Respiratory: Present CTA bilaterally and symmetric chest movement *Routine Cardiovascular Exam Cardiovascular: Present RRR, Normal S1 and Normal S2 *Routine Abdominal Exam Abdominal: Present soft and normoactive bowel sounds; Absent tenderness *Routine Extremities Exam Extremities: Present full ROM and normal capillary refill; Absent edema *Routine Skin Exam Skin: Present intact, dry and warm Detailed Neck Exam: Thyroids Thyroid: Absent bruit Meds Home Medications and Allergies Home Medications ?Medication ?Instructions ?Recorded ?Confirmed ?Type aspirin 81 mg chewable tablet 81 mg PO DAILY Circulati on #90 tabs 11/05/23 05/06/25 Rx colchicine 0.6 mg tablet 0.6 mg PO BIDP PRN gout #120 tabs 04/18/24 05/06/25 Rx prasugrel HCl 10 mg tablet 10 mg PO DAILY Blood Thinne r #90 08/01/24 05/06/25 Rx tabs sildenafil 100 mg tablet 100 mg PO DAILY PRN erectile 09/06/24 05/06/25 Rx dysfunction #30 tabs atorvastatin 80 mg tablet 80 mg PO AM Cholesterol #90 tabs 01/16/25 05/06/25 Rx evolocumab 140 mg/mL subcutaneous 140 mg SQ Q2W On sta tin #2 mL 01/17/25 05/06/25 Rx pen injector (Conchis AbielReillyangus) bisoprolol fumarate 10 mg tablet 10 mg PO BID 05/06/25 05/06/25 History fluticasone furoate 100 1 inh inhalation DAILY 05/0605/06/25 History mcg-vilanterol 25 mcg/dose inhalation powder (Breo Ellipta) lidocaine 4 % topical patch 1 patch topical DAILYP PRN Pain 05/06/25 05/06/25 History (AsperFlex (lidocaine)) omeprazole 40 mg capsule,delayed 40 mg PO DAILY 05/06/25 History release polyethylene glycol 3350 17 17 g PO DAILY 05/06/25 History gram/dose oral powder (ClearLax) sacubitril 24 mg-valsartan 26 mg 1 tab PO BID 05/06/25 05/06/25 History tablet (Entresto) New Prescriptions to Start Prescriptions: Allergies Allergy/AdvReac Type Severity Reaction Status Date / Time venlafaxine (From Effexor) Allergy Intermediate Unknown Verified 04/18/25 09:08 allergy reaction isosorbide (From Imdur) Allergy Mild Unknown Verified 04/18/25 09:08 allergy reaction Penicillins Allergy Unknown Unknown Verified 04/18/25 09:08 allergy reaction ranolazine AdvReac RAPID Verified 04/18/25 09:08 HEART BEAT Assessment and Plan *Assessment and plan (1) Non-ST elevation CT (NSTEMI): Status: Acute Category: Medical Code(s): I21.4 - Non-ST elevation (NSTEMI) myocardial infarction (2) HLD (hyperlipidemia): Status: Acute Qualifiers: Hyperlipidemia type: mixed hyperlipidemia Qualified Code(s): E78.2 - Mixed hyperlipidemia Category: Medical Code(s): E78.5 - Hyperlipidemia, unspecified (3) CAD (coronary artery disease): Problem Comment: Supa recently, December 2021, had myocardial infarction. He has had 10 stents placed. He is following with cardiology for this. Status: Acute Qualifiers: Associated angina: with other forms of angina Coronary Disease- Associated Artery/Lesion type: [place] artery [place] vs. transplanted heart: [place] heart Qualified Code(s): I25.118 - Atherosclerotic heart disease of [place] coronary artery with other forms of angina pectoris Category: Medical Code(s): I25.10 - Atherosclerotic heart disease of [place] coronary artery without angina pectoris (4) Heart failure with reduced ejection fraction: Status: Acute Category: Medical Code(s): I50.20 - Unspecified systolic (congestive) heart failure Plan History of coronary artery disease NSTEMI Left heart catheterization 05/06/2025: 1 REINA to the ostial LAD. Persistent moderate to severe mid LAD, large bifurcating first diagonal, large first obtuse marginal artery, small distal nondominant RCA present. Patient will be considered for bypass on an outpatient basis. Continue aspirin, Effient and atorvastatin Acute HFrEF Echocardiogram from today shows an EF of 45% with mild RV dilation and no significant valvular stenosis or regurg noted Continue bisoprolol and Entresto. Add Aldactone and Jardiance Continue Lasix 05/07/2025 Summary: Echo shows an EF of 45%. Please continue below listed medications and have patient follow-up in cardiology clinic in 1 week for reevaluation. Patient needs to be referred for CABG on an outpatient basis. Cardiac meds: Aspirin 81 mg p.o. daily Effient 10 mg p.o. daily Atorvastatin 80 mg p.o. daily Lasix 40 mg p.o. daily Bisoprolol 10mg po daily Entresto 49/51 mg po BID Jardiance 10 mg p.o. daily Aldactone 25 mg p.o. daily
[2025-05-07] MEDS: EMPAGLIFLOZIN 10MG TABLET 10 MG PO (10:26)
[2025-05-07] MEDS: SPIRONOLACTONE 25MG TABLET 25 MG PO (10:26)
--- NOTE | 2025-05-07 11:37 | P.DS_ITS ---
General Admission date:: 05/05/25 Discharge date: 05/07/25 HPI HPI HPI: 59-year-old male patient presents to ER with reports of chest pressure radiating to his jaw. He has associated nausea and shortness of breath that is worse than his baseline. Denied diaphoresis. EKG in the ER showed a sinus rhythm with no ST changes. Initial troponin came back 0.17. He does have a history of coronary artery disease and previous NSTEMI with multiple stents placed. Also has history of CVA approximately 1 year ago. Hyperlipidemia and hypertension. History of HFpEF with most recent echocardiogram in 2020 showing an EF of 55%. He states he does have shortness of breath at baseline but with the chest pain it was much worse. Received aspirin nitroglycerin and morphine in the ER. ER physician consulted with cardiology who recommended a heparin drip. That was started as well. His pain has improved from a 9 to a 7 and now a 4. He states he quit taking his home medications because every time he took them he felt weak tired and fatigued. He wanted to see but if he would feel better without them. He stopped taking them about 2 weeks ago. According to recent office note his meds include aspirin, atorvastatin, repatha, bisoprolol, prasugrel. Hospital Course Hospital Course Hospital Course: Patient presented with chest pain radiating to the jaw and was found to have an elevated troponin and EKG showed some T wave inversion but NO ST elevation. ER physician did discuss with cardiology who recommended heparin and admission for further workup. After I discussed the patient with the ER physician I have agreed to accept this patient for admission. Cardiology was consulted. Initiated on heparin drip. Patient continued to have chest pain however with a bump in troponin and worsening pain. Taken to the [facility] Service [facility] for intervention. Had significant NSTEMI. Received stent to the ostium of the LAD. Pain improved after left heart cath. Echo obtained, EF above 35% therefore not needing LifeVest. Discharged home with plan for close follow-up with cardiology for further discussion about future interventions. Problems addressed as follows: NSTEMI/history of CAD/multiple coronary stents Hypertension/hyperlipidemia Chronic HFpEF - Presented with chest pain. Was initiated on heparin drip. Troponin elevated from 0.17 to 6 to 20. As his pain recurred, cardiology was reconsulted and patient was taken to the [facility] Service [facility] for intervention due to NSTEMI with severe elevation of troponin and persistent pain in spite of anticoagulation. Had greater than 90% stenosis at the ostium of the LAD. Along with 80 to 90% stenosis of first obtuse marginal. Has persistent disease that needs evaluation for possible bypass surgery. To be considered as an outpatient. Patient received 2 stents. Initiated on aspirin 81 mg daily and prasugrel 10 mg daily. Resume cardiac meds along with initiation of GDMT as follows: Aspirin 81 mg p.o. daily Effient 10 mg p.o. daily Atorvastatin 80 mg p.o. daily Lasix 40 mg p.o. daily Bisoprolol 10mg po daily Entresto 49/51 mg po BID Jardiance 10 mg p.o. daily Aldactone 25 mg p.o. daily Diuresed during admission with good response. Continuing Lasix as above. Echo obtained to evaluate EF. Mildly reduced LV systolic function (LVEF 45%). Mild RV dilation. No significant valvular stenosis or regurgitation. COPD: Continue Breo daily, not in exacerbation at this time; Total time spent on discharge 32 minutes in counseling, documentation, chart review, and direct care with patient. Exam Data for Last 24 hours Vital signs and Labs for Last 24 Hours: Temp Pulse Resp BP Pulse Ox O2 Del Method O2 Flow Rate 97.5 F L 56 L 22 174/104 H 92 L Nasal Cannula 2 05/07/25 08:15 05/07/25 10:15 05/07/25 10:15 05/07/25 08:15 05/07/25 10:15 05/07/25 11:15 05/07/25 11:15 Laboratory Results - last 24 hr 05/07/25 05:00: WBC 7.8, RBC 5.14, Hgb 14.2, Hct 42.4, MCV 82.5, MCH 27.6, MCHC 33.5, RDW 13.1, Plt Count 205, MPV 9.2, Neut % (Auto) 62.6, Lymph % (Auto) 26.0, [place] % (Auto) 8.4, Eos % (Auto) 1.8, Baso % (Auto) 0.8, Neut # (Auto) 4.9, Lymph # (Auto) 2.0, [place] # (Auto) 0.7, Eos # (Auto) 0.1, Baso # (Auto) 0.1, Sodium 130 L, Potassium 4.1, Chloride 100, Carbon Dioxide 30, Anion Gap 4.1 L, BUN 17, Creatinine 1.00, Estimated Creat Clear 141, Estimated GFR 76, Est GFR ( Amer) 92, Glucose 123 H, Calcium 8.4 I & O for Last 24 hours: Intake & Output 05/04/25 05/05/25 05/06/25 05/07/25 23:59 23:59 23:59 23:59 Intake Total 2065 / 2565 740 / 740 Output Total 3110 / 3110 1225 / 1225 Balance -1045 / -545 -485 / -485 Weight 127.006 kg 128 kg 128.1 kg Constitutional Constitutional: no acute distress, obese and cooperative *Routine HEENT Exam Head: Present normocephalic and atraumatic Eye: Present EOMI ENT: Present mucous membranes moist *Routine Neck Exam Neck: Present supple *Routine Respiratory Exam Respiratory: Present CTA bilaterally and symmetric chest movement; Absent rhonchi or wheezes *Routine Cardiovascular Exam Cardiovascular: Present RRR, Normal S1 and Normal S2 *Routine Abdominal Exam Abdominal: Present soft and normoactive bowel sounds; Absent tenderness *Routine Rectal Exam Patient deferred: visual exam *Routine Exam Patient deferred: penile exam *Routine Extremities Exam Extremities: Present full ROM and normal capillary refill; Absent edema Comments: right radial insertion site clean dry and intact with no significant hematoma. *Routine Skin Exam Skin: Present intact, dry and warm *Routine Neurological Exam Neurological: Present alert, oriented X3 and moving all extremities; Absent altered mental status Comments: Reports mild tingling on the left side of his face that is consistent with his previous stroke. Chronic in nature. Detailed Neck Exam: Thyroids Thyroid: Absent bruit Results Data Completed and Pending Labs on day of discharge: Labs from last 24 hours 05/07/25 05:00 WBC 7.8 RBC 5.14 Hgb 14.2 Hct 42.4 MCV 82.5 MCH 27.6 MCHC 33.5 RDW 13.1 Plt Count 205 MPV 9.2 Neut % (Auto) 62.6 Lymph % (Auto) 26.0 [place] % (Auto) 8.4 Eos % (Auto) 1.8 Baso % (Auto) 0.8 Neut # (Auto) 4.9 Lymph # (Auto) 2.0 [place] # (Auto) 0.7 Eos # (Auto) 0.1 Baso # (Auto) 0.1 Sodium 130 L Potassium 4.1 Chloride 100 Carbon Dioxide 30 Anion Gap 4.1 L BUN 17 Creatinine 1.00 Estimated Creat Clear 141 Estimated GFR 76 Est GFR ( Amer) 92 Glucose 123 H Calcium 8.4 DS: Diagnosis Discharge Diagnosis (1) Non-ST elevation [place] (NSTEMI): Status: Acute Code(s): I21.4 - Non-ST elevation (NSTEMI) myocardial infarction (2) HLD (hyperlipidemia): Status: Acute Code(s): E78.5 - Hyperlipidemia, unspecified Qualifiers: Hyperlipidemia type: mixed hyperlipidemia Qualified Code(s): E78.2 - Mixed hyperlipidemia (3) CAD (coronary artery disease): Status: Acute Code(s): I25.10 - Atherosclerotic heart disease of [place] coronary artery without angina pectoris Qualifiers: Associated angina: with other forms of angina Coronary Disease- Associated Artery/Lesion type: [place] artery [place] vs. transplanted heart: [place] heart Qualified Code(s): I25.118 - Atherosclerotic heart disease of [place] coronary artery with other forms of angina pectoris Problem details: Supa recently, December 2021, had myocardial infarction. He has had 10 stents placed. He is following with cardiology for this. (4) Heart failure with reduced ejection fraction: Status: Acute Code(s): I50.20 - Unspecified systolic (congestive) heart failure (5) History of placement of stent in LAD coronary artery: Status: Acute Code(s): Z95.5 - Presence of coronary angioplasty implant and graft (6) Obesity (BMI 30-39.9): Status: Chronic Code(s): E66.9 - Obesity, unspecified Meds Home Medications and Allergies Home Medications ?Medication ?Instructions ?Recorded ?Confirmed ?Type colchicine 0.6 mg tablet 0.6 mg PO BIDP PRN gout #120 tabs 04/18/24 05/09/25 Rx sildenafil 100 mg tablet 100 mg PO DAILY PRN erectile 09/06/24 05/09/25 Rx dysfunction #30 tabs evolocumab 140 mg/mL subcutaneous 140 mg SQ Q2W On sta tin #2 mL 01/17/25 05/09/25 Rx pen injector (Conchis Bello) bisoprolol fumarate 10 mg tablet 10 mg PO BID 05/06/25 05/09/25 History fluticasone furoate 100 1 inh inhalation DAILY 05/0605/09/25 History mcg-vilanterol 25 mcg/dose inhalation powder (Breo Ellipta) lidocaine 4 % topical patch 1 patch topical DAILYP PRN Pain 05/06/25 05/09/25 History (AsperFlex (lidocaine)) omeprazole 40 mg capsule,delayed 40 mg PO DAILY 05/09/25 History release polyethylene glycol 3350 17 17 g PO DAILY 05/06/25 History gram/dose oral powder (ClearLax) aspirin 81 mg chewable tablet 81 mg PO DAILY Circulati on #90 tabs 05/07/25 05/09/25 Rx atorvastatin 80 mg tablet 80 mg PO AM Cholesterol #90 tabs 05/07/25 05/09/25 Rx furosemide 40 mg tablet (Lasix) 40 mg PO DAILY #30 tab s 05/07/25 05/09/25 Rx prasugrel HCl 10 mg tablet 10 mg PO DAILY Blood Thinne r 30 05/07/25 05/09/25 Rx days #90 tabs sacubitril 49 mg-valsartan 51 mg 1 tab PO BID #60 tabs 05/07/25 05/09/25 Rx tablet spironolactone 25 mg tablet 25 mg PO DAILY 30 days #30 tabs 05/07/25 05/09/25 Rx empagliflozin 10 mg tablet 10 mg PO DAILY #30 tabs 05/09/25 Rx (Jardiance) New Prescriptions to Start Prescriptions: Josemanuel Burdick atorvastatin Josemanuel Barraza furosemide [Lasix] Josemanuel Barraza prasugrel HCl Josemanuel Barraza sacubitril-valsartan Josemanuel Barraza spironolactone Josemanuel Barraza Allergies Allergy/AdvReac Type Severity Reaction Status Date / Time venlafaxine (From Effexor) Allergy Intermediate Unknown Verified 05/09/25 10:38 allergy reaction isosorbide (From Imdur) Allergy Mild Unknown Verified 05/09/25 10:38 allergy reaction Penicillins Allergy Unknown Unknown Verified 05/09/25 10:38 allergy reaction ranolazine AdvReac RAPID Verified 05/09/25 10:38 HEART BEAT Discharge Plan Disposition Patient Disposition: Home, Self-Care Condition: Fair Discharge Order Discharge Orders: Discharge Order (Routine); Ordered 05/07/25 Ordered By: Josemanuel Barraza Follow up Plan Follow up with: Isauro Saldana APRN [Primary Care Provider, Family Practice] - 05/09/25 10:20 am Javy Sinha MD [Staff Physician, Cardiology] - 05/15/25 2:00 pm Prescriptions/Medication Reconciliation: New spironolactone 25 mg Tablet 25 mg PO DAILY 30 Days Qty: 30 0RF sacubitril-valsartan 49-51 mg tablet 1 tab PO BID Qty: 60 0RF furosemide [Lasix] 40 mg tablet 40 mg PO DAILY Qty: 30 0RF Continued Repatha SureClick 140 mg/mL pen injector 140 mg SQ Q2W Qty: 2 3RF Jardiance 10 mg tablet 10 mg PO DAILY Qty: 30 2RF colchicine 0.6 mg tablet 0.6 mg PO BIDP PRN (Reason: gout) Qty: 120 3RF sildenafil 100 mg tablet 100 mg PO DAILY PRN (Reason: erectile dysfunction) Qty: 30 2RF lidocaine [AsperFlex (lidocaine)] 4 % adhesive patch,medicated 1 patch topical DAILYP PRN (Reason: Pain) Rx Instructions: may leave on for up to 12 hrs polyethylene glycol 3350 [ClearLax] 17 gram/dose powder 17 g PO DAILY bisoprolol fumarate 10 mg tablet 10 mg PO BID omeprazole 40 mg capsule,delayed release(DR/EC) 40 mg PO DAILY fluticasone furoate-vilanterol [Breo Ellipta] 100-25 mcg/dose Blister With Device 1 inh INHALATION DAILY atorvastatin 80 mg tablet 80 mg PO AM Qty: 90 1RF aspirin 81 mg tablet,chewable 81 mg PO DAILY Qty: 90 1RF prasugrel HCl 10 mg tablet 10 mg PO DAILY 30 Days Qty: 90 3RF Discontinued sacubitril-valsartan [Entresto] 24-26 mg tablet 1 tab PO BID Problem Reconciliation Problems Reviewed?: Yes Patient Discharge Instructions ACTIVITY: Continue current activity DIET: continue same diet Stand Alone Forms: [facility] Work Release Patient Instructions: Coronary Stenting, DI for Cardiac Catheterization, DI for Surgical Site Infection, Stop Light Heart Failure Print Language: Latvian Providers Primary Care Provider: Isauro Saldana Admit Provider: Josemanuel Barraza Attending Provider: Josemanuel Barraza
--- NOTE | 2025-05-08 10:17 | SW/DCPLANNER ---
Spoke with patient on the phone. patient stated that he is doing okay just really weak and tired. Patient stated that he is aware of his upcoming appointments. Patient stated that he was able to get all medicines picked up except for one due to it needs a PA auth on it and they are working on it. Patient stated that he has no concerns or questions at this time. Jhonathan CRAWLEY St[employer]
== END 2025-05-07 14:58 | disposition home or self-care (01) | DRG 321 ==
LOC: ER 22:51 → ICU 05-06 09:37 → 2ND 05-07 08:31
PROVIDERS: Internal Medicine; Nurse Practitioner Acute Care; Admitting Provider Internal Medicine Adolescent Medicine; Emergency Provider Student in an Organized Health Care Education/Training Program; PCP Nurse Practitioner Family; Visit Provider Internal Medicine Adolescent Medicine
PROC: 4A023N7 Measurement of Cardiac Sampling and Pressure, Left Heart, Percutaneous Approach (ICD-10-PCS; CPT 93452; principal; 2025-05-06 07:00)
DX: I21.4 Non-ST elevation (NSTEMI) myocardial infarction (principal); I50.21 Acute systolic (congestive) heart failure; I50.32 Chronic diastolic (congestive) heart failure; Z79.82 Long term (current) use of aspirin; Z79.51 Long term (current) use of inhaled steroids; Z79.899 Other long term (current) drug therapy; I25.2 Old myocardial infarction; Z95.818 Presence of other cardiac implants and grafts; E78.5 Hyperlipidemia, unspecified; F17.200 Nicotine dependence, unspecified, uncomplicated; Z88.0 Allergy status to penicillin; Z88.8 Allergy status to other drugs, medicaments and biological substances; T39.016A Underdosing of aspirin, initial encounter; T46.6X6A Underdosing of antihyperlipidemic and antiarteriosclerotic drugs, initial encounter; T44.7X6A Underdosing of beta-adrenoreceptor antagonists, initial encounter; T45.526A Underdosing of antithrombotic drugs, initial encounter; Z91.148 Patient's other noncompliance with medication regimen for other reason; I11.0 Hypertensive heart disease with heart failure; Z86.73 Personal history of transient ischemic attack (TIA), and cerebral infarction without residual deficits; J44.9 Chronic obstructive pulmonary disease, unspecified; I25.10 Atherosclerotic heart disease of native coronary artery without angina pectoris
CPT/HCPCS: 71275; 80048; 80053; 83605; 83880; 84484; 85025; 85347; 85610; 85730; 86140; 86803; 87389; 93005; 93306; 99152; 99153; 99285; C1760; C1769; C1874; C1887; J1644; J1938; J2003; J2250; J2270; J2405; J3010; J7040; Q9957; Q9967

== ENCOUNTER 2025-05-13 05:00 | Emergency (ER) | payer OTHER, SELFPAY ==
[2025-05-13] VITALS (15 sets, daily range): BP systolic 119–159; BP diastolic 50–94; PULSE 60–75; RESP 15–29; TEMP 36.7–37.2; O2SAT 95–98; BMI 37.7
--- OUTSIDE RECORDS SUMMARY | 2025-05-13 05:04 | XMS_ITS | Encounter Summary ---
Author Organization Healthcare Address [address] [id number] Care Team Providers Care Professional Organizer Name Role Phone Jermain Newman MD Primary Care Provider [phone] Encounter Details Date Type Department Care Team (Late st Contact Info) Description 05/05/2025 Orders Only External Location [address] [place] [id number] Provider, External Social History Tobacco Use Types [...] documented as of this encounter Care Teams Professional Organizer Relationship Specialty Start Date End Date Jermain Newman MD [address] [address] PCP - General 10/04/20 documented as of this encounter
--- OUTSIDE RECORDS SUMMARY | 2025-05-13 05:04 | XMS_ITS | Clinical Summary ---
Author Organization [facility] Address [address] [place] [address] Care Team Providers Care Ceramics Test Engineer Name Role Phone Jermain Newman MD Primary [...] failure) 08/29/2021 CAD (coronary artery disease) 08/29/2021 NV (myocardial infarction) 08/29/2021 History of percutaneous coronary intervention Dysrhythmias 08/29/2021 Dyspnea 08/29/2021 HTN (hypertension) 08/29/2021 High cholesterol 08/29/2021 Gastroesophageal reflux disease 08/29/2021 Anal fistula 2021 Overview (2021): Added automatically from request for surgery [id number] Encounters Date Type Department Care Team Description 05/05/2025 Orders Only External Location [address] [place] [id number] Provider, External from Last 3 Months Family [...] 08/13/2013 UKY-Zoster Vaccines (1 of 2) 08/13/2013 [id number] Vaccine (5 - season) 2025 03/30/2022, 05/02/2021, [...] Result from Last 3 Months Insurance [facility] MEDICAID Care Teams Ceramics Test Engineer Relationship Specialty Start Date End Date Jermain Newman MD [address] [address] [address] PCP - General 10/04/20
--- NOTE | 2025-05-13 05:13 | XR_ITS ---
PROCEDURE INFORMATION: Exam: XR Chest Exam date and time: 05/13/2025 5:11 AM Age: 59 years old Clinical indication: Shortness of breath; Additional info: SOB since heart attack on 05/05, stents placed, TECHNIQUE: Imaging protocol: Radiologic exam of the chest. Views: 2 views. COMPARISON: CT ANGIO CHEST 05/05/2025 10:47 PM FINDINGS: Lungs: Unremarkable. No consolidation. Pleural spaces: Unremarkable. No pleural effusion. No pneumothorax. Heart/Mediastinum: Unremarkable. No cardiomegaly. Bones/joints: Unremarkable. IMPRESSION: No acute findings.
[2025-05-13 05:28] LABS: Hematocrit 45.6 % (42.0-52.0); Hemoglobin 15.4 g/dL (14.1-18.0); Immature Granulocytes % 0.3 %; Mean Corpuscular HGB Conc 33.8 g/dL (31.8-35.4); Mean Corpuscular Hemoglobin 27.7 pg (27.0-31.2); Mean Corpuscular Volume 82.0 fl (80-94); Nucleated Red Blood Cells % 0 %; Platelet Count 270 K/mm3 (142-424); Red Blood Count 5.56 M/mm3 (4.60-6.20); Red Cell Distribution Width-SD 38.4 fL; White Blood Count 7.4 K/mm3 (4.8-10.8)
[2025-05-13 05:32] LABS: Alanine Aminotransferase 51 U/L (12-78); Albumin Level 4.7 g/dl (3.5-5.0); Albumin/Globulin Ratio 1.3 (1.1-1.8); Alkaline Phosphatase 116 U/L (38-126); Anion Gap 11.6 mEq/L (5-15); Aspartate Amino Transferase 51 U/L (17-59); Bilirubin,Total 1.4 mg/dl (0.2-1.3); Blood Urea Nitrogen 12 mg/dl (9-20); Calcium 9.1 mg/dl (8.4-10.2); Carbon Dioxide 27 mmol/L (22.0-30.0); Chloride 97 mmol/L (98-107); Creatinine Clearance Estimated 142 mL/min (50-200); Creatinine,Serum 1.00 mg/dl (0.66-1.25); Estimated Glomerular Filt Rate 76 ml/min (>60); GFR (African American) 92 ML/MIN (>60); Globulin 3.7 g/dL (1.3-3.2); Glucose 137 mg/dl (74-100); Potassium 4.6 mmoL/L (3.5-5.1); Sodium 131 mmol/L (136-145); Total Protein,Serum 8.4 g/dl (6.3-8.2)
--- NOTE | 2025-05-13 05:34 | ECG_ITS ---
APPROVED REPORT Exam: Resting ECG HR:69 bpm ECG Measurements Heart Rate 69 AXES GA 153 P 29 QRSd 96 QRS -17 QT 413 T 267 QTc 433 Conclusion SINUS RHYTHM INFERIOR MYOCARDIAL INFARCTION , OF INDETERMINATE AGE [40+ ms Q WAVE AND/OR ST/T ABNORMALITY IN II/aVF] MARKED T-WAVE ABNORMALITY, CONSIDER LATERAL ISCHEMIA [-0.5+ mV T-WAVE IN I/aVL/V5/V6] ABNORMAL ECG Electronically signed by : ONELIA TRAN, 05/14/2025 16:01:55
[2025-05-13 05:37] LABS: D-Dimer 0.58 ug/mL (0.0-0.5)
--- NOTE | 2025-05-13 05:39 | [facility].EDGENADL ---
Discharge Plan Disposition Patient Disposition: Home, Self-Care Condition: Fair Prescriptions Prescriptions: New dextromethorphan polistirex [Delsym 12 hour] 30 mg/5 mL suspension,extended rel 12 hr 10 ml PO Q12H PRN (Reason: cough) Qty: 89 0RF No Action Repatha SureClick 140 mg/mL pen injector 140 mg SQ Q2W Qty: 2 3RF Jardiance 10 mg tablet 10 mg PO DAILY Qty: 30 2RF colchicine 0.6 mg tablet 0.6 mg PO BIDP PRN (Reason: gout) Qty: 120 3RF sildenafil 100 mg tablet 100 mg PO DAILY PRN (Reason: erectile dysfunction) Qty: 30 2RF lidocaine [AsperFlex (lidocaine)] 4 % adhesive patch,medicated 1 patch topical DAILYP PRN (Reason: Pain) Rx Instructions: may leave on for up to 12 hrs polyethylene glycol 3350 [ClearLax] 17 gram/dose powder 17 g PO DAILY bisoprolol fumarate 10 mg tablet 10 mg PO BID omeprazole 40 mg capsule,delayed release(DR/EC) 40 mg PO DAILY fluticasone furoate-vilanterol [Breo Ellipta] 100-25 mcg/dose Blister With Device 1 inh INHALATION DAILY spironolactone 25 mg Tablet 25 mg PO DAILY 30 Days Qty: 30 0RF sacubitril-valsartan 49-51 mg tablet 1 tab PO BID Qty: 60 0RF furosemide [Lasix] 40 mg tablet 40 mg PO DAILY Qty: 30 0RF atorvastatin 80 mg tablet 80 mg PO AM Qty: 90 1RF aspirin 81 mg tablet,chewable 81 mg PO DAILY Qty: 90 1RF prasugrel HCl 10 mg tablet 10 mg PO DAILY 30 Days Qty: 90 3RF Referrals Follow up/Referrals: Isauro Saldana APRN [Primary Care Provider, Family Practice] - See instructions Clinical Impressions Clinical Impression: Cough, Viral infection Stand Alone Forms Stand Alone Forms: Work/School Release Instructions Patient Instructions: Cough, DI for Viral Syndrome Print Language Print Language: Hungarian Discharge ED Provider: Pierre Phelps Adult HPI <John Paul Olmos MD - Last Filed: 05/13/25 06:58> General Chief complaint: Cough Stated complaint: SOB; Cough Time Seen by Provider: 05/13/25 05:00 Mode of Arrival: Ambulatory Source of Information: Patient Description of Symptoms (Recalled from ER Triage Doc. by RN): Patient states he was discharged wednesday from [facility] refrence a heart attack where he recieved 2 stents. States he has had a productive cough for a week, states he has not had fever like symptoms. States he has also been short of breathe for a week, however it has not gotten better. Denies symptoms worsening, just states they are consistant. History of Present Illness HPI narrative: 59-year-old male with history of coronary artery disease status post recent stent placement, was discharged on Wednesday of last week, presents for shortness of breath. He reports he has been short of breath since he was discharged and has had a dry cough throughout. Reports the cough and the shortness of breath is just a little worse tonight and is getting better that is why he came in. Denies fever at home. Denies any chest pain. Denies any significant swelling. He has been taking his medications as prescribed. Related Data Home Medications ?Medication ?Instructions ?Recorded ?Confirmed bisoprolol fumarate 10 mg tablet 10 mg PO BID 05/06/25 05/09/25 fluticasone furoate 100 1 inh inhalation DAILY 05/06/25 05/09/25 mcg-vilanterol 25 mcg/dose inhalation powder (Breo Ellipta) lidocaine 4 % topical patch 1 patch topical DAILYP PRN Pain 05/06/25 05/09/25 (AsperFlex (lidocaine)) omeprazole 40 mg capsule,delayed 40 mg PO DAILY 05/06/25 05/09/25 release polyethylene glycol 3350 17 17 g PO DAILY 05/06/25 05/09/25 gram/dose oral powder (ClearLax) Previous Rx's ?Medication ?Instructions ?Recorded colchicine 0.6 mg tablet 0.6 mg PO BIDP PRN gout #120 tabs 04/18/24 sildenafil 100 mg tablet 100 mg PO DAILY PRN erectile 09/06/24 dysfunction #30 tabs evolocumab 140 mg/mL subcutaneous 140 mg SQ Q2W On statin #2 mL 01/17/25 pen injector (Conchis Bello) aspirin 81 mg chewable tablet 81 mg PO DAILY Circulation #90 tabs 05/07/25 atorvastatin 80 mg tablet 80 mg PO AM Cholesterol #90 tabs 05/07/25 furosemide 40 mg tablet (Lasix) 40 mg PO DAILY #30 tabs 05/07/25 prasugrel HCl 10 mg tablet 10 mg PO DAILY Blood Thinner 30 05/07/25 days #90 tabs sacubitril 49 mg-valsartan 51 mg 1 tab PO BID #60 tabs 05/07/25 tablet spironolactone 25 mg tablet 25 mg PO DAILY 30 days #30 tabs 05/07/25 empagliflozin 10 mg tablet 10 mg PO DAILY #30 tabs 05/09/25 (Jardiance) dextromethorphan polistirex 30 10 ml PO Q12H PRN cough #89 mL 05/13/25 mg/5 mL oral susp ext.release 12hr (Delsym 12 hour) Allergies Allergy/AdvReac Type Severity Reaction Status Date / Time venlafaxine (From Effexor) Allergy Intermediate Unknown Verified 05/09/25 10:38 allergy reaction isosorbide (From Imdur) Allergy Mild Unknown Verified 05/09/25 10:38 allergy reaction Penicillins Allergy Unknown Unknown Verified 05/09/25 10:38 allergy reaction ranolazine AdvReac RAPID Verified 05/09/25 10:38 [facility] <John Paul Olmos MD - Last Filed: 05/13/25 06:58> [facility] Disclaimer: The information contained in this section may have been updated after the patient was seen, as this information can be updated by other users. Medical History Heart attack CAD (coronary artery disease) Supa recently, December 2021, had myocardial infarction. He has had 10 stents placed. He is following with cardiology for this. Obesity (BMI 30-39.9) History of hyperlipidemia History of hypertension Encounter for screening for lung cancer Abnormal thyroid biopsy Nodule of parotid gland Multiple thyroid nodules Thyroid nodule Mass of parotid gland Colon cancer screening declined ADHD Viral illness Renal cancer Angina pectoris, unstable Generalized anxiety disorder See above please Major depression, recurrent I went about the possibility of bipolar disorder in this gentleman. He has a long history of marijuana use, has PTSD, and episodes of major depression. We will send him to [facility] or whoever she suggests for further evaluation. I have told him that when he takes the Wellbutrin if there are any issues he is to contact us immediately and stop the medication. Marijuana use Supa has tapered his marijuana use down to 1 joint per day. I have strongly encouraged him to quit this completely. Note that this is helping his emotional state and may be making things worse. Head pain I have no clear physiologic reason for Supa to have this burning pain in his head. I discussed with him that I thought this was a physical manifestation of his emotional state which is quite depressed. I have asked him to start taking his Wellbutrin. Apparently he has never taken this prescription. This should help him with both his anxiety and his depression as well as his headaches. I told him that if he has any side effects or issues he is to stop the medication. Additionally we will see him back in 1 week to make sure he is doing okay. We will refer him also to [facility] or her recommendation for someone to see him and help him with his emotional state Obesity Calcium pyrophosphate deposition disease (CPPD) Patient is on colchicine but not on allopurinol. We might switch medications down the road once we get his emotional state better controlled Foot pain, bilateral severe left plantar medial tubercle; mild right Plantar medial tubercle Plantar fascia syndrome Overweight Angina pectoris Atypical chest pain Dyspnea Back pain Cellulitis COPD with exacerbation Supa is not on any inhalers or any other medications for his COPD. I think it might be worthwhile to do pulmonary function tests again lets get his emotional state under control. Atypical chest pain BPH (benign prostatic hyperplasia) Anxiety NSTEMI (non-ST elevated myocardial infarction) Angina pectoris Non-ST elevation myocardial infarction (NSTEMI) Chest pain Diastolic dysfunction HLD (hyperlipidemia) Typical angina Abnormal cardiovascular stress test Dyspnea Abnormal cardiovascular stress test Angina, class IV Abnormal EKG Dyspnea Blurred vision Numbness in both hands Dizziness Hypertension Obstructive sleep apnea Supa has obstructive sleep apnea in his clinical listing. I did not discuss this with him today but will when he returns. Non-STEMI (non-ST elevated myocardial infarction) Chest pain due to coronary artery disease CRPS (complex regional pain syndrome type I) Insomnia Surgical History Stented coronary artery Hx of knee surgery H/O kidney removal Family History Other Coronary artery disease No significant family history Social History Smoking Status: Former smoker tobacco type: cigarettes packs per day: 1 second hand exposure: Yes alcohol intake: never substance use type: marijuana current occupational status: employed Travel in the last 8 weeks?: None household members: spouse housing: house number of children: 6 current occupational exposures/hazards: Yes caffeine: Yes Have you lived/traveled outside [place] in past 30 days?: No Contact w/someone who lives/traveled outside US past 30 days?: No Exposure to someone with infectious disease in past 14 days?: No Do you have a fever (greater than 100.4 F or 38 C)?: No Have you tested positive for COVID-19?: No Exposed to someone with COVID-19 in past 14 days?: No Do you have a sore throat?: No Do you have a cough?: Yes Do you have any weakness?: No Do you have any diarrhea?: No Are you experiencing any unusual bleeding?: No Do you have any muscle aches/pain?: No Do you have any abdominal pain?: No Are you experiencing loss of taste or smell?: No Other Medical History Have you received the Flu Vaccine for this season: No Have you received the Pneumonia Vaccine: No <John Paul Olmos MD - Last Filed: 05/13/25 06:58> ROS Obtained: Yes All systems reviewed & no additional complaints except as documented Physical Exam <John Paul Olmos MD - Last Filed: 05/13/25 06:58> General General appearance: alert and in no apparent distress Head Head exam: atraumatic and normocephalic Eye Eye exam: Present normal appearance, PERRL and EOMI ENT ENT exam: Present normal oropharynx and normal external ear exam Neck Neck exam: Present normal inspection and full ROM Chest Chest inspection: Present normal inspection and symmetric chest wall rise; Absent tenderness Respiratory Respiratory exam: Present normal lung sounds bilaterally; Absent respiratory distress Cardiovascular Cardiovascular exam: Present regular rate and normal rhythm Abdominal Exam Abdominal exam: Present soft; Absent distention, tenderness or guarding Extremities Exam Extremities exam: Present normal inspection; Absent edema or joint swelling Back Exam Back exam: Present normal inspection; Absent tenderness Neurological Exam Neurological exam: Present alert and oriented X3; Absent motor sensory deficit Psychiatric Psychiatric exam: Present normal affect and normal mood Skin Skin exam: Present warm, dry and normal color Lymphatic Lymphatic Findings: no adenopathy Medical Decision Making <John Paul Olmos MD - Last Filed: 05/13/25 06:58> Medical Records Medical records reviewed: Yes I reviewed the patient's medical records. Screening: Per USPSTF and CDC recommendations, given the prevalence of disease in our region, it is our hospital?s policy to screen for HIV and viral Hepatitis for all patients aged 18 and over and those with ongoing risk factors. Steve Inquiry Pt receiving controlled substance: No Steve was queried for this patient: No Vital Signs: 05/13/25 05:09 05/13/25 05:17 05/13/25 05:31 Temperature 98.9 F 98.9 F Temperature Source Oral Pulse Rate 71 67 Pulse Rate [Right] 71 Respiratory Rate 18 18 29 H Blood Pressure 119/78 122/50 L Blood Pressure [Right Arm] 119/78 Blood Pressure Mean Blood Pressure Mean [Right Arm] 91 02 Sat by Pulse Oximetry 98 97 96 Oxygen Delivery Method Room Air Room Air 05/13/25 06:00 05/13/25 06:31 05/13/25 07:01 Temperature Temperature Source Pulse Rate 63 62 66 Pulse Rate [Right] Respiratory Rate 21 24 18 Blood Pressure 129/81 133/84 147/81 H Blood Pressure [Right Arm] Blood Pressure Mean 102 Blood Pressure Mean [Right Arm] 02 Sat by Pulse Oximetry 97 97 96 Oxygen Delivery Method 05/13/25 07:09 05/13/25 07:31 05/13/25 08:00 Temperature Temperature Source Pulse Rate 75 60 61 Pulse Rate [Right] Respiratory Rate 15 18 26 H Blood Pressure 159/94 H 143/77 H 139/86 Blood Pressure [Right Arm] Blood Pressure Mean 106 Blood Pressure Mean [Right Arm] 02 Sat by Pulse Oximetry 95 97 97 Oxygen Delivery Method 05/13/25 08:15 05/13/25 08:30 05/13/25 08:47 Temperature Temperature Source Pulse Rate 63 66 Pulse Rate [Right] Respiratory Rate 24 20 Blood Pressure 153/93 H Blood Pressure [Right Arm] Blood Pressure Mean Blood Pressure Mean [Right Arm] 02 Sat by Pulse Oximetry 97 97 97 Oxygen Delivery Method Room Air Room Air 05/13/25 09:00 05/13/25 09:30 05/13/25 09:53 Temperature 98.0 F Temperature Source Pulse Rate 62 65 65 Pulse Rate [Right] Respiratory Rate 27 H 22 23 Blood Pressure 141/91 H 154/88 H 154/88 H Blood Pressure [Right Arm] Blood Pressure Mean Blood Pressure Mean [Right Arm] 02 Sat by Pulse Oximetry 98 96 Oxygen Delivery Method Room Air Lab Data Lab results reviewed: Yes I reviewed the patient's lab results. Lab Results 05/13/25 05:13: WBC 7.4, RBC 5.56, Hgb 15.4, Hct 45.6, MCV 82.0, MCH 27.7, MCHC 33.8, RDW 12.8, Plt Count 270, MPV 8.7, Neut % (Auto) 72.2, Lymph % (Auto) 18.3, Izard % (Auto) 6.7, Eos % (Auto) 1.8, Baso % (Auto) 0.7, Neut # (Auto) 5.3, Lymph # (Auto) 1.4, Izard # (Auto) 0.5, Eos # (Auto) 0.1, Baso # (Auto) 0.1, D-Dimer 0.58 H, Sodium 131 L, Potassium 4.6, Chloride 97 L, Carbon Dioxide 27, Anion Gap 11.6, BUN 12, Creatinine 1.00, Estimated Creat Clear 142, Estimated GFR 76, Est GFR ( Amer) 92, Glucose 137 H, Calcium 9.1, Total Bilirubin 1.4 H, AST 51, ALT 51, Alkaline Phosphatase 116, Troponin I 0.53 H, Total Protein 8.4 H, Albumin 4.7, Globulin 3.7 H, Albumin/Globulin Ratio 1.3 05/13/25 05:39: Chlamy pneumoniae PCR Not detected, Adenovirus (PCR) Not detected, B. pertussis DNA (PCR) Not detected, Coronavirus OC43 (PCR) Not detected, Coronavirus HKU1 (PCR) Not detected, Coronavirus 229E (PCR) Not detected, SARS-CoV-2 (PCR) Not detected, Coronavirus NL63 (PCR) Not detected, Human Metapneumovir PCR Not detected, Influenza A (H1) PCR Not detected, Influ A (H1N1/09) PCR Not detected, Influenza A (H3) PCR Not detected, Influenza Type A (PCR) Not detected, Influenza Type B (PCR) Not detected, M. pneumoniae (PCR) Not detected, Parainfluenza 1 (PCR) Not detected, Parainfluenza 2 (PCR) Not detected, Parainfluenza 3 (PCR) Not detected, Parainfluenza 4 (PCR) Not detected, RSV (PCR) Not detected, Entero/Rhino (PCR) Detected A 05/13/25 07:13: Troponin I 0.54 H 05/13/25 05:13 05/13/25 05:13 Orders (Tests/Meds): ORDERS Category Date Time Status CXR 2 view (NOT portable) [XR chest 2V] Stat Exams 05/13/25 05:13 Completed CBC w/Auto Diff [Complete Blood Count Auto Diff] Stat Lab 05/13/25 05:13 Completed CMP [Comprehensive Metabolic Panel] Stat Lab 05/13/25 05:13 Completed D-Dimer Stat Lab 05/13/25 05:13 Completed Full Resp Panel w/COVID ([facility]) Routine Lab 05/13/25 05:39 Completed Trop I [Troponin I] Stat Lab 05/13/25 05:13 Completed Troponin I Q3H Lab 05/13/25 07:13 Completed EKG Request [ECG Request] Stat Y 05/13/25 05:12 Ordered ECG Data Tracing #1: I reviewed this ECG and interpreted as documented below: Sinus rhythm, ventricular rate of 69, Q waves in the inferior leads, no obvious ST elevation. ECG initial impression date: 05/13/25 ECG initial impression time: 05:34 HEART Score History (anamnesis): Slightly suspicious ECG: Non-specific disturbance Age: 45-65 years Risk factors: Atherosclerosis history Troponin: > 3x normal limit HEART Score: 6 Medical Decision Narrative: 59-year-old male with history of CAD status post recent stents presents for 1 week of dry cough and shortness of breath. History was obtained via interactive discussion with patient, chart review. On arrival, patient is [afebrile, hemodynamically stable, satting appropriately, alert, oriented x4, GCS 15], moving all extremities spontaneously. Full physical exam performed and significant for clear lungs bilaterally, no lower extremity edema Differential includes but is not limited to URI, pneumonia, PE, ACS, heart failure,. Workup initiated including basic labs, EKG, two-view chest x-ray, viral swab. On re-evaluation, patient continues to sat appropriately on room air. Laboratory workup independently interpreted by me and significant for no significant leukocytosis, mild hyponatremia, negative D-dimer by years criteria. Initial troponin is markedly elevated, but this is back to given his recent intervention. Imaging independently interpreted by me and significant for clear lungs bilaterally without evidence of focal pneumonia.. See radiology read for full review of final results. Given patient history, exam and workup, patient's presentation most likely represents viral syndrome. We will repeat patient's troponin to confirm if it is not rising. Patient care handed off to oncoming physician pending repeat troponin.. <Pierre Phelps MD - Last Filed: 05/13/25 11:03> Vital Signs: 05/13/25 05:09 05/13/25 05:17 05/13/25 05:31 Temperature 98.9 F 98.9 F Temperature Source Oral Pulse Rate 71 67 Pulse Rate [Right] 71 Respiratory Rate 18 18 29 H Blood Pressure 119/78 122/50 L Blood Pressure [Right Arm] 119/78 Blood Pressure Mean Blood Pressure Mean [Right Arm] 91 02 Sat by Pulse Oximetry 98 97 96 Oxygen Delivery Method Room Air Room Air 05/13/25 06:00 05/13/25 06:31 05/13/25 07:01 Temperature Temperature Source Pulse Rate 63 62 66 Pulse Rate [Right] Respiratory Rate 21 24 18 Blood Pressure 129/81 133/84 147/81 H Blood Pressure [Right Arm] Blood Pressure Mean 102 Blood Pressure Mean [Right Arm] 02 Sat by Pulse Oximetry 97 97 96 Oxygen Delivery Method 05/13/25 07:09 05/13/25 07:31 05/13/25 08:00 Temperature Temperature Source Pulse Rate 75 60 61 Pulse Rate [Right] Respiratory Rate 15 18 26 H Blood Pressure 159/94 H 143/77 H 139/86 Blood Pressure [Right Arm] Blood Pressure Mean 106 Blood Pressure Mean [Right Arm] 02 Sat by Pulse Oximetry 95 97 97 Oxygen Delivery Method 05/13/25 08:15 05/13/25 08:30 05/13/25 08:47 Temperature Temperature Source Pulse Rate 63 66 Pulse Rate [Right] Respiratory Rate 24 20 Blood Pressure 153/93 H Blood Pressure [Right Arm] Blood Pressure Mean Blood Pressure Mean [Right Arm] 02 Sat by Pulse Oximetry 97 97 97 Oxygen Delivery Method Room Air Room Air 05/13/25 09:00 05/13/25 09:30 05/13/25 09:53 Temperature 98.0 F Temperature Source Pulse Rate 62 65 65 Pulse Rate [Right] Respiratory Rate 27 H 22 23 Blood Pressure 141/91 H 154/88 H 154/88 H Blood Pressure [Right Arm] Blood Pressure Mean Blood Pressure Mean [Right Arm] 02 Sat by Pulse Oximetry 98 96 Oxygen Delivery Method Room Air Lab Data Lab Results 05/13/25 05:13: WBC 7.4, RBC 5.56, Hgb 15.4, Hct 45.6, MCV 82.0, MCH 27.7, MCHC 33.8, RDW 12.8, Plt Count 270, MPV 8.7, Neut % (Auto) 72.2, Lymph % (Auto) 18.3, Izard % (Auto) 6.7, Eos % (Auto) 1.8, Baso % (Auto) 0.7, Neut # (Auto) 5.3, Lymph # (Auto) 1.4, Izard # (Auto) 0.5, Eos # (Auto) 0.1, Baso # (Auto) 0.1, D-Dimer 0.58 H, Sodium 131 L, Potassium 4.6, Chloride 97 L, Carbon Dioxide 27, Anion Gap 11.6, BUN 12, Creatinine 1.00, Estimated Creat Clear 142, Estimated GFR 76, Est GFR ( Amer) 92, Glucose 137 H, Calcium 9.1, Total Bilirubin 1.4 H, AST 51, ALT 51, Alkaline Phosphatase 116, Troponin I 0.53 H, Total Protein 8.4 H, Albumin 4.7, Globulin 3.7 H, Albumin/Globulin Ratio 1.3 05/13/25 05:39: Chlamy pneumoniae PCR Not detected, Adenovirus (PCR) Not detected, B. pertussis DNA (PCR) Not detected, Coronavirus OC43 (PCR) Not detected, Coronavirus HKU1 (PCR) Not detected, Coronavirus 229E (PCR) Not detected, SARS-CoV-2 (PCR) Not detected, Coronavirus NL63 (PCR) Not detected, Human Metapneumovir PCR Not detected, Influenza A (H1) PCR Not detected, Influ A (H1N1/09) PCR Not detected, Influenza A (H3) PCR Not detected, Influenza Type A (PCR) Not detected, Influenza Type B (PCR) Not detected, M. pneumoniae (PCR) Not detected, Parainfluenza 1 (PCR) Not detected, Parainfluenza 2 (PCR) Not detected, Parainfluenza 3 (PCR) Not detected, Parainfluenza 4 (PCR) Not detected, RSV (PCR) Not detected, Entero/Rhino (PCR) Detected A 05/13/25 07:13: Troponin I 0.54 H Orders (Tests/Meds): ORDERS Category Date Time Status CXR 2 view (NOT portable) [XR chest 2V] Stat Exams 05/13/25 05:13 Completed CBC w/Auto Diff [Complete Blood Count Auto Diff] Stat Lab 05/13/25 05:13 Completed CMP [Comprehensive Metabolic Panel] Stat Lab 05/13/25 05:13 Completed D-Dimer Stat Lab 05/13/25 05:13 Completed Full Resp Panel w/COVID ([facility]) Routine Lab 05/13/25 05:39 Completed Trop I [Troponin I] Stat Lab 05/13/25 05:13 Completed Troponin I Q3H Lab 05/13/25 07:13 Completed EKG Request [ECG Request] Stat Y 05/13/25 05:12 Ordered HEART Score HEART Score: 6 Medical Decision Narrative: 59-year-old male with history of CAD status post recent stents presents for 1 week of dry cough and shortness of breath. History was obtained via interactive discussion with patient, chart review. On arrival, patient is [afebrile, hemodynamically stable, satting appropriately, alert, oriented x4, GCS 15], moving all extremities spontaneously. Full physical exam performed and significant for clear lungs bilaterally, no lower extremity edema Differential includes but is not limited to URI, pneumonia, PE, ACS, heart failure,. Workup initiated including basic labs, EKG, two-view chest x-ray, viral swab. On re-evaluation, patient continues to sat appropriately on room air. Laboratory workup independently interpreted by me and significant for no significant leukocytosis, mild hyponatremia, negative D-dimer by years criteria. Initial troponin is markedly elevated, but this is back to given his recent intervention. Imaging independently interpreted by me and significant for clear lungs bilaterally without evidence of focal pneumonia.. See radiology read for full review of final results. Given patient history, exam and workup, patient's presentation most likely represents viral syndrome. We will repeat patient's troponin to confirm if it is not rising. Patient care handed off to oncoming physician pending repeat troponin.. Taking over for Dr. Olmos: Year's criteria negative, opted to not CT PE, particularly given recent cta chest 05/05 that was negative and his use of blood thinners with viral symptoms and only mildly elevated dimer. Respiratory panel is positive today for rhino/enterovirus. troponin with delta less than 20% patient reassessed and remained hds discharged with supportive care for viral infection and strict return precautions. Procedures <John Paul Olmos MD - Last Filed: 05/13/25 06:58> Risk/Benefits of Procedure(s) Were Explained: Yes Critical Care <John Paul Olmos MD - Last Filed: 05/13/25 06:58> Critical Care Time Critical Care Time: No
[2025-05-13 05:40] LABS: Adenovirus,PCR Not Detected (NotDetected); Chlamydophila Pneumoniae, PCR Not Detected (NotDetected); Coronavirus 19, PCR Not Detected (NotDetected); Coronovirus HKU1,PCR Not Detected (NotDetected); Influenza A, PCR Not Detected (NotDetected); Influenza AH1, 2009 Not Detected (NotDetected); Influenza AH1, PCR Not Detected (NotDetected); Influenza AH3,PCR Not Detected (NotDetected); Influenza B, PCR Not Detected (NotDetected); Mycoplasma Pneumoniae, PCR Not Detected (NotDetected); Parainfluenza 1, PCR Not Detected (NotDetected); Parainfluenza 2, PCR Not Detected (NotDetected); Parainfluenza 3, PCR Not Detected (NotDetected); Parainfluenza 4, PCR Not Detected (NotDetected)
[2025-05-13 05:49] LABS: Troponin I 0.53 ng/ml (0.00-0.034)
--- NOTE | 2025-05-13 05:50 | PC.NURSE ---
critical Troponin taken by Giovanni Robison RN
[2025-05-13 08:25] LABS: Troponin I 0.54 ng/ml (0.00-0.034)
== END 2025-05-13 09:54 | disposition home or self-care (01) ==
PROVIDERS: Emergency Medicine; Emergency Provider Student in an Organized Health Care Education/Training Program; PCP Nurse Practitioner Family
DX: R06.02 Shortness of breath (principal); E87.1 Hypo-osmolality and hyponatremia; R79.89 Other specified abnormal findings of blood chemistry; B34.8 Other viral infections of unspecified site; R05.9 Cough, unspecified; Z86.79 Personal history of other diseases of the circulatory system; Z95.5 Presence of coronary angioplasty implant and graft
CPT/HCPCS: 0223U; 71046; 80053; 84484; 85025; 85378; 93005; 99284; 99285